=== PATIENT | female | born 1955 | race Caucasian/White ===

== ENCOUNTER 2017-02-22 12:45 | Emergency (ER) | payer MEDICARE, OTHER ==
[2017-02-22] MEDS ORDERED: RX INFO: IV CONTRAST WAS GIVEN 1 EACH MISC MISCELLANE PRN (12:51)
[2017-02-22 13:07] LABS: Basophils # (A) 0.1 k/uL (0-0.2); Basophils % (A) 1 %; CH 33.9; CHCM 34.4; Eosinophils # (A) 0.1 k/uL (0-0.7); Eosinophils % (A) 1 %; HCT 42.6 % (34.0-46.0); HDW 2.85; Luc # (Auto) 0.13; Luc % (Auto) 2; Lymphocytes # (A) 1.9 k/uL (1.0-4.8); Lymphocytes % (A) 27 %; MCH 32.6 pg (25.0-35.0); Mean Platelet Volume 9.1; Monocytes # (A) 0.3 k/uL (0-1.0); Monocytes % (A) 4 %; Neutrophils # (A) 4.5 k/uL (1.3-7.7); Neutrophils % (A) 65 %; RDW 14.1 % (11.5-15.5); WBC (Perox) 6.86
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
[2017-02-22 13:14] LABS: ALT 45 U/L (9-52); AST 38 U/L (14-36); Alcohol <10 mg/dL; Alkaline Phosphatase 85 U/L (38-126); Amylase 35 U/L (30-110); Anion Gap 12 mmol/L; Blood Urea Nitrogen 11 mg/dL (7-17); Carbon Dioxide 28 mmol/L (22-30); Chloride 104 mmol/L (98-107); Glucose 108 mg/dL (74-99); Non-African American GFR(MDRD) >60 (>60 ml/min/1.73 sqM); Sodium 144 mmol/L (137-145); Total Bilirubin 0.7 mg/dL (0.2-1.3)
[2017-02-22 13:23] LABS: INR 1.2 (<1.2); Partial Thromboplastin Time 26.1 sec (22.0-30.0); Prothrombin Time 11.8 sec (9.0-12.0)
[2017-02-22 13:27] LABS: Creatine Kinase 33 U/L (30-135)
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
[2017-02-22] MEDS ORDERED: DIPH,PERTUS(ACELL)TETVAC-LF 0.5 ML VIAL IM ONE (13:34)
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
[2017-02-22 13:39] LABS: Creatine Kinase MB 1.1 ng/mL (0.0-2.4); Troponin I <0.012 ng/mL (0.000-0.034)
[2017-02-22 14:22] LABS: Appearance,Urine Clear (Clear); Bilirubin,Urine Negative (Negative); Glucose,Urine (UA) Negative (Negative); Ketones,Urine Negative (Negative); Leukocyte Esterase,Urine Negative (Negative); Nitrite,Urine Negative (Negative); PH, Urine 7.5 (5.0-8.0); Protein,Urine Negative (Negative); Specific Gravity,Urine 1.026 (1.001-1.035); UA Billing (MACRO vs. MICRO) CHEM; Urobilinogen,Urine <2.0 mg/dL (<2.0)
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
[2017-02-22] MEDS ORDERED: LORazepam 2 MG/ML SYRINGE IV STA (16:14)
[2017-02-22] MEDS ORDERED: PHENYTOIN SODIUM INJ 1,000 MG in SODIUM CHLORIDE 0.9% 100 ML IVPB STA (16:16)
[2017-02-22 16:23] LABS: Glucose,Whole Blood 81 mg/dL (75-99)
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
== END 2017-02-22 17:28 | disposition other institution (70) ==
LOC: EC 12:45
DX: S06.0X9A Concussion with loss of consciousness of unspecified duration, initial encounter (principal); S01.511A Laceration without foreign body of lip, initial encounter; S00.532A Contusion of oral cavity, initial encounter; S20.20XA Contusion of thorax, unspecified, initial encounter; R56.9 Unspecified convulsions; R40.2412 Glasgow coma scale score 13-15, at arrival to emergency department; R10.13 Epigastric pain; F32.9 Major depressive disorder, single episode, unspecified; I11.0 Hypertensive heart disease with heart failure; I50.9 Heart failure, unspecified; Z23 Encounter for immunization; Z96.611 Presence of right artificial shoulder joint; Z88.1 Allergy status to other antibiotic agents; Z88.2 Allergy status to sulfonamides; Z88.5 Allergy status to narcotic agent; Z79.891 Long term (current) use of opiate analgesic; Z79.899 Other long term (current) drug therapy; Z87.891 Personal history of nicotine dependence; V57.5XXA Driver of pick-up truck or van injured in collision with fixed or stationary object in traffic accident, initial encounter; W22.11XA Striking against or struck by driver side automobile airbag, initial encounter; Y92.410 Unspecified street and highway as the place of occurrence of the external cause
CPT/HCPCS: 99291; 96365; 96366; 96375; 90471; 36415; 93005; 86900; 86901; 80053; 82150; 82550; 82553; 83605; 83690; 84484; 85025; 85610; 85730; 86850; 81003; 80306; 80320; 71010; 72170; 72125; 70450; 71260; 74177; 90715; J2060; J1165; Q9967

== ENCOUNTER → 2017-03-23 | Outpatient (CLI) | payer OTHER ==
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
== END | disposition home or self-care (01) ==
LOC: RADMRIMAIN 09:04
PROVIDERS: ATTEND Surgery
DX: S06.899A Other specified intracranial injury with loss of consciousness of unspecified duration, initial encounter (principal); R90.82 White matter disease, unspecified
CPT/HCPCS: 70553; A9581

== ENCOUNTER 2018-08-07 11:41 | Inpatient (IN) | payer MEDICARE, OTHER ==
[2018-08-07] MEDS ORDERED: SODIUM CHLORIDE 0.9% 500 ML 500 ML IV ONE (12:06)
--- NOTE | 2018-08-07 12:14 | ED ---
General Adult HPI - General Chief complaint: Altered Mental Status Stated complaint: seizures Time Seen by Provider: 08/07/18 11:55 Source: patient, RN notes reviewed, old records reviewed Mode of arrival: ambulatory Limitations: no limitations - History of Present Illness Initial comments: 62-year-old female history of opiate dependence on methadone presenting with worsening confusion, altered mental status, and frequent falls as well as concern for multiple seizures. Patient has history of seizure disorder, currently on Keppra. No recent medication changes. She is accompanied by her sister who is able to give history. She states over the past 5 days patient has had frequent falls, concern for frequent seizures although none of these have been witnessed. Patient was significantly confused over the past 3 days. Not knowing her family members, person, place, year. Patient denies pain complaints. Laboratory to time states time my evaluation. - Related Data Home Medications Medication Instructions Recorded Confirmed Propranolol [Inderal] 20 mg PO DAILY 04/01/16 08/07/18 amLODIPine BESYLATE [Amlodipine 10 mg PO DAILY 04/01/16 08/07/18 Besylate] Methadone [Dolophine] 80 mg OP DAILY 02/22/17 08/07/18 Pregabalin [Lyrica] 50 mg PO BID 08/07/18 08/07/18 buPROPion HCL [Wellbutrin SR] 150 mg PO TID 08/07/18 08/07/18 levETIRAcetam [Keppra Xr] 750 mg PO DAILY 08/07/18 08/07/18 Allergies Allergy/AdvReac Type Severity Reaction Status Date / Time clindamycin Allergy Swelling Verified 08/07/18 12:08 Sulfa (Sulfonamide Allergy Nausea & Verified 08/07/18 12:08 Antibiotics) Vomiting narcotics AdvReac Unknown Uncoded 08/07/18 11:51 Review of Systems ROS Statement: Those systems with pertinent positive or pertinent negative responses have been documented in the HPI. ROS Other: All systems not noted in ROS Statement are negative. Past Medical History Past Medical History: Heart Failure, COPD, Hypertension, Liver Disease, Renal Disease, Seizure Disorder, Sleep Apnea/CPAP/BIPAP Additional Past Medical History / Comment(s): [place] bilaterally, weakness and falls, R knee pain from recent fall, hepatitis c, numbness/tingling bilateral feet and legs, chronic R shoulder pain, wears a brace to L forearm due to previous fracture with surgical repair from a fall, HELEN and is suppose to wear CPAP but does not, past cellulitis bilateral lower legs. History of Any Multi-Drug Resistant Organisms: None Reported Past Surgical History: Joint Replacement, Orthopedic Surgery Additional Past Surgical History / Comment(s): R shoulder arthroplasty due to fx from fall 2015, L forearm fracture with surgical repair including bone graft , colonoscopy. Additional Past Anesthesia/Blood Transfusion Reaction / Comment(s): Pt is slow to wake Past Psychological History: Depression Smoking Status: Former smoker Past Alcohol Use History: None Reported Past Drug Use History: None Reported - Past Family History Father Family Medical History: Diabetes Mellitus Additional Family Medical History / Comment(s): Father was murdered Mother Family Medical History: Chest Pain / Angina, COPD, Renal Disease Additional Family Medical History / Comment(s): Mother is 82 yrs old. General Exam Limitations: no limitations General appearance: alert, in no apparent distress Head exam: Present: atraumatic, normocephalic Eye exam: Present: normal appearance, PERRL, EOMI ENT exam: Present: mucous membranes dry Neck exam: Present: normal inspection. Absent: tenderness, meningismus Respiratory exam: Present: normal lung sounds bilaterally. Absent: respiratory distress, wheezes Cardiovascular Exam: Present: regular rate, normal rhythm GI/Abdominal exam: Present: soft. Absent: distended, tenderness, guarding Extremities exam: Present: normal inspection, full ROM, normal capillary refill Neurological exam: Present: alert, CN II-XII intact. Absent: oriented X3, motor sensory deficit Psychiatric exam: Present: normal affect, normal mood Skin exam: Present: warm, dry, intact. Absent: cyanosis, diaphoretic Course Vital Signs 08/07/18 08/07/18 11:48 14:10 Temperature 98.4 F Pulse Rate 71 70 Respiratory 18 18 Rate Blood Pressure 154/77 153/86 O2 Sat by Pulse 98 Oximetry EKG Findings - EKG Comments: EKG Findings:: EKG: Normal sinus rhythm, rate of 73, MD interval 190, QRS duration 88, QTC 445, no ST segment changes Medical Decision Making - Medical Decision Making 62-year-old female with worsening confusion, multiple falls, recurrent seizures with history of seizure disorder. Patient has normal CBC, normal CMP, normal urinalysis, head CT shows chronic atrophy with no acute findings. Patient has a nonfocal neurologic exam. This is likely progression of her disease. Did discuss case with Dr. Robins who is familiar with this patient, will admit for further evaluation and treatment. - Lab Data Result diagrams: 08/07/18 12:20 08/07/18 12:20 Lab Results 08/07/18 08/07/18 08/07/18 Range/Units 12:20 12:20 12:20 WBC 6.5 (3.8-10.6) k/uL RBC 4.39 (3.80-5.40) m/uL Hgb 13.7 (11.4-16.0) gm/dL Hct 41.8 (34.0-46.0) % MCV 95.1 (80.0-100.0) fL MCH 31.1 (25.0-35.0) pg MCHC 32.7 (31.0-37.0) g/dL RDW 13.4 (11.5-15.5) % Plt Count 165 (150-450) k/uL Neutrophils % 72 % Lymphocytes % 19 % Monocytes % 5 % Eosinophils % 2 % Basophils % 0 % Neutrophils # 4.7 (1.3-7.7) k/uL Lymphocytes # 1.3 (1.0-4.8) k/uL Monocytes # 0.3 (0-1.0) k/uL Eosinophils # 0.1 (0-0.7) k/uL Basophils # 0.0 (0-0.2) k/uL PT (9.0-12.0) sec INR (<1.2) APTT (22.0-30.0) sec Sodium 141 (137-145) mmol/L Potassium 5.3 H (3.5-5.1) mmol/L Chloride 104 (98-107) mmol/L Carbon Dioxide 29 (22-30) mmol/L Anion Gap 8 mmol/L BUN 18 H (7-17) mg/dL Creatinine 0.51 L (0.52-1.04) mg/dL Est GFR (CKD-EPI)AfAm >90 (>60 ml/min/1.73 sqM) Est GFR (CKD-EPI)NonAf >90 (>60 ml/min/1.73 sqM) Glucose 107 H (74-99) mg/dL POC Glucose (mg/dL) (75-99) mg/dL POC Glu Computer Repair Instructor ID Calcium 9.5 (8.4-10.2) mg/dL Total Bilirubin 1.1 (0.2-1.3) mg/dL AST 70 H (14-36) U/L ALT 50 (9-52) U/L Alkaline Phosphatase 101 (38-126) U/L Ammonia (<30) umol/L Total Creatine Kinase 50 (30-135) U/L CK-MB (CK-2) 1.1 (0.0-2.4) ng/mL CK-MB (CK-2) Rel Index 2.2 Troponin I <0.012 (0.000-0.034) ng/mL Total Protein 7.6 (6.3-8.2) g/dL Albumin 4.2 (3.5-5.0) g/dL Urine Color Urine Appearance (Clear) Urine pH (5.0-8.0) Ur Specific Foster (1.001-1.035) Urine Protein (Negative) Urine Glucose (UA) (Negative) Urine Ketones (Negative) Urine Blood (Negative) Urine Nitrite (Negative) Urine Bilirubin (Negative) Urine Urobilinogen (<2.0) mg/dL Ur Leukocyte Esterase (Negative) 08/07/18 08/07/18 08/07/18 Range/Units 12:20 12:20 12:57 WBC (3.8-10.6) k/uL RBC (3.80-5.40) m/uL Hgb (11.4-16.0) gm/dL Hct (34.0-46.0) % MCV (80.0-100.0) fL MCH (25.0-35.0) pg MCHC (31.0-37.0) g/dL RDW (11.5-15.5) % Plt Count (150-450) k/uL Neutrophils % % Lymphocytes % % Monocytes % % Eosinophils % % Basophils % % Neutrophils # (1.3-7.7) k/uL Lymphocytes # (1.0-4.8) k/uL Monocytes # (0-1.0) k/uL Eosinophils # (0-0.7) k/uL Basophils # (0-0.2) k/uL PT 10.5 (9.0-12.0) sec INR 1.0 (<1.2) APTT 25.5 (22.0-30.0) sec Sodium (137-145) mmol/L Potassium (3.5-5.1) mmol/L Chloride (98-107) mmol/L Carbon Dioxide (22-30) mmol/L Anion Gap mmol/L BUN (7-17) mg/dL Creatinine (0.52-1.04) mg/dL Est GFR (CKD-EPI)AfAm (>60 ml/min/1.73 sqM) Est GFR (CKD-EPI)NonAf (>60 ml/min/1.73 sqM) Glucose (74-99) mg/dL POC Glucose (mg/dL) 96 (75-99) mg/dL POC Glu Computer [employer]air Instructor ID Krishna Wren Calcium (8.4-10.2) mg/dL Total Bilirubin (0.2-1.3) mg/dL AST (14-36) U/L ALT (9-52) U/L Alkaline Phosphatase (38-126) U/L Ammonia <9 (<30) umol/L Total Creatine Kinase (30-135) U/L CK-MB (CK-2) (0.0-2.4) ng/mL CK-MB (CK-2) Rel Index Troponin I (0.000-0.034) ng/mL Total Protein (6.3-8.2) g/dL Albumin (3.5-5.0) g/dL Urine Color Urine Appearance (Clear) Urine pH (5.0-8.0) Ur Specific [place] (1.001-1.035) Urine Protein (Negative) Urine Glucose (UA) (Negative) Urine Ketones (Negative) Urine Blood (Negative) Urine Nitrite (Negative) Urine Bilirubin (Negative) Urine Urobilinogen (<2.0) mg/dL Ur Leukocyte Esterase (Negative) 08/07/18 Range/Units 13:58 WBC (3.8-10.6) k/uL RBC (3.80-5.40) m/uL Hgb (11.4-16.0) gm/dL Hct (34.0-46.0) % MCV (80.0-100.0) fL MCH (25.0-35.0) pg MCHC (31.0-37.0) g/dL RDW (11.5-15.5) % Plt Count (150-450) k/uL Neutrophils % % Lymphocytes % % Monocytes % % Eosinophils % % Basophils % % Neutrophils # (1.3-7.7) k/uL Lymphocytes # (1.0-4.8) k/uL Monocytes # (0-1.0) k/uL Eosinophils # (0-0.7) k/uL Basophils # (0-0.2) k/uL PT (9.0-12.0) sec INR (<1.2) APTT (22.0-30.0) sec Sodium (137-145) mmol/L Potassium (3.5-5.1) mmol/L Chloride (98-107) mmol/L Carbon Dioxide (22-30) mmol/L Anion Gap mmol/L BUN (7-17) mg/dL Creatinine (0.52-1.04) mg/dL Est GFR (CKD-EPI)AfAm (>60 ml/min/1.73 sqM) Est GFR (CKD-EPI)NonAf (>60 ml/min/1.73 sqM) Glucose (74-99) mg/dL POC Glucose (mg/dL) (75-99) mg/dL POC Glu Computer Repair Instructor ID Calcium (8.4-10.2) mg/dL Total Bilirubin (0.2-1.3) mg/dL AST (14-36) U/L ALT (9-52) U/L Alkaline Phosphatase (38-126) U/L Ammonia (<30) umol/L Total Creatine Kinase (30-135) U/L CK-MB (CK-2) (0.0-2.4) ng/mL CK-MB (CK-2) Rel Index Troponin I (0.000-0.034) ng/mL Total Protein (6.3-8.2) g/dL Albumin (3.5-5.0) g/dL Urine Color Yellow Urine Appearance Clear (Clear) Urine pH 7.0 (5.0-8.0) Ur Specific [place] 1.015 (1.001-1.035) Urine Protein Negative (Negative) Urine Glucose (UA) Negative (Negative) Urine Ketones Negative (Negative) Urine Blood Negative (Negative) Urine Nitrite Negative (Negative) Urine Bilirubin Negative (Negative) Urine Urobilinogen <2.0 (<2.0) mg/dL Ur Leukocyte Esterase Negative (Negative) Disposition Clinical Impression: Altered mental status Disposition: ADMITTED IP TO THIS HOSP Condition: Stable Is patient prescribed a controlled substance at d/c from ED?: No Referrals: Clarke Robins MD [Primary Care Provider] - 1-2 days Decision to Admit Reason: Admit from EC Decision Date: 08/07/18 Decision Time: 14:28
[2018-08-07 12:59] LABS: Glucose,Whole Blood 96 mg/dL (75-99)
[2018-08-07 13:16] LABS: Basophils % (A) 0 %; Eosinophils # (A) 0.1 k/uL (0-0.7); Eosinophils % (A) 2 %; HCT 41.8 % (34.0-46.0); HGB 13.7 gm/dL (11.4-16.0); Lymphocytes # (A) 1.3 k/uL (1.0-4.8); Lymphocytes % (A) 19 %; MCH 31.1 pg (25.0-35.0); MCHC 32.7 g/dL (31.0-37.0); MCV 95.1 fL (80.0-100.0); Mean Platelet Volume 7.8; Monocytes # (A) 0.3 k/uL (0-1.0); Monocytes % (A) 5 %; Neutrophils # (A) 4.7 k/uL (1.3-7.7); Neutrophils % (A) 72 %; Platelet Count 165 k/uL (150-450); RBC 4.39 m/uL (3.80-5.40); RDW 13.4 % (11.5-15.5); WBC 6.5 k/uL (3.8-10.6)
[2018-08-07 13:27] LABS: Partial Thromboplastin Time 25.5 sec (22.0-30.0); Prothrombin Time 10.5 sec (9.0-12.0)
--- NOTE | 2018-08-07 13:28 | CT ---
EXAMINATION TYPE: CT brain wo con DATE OF EXAM: 08/07/2018 COMPARISON: None HISTORY: Seizure CT DLP: 1050.[address] of the brain was performed. The ventricles, basal cisterns and sulci overlying the cerebral convexities demonstrate mild enlargem ent. There is no evidence for intracranial hemorrhage or sulcal effacement. There is decreased attenuation about the periventricular white matter and deep white matter of both c erebral hemispheres, compatible with chronic small vessel ischemia. Differential diagnosis does inclu de demyelination. No mass effects are seen.No midline shift. Osseous calvarium is intact. If symptoms persist consider MRI. IMPRESSION: 1. Age related atrophic and chronic small vessel ischemic change without acute intracranial process s een at this time.
--- NOTE | 2018-08-07 13:29 | XR ---
EXAMINATION TYPE: XR chest 2V DATE OF EXAM: 08/07/2018 COMPARISON: February 22, 2017 HISTORY: Shortness of breath TECHNIQUE: Frontal and lateral views of the chest are obtained. FINDINGS: Scattered senescent parenchymal changes noted. Hyperinflation compatible with COPD. No evidence for infiltrate. No evidence for atelectasis. Heart size is stable. Mediastinal structures are stable and grossly unremarkable. No evidence for hilar prominence. Degenerative changes dorsal spine. Right shoulder prosthesis IMPRESSION: 1. No evidence for acute pulmonary disease.
[2018-08-07 13:31] LABS: ALT 50 U/L (9-52); AST 70 U/L (14-36); Albumin 4.2 g/dL (3.5-5.0); Alkaline Phosphatase 101 U/L (38-126); Anion Gap 8 mmol/L; Blood Urea Nitrogen 18 mg/dL (7-17); Calcium 9.5 mg/dL (8.4-10.2); Carbon Dioxide 29 mmol/L (22-30); Chloride 104 mmol/L (98-107); Glucose 107 mg/dL (74-99); Sodium 141 mmol/L (137-145); Total Bilirubin 1.1 mg/dL (0.2-1.3); Total Protein 7.6 g/dL (6.3-8.2)
[2018-08-07 13:34] LABS: Potassium 5.3 mmol/L (3.5-5.1)
--- NOTE | 2018-08-07 13:48 | XR ---
EXAMINATION TYPE: XR pelvis AP view DATE OF EXAM: 08/07/2018 CLINICAL HISTORY: pain TECHNIQUE: Single view the pelvis is submitted. FINDINGS: No evidence for fracture, dislocation or bony lesion. Joint spaces are well-preserved. S I joints appear symmetric. IMPRESSION: 1. No acute fracture or dislocation seen. ICD 10 NO FRACTURE, INITIAL EVALUATION
[2018-08-07 14:01] LABS: Creatine Kinase 50 U/L (30-135)
[2018-08-07 14:14] LABS: Creatine Kinase MB 1.1 ng/mL (0.0-2.4); Troponin I <0.012 ng/mL (0.000-0.034)
[2018-08-07 14:19] LABS: Appearance,Urine Clear (Clear); Bilirubin,Urine Negative (Negative); Blood,Urine Negative (Negative); Color,Urine Yellow; Glucose,Urine (UA) Negative (Negative); Ketones,Urine Negative (Negative); Leukocyte Esterase,Urine Negative (Negative); Nitrite,Urine Negative (Negative); Protein,Urine Negative (Negative); Specific Gravity,Urine 1.015 (1.001-1.035); Urobilinogen,Urine <2.0 mg/dL (<2.0)
[2018-08-07] MEDS ORDERED: ACETAMINOPHEN TAB 325 MG TAB PO PRN (14:24)
[2018-08-07] MEDS ORDERED: NALOXONE 0.4 MG/ML 1 ML VIAL IV PRN (14:24)
[2018-08-07 14:28] LABS: Amphetamine Screen,Urine Not Detected (NotDetected); Barbiturate Screen,Urine Not Detected (NotDetected); Benzodiazepines Screen,Urine Not Detected (NotDetected); Cocaine Screen,Urine Not Detected (NotDetected); Methadone Screen, Urine Detected (NotDetected); Opiate Screen,Urine Not Detected (NotDetected); Oxycodone Screen, Urine Not Detected (NotDetected); Phencyclidine Screen,Urine Not Detected (NotDetected); Tricyclic Antidepressant,Urine Not Detected (NotDetected); Urn Cannabinoid Scrn Not Detected (NotDetected)
[2018-08-07] MEDS: SODIUM CHLORIDE 0.9% 1,000 ML IV SCH (16:15)
[2018-08-07] MEDS: PREGABALIN 50 MG CAP PO SCH (21:12)
[2018-08-07] MEDS: buPROPion SR 150 MG TABLET.ER PO SCH (21:12)
[2018-08-08] MEDS: amLODIPine 10 MG TAB PO SCH (08:51)
[2018-08-08] MEDS: PREGABALIN 50 MG CAP PO SCH ×2 (08:51→20:23)
[2018-08-08] MEDS: buPROPion SR 150 MG TABLET.ER PO SCH ×3 (08:51→20:23)
[2018-08-08] MEDS: levETIRAcetam 250 MG TAB PO SCH ×3 (08:51→20:23)
[2018-08-08] MEDS: METHADONE 10 MG TAB PO SCH (08:52)
[2018-08-08] MEDS: PROPRANOLOL 20 MG TAB PO SCH (08:55)
--- NOTE | 2018-08-08 09:12 | P.HPIM ---
History of Present Illness H&P Date: 08/08/18 Chief Complaint: Altered mental status This is a history and physical an 62-year-old white female with known history of opiate dependence on methadone chronically with history of hypertension which is stable. However, there were she's getting her medication recently and she has possibly on the withdrawal but even with her medication she has become more disoriented and the sister reports violent behavior. Her sister is an estate planning attorney [place] the [place] and has been continue very good job helping take care of her. She has been living fairly independently other than assistance from her sister but now is disoriented. Computed tomography scan of the head does not show acute changes. No significant fever or chills are stated. No dysuria. When queried, she is not oriented to time and place. Review of Systems Constitutional: Denies chills, Denies fever Eyes: denies blurred vision, denies pain Ears, nose, mouth and throat: Denies headache, Denies sore throat Cardiovascular: Denies chest pain, Denies shortness of breath Respiratory: Denies cough Gastrointestinal: Denies abdominal pain, Denies diarrhea, Denies nausea, Denies vomiting Genitourinary: Denies dysuria, Denies hematuria Past Medical History Past Medical History: Heart Failure, COPD, Hypertension, Liver Disease, Seizure Disorder, Sleep Apnea/CPAP/BIPAP Additional Past Medical History / Comment(s): [place] bilaterally, weakness and falls, R knee pain from recent fall, hepatitis c-pt believes she was tx for it in [place], numbness/tingling bilateral feet and legs, chronic R shoulder pain, wears a brace to L forearm due to previous fracture with surgical repair from a fall, [place] and is suppose to wear CPAP but does not, past cellulitis bilateral lower legs. pt stated has had a pne vaccine not sure of date,publicity writer unable to verify date at time of this admit,please f/u in am. History of Any Multi-Drug Resistant Organisms: None Reported Past Surgical History: Joint Replacement, Orthopedic Surgery Additional Past Surgical History / Comment(s): R shoulder arthroplasty due to fx from fall 2014, L forearm fracture with surgical repair including bone graft , colonoscopy. Additional Past Anesthesia/Blood Transfusion Reaction / Comment(s): Pt is slow to wake Smoking Status: Former smoker - Past Family History Father Family Medical History: Diabetes Mellitus Additional Family Medical History / Comment(s): Father was murdered Mother Family Medical History: Chest Pain / Angina, COPD, Renal Disease Additional Family Medical History / Comment(s): Mother is 82 yrs old. Medications and Allergies Home Medications Medication Instructions Recorded Confirmed Type Propranolol [Inderal] 20 mg PO DAILY 04/01/16 08/07/18 History amLODIPine BESYLATE [Amlodipine 10 mg PO DAILY 04/01/16 08/07/18 History Besylate] Methadone [Dolophine] 80 mg OP DAILY 02/22/17 08/07/18 History Pregabalin [Lyrica] 50 mg PO BID 08/07/18 08/07/18 History buPROPion HCL [Wellbutrin SR] 150 mg PO TID 08/07/18 08/07/18 History levETIRAcetam [Keppra Xr] 750 mg PO DAILY 08/07/18 08/07/18 History Allergies Allergy/AdvReac Type Severity Reaction Status Date / Time clindamycin Allergy Swelling Verified 08/07/18 12:08 Sulfa (Sulfonamide Allergy Nausea & Verified 08/07/18 12:08 Antibiotics) Vomiting narcotics AdvReac Unknown Uncoded 08/07/18 11:51 Physical Exam Vitals: Vital Signs Temp Pulse Pulse Resp BP BP BP 08/08/18 06:00 98.1 F 66 20 175/80 08/08/18 00:32 166/76 08/07/18 23:20 97.1 F L 84 20 172/80 08/07/18 17:20 98.9 F 76 18 165/78 08/07/18 15:25 98.4 F 74 18 144/74 08/07/18 14:10 70 18 153/86 08/07/18 11:48 98.4 F 71 18 154/77 Pulse Ox 08/08/18 06:00 98 08/08/18 00:32 08/07/18 23:20 98 08/07/18 17:20 97 08/07/18 15:25 98 08/07/18 14:10 98 08/07/18 11:48 Intake and Output 08/07/18 08/08/18 08/08/18 22:59 06:59 14:59 Intake Total 200 100 Output Total 2 Balance 198 100 Intake: Oral 200 100 Output: Stool 2 Other: Voiding Method Toilet # Voids 3 - Constitutional General appearance: no acute distress - EENT Eyes: EOMI - Neck Neck: no lymphadenopathy - Cardiovascular Rhythm: regular Heart sounds: normal: S1, S2 Abnormal Heart Sounds: no S3 Gallop - Gastrointestinal General gastrointestinal: soft, no tenderness - Psychiatric Psychiatric: no A&O x's 3 Results CBC & Chem 7: 08/07/18 12:20 08/07/18 12:20 Labs: Abnormal Lab Results - Last 24 Hours (Table) 08/07/18 08/07/18 Range/Units 12:20 13:58 Potassium 5.3 H (3.5-5.1) mmol/L BUN 18 H (7-17) mg/dL Creatinine 0.51 L (0.52-1.04) mg/dL Glucose 107 H (74-99) mg/dL AST 70 H (14-36) U/L Urine Methadone Screen Detected H (NotDetected) Thrombosis Risk Factor Assmnt - Choose All That Apply Each Risk Factor Represents 2 Points: Age 61-74 years Thrombosis Risk Factor Assessment Total Risk Factor Score: 2 Thrombosis Risk Factor Assessment Level: Low Risk Assessment and Plan (1) Altered mental status Current Visit: Yes Status: Acute Code(s): R41.82 - ALTERED MENTAL STATUS, UNSPECIFIED SNOMED Code(s): 767188656 (2) Opiate dependence, continuous Current Visit: No Status: Acute Code(s): F11.20 - OPIOID DEPENDENCE, UNCOMPLICATED SNOMED Code(s): 125537992 (3) Weakness Current Visit: No Status: Acute Code(s): R53.1 - WEAKNESS SNOMED Code(s): 13065791 (4) Multiple falls Current Visit: No Status: Chronic Code(s): R29.6 - REPEATED FALLS SNOMED Code(s): 907914475 Plan: Discharge following placement issues. Check CBC and CMP in a.m. per Reconcile medications. Prognosis is guarded secondary to her mental state at this time. Neurologic consultation if possible. See orders otherwise. Time with Patient: Greater than 30
[2018-08-08] MEDS: SODIUM CHLORIDE 0.9% 1,000 ML IV SCH (12:45)
[2018-08-08] MEDS ORDERED: LORazepam 2 MG/ML INJ IV PRN (18:03)
[2018-08-08] MEDS: ZOLPIDEM 5 MG TAB PO PRN (20:23)
[2018-08-09] MEDS: PROPRANOLOL 20 MG TAB PO SCH (08:25)
[2018-08-09] MEDS: METHADONE 10 MG TAB PO SCH (08:25)
[2018-08-09] MEDS: levETIRAcetam 250 MG TAB PO SCH ×3 (08:25→20:16)
[2018-08-09] MEDS: amLODIPine 10 MG TAB PO SCH (08:25)
[2018-08-09] MEDS: buPROPion SR 150 MG TABLET.ER PO SCH ×3 (08:25→20:16)
[2018-08-09] MEDS: PREGABALIN 50 MG CAP PO SCH ×2 (08:26→20:16)
--- NOTE | 2018-08-09 08:46 | P.PN ---
Subjective Progress Note Date: 08/09/18 Principal diagnosis: Altered mental status which is improving. The patient is here essentially because of acute delirium. Question element of withdrawal from methadone. The patient has been on this product for quit some time. The patient is much improved this morning as far as her neuro check. No fever or chills stated. No nausea, vomiting or diarrhea is noted. Objective - Vital Signs Vital signs: Vital Signs Temp 97.8 F 08/09/18 06:27 Pulse 59 L 08/09/18 06:27 Resp 14 08/09/18 06:27 BP 158/80 08/09/18 06:27 Pulse Ox 98 08/08/18 23:00 Intake & Output 08/08/18 08/09/18 08/09/18 18:59 06:59 18:59 Output Total 600 600 Balance -600 -600 Output: Urine 600 600 Other: Voiding Method Toilet # Voids 2 1 - Constitutional General appearance: Present: average body habitus - EENT Eyes: Absent: abnormal pupil - Neck Neck: Present: lymphadenopathy - Respiratory Respiratory: bilateral: CTA - Cardiovascular Rhythm: regular Heart sounds: normal: S1, S2 Abnormal Heart Sounds: Absent: S3 Gallop - Gastrointestinal General gastrointestinal: Present: soft. Absent: tenderness - Neurologic Neurologic: Present: CNII-XII intact. Absent: focal deficits - Psychiatric Psychiatric: Present: appropriate affect - Labs CBC & Chem 7: 08/07/18 12:20 08/07/18 12:20 Assessment and Plan (1) Altered mental status Current Visit: Yes Status: Acute Code(s): R41.82 - ALTERED MENTAL STATUS, UNSPECIFIED SNOMED Code(s): 981068195 (2) Opiate dependence, continuous Current Visit: Yes Status: Acute Code(s): F11.20 - OPIOID DEPENDENCE, UNCOMPLICATED SNOMED Code(s): 148337677 (3) Weakness Current Visit: Yes Status: Acute Code(s): R53.1 - WEAKNESS SNOMED Code(s) : 90981903 (4) Multiple falls Current Visit: Yes Status: Chronic Code(s): R29.6 - REPEATED FALLS SNOMED Code(s): 230785584 Plan: Continue neurologic checks every shift for now. I'm hopeful that we don't need necessary transfer to [facility] if she improves mentally. Continue to follow, anticipate discharge in the a.m. Time with Patient: Less than 30
[2018-08-09 09:48] LABS: HCT 45.4 % (34.0-46.0); HGB 14.3 gm/dL (11.4-16.0); MCH 30.3 pg (25.0-35.0); MCHC 31.5 g/dL (31.0-37.0); MCV 96.4 fL (80.0-100.0); Mean Platelet Volume 8.3; Platelet Count 180 k/uL (150-450); RBC 4.71 m/uL (3.80-5.40); RDW 13.6 % (11.5-15.5); WBC 6.3 k/uL (3.8-10.6)
[2018-08-09 10:03] LABS: ALT 45 U/L (9-52); AST 52 U/L (14-36); Albumin 3.7 g/dL (3.5-5.0); Alkaline Phosphatase 99 U/L (38-126); Anion Gap 6 mmol/L; Blood Urea Nitrogen 14 mg/dL (7-17); Calcium 9.5 mg/dL (8.4-10.2); Carbon Dioxide 32 mmol/L (22-30); Chloride 105 mmol/L (98-107); Glucose 99 mg/dL (74-99); Potassium 4.4 mmol/L (3.5-5.1); Sodium 143 mmol/L (137-145); Total Bilirubin 0.7 mg/dL (0.2-1.3); Total Protein 6.6 g/dL (6.3-8.2)
[2018-08-09] MEDS: SODIUM CHLORIDE 0.9% 1,000 ML IV SCH (14:06)
[2018-08-09] MEDS: ZOLPIDEM 5 MG TAB PO PRN (20:16)
[2018-08-09 22:53] VITALS: RESP 18
[2018-08-10 05:58] VITALS: BP 135/70; PULSE 64; TEMP 97.8
[2018-08-10] MEDS: PROPRANOLOL 20 MG TAB PO SCH (07:41)
[2018-08-10] MEDS: METHADONE 10 MG TAB PO SCH (07:41)
[2018-08-10] MEDS: PREGABALIN 50 MG CAP PO SCH (07:41)
[2018-08-10] MEDS: buPROPion SR 150 MG TABLET.ER PO SCH (07:41)
[2018-08-10] MEDS: levETIRAcetam 250 MG TAB PO SCH (07:42)
--- NOTE | 2018-08-10 07:43 | P.DS ---
Providers Date of admission: 08/08/18 08:56 Attending physician: Clarke Robins Primary care physician: Clarke Robins - Discharge Diagnosis(es) (1) Altered mental status Current Visit: Yes Status: Acute (2) Opiate dependence, continuous Current Visit: Yes Status: Acute (3) Weakness Current Visit: Yes Status: Acute (4) Multiple falls Current Visit: Yes Status: Chronic Hospital Course: This discharge summary 62-year-old white female essentially admitted for altered mental status. She had episode of delirium and we had thought that this is most likely related to medication changes. She had difficulty getting her methadone. However, she started becoming more verbally abusive and sometimes violent to her sister, who has been her power of buying agent and caregiver. The patient was admitted for observation. Computed tomography scan did not show of the head significant issue. However, she did not resolve back to her normal baseline. Due to this, the family has requested neurologic transfer to tertiary care center for complete evaluation. The patient is somewhat agreeable and because of her risk of the fact that she does live alone , I suspect this is the better part of November good family decision. She'll be transferred to tertiary care center, most likely [facility] or [facility]. Patient Condition at Discharge: Fair Plan - Discharge Summary Discharge Rx Participant: No New Discharge Prescriptions: New Acetaminophen Tab [Tylenol] 650 mg PO Q6HR PRN tab PRN Reason: Mild Pain Or Fever > 100.5 Zolpidem [Ambien] 5 mg PO HS PRN tab PRN Reason: Agitation Or Acute Anxiety No Action amLODIPine BESYLATE [Amlodipine Besylate] 10 mg PO DAILY Propranolol [Inderal] 20 mg PO DAILY Methadone [Dolophine] 80 mg OP DAILY Pregabalin [Lyrica] 50 mg PO BID levETIRAcetam [Keppra Xr] 750 mg PO DAILY buPROPion HCL [Wellbutrin SR] 150 mg PO TID Discharge Medication List Propranolol [Inderal] 20 mg PO DAILY 04/01/16 [History] amLODIPine BESYLATE [Amlodipine Besylate] 10 mg PO DAILY 04/01/16 [History] Methadone [Dolophine] 80 mg OP DAILY 02/22/17 [History] Pregabalin [Lyrica] 50 mg PO BID 08/07/18 [History] buPROPion HCL [Wellbutrin SR] 150 mg PO TID 08/07/18 [History] levETIRAcetam [Keppra Xr] 750 mg PO DAILY 08/07/18 [History] Acetaminophen Tab [Tylenol] 650 mg PO Q6HR PRN tab 08/10/18 [Rx] Zolpidem [Ambien] 5 mg PO HS PRN tab 08/10/18 [Rx] Follow up Appointment(s)/Referral(s): Clarke Robins MD [Primary Care Provider] - 1-2 days
[2018-08-10] MEDS: amLODIPine 10 MG TAB PO SCH (07:46)
--- NOTE | 2018-08-10 09:37 | US ---
EXAMINATION TYPE: US carotid duplex BILAT DATE OF EXAM: 08/10/2018 COMPARISON: NONE CLINICAL HISTORY: altered mental status. Patient stated had episode of altered mental status lasting approximately less than 24 hours. EXAM MEASUREMENTS: RIGHT: Peak Systolic Velocity (PSV) cm/sec ----- Right CCA: 53.8 ----- Right ICA: 69.1 ----- Right ECA: 63.9 ICA/CCA ratio: 1.3 RIGHT: End Diastole cm/sec ----- Right CCA: 14.7 ----- Right ICA: 18.5 ----- Right ECA: 9.6 LEFT: Peak Systolic Velocity (PSV) cm/sec ----- Left CCA: 64.3 ----- Left ICA: 53.8 ----- Left ECA: 43.3 ICA/CCA ratio: 0.8 LEFT: End Diastole cm/sec ----- Left CCA: 14.5 ----- Left ICA: 11.0 ----- Left ECA: .0. VERTEBRALS (direction of flow): Right Vertebral: Antegrade Left Vertebral: Antegrade Rhythm: Normal Hyperechoic intimal wall changes are noted at bilateral carotid bifurcation, but PSV is wnl bilateral ly. Grayscale, color Doppler, spectral Doppler imaging performed of the carotid arteries. Waveform analys is does not show significant stenosis of the proximal internal carotid arteries. IMPRESSION: No hemodynamic significant stenosis of the proximal internal carotid arteries bilaterall y by Doppler criteria, an indirect measurement of carotid stenosis
== END 2018-08-10 11:35 | disposition short-term general hospital (02) | DRG 897 ==
LOC: EC 11:41 → 4MS4W 14:35 → OBSVTOIN 08-08 08:56
PROVIDERS: ADMIT Family Medicine; ATTEND Family Medicine
DX: F11.23 Opioid dependence with withdrawal (principal); G40.909 Epilepsy, unspecified, not intractable, without status epilepticus; G47.33 Obstructive sleep apnea (adult) (pediatric); Z99.89 Dependence on other enabling machines and devices; I11.0 Hypertensive heart disease with heart failure; I50.9 Heart failure, unspecified; J44.9 Chronic obstructive pulmonary disease, unspecified; R29.6 Repeated falls; Z79.899 Other long term (current) drug therapy; Z82.5 Family history of asthma and other chronic lower respiratory diseases; Z83.3 Family history of diabetes mellitus; Z87.891 Personal history of nicotine dependence; Z96.611 Presence of right artificial shoulder joint; Z88.1 Allergy status to other antibiotic agents; Z88.2 Allergy status to sulfonamides; R40.2142 Coma scale, eyes open, spontaneous, at arrival to emergency department; R40.2362 Coma scale, best motor response, obeys commands, at arrival to emergency department; R40.2242 Coma scale, best verbal response, confused conversation, at arrival to emergency department
CPT/HCPCS: 36415; 70450; 71046; 72170; 80053; 80306; 81003; 82140; 82550; 82553; 84484; 85025; 85027; 85610; 85730; 93005; 93880; 96360; 96361; 99285

== ENCOUNTER → 2020-05-04 | Outpatient (CLI) | payer MEDICARE ==
[2020-05-04 10:33] LABS: African American GFR (CKD) >90 (>60 ml/min/1.73 sqM); Blood Urea Nitrogen 20 mg/dL (7-17); Non-African American GFR(CKD) >90 (>60 ml/min/1.73 sqM)
--- NOTE | 2020-05-05 13:22 | CT ---
EXAMINATION TYPE: CT ChestAbdPelvis w con DATE OF EXAM: 05/04/2020 COMPARISON: CT chest abdomen pelvis 02/22/2017. MRI brain 03/23/2017. HISTORY: brain mass CT DLP: 599.6 mGycm Automated exposure control for dose reduction was used. CONTRAST: CT scan of the chest, abdomen and pelvis is performed with Oral Contrast and with IV Contrast, patien t injected with 100 mL of Isovue 300. FINDINGS: LUNGS: The lungs are grossly clear, there is no concerning parenchymal mass or nodule identified. T here is no pleural effusion or pneumothorax seen. The tracheobronchial tree is patent. MEDIASTINUM/SOFT TISSUES: No axillary, hilar, or mediastinal lymphadenopathy greater than 1 cm. Cardi ac size is normal. No pericardial effusion. Calcified coronary artery disease. No thoracic aortic ane urysm. LIVER: Normal. BILIARY SYSTEM: Normal. PANCREAS: Normal. SPLEEN: Normal. ADRENALS: Normal. KIDNEYS: Nonobstructing bilateral renal calculi measuring up to 2 mm. No hydronephrosis or hydrourete r. Too small to characterize hypodense lesion of the right kidney. BOWEL: No obstruction or thickening. Moderate volume colonic fecal debris. PERITONEUM: No pneumoperitoneum. No free fluid. LYMPH NODES: No lymphadenopathy. PELVIS: Normal. VASCULATURE: No abdominal aortic aneurysm. MUSCULOSKELETAL: There are several redemonstrated compression deformities involving L2, L1, and T7. There is a compression deformity of T8 which was not seen on 2017 CT comparison. Superior endplate co mpression deformity of L4 was also not seen on 2017 comparison, and may be related to degenerative Sc hmorl's node. IMPRESSION: 1. No evidence of thoracic, abdominal, or pelvic mass. 2. Bilateral nonobstructing renal calculi. No hydronephrosis. 3. Multilevel compression deformities of the thoracic and lumbar spine, many of which are redemonstra jace, although mild compression deformities at T8 and L4 are age-indeterminate and not demonstrated on 2017 comparison.
== END | disposition home or self-care (01) ==
LOC: RADCTMAIN 09:34
PROVIDERS: ATTEND Internal Medicine Hematology & Oncology
DX: N20.0 Calculus of kidney (principal); D49.6 Neoplasm of unspecified behavior of brain; Z88.2 Allergy status to sulfonamides
CPT/HCPCS: 82565; 84520; 71260; 74177; 36415; Q9967

== ENCOUNTER 2020-07-08 13:30 | Emergency (ER) | payer MEDICARE ==
[2020-07-08 13:36] VITALS: RESP 16; TEMP 98.2
[2020-07-08] MEDS ORDERED: ONDANSETRON 4 MG/2 ML VIAL IVP STA (13:48)
[2020-07-08] MEDS ORDERED: MORPHINE SULFATE 4 MG/ML SYRINGE IVP STA (13:48)
--- NOTE | 2020-07-08 14:42 | XR ---
Right humerus HISTORY: Pain Frontal lateral views of the right humerus and 6 images Correlation to prior exam 04/01/2016 There is a transverse fracture distal to the stem along the proximal diaphysis of the right humerus. Small ossific densities are present lateral to the insertion site in the proximal humerus, some fragm entation is present with lucency present along the junction of the proximal humerus and the stem of t he prosthesis. There is no dislocation. Patient is status post right shoulder arthroplasty. There is cortical thickening present at the mid to distal diaphyseal right humerus, some endosteal scalloping is present along the revision of the humerus stem and cement. IMPRESSION: Fracture of the right humerus is minimally displaced. Question remodeling of the humerus and ostium, possible reaction to the underlying prosthesis or cement, particle disease.
[2020-07-08] MEDS ORDERED: HYDROmorphone 0.5 MG/0.5 ML SYRINGE IVP STA (15:39)
[2020-07-08 15:56] VITALS: BP 154/75; PULSE 76
--- NOTE | 2020-07-08 16:07 | ED ---
General Adult HPI - General Chief complaint: Fall Stated complaint: R SHOULDER PAIN Time Seen by Provider: 07/08/20 13:36 Source: patient, EMS, RN notes reviewed Mode of arrival: EMS Limitations: no limitations - History of Present Illness Initial comments: 64-year-old female with a past medical history of heart failure, COPD, hypertension, liver disease, previous right shoulder surgery presents to the emergency room for a chief complaint of right shoulder pain. Patient was getting out of bed when she slipped. She states that she cleaned her floors yesterday and was wearing fuzzy socks and this caused her to slip. She fell on the right shoulder. She reports she did not hit her head. She denies any neck chest or back pain. She states that she is only having pain in the right arm. Patient did have a prosthesis placed [address] Audie Rodrigues. Patient has no other complaints at this time including shortness of breath, chest pain, abdominal pain, nausea or vomiting, headache, or visual changes. - Related Data Home Medications Medication Instructions Recorded Confirmed Propranolol [Inderal] 20 mg PO DAILY 04/01/16 08/07/18 amLODIPine BESYLATE [Amlodipine 10 mg PO DAILY 04/01/16 08/07/18 Besylate] Methadone [Dolophine] 80 mg OP DAILY 02/22/17 08/07/18 Pregabalin [Lyrica] 50 mg PO BID 08/07/18 08/07/18 buPROPion HCL [Wellbutrin SR] 150 mg PO TID 08/07/18 08/07/18 levETIRAcetam [Keppra Xr] 750 mg PO DAILY 08/07/18 08/07/18 Previous Rx's Medication Instructions Recorded Acetaminophen Tab [Tylenol] 650 mg PO Q6HR PRN tab 08/10/18 Zolpidem [Ambien] 5 mg PO HS PRN tab 08/10/18 Allergies Allergy/AdvReac Type Severity Reaction Status Date / Time clindamycin Allergy Swelling Verified 08/07/18 12:08 Sulfa (Sulfonamide Allergy Nausea & Verified 08/07/18 12:08 Antibiotics) Vomiting Review of Systems ROS Statement: Those systems with pertinent positive or pertinent negative responses have been documented in the HPI. ROS Other: All systems not noted in ROS Statement are negative. Past Medical History Past Medical History: Heart Failure, COPD, Hypertension, Liver Disease, Seizure Disorder, Sleep Apnea/CPAP/BIPAP Additional Past Medical History / Comment(s): [place] bilaterally, weakness and falls, R knee pain from recent fall, hepatitis c-pt believes she was tx for it in [place], numbness/tingling bilateral feet and legs, chronic R shoulder pain, wears a brace to L forearm due to previous fracture with surgical repair from a fall, HELEN and is suppose to wear CPAP but does not, past cellulitis bilateral lower legs. pt stated has had a pne vaccine not sure of date,health technical writer unable to verify date at time of this admit,please f/u in am. History of Any Multi-Drug Resistant Organisms: None Reported Past Surgical History: Joint Replacement, Orthopedic Surgery Additional Past Surgical History / Comment(s): R shoulder arthroplasty due to fx from fall 2014, L forearm fracture with surgical repair including bone graft, colonoscopy. Additional Past Anesthesia/Blood Transfusion Reaction / Comment(s): Pt is slow to wake Past Psychological History: Depression Past Alcohol Use History: None Reported Past Drug Use History: None Reported - Past Family History Father Family Medical History: Diabetes Mellitus Additional Family Medical History / Comment(s): Father was murdered Mother Family Medical History: Chest Pain / Angina, COPD, Renal Disease Additional Family Medical History / Comment(s): Mother is 82 yrs old. General Exam Limitations: no limitations General appearance: alert, in no apparent distress Head exam: Present: atraumatic, normocephalic, normal inspection Eye exam: Present: normal appearance, PERRL, EOMI. Absent: scleral icterus, conjunctival injection, periorbital swelling ENT exam: Present: normal exam, mucous membranes moist Neck exam: Present: normal inspection, full ROM. Absent: tenderness, meningismus, lymphadenopathy Respiratory exam: Present: normal lung sounds bilaterally. Absent: respiratory distress, wheezes, rales, rhonchi, stridor Cardiovascular Exam: Present: regular rate, normal rhythm, normal heart sounds. Absent: systolic murmur, diastolic murmur, rubs, gallop, clicks GI/Abdominal exam: Present: soft, normal bowel sounds. Absent: distended, tenderness, guarding, rebound, rigid Extremities exam: Present: normal capillary refill (Capillary refill less than 2 seconds, radial pulses 2+ in the right upper extremity.), other (Patient does have tenderness noted to the proximal right humerus. There is also slight edema and ecchymosis in this area.). Absent: full ROM (Patient unable to move the right shoulder secondary to pain.) Course Vital Signs 07/08/20 07/08/20 13:32 15:56 Temperature 98.2 F Pulse Rate 70 76 Respiratory 16 16 Rate Blood Pressure 144/74 154/75 O2 Sat by Pulse 96 96 Oximetry Medical Decision Making - Medical Decision Making Vitals are stable. Patient slipped while getting out of bed secondary to a mechanical fall. She fell on the right shoulder and did not sustain any other injuries. On exam neurovascular status is intact right upper extremity. She does have edema and ecchymosis of the right upper arm with tenderness noted to the proximal humerus. X-ray does show a transverse fracture distal to this thumb along the proximal diaphysis of the right humerus. Question remodeling of the humerus and ostium, possible reaction to the underlying prosthesis or cement, particle disease. At this time I discussed the case with Dani Salazar PA-C who belongs to our on-call orthopedic group [facility]. They are recommending higher level of care and transfer to trauma team. Several trauma delays including calling [facility], on hold with [facility] transfer team, and transfer [facility] delay - Lab Data Lab Results 07/08/20 Range/Units 15:36 Coronavirus (PCR) Not Detected (Not Detectd) Disposition Clinical Impression: Humerus fracture Disposition: OTHER INSTITUTION NOT DEFINED Condition: Fair Is patient prescribed a controlled substance at d/c from ED?: No Referrals: Clarke Robins MD [Primary Care Provider] - 1-2 days Time of Disposition: 16:06 - Out of Hospital Transfer - Req. Specs Out of Hospital Transfer - Requested Specifics: Other Emergency Center ([facility])
== END 2020-07-08 17:00 | disposition other institution (70) ==
LOC: EC 13:30
DX: S42.301A Unspecified fracture of shaft of humerus, right arm, initial encounter for closed fracture (principal); I11.0 Hypertensive heart disease with heart failure; I50.9 Heart failure, unspecified; J44.9 Chronic obstructive pulmonary disease, unspecified; G40.909 Epilepsy, unspecified, not intractable, without status epilepticus; G47.33 Obstructive sleep apnea (adult) (pediatric); F32.9 Major depressive disorder, single episode, unspecified; Z20.828 Contact with and (suspected) exposure to other viral communicable diseases; Z79.899 Other long term (current) drug therapy; Z88.1 Allergy status to other antibiotic agents; Z88.2 Allergy status to sulfonamides; Z96.611 Presence of right artificial shoulder joint; Z99.89 Dependence on other enabling machines and devices; W01.0XXA Fall on same level from slipping, tripping and stumbling without subsequent striking against object, initial encounter; Y92.003 Bedroom of unspecified non-institutional (private) residence as the place of occurrence of the external cause
CPT/HCPCS: 87635; 73060; 99284; 96374; 96375 ×2; J2270; J2405; J1170

== ENCOUNTER → 2020-10-28 | Outpatient (CLI) | payer MEDICARE ==
--- NOTE | 2020-10-29 06:46 | CT ---
EXAMINATION TYPE: CT brain wo con DATE OF EXAM: 10/28/2020 HISTORY: seizure activity, multiple falls CT DLP: 1136.10 mGycm. Automated Exposure Control for Dose Reduction was Utilized. TECHNIQUE: CT scan of the head is performed without contrast. COMPARISON: CT brain August 07, 2018. FINDINGS: There is no acute intracranial hemorrhage or midline shift identified. There is mild to m oderate diffuse ventricular and sulcal prominence consistent with diffuse age-related cerebral atroph y. There is mild to moderate low-attenuation in the periventricular white matter consistent with chr onic small vessel ischemic change. The globes are intact and the visualized sinuses are clear. Old nasal bone fracture is partially imaged. Soft tissue density consistent with cerumen in the bilatera l external auditory canals is present. Persistent anterior metopic suture. IMPRESSION: No acute intracranial hemorrhage or midline shift. There is mild to moderate diffuse ag e-related cerebral atrophy and chronic small vessel ischemic change redemonstrated. No significant c hange from prior study.
== END | disposition home or self-care (01) ==
LOC: RADCTMAIN 18:22
PROVIDERS: ATTEND Family Medicine
DX: I67.82 Cerebral ischemia (principal); G31.9 Degenerative disease of nervous system, unspecified; R29.6 Repeated falls
CPT/HCPCS: 70450

== ENCOUNTER 2020-11-09 15:08 | Emergency (ER) | payer MEDICARE ==
[2020-11-09] MEDS ORDERED: ACETAMINOPHEN TAB 325 MG TAB PO STA (16:38)
--- NOTE | 2020-11-09 16:40 | ED ---
Wound/Laceration HPI - General Source: patient, family, RN notes reviewed Mode of arrival: wheelchair Limitations: no limitations <Yo Reyes - Last Filed: 11/09/20 18:13> <Fani Bain - Last Filed: 11/10/20 12:47> - General Chief Complaint: Wound/Laceration Stated Complaint: Fall, head laceration Time Seen by Provider: 11/09/20 16:28 - History of Present Illness Initial Comments: Patient is a 65-year-old female that presents emergency department with a head laceration status post fall earlier today. Her daughter was with her and she noted that she falls quite often but today she hit her head on the tile floor split open it was bleeding pretty good. Patient denies any blood thinners or loss of consciousness. Patient was in a hard c-collar during the exam interview patient is that her pain is about what she usually experiences on a daily basis for chronic issues. She notes she hasn't taken any pain medication today. She was alert while sitting up in her chair during the exam interview. Head wound was covered and clean bandage was removed to inspect the laceration. She denied any chest pain shortness of breath nausea vomiting diarrhea constipation fever fatigue chills change in vision change in hearing. (Yo Reyes) - Related Data Home Medications Medication Instructions Recorded Confirmed Propranolol [Inderal] 20 mg PO DAILY 04/01/16 08/07/18 amLODIPine BESYLATE [Amlodipine 10 mg PO DAILY 04/01/16 08/07/18 Besylate] Methadone [Dolophine] 80 mg OP DAILY 02/22/17 08/07/18 Pregabalin [Lyrica] 50 mg PO BID 08/07/18 08/07/18 buPROPion HCL [Wellbutrin SR] 150 mg PO TID 08/07/18 08/07/18 levETIRAcetam [Keppra Xr] 750 mg PO DAILY 08/07/18 08/07/18 Previous Rx's Medication Instructions Recorded Acetaminophen Tab [Tylenol] 650 mg PO Q6HR PRN tab 08/10/18 Zolpidem [Ambien] 5 mg PO HS PRN tab 08/10/18 Allergies Allergy/AdvReac Type Severity Reaction Status Date / Time clindamycin Allergy Swelling Verified 11/09/20 15:31 Sulfa (Sulfonamide Allergy Nausea & Verified 11/09/20 15:31 Antibiotics) Vomiting Review of Systems ROS Other: All systems not noted in ROS Statement are negative. <Yo Reyes - Last Filed: 11/09/20 18:13> ROS Other: All systems not noted in ROS Statement are negative. <Fani Bain - Last Filed: 11/10/20 12:47> ROS Statement: Those systems with pertinent positive or pertinent negative responses have been documented in the HPI. Past Medical History Past Medical History: Heart Failure, COPD, Hypertension, Liver Disease, Seizure Disorder, Sleep Apnea/CPAP/BIPAP Additional Past Medical History / Comment(s): [place] bilaterally, weakness and falls, R knee pain from recent fall, hepatitis c-pt believes she was tx for it in [place], numbness/tingling bilateral feet and legs, chronic R shoulder pain, wears a brace to L forearm due to previous fracture with surgical repair from a fall, [place] and is suppose to wear CPAP but does not, past cellulitis bilateral lower legs. pt stated has had a pne vaccine not sure of date,newswriter unable to verify date at time of this admit,please f/u in am. History of Any Multi-Drug Resistant Organisms: None Reported Past Surgical History: Joint Replacement, Orthopedic Surgery Additional Past Surgical History / Comment(s): R shoulder arthroplasty due to fx from fall 2014, L forearm fracture with surgical repair including bone graft, colonoscopy. Additional Past Anesthesia/Blood Transfusion Reaction / Comment(s): Pt is slow to wake Past Psychological History: Depression Past Alcohol Use History: None Reported Past Drug Use History: None Reported - Past Family History Father Family Medical History: Diabetes Mellitus Additional Family Medical History / Comment(s): Father was murdered Mother Family Medical History: Chest Pain / Angina, COPD, Renal Disease Additional Family Medical History / Comment(s): Mother is 82 yrs old. <Yo Reyes - Last Filed: 11/09/20 18:13> General Exam Limitations: no limitations General appearance: alert, in no apparent distress Head exam: Present: normocephalic, normal inspection. Absent: atraumatic (Laceration to the posterior right side of the scalp covert in a clean dry dressing with dried blood matting there down.) Eye exam: Present: normal appearance, PERRL, EOMI. Absent: scleral icterus, conjunctival injection, periorbital swelling Neck exam: Present: normal inspection, other (C-collar in place) Respiratory exam: Present: normal lung sounds bilaterally. Absent: respiratory distress, wheezes, rales, rhonchi, stridor Cardiovascular Exam: Present: regular rate, normal rhythm, normal heart sounds. Absent: systolic murmur, diastolic murmur, rubs, gallop, clicks Extremities exam: Present: normal inspection (Bony prominence to the posterior aspect of the right shoulder), normal capillary refill. Absent: full ROM, tenderness, pedal edema, joint swelling, calf tenderness Neurological exam: Present: alert, oriented X3, CN II-XII intact Psychiatric exam: Present: normal affect, normal mood Skin exam: Present: warm, dry, intact, normal color. Absent: rash <Yo Reyes - Last Filed: 11/09/20 18:13> Course Vital Signs 11/09/20 11/09/20 15:26 18:32 Temperature 98.0 F 98 F Pulse Rate 61 66 Respiratory 16 18 Rate Blood Pressure 126/53 144/76 O2 Sat by Pulse 97 96 Oximetry Procedures - Laceration Laceration #1 Consent Obtained: verbal consent Site: scalp Size (cm): 4 Description: linear Depth: simple, single layer Pre-repair: irrigated extensively Type of Sutures: other (staple) Size of Sutures: other (staple) Number of Sutures: 4 Technique: other (Staple) Patient Tolerated Procedure: well, no complications <Yo Reyes - Last Filed: 11/09/20 18:13> Medical Decision Making - Radiology Data Radiology results: report reviewed, image reviewed <Yo Reyes - Last Filed: 11/09/20 18:13> <Fani Bain - Last Filed: 11/10/20 12:47> - Medical Decision Making 65-year-old female with head laceration status post fall on tile floor earlier today. CT of the brain and C-spine, x-ray of the right shoulder, [address] and x-ray both negative for any acute process fractures or dislocations. Case discussed with Dr. Bain, patient can discharge home with family. (Yo Reyes) I was available for consultation in the emergency department. The history and physical exam were done by the midlevel provider. I was consulted for this patients care. I reviewed the case with the midlevel provider and based on their presentation of the patient, I agree with the assessment, medical decision making and plan of care as documented. Chart was dictated using [employer] dictation software. Attempts were made to correct any dictation errors however some typographical errors may persist. Patient was seen during a national state of emergency due to the Covid-19 p andemic. (Fani Bain) - Radiology Data Right humerus x-ray: Chronic right humeral midshaft periprosthetic fracture and concerning for malunion. CT of the brain and C-spine: Right parietal scalp hematoma. No acute intracranial abnormality. Incidental 2.27-year-old left parietal lobe extra axial lesion. No acute fracture of the cervical spine. Moderate cervical spondylosis with minimal spondylosis listhesis. (Yo Reyes) Disposition Is patient prescribed a controlled substance at d/c from ED?: No Time of Disposition: 18:15 <Yo Reyes - Last Filed: 11/09/20 18:13> <Fani Bain - Last Filed: 11/10/20 12:47> Clinical Impression: Laceration, Fall Disposition: HOME SELF-CARE Condition: Stable Instructions (If sedation given, give patient instructions): Fall Prevention for Older Adults (ED) Additional Instructions: Please return to the Emergency Department if symptoms worsen or any other concerns. Can wash with warm water and gentle soap. Come back in 10 days for staple removal. Take [id number] pain medication for pain management. Follow-up with primary care in 2-4 days. Referrals: Clarke Robins MD [Primary Care Provider] - 1-2 days
--- NOTE | 2020-11-09 17:16 | XR ---
RESULT: HISTORY: Shoulder pain TECHNIQUE: 3 views of the right humerus were obtained. COMPARISON: 07/08/2020. FINDINGS: There is a chronic periprosthetic fracture of the right humeral midshaft involving the tip of the pro sthesis. There is mild displacement of the fractured, similar to the prior study. There is interval m oderate callus formation with osseous remodeling and persistent fracture line seen. Otherwise stable right shoulder arthroplasty. No evidence of dislocation or new fracture. IMPRESSION: Chronic right humeral mid shaft periprosthetic fracture and concerning for malunion.
--- NOTE | 2020-11-09 17:59 | CT ---
EXAMINATION TYPE: CT brain fannieine wo con DATE OF EXAM: 11/09/2020 COMPARISON: 10/28/2020 HISTORY: Fall with laceration to head CT DLP: 1370.5 mGycm Automated exposure control for dose reduction was used. TECHNIQUE: CT scan of the head and cervical spine are performed without contrast. FINDINGS: There is no acute intracranial hemorrhage, mass effect, or midline shift identified. Ther e is unchanged 1.6 x 1.5 x 2.2 cm extra-axial, dural based lesion overlying the left parietal convexi ty. The ventricles and sulci are within normal limits in size. There is mild white matter disease and parenchymal volume loss. There is mild right parietal scalp hematoma. The globes are intact and the visualized sinuses are clear. Cervical spine is visualized in its entirety from C1 through upper thoracic levels and demonstrates n o acute fracture. Prevertebral soft tissue appears within normal limits. There is moderate C5-C7 spo ndylosis. There is degenerative minimal anterolisthesis of C3 and C4 The C1-C2 articulation is unrema rkable. IMPRESSION: Right parietal scalp hematoma. No acute intracranial abnormality. Incidental 2.2 cm left parietal lobe extra-axial lesion. Considerations include meningioma. No acute fracture of the cervical spine. Moderate cervical spondylosis with minimal spondylolisthesis.
[2020-11-09 18:34] VITALS: BP 144/76; PULSE 66; RESP 18; TEMP 98
== END 2020-11-09 18:32 | disposition home or self-care (01) ==
LOC: EC 15:08
DX: S01.01XA Laceration without foreign body of scalp, initial encounter (principal); I11.0 Hypertensive heart disease with heart failure; I50.9 Heart failure, unspecified; J44.9 Chronic obstructive pulmonary disease, unspecified; F32.9 Major depressive disorder, single episode, unspecified; G40.909 Epilepsy, unspecified, not intractable, without status epilepticus; G47.33 Obstructive sleep apnea (adult) (pediatric); Z99.81 Dependence on supplemental oxygen; W22.8XXA Striking against or struck by other objects, initial encounter
CPT/HCPCS: 12002; 70450; 72125; 99284

== ENCOUNTER 2020-12-25 12:18 | Observation (INO) | payer MEDICARE ==
[2020-12-25 12:27] LABS: Glucose,Whole Blood 197 mg/dL (75-99)
[2020-12-25] MEDS ORDERED: SODIUM CHLORIDE 0.9% 1,000 ML IV ONE (12:28)
--- NOTE | 2020-12-25 12:33 | ED ---
General Adult HPI - General Chief complaint: Fall Stated complaint: Fall Time Seen by Provider: 12/25/20 12:22 Source: patient, EMS, RN notes reviewed Mode of arrival: EMS Limitations: altered mental status, physical limitation - History of Present Illness Initial comments: Patient is a pleasant [age]-year-old female presenting to the emergency Departm ent with fall and change in mental status. Family is not present however reportedly will be coming later today. Patient does admit to having a fall however believes it was a couple of days ago. Patient does admit to having somewhat of a headache. Patient does not feel confused however there is report of confusion. Patient also reportedly has some developmental delay. Patient does have reported history of seizures however has not had seizure since she started her current medication. No report of recent seizure. - Related Data Home Medications Medication Instructions Recorded Confirmed Propranolol [Inderal] 20 mg PO DAILY 04/01/16 12/25/20 amLODIPine BESYLATE [Amlodipine 10 mg PO DAILY 04/01/16 12/25/20 Besylate] Methadone [Dolophine] 20 mg OP Q6H 02/22/17 12/25/20 buPROPion HCL [Wellbutrin SR] 150 mg PO TID 08/07/18 12/25/20 Albuterol Sulfate [Proair 1 - 2 puff INHALATION RT-Q6H PRN 12/25/20 12/25/20 Respiclick] Ketorolac 0.5% Ophth Soln [Acular 1 drop RIGHT EYE QID 12/25/20 12/25/20 0.5%] LORazepam [Ativan] 0.5 mg PO BID PRN 12/25/20 12/25/20 Pregabalin [Lyrica] 75 mg PO BID PRN 12/25/20 12/25/20 Previous Rx's Medication Instructions Recorded Acetaminophen Tab [Tylenol] 650 mg PO Q6HR PRN tab 08/10/18 Allergies Allergy/AdvReac Type Severity Reaction Status Date / Time clindamycin Allergy Swelling Verified 12/25/20 14:13 Sulfa (Sulfonamide Allergy Nausea & Verified 12/25/20 14:13 Antibiotics) Vomiting Review of Systems ROS Statement: Those systems with pertinent positive or pertinent negative responses have been documented in the HPI. ROS Other: All systems not noted in ROS Statement are negative. Constitutional: Denies: fever Eyes: Denies: eye pain ENT: Denies: ear pain Respiratory: Denies: cough Cardiovascular: Denies: chest pain Endocrine: Denies: fatigue Gastrointestinal: Denies: abdominal pain Genitourinary: Denies: dysuria Musculoskeletal: Denies: back pain Skin: Denies: rash Neurological: Reports: as per HPI, headache, confusion Past Medical History Past Medical History: Heart Failure, COPD, Hypertension, Liver Disease, Seizure Disorder, Sleep Apnea/CPAP/BIPAP Additional Past Medical History / Comment(s): [place] bilaterally, weakness and falls, R knee pain from recent fall, hepatitis c-pt believes she was tx for it in [place], numbness/tingling bilateral feet and legs, chronic R shoulder pain, wears a brace to L forearm due to previous fracture with surgical repair from a fall, HELEN and is suppose to wear CPAP but does not, past cellulitis bilateral lower legs. pt stated has had a pne vaccine not sure of date,grant writer unable to verify date at time of this admit,please f/u in am. History of Any Multi-Drug Resistant Organisms: None Reported Past Surgical History: Joint Replacement, Orthopedic Surgery Additional Past Surgical History / Comment(s): R shoulder arthroplasty due to fx from fall 2014, L forearm fracture with surgical repair including bone graft, colonoscopy. Additional Past Anesthesia/Blood Transfusion Reaction / Comment(s): Pt is slow to wake Past Psychological History: Depression Past Alcohol Use History: None Reported Past Drug Use History: None Reported - Past Family History Father Family Medical History: Diabetes Mellitus Additional Family Medical History / Comment(s): Father was murdered Mother Family Medical History: Chest Pain / Angina, COPD, Renal Disease Additional Family Medical History / Comment(s): Mother is 82 yrs old. General Exam Limitations: altered mental status, physical limitation General appearance: alert, in no apparent distress Head exam: Present: normocephalic Eye exam: Present: normal appearance, PERRL, EOMI. Absent: nystagmus ENT exam: Present: other (Right zygomatic region with tenderness and ecchymosis) Neck exam: Present: normal inspection, tenderness (Mild diffuse tenderness) Respiratory exam: Present: normal lung sounds bilaterally Cardiovascular Exam: Present: regular rate, normal rhythm GI/Abdominal exam: Present: soft. Absent: tenderness Extremities exam: Present: normal inspection, full ROM. Absent: tenderness Back exam: Present: normal inspection. Absent: tenderness, vertebral tenderness Neurological exam: Present: alert, oriented X3, CN II-XII intact. Absent: motor sensory deficit Expanded Motor strength exam: RUE: 5, LUE: 5, RLE: 5, LLE: 5 Eye Response: (4) open spontaneously Motor Response: (6) obeys commands Verbal Response: (5) oriented Psychiatric exam: Present: normal affect, normal mood Skin exam: Present: other (Right facial ecchymosis) Course Vital Signs 12/25/20 12/25/20 12/25/20 12:21 12:49 14:11 Temperature 98.7 F Pulse Rate 69 65 59 L Respiratory 18 18 16 Rate Blood Pressure 112/55 114/47 108/56 O2 Sat by Pulse 95 97 Oximetry EKG Findings - EKG Comments: EKG Findings:: Normal sinus rhythm with a rate of 66. For screening AV block with a WA of 202. QRS 88. QT 420. QTc 440.left axis. Normal QRS. No acute ST change. Medical Decision Making - Medical Decision Making Patient reevaluated. Family still not present. Case discussed with Dr. Monge, covering for Dr. Robins, who will admit. - Lab Data Result diagrams: 12/25/20 12:33 12/25/20 12:33 Lab Results 12/25/20 12/25/20 12/25/20 Range/Units 12:25 12:33 12:33 WBC 4.8 (3.8-10.6) k/uL RBC 4.04 (3.80-5.40) m/uL Hgb 12.4 (11.4-16.0) gm/dL Hct 38.3 (34.0-46.0) % MCV 94.8 (80.0-100.0) fL MCH 30.8 (25.0-35.0) pg MCHC 32.5 (31.0-37.0) g/dL RDW 13.9 (11.5-15.5) % Plt Count 135 L (150-450) k/uL MPV 9.5 Neutrophils % 62 % Lymphocytes % 27 % Monocytes % 5 % Eosinophils % 3 % Basophils % 0 % Neutrophils # 3.0 (1.3-7.7) k/uL Lymphocytes # 1.3 (1.0-4.8) k/uL Monocytes # 0.2 (0-1.0) k/uL Eosinophils # 0.1 (0-0.7) k/uL Basophils # 0.0 (0-0.2) k/uL PT 11.3 (9.0-12.0) sec INR 1.1 (<1.2) APTT 25.7 (22.0-30.0) sec Sodium (137-145) mmol/L Potassium (3.5-5.1) mmol/L Chloride (98-107) mmol/L Carbon Dioxide (22-30) mmol/L Anion Gap mmol/L BUN (7-17) mg/dL Creatinine (0.52-1.04) mg/dL Est GFR (CKD-EPI)AfAm (>60 ml/min/1.73 sqM) Est GFR (CKD-EPI)NonAf (>60 ml/min/1.73 sqM) Glucose (74-99) mg/dL POC Glucose (mg/dL) 197 H (75-99) mg/dL POC Glu Cream Beater ID [place] Calcium (8.4-10.2) mg/dL Total Bilirubin (0.2-1.3) mg/dL AST (14-36) U/L ALT (4-34) U/L Alkaline Phosphatase (38-126) U/L Ammonia (<30) umol/L Creatine Kinase (30-135) U/L Troponin I (0.000-0.034) ng/mL Total Protein (6.3-8.2) g/dL Albumin (3.5-5.0) g/dL Urine Color Urine Appearance (Clear) Urine pH (5.0-8.0) Ur Specific [place] (1.001-1.035) Urine Protein (Negative) Urine Glucose (UA) (Negative) Urine Ketones (Negative) Urine Blood (Negative) Urine Nitrite (Negative) Urine Bilirubin (Negative) Urine Urobilinogen (<2.0) mg/dL Ur Leukocyte Esterase (Negative) Urine Opiates Screen (NotDetected) Ur Oxycodone Screen (NotDetected) Urine Methadone Screen (NotDetected) Ur Propoxyphene Screen (NotDetected) Ur Barbiturates Screen (NotDetected) U Tricyclic Antidepress (NotDetected) Ur Phencyclidine Scrn (NotDetected) Ur Amphetamines Screen (NotDetected) U Methamphetamines Scrn (NotDetected) U Benzodiazepines Scrn (NotDetected) Urine Cocaine Screen (NotDetected) U Marijuana (THC) Screen (NotDetected) Serum Alcohol mg/dL 12/25/20 12/25/20 12/25/20 Range/Units 12:33 12:33 12:33 WBC (3.8-10.6) k/uL RBC (3.80-5.40) m/uL Hgb (11.4-16.0) gm/dL Hct (34.0-46.0) % MCV (80.0-100.0) fL MCH (25.0-35.0) pg MCHC (31.0-37.0) g/dL RDW (11.5-15.5) % Plt Count (150-450) k/uL MPV Neutrophils % % Lymphocytes % % Monocytes % % Eosinophils % % Basophils % % Neutrophils # (1.3-7.7) k/uL Lymphocytes # (1.0-4.8) k/uL Monocytes # (0-1.0) k/uL Eosinophils # (0-0.7) k/uL Basophils # (0-0.2) k/uL PT (9.0-12.0) sec INR (<1.2) APTT (22.0-30.0) sec Sodium 145 (137-145) mmol/L Potassium 3.8 (3.5-5.1) mmol/L Chloride 109 H (98-107) mmol/L Carbon Dioxide 30 (22-30) mmol/L Anion Gap 6 mmol/L BUN 16 (7-17) mg/dL Creatinine 0.57 (0.52-1.04) mg/dL Est GFR (CKD-EPI)AfAm >90 (>60 ml/min/1.73 sqM) Est GFR (CKD-EPI)NonAf >90 (>60 ml/min/1.73 sqM) Glucose 193 H (74-99) mg/dL POC Glucose (mg/dL) (75-99) mg/dL POC Glu Cream Beater ID Calcium 8.9 (8.4-10.2) mg/dL Total Bilirubin 0.6 (0.2-1.3) mg/dL AST 62 H (14-36) U/L ALT 32 (4-34) U/L Alkaline Phosphatase 111 (38-126) U/L Ammonia <9 (<30) umol/L Creatine Kinase 112 (30-135) U/L Troponin I (0.000-0.034) ng/mL Total Protein 5.6 L (6.3-8.2) g/dL Albumin 3.2 L (3.5-5.0) g/dL Urine Color Yellow Urine Appearance Clear (Clear) Urine pH 5.5 (5.0-8.0) Ur Specific [place] 1.024 (1.001-1.035) Urine Protein Negative (Negative) Urine Glucose (UA) Negative (Negative) Urine Ketones Negative (Negative) Urine Blood Negative (Negative) Urine Nitrite Negative (Negative) Urine Bilirubin Negative (Negative) Urine Urobilinogen 2.0 (<2.0) mg/dL Ur Leukocyte Esterase Negative (Negative) Urine Opiates Screen Not Detected (NotDetected) Ur Oxycodone Screen Not Detected (NotDetected) Urine Methadone Screen Detected H (NotDetected) Ur Propoxyphene Screen Not Detected (NotDetected) Ur Barbiturates Screen Not Detected (NotDetected) U Tricyclic Antidepress Not Detected (NotDetected) Ur Phencyclidine Scrn Not Detected (NotDetected) Ur Amphetamines Screen Not Detected (NotDetected) U Methamphetamines Scrn Not Detected (NotDetected) U Benzodiazepines Scrn Detected H (NotDetected) Urine Cocaine Screen Not Detected (NotDetected) U Marijuana (THC) Screen Not Detected (NotDetected) Serum Alcohol <10 mg/dL 12/25/20 Range/Units 12:33 WBC (3.8-10.6) k/uL RBC (3.80-5.40) m/uL Hgb (11.4-16.0) gm/dL Hct (34.0-46.0) % MCV (80.0-100.0) fL MCH (25.0-35.0) pg MCHC (31.0-37.0) g/dL RDW (11.5-15.5) % Plt Count (150-450) k/uL MPV Neutrophils % % Lymphocytes % % Monocytes % % Eosinophils % % Basophils % % Neutrophils # (1.3-7.7) k/uL Lymphocytes # (1.0-4.8) k/uL Monocytes # (0-1.0) k/uL Eosinophils # (0-0.7) k/uL Basophils # (0-0.2) k/uL PT (9.0-12.0) sec INR (<1.2) APTT (22.0-30.0) sec Sodium (137-145) mmol/L Potassium (3.5-5.1) mmol/L Chloride (98-107) mmol/L Carbon Dioxide (22-30) mmol/L Anion Gap mmol/L BUN (7-17) mg/dL Creatinine (0.52-1.04) mg/dL Est GFR (CKD-EPI)AfAm (>60 ml/min/1.73 sqM) Est GFR (CKD-EPI)NonAf (>60 ml/min/1.73 sqM) Glucose (74-99) mg/dL POC Glucose (mg/dL) (75-99) mg/dL POC Glu Cream Beater ID Calcium (8.4-10.2) mg/dL Total Bilirubin (0.2-1.3) mg/dL AST (14-36) U/L ALT (4-34) U/L Alkaline Phosphatase (38-126) U/L Ammonia (<30) umol/L Creatine Kinase (30-135) U/L Troponin I <0.012 (0.000-0.034) ng/mL Total Protein (6.3-8.2) g/dL Albumin (3.5-5.0) g/dL Urine Color Urine Appearance (Clear) Urine pH (5.0-8.0) Ur Specific [place] (1.001-1.035) Urine Protein (Negative) Urine Glucose (UA) (Negative) Urine Ketones (Negative) Urine Blood (Negative) Urine Nitrite (Negative) Urine Bilirubin (Negative) Urine Urobilinogen (<2.0) mg/dL Ur Leukocyte Esterase (Negative) Urine Opiates Screen (NotDetected) Ur Oxycodone Screen (NotDetected) Urine Methadone Screen (NotDetected) Ur Propoxyphene Screen (NotDetected) Ur Barbiturates Screen (NotDetected) U Tricyclic Antidepress (NotDetected) Ur Phencyclidine Scrn (NotDetected) Ur Amphetamines Screen (NotDetected) U Methamphetamines Scrn (NotDetected) U Benzodiazepines Scrn (NotDetected) Urine Cocaine Screen (NotDetected) U Marijuana (THC) Screen (NotDetected) Serum Alcohol mg/dL - Radiology Data Radiology results: report reviewed (CT facial bones shows questionable nasal fracture, possibly old. Computed tomography scan of the brain shows no posttraumatic intracranial changes. Suspected meningioma. Questionable nasal fracture. Computed tomography scan of cervical spine shows degenerative changes. No traumatic changes.), image reviewed (Chest x-ray does show some concern for interstitial pneumonitis. Right basilar atelectasis versus infiltrate.) Disposition Clinical Impression: Fall, Altered mental status Disposition: ADMITTED IP TO THIS HOSP Is patient prescribed a controlled substance at d/c from ED?: No Referrals: Clarke Robins MD [Primary Care Provider] - 1-2 days Decision Time: 15:08
[2020-12-25 12:56] LABS: Basophils % (A) 0 %; Eosinophils # (A) 0.1 k/uL (0-0.7); Eosinophils % (A) 3 %; HCT 38.3 % (34.0-46.0); HGB 12.4 gm/dL (11.4-16.0); Lymphocytes # (A) 1.3 k/uL (1.0-4.8); Lymphocytes % (A) 27 %; MCH 30.8 pg (25.0-35.0); MCHC 32.5 g/dL (31.0-37.0); MCV 94.8 fL (80.0-100.0); Mean Platelet Volume 9.5; Monocytes # (A) 0.2 k/uL (0-1.0); Monocytes % (A) 5 %; Neutrophils % (A) 62 %; Platelet Count 135 k/uL (150-450); RBC 4.04 m/uL (3.80-5.40); RDW 13.9 % (11.5-15.5); WBC 4.8 k/uL (3.8-10.6)
[2020-12-25 12:58] LABS: ALT 32 U/L (4-34); AST 62 U/L (14-36); African American GFR (CKD) >90 (>60 ml/min/1.73 sqM); Albumin 3.2 g/dL (3.5-5.0); Alcohol <10 mg/dL; Alkaline Phosphatase 111 U/L (38-126); Anion Gap 6 mmol/L; Blood Urea Nitrogen 16 mg/dL (7-17); Calcium 8.9 mg/dL (8.4-10.2); Carbon Dioxide 30 mmol/L (22-30); Chloride 109 mmol/L (98-107); Creatine Kinase 112 U/L (30-135); Glucose 193 mg/dL (74-99); Non-African American GFR(CKD) >90 (>60 ml/min/1.73 sqM); Potassium 3.8 mmol/L (3.5-5.1); Sodium 145 mmol/L (137-145); Total Bilirubin 0.6 mg/dL (0.2-1.3); Total Protein 5.6 g/dL (6.3-8.2)
[2020-12-25 13:03] LABS: INR 1.1 (<1.2)
[2020-12-25 13:04] LABS: Partial Thromboplastin Time 25.7 sec (22.0-30.0); Prothrombin Time 11.3 sec (9.0-12.0)
[2020-12-25 13:11] LABS: Appearance,Urine Clear (Clear); Bilirubin,Urine Negative (Negative); Blood,Urine Negative (Negative); Color,Urine Yellow; Glucose,Urine (UA) Negative (Negative); Ketones,Urine Negative (Negative); Leukocyte Esterase,Urine Negative (Negative); Nitrite,Urine Negative (Negative); PH, Urine 5.5 (5.0-8.0); Protein,Urine Negative (Negative); Specific Gravity,Urine 1.024 (1.001-1.035)
--- NOTE | 2020-12-25 13:20 | XR ---
EXAMINATION TYPE: XR chest 2V DATE OF EXAM: 12/25/2020 COMPARISON: 08/07/2018 TECHNIQUE: PA and lateral views submitted. HISTORY: Altered mental status FINDINGS: Limited inspiration. Subsegmental consolidation right lung base a diffuse interstitial pattern. Post surgical change right shoulder. No sizable pleural effusion or pneumothorax. Degenerative changes of the spine with chronic appearing compression deformities. Underlying COPD not excluded. Chronic defor mity of the right humerus. IMPRESSION: 1. Correlate for interstitial pneumonitis, chronic lung disease or mild venous congestion. 2. Right basilar atelectasis versus infiltrate.
[2020-12-25 13:23] LABS: Amphetamine Screen,Urine Not Detected (NotDetected); Barbiturate Screen,Urine Not Detected (NotDetected); Benzodiazepines Screen,Urine Detected (NotDetected); Cocaine Screen,Urine Not Detected (NotDetected); Methadone Screen, Urine Detected (NotDetected); Opiate Screen,Urine Not Detected (NotDetected); Oxycodone Screen, Urine Not Detected (NotDetected); Phencyclidine Screen,Urine Not Detected (NotDetected); Tricyclic Antidepressant,Urine Not Detected (NotDetected); Urn Cannabinoid Scrn Not Detected (NotDetected)
--- NOTE | 2020-12-25 13:27 | CT ---
EXAMINATION TYPE: CT brain joseph wo con DATE OF EXAM: 12/25/2020 COMPARISON: 11/09/2020 HISTORY: Fall with right sided facial bruising CT DLP: 1399 mGycm, Automated exposure control for dose reduction was used. CONTRAST: Patient injected with 0 mL of Isovue 300. CT of the brain is performed utilizing 3 mm thick sections through the posterior fossa and 3 mm thick sections through the remaining calvarium. Study is performed within 24 hours of arrival to the hospital. No abnormal hyperdensity is present to suggest an acute intracranial hemorrhage. A subtle 0.9 x 2.1 cm soft tissue density extending from the falx and along the left calvarial vertex is present which contains a couple of punctate calcifications. A meningioma may be present. No mass effect on the adjacent brain is evident. No acute infarcts are evident. Ventricles and sulci are appropriate for the patient age. Paranasal sinuses and mastoid air cells within the [id number] are clear. There is a step-off of th e right nasal bone bridge suggesting underlying fracture. This may be old and appears partially visua lized 11/09/2020. Separation may be slightly greater currently. This could be projectional. IMPRESSIONS: 1. No acute posttraumatic intracranial changes. 2. Suspected meningioma along the superior anterior left vertex may be a small meningioma. 3. Possible fracture right nasal bone CT cervical spine. COMPARISON: None CT of the cervical spine is performed in the axial plane at 2 mm thick sections. Reconstructed image s in the coronal, and sagittal plane are reviewed on the computer. No acute fractures are evident. Vertebral body alignment is normal. Degenerative disc changes with loss of disc height are present C5-6 C6-7. Vertebral body heights are preserved. No spinal canal stenosis is evident. No neural foraminal stenosis is evident. IMPRESSIONS: 1. Degenerative disc changes C5-6 and C6-7. 2. No acute posttraumatic changes.
--- NOTE | 2020-12-25 13:35 | CT ---
EXAMINATION TYPE: CT facial bones wo con DATE OF EXAM: 12/25/2020 COMPARISON: CT brain same date HISTORY: Fall with right sided facial bruising CT DLP: 1399 mGycm Automated exposure control for dose reduction was used. Contrast: None Technique: Axial images 2 mm thick sections. Reconstructed images in the coronal plane FINDINGS: There may be an old fracture of the right side nasal bones. Refracture should be considered as the or ientation is slightly more accentuated on the current exam prior. Correlate with location of patient' s pain. Old septal fracture may be present. Maxillary spine appears intact. There are some soft tissue increased densities and thickening along the inferior right cheek which ca n be related to patient's reported trauma no underlying fracture is evident. Zygomatic arches are normal. Maxillary dow appear intact. Orbital floors are intact. Medial dow o f the orbits appear normal. Temporomandibular junctions appear unremarkable. IMPRESSION: 1. POSSIBLE ACUTE ON PRIOR NASAL BONE FRACTURE. CORRELATE WITH LOCATION OF THE PATIENT'S PAIN. 2. NO ADDITIONAL AREAS SUSPICIOUS FOR ACUTE FRACTURE EVIDENT. 3. MILD SOFT TISSUE SWELLING RIGHT CHEEK REGION.
[2020-12-25] MEDS ORDERED: NALOXONE 0.4 MG/ML 1 ML VIAL IV PRN (15:08)
[2020-12-25] MEDS: SODIUM CHLORIDE 0.9% 1,000 ML IV SCH (15:55)
[2020-12-25] MEDS ORDERED: PREGABALIN 75 MG CAP PO PRN (19:44)
[2020-12-25] MEDS ORDERED: ACETAMINOPHEN TAB 325 MG TAB PO PRN (19:44)
[2020-12-25] MEDS ORDERED: ALBUTEROL NEBULIZED 2.5 MG/3 ML INHALATION PRN (19:44)
[2020-12-25] MEDS: KETOROLAC 0.5% OPHTH DROPS 5 ML BTL RIGHT EYE SCH (21:19)
[2020-12-25] MEDS ORDERED: IPRATROPIUM-ALBUTEROL 3 ML NEB INHALATION PRN (21:57)
[2020-12-25] MEDS ORDERED: buPROPion SR 150 MG TABLET.ER PO SCH (22:00)
--- NOTE | 2020-12-25 23:45 | HP ---
HISTORY AND PHYSICAL DATE OF SERVICE: 12/25/2020 I am covering for Dr. Robins. CHIEF COMPLAINT: Fall and change in mental status. HISTORY OF PRESENT ILLNESS: This 65-year-old woman with a past medical history of multiple medical problems including CHF, COPD, hypertension, liver disease, seizure disorder, sleep apnea, history of DJD, depression, being followed Dr. Robins in the outpatient is complaining of multiple falls. The patient also had a contusion after a fall. The patient presented with some change in mental status. Patient was found to be confused. The patient apparently dozing off even at the doctor's appointment according to the history. The patient also complains of headache and the patient is confused. The patient is unable to provide a coherent history. Most of the history is taken with my discussion with staff and review of chart at this time. Evaluation showed some thrombocytopenia. Alcohol was less than 10. Drug screen positive for benzodiazepines and methadone. Otherwise, the patient also had multiple evaluations including chest x- ray which was personally reviewed by me and showed right basilar infiltrate and/or atelectasis and CT scan of the head and neck showed suspected meningioma along the superior anterior left vertex, maybe a small meningioma and possible fracture of the right nasal bone was also noted. Facial CT scan showed possible acute or prior nasal bone fracture on the right side and mild soft tissue swelling was also noted. The patient was admitted for further evaluation and treatment. There is no history of any fever, rigor or chills at this time. PAST MEDICAL HISTORY: History of CHF, COPD, hypertension, liver disease, seizures. MEDICATIONS ARE: Ketoralac, albuterol, Lyrica, Ativan, Inderal, Wellbutrin SR, amlodipine, Dolophine and Tylenol. ALLERGIES: CLINDAMYCIN, SULFA. FAMILY HISTORY: Diabetes mellitus type 2. SOCIAL HISTORY: History of smoking. No history of current smoking or alcohol intake. REVIEW OF SYSTEMS: ENT Diminished hearing and vision. CARDIOVASCULAR No angina or palpitations. RESPIRATORY As mentioned earlier. GI As mentioned earlier. No dysuria or hematuria. NERVOUS No numbness or weakness. ALLERGY/IMMUNOLOGY No asthma or hayfever. MUSCULOSKELETAL As mentioned earlier. HEMATOLOGY/ONCOLOGY Negative. ENDOCRINE No history of diabetes or hypothyroidism. CONSTITUTIONAL As mentioned earlier. DERMATOLOGY Negative. RHEUMATOLOGY Negative, PSYCHIATRY As mentioned earlier. PHYSICAL EXAMINATION: Alert and oriented x2, arousable, drowsy. Pulse 62, blood pressure 120/60, respirations 17, temperature 98.4, pulse ox 97% on room air. HEENT: Conjunctivae normal. Oral mucosa moist. NECK: No jugular venous distention. No lymph node enlargement. CARDIOVASCULAR: S1, S2, muffled. No S3, no S4, RESPIRATORY: Diminished breath sounds at the bases. No rhonchi, no crackles. ABDOMEN: Soft, nontender. LEGS: No edema, no swelling. NERVOUS SYSTEM: Diffusely weak and full exam is not possible. LYMPHATICS: No lymph node in neck or axilla. SKIN: No rash. JOINTS: No active deforming arthropathy. The patient also had some gait dysfunction because of the pain also. On examination of the face, ecchymosis present. LAB STUDIES: WBC 4.8, platelets 135. Sodium 140, potassium 3.8. ASSESSMENT: 1. Change in mental status, possible acute metabolic encephalopathy, possibly medication induced. 2. Multiple falls, for evaluation. 3. Right face contusion and possible right nasal bone fracture. 4. Thrombocytopenia. 5. Elevated random glucose. 6. Elevated AST. 7. History of CHF. 8. History of COPD. 9. Hypertension. 10.History of liver disease. 11.History of seizure disorder. 12.History of sleep apnea. 13.History of hard of hearing. 14.History hepatitis C, treated in [place]. 15.On methadone. 16.History of DJD. 17.History of depression. 18.Remote history of heroin and cocaine. 19.Possible meningioma. 20.FULL CODE. RECOMMENDATIONS: In this 65-year-old woman who presented with multiple complex medical issues, we will monitor the patient closely. I would recommend continue the current medical management and symptomatic treatment. Will monitor the patient closely and neurology consultation has been sought. We will hold off some of the sedatives and follow the patient closely. Otherwise, there is no evidence of any definite infection. The chest x-ray shows suspicious atelectasis. I would recommend a course of breathing treatments and will repeat a chest x-ray. Otherwise, there is no obvious evidence of pneumonia. Repeat labs will be ordered. The prognosis is guarded because of multiple complex medical issues. MMODL / IJN: [id number] /
[2020-12-25] MEDS: LORazepam 0.5 MG TAB PO PRN (23:52)
--- NOTE | 2020-12-26 07:44 | XR ---
EXAMINATION TYPE: XR chest 1V portable DATE OF EXAM: 12/26/2020 CLINICAL HISTORY: Difficulty breathing progress study. TECHNIQUE: Single AP portable frontal view of the chest is obtained. COMPARISON: Chest x-ray from one day earlier FINDINGS: Background chronic parenchymal changes without new suspicious focal airspace opacity, pleu ral effusion, or pneumothorax seen. Background cardiomegaly. Postsurgical change right shoulder parti ally imaged. Osseous structures remain demineralized. IMPRESSION: Chronic changes and cardiomegaly without acute pulmonary process.
[2020-12-26] MEDS: IPRATROPIUM-ALBUTEROL 3 ML NEB INHALATION SCH ×3 (07:59→19:43)
[2020-12-26] MEDS: amLODIPine 10 MG TAB PO SCH (08:16)
[2020-12-26] MEDS: PROPRANOLOL 20 MG TAB PO SCH (08:16)
[2020-12-26] MEDS: HEPARIN SODIUM,PORCINE/PF 5,000 UNIT/0.5 ML SYRINGE SQ SCH ×2 (08:18→20:59)
[2020-12-26] MEDS: PANTOPRAZOLE 40 MG TABLET PO SCH (08:18)
[2020-12-26] MEDS: KETOROLAC 0.5% OPHTH DROPS 5 ML BTL RIGHT EYE SCH ×4 (08:23→20:59)
[2020-12-26] MEDS ORDERED: METHADONE 10 MG TAB PO SCH (09:00)
[2020-12-26 09:30] LABS: Basophils # (A) 0.01 X 10*3/uL (0.00-0.10); Basophils % (A) 0.2 %; Eosinophils # (A) 0.16 X 10*3/uL (0.04-0.35); Eosinophils % (A) 3.5 %; HCT 38.2 % (37.2-46.3); HGB 12.2 g/dL (12.0-15.0); Lymphocytes # (A) 1.56 X 10*3/uL (0.90-5.00); Lymphocytes % (A) 34.6 %; MCH 30.7 pg (27.0-32.0); MCHC 31.9 g/dL (32.0-37.0); MCV 96.2 fL (80.0-97.0); Monocytes % (A) 8.9 %; Neutrophils # (A) 2.37 X 10*3/uL (1.80-7.70); Neutrophils % (A) 52.6 %; Platelet Count 118 X 10*3/uL (140-440); RBC 3.97 X 10*6/uL (4.10-5.20); RDW 13.7 % (11.5-14.5); WBC 4.51 X 10*3/uL (4.50-10.00)
[2020-12-26 09:45] LABS: African American GFR (CKD) 111.6 (60.0-200.0); Anion Gap 5.4 mmol/L (4.00-12.00); BUN/Creat Ratio 18.33 Ratio (12.00-20.00); Calcium 8.6 mg/dL (8.7-10.3); Carbon Dioxide 30.6 mmol/L (21.6-31.8); Non-African American GFR(CKD) 96.3 (60.0-200.0); Potassium 3.8 mmol/L (3.5-5.5)
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
--- NOTE | 2020-12-26 11:17 | CT ---
EXAMINATION TYPE: CT thor lumbar spine wo con DATE OF EXAM: 12/26/2020 COMPARISON: CT chest abdomen and pelvis May 04, 2020. HISTORY: frequent falls with pain. CT DLP: 872.1 mGycm Automated exposure control for dose reduction was used. FINDINGS: There is levoconvex scoliosis centered in the midlumbar spine. Persistent prominent Schmorl node at L 4 vertebral body level. Persistent mild height loss anteriorly at L2 vertebra. Prominent Schmorl node superior L1 endplate sagittal image 39 unchanged from prior. Similar findings seen in T12 superior e ndplate sagittal image 37 also unchanged from prior smaller Schmorl node superior T11 endplate redemo nstrated. Mild to moderate height loss with sclerosis involving the inferior T7 endplate and prominen t Schmorl node anterior superior T6 endplate all redemonstrated. Mild to moderate height loss with sc lerosis anterior T5 vertebra redemonstrated. New acute fracture or dislocation. Osseous structures are demineralized. Spinal canal remains grossly preserved. New right greater than left basilar atelectatic change. Persistent small nonobstructing calculi lower pole right kidney redemonstrated measuring up to 4 mm in size. No significant change from prior. Sma ll Left renal calculi outside field of view. IMPRESSION: As above. No new or acute fracture from prior CT.
--- NOTE | 2020-12-26 11:21 | P.PN ---
Progress Note - Text Progress Note Date: 12/26/20 CT of the Cervical and thoracic spine reviewed. There is spondylosis of the cervical spine at C4-7 which is severe at C5-7. There is some bony stenosis related to this appreciated on axial films. There is no severe stenosis noted, no fracture or dislocation noted. C0-1 and C1-2 joints appear stable. On Thoracic CT there are multiple levels of compression type fractures that are somewhat age indeterminant. There are fractures noted at T7,8,9 as well as T12. Fracture at T7 does cause some local kyphosis due to T6 endplate invagination, however this appears to be old. There is spondylosis and vacuum disc phenomena noted at multiple levels lower thoracic and in the lumbar region likely related to spondylosis and are old. There is no evidence of bony erosion or infection. If concerned due to pt hx of IVDA, need MRI w/w/o of C, T and L spine. Pt also has hx of shoulder replacement with pain. Would recommend new images on this as well as sed rate, CRP to r/o infective process in shoulder or spine, low suspicion based on chart review. Full consult pending. No emergent surgery at this time, will follow and continue work up from orthopedic and spine standpoint. Cont with medical treatment.
--- NOTE | 2020-12-26 12:09 | P.CNOR ---
History of Present Illness - [facility] Consult date: 12/26/20 Requesting physician: Vinay Burgess Consult reason: other (Cervical spondylosis and worsening right shoulder pain. Recurrent falls.) History of present illness: Patient was seen at bedside this morning. Patient presented the emergency department yesterday 12/25/2020 status post multiple falls. Patient was alert and oriented during exam as did have good recall of previous medical history as well as good capability of answering questions. This morning the patient is complaining of right shoulder and right upper arm pain. She says she does have a history of right shoulder arthroplasty in 2014 after a fall. Patient also mentions she did have surgery to repair left forearm fracture several years ago status post fall. The patient says she has been falling more and more over the past couple years. She says she will be standing for a while and then all of a sudden she will fall. She denies any weakness, dizziness, change in vision prior to falling. She says over the past several months she has began to use a walker when she is going around her house as well as outside to prevent the frequency of falls. Patient does not say she is in much pain currently. Patient denies any back pain. Patient denies hip pain. Patient denies knee pain. Patient denies fever, shortness of breath, chest pain, nausea, vomiting, change in vision. Patient denies saddle anesthesia. Patient denies loss of bowel/bladder control. However, patient does say she needs to continue her bladder more frequently throughout the day now. Patient does have a history of seizures but said she has not had any seizures since being in medication.. Past Medical History Past Medical History: Heart Failure, COPD, Hypertension, Liver Disease, Seizure Disorder, Sleep Apnea/CPAP/BIPAP Additional Past Medical History / Comment(s): [place] bilaterally, weakness and falls, R knee pain from recent fall, hepatitis c-pt believes she was tx for it in [place], numbness/tingling bilateral feet and legs, chronic R shoulder pain, wears a brace to L forearm due to previous fracture with surgical repair from a fall, HELEN and is suppose to wear CPAP but does not, past cellulitis bilateral lower legs. pt stated has had a pne vaccine not sure of date,instructional writer unable to verify date at time of this admit,please f/u in am. History of Any Multi-Drug Resistant Organisms: None Reported Past Surgical History: Joint Replacement, Orthopedic Surgery Additional Past Surgical History / Comment(s): R shoulder arthroplasty due to fx from fall 2015, L forearm fracture with surgical repair including bone graft, colonoscopy. Additional Past Anesthesia/Blood Transfusion Reaction / Comm: Pt is slow to wake Past Psychological History: Depression Additional Psychological History / Comment(s): pt stated she has had some depression but denies any suicidal thoughts or plans of suicide. She becomes emotional easily. She is [place] bilaterally. She does best with very specific information/instruction. She resides with her mother. She uses a cane and recently was given a walker. Her sister(brian and a leather roller) is very involved with pt and their mother. Smoking Status: Never smoker Past Alcohol Use History: None Reported Additional Past Alcohol Use History / Comment(s): Pt started smoking as a teen and quit 11/07/14. She was at least a 2 ppd smoker. Past Drug Use History: None Reported Additional Drug Use History / Comment(s): Pt has not used drugs in 30 yrs. In the past she has used heroin and cocaine and "just about anything." She is on methadone. - Past Family History Father Family Medical History: Diabetes Mellitus Additional Family Medical History / Comment(s): Father was murdered Mother Family Medical History: Chest Pain / Angina, COPD, Renal Disease Additional Family Medical History / Comment(s): Mother is 82 yrs old. Medications and Allergies Home Medications Medication Instructions Recorded Confirmed Type Propranolol [Inderal] 20 mg PO DAILY 04/01/16 12/25/20 History amLODIPine BESYLATE [Amlodipine 10 mg PO DAILY 04/01/16 12/25/20 History Besylate] Methadone [Dolophine] 20 mg OP Q6H 02/22/17 12/25/20 History buPROPion HCL [Wellbutrin SR] 150 mg PO TID 08/07/18 12/25/20 History Acetaminophen Tab [Tylenol] 650 mg PO Q6HR PRN tab 08/10/18 12/25/20 Rx Albuterol Sulfate [Proair 1 - 2 puff INHALATION RT-Q6H PRN 12/25/20 12/25/20 History Respiclick] Ketorolac 0.5% Ophth Soln [Acular 1 drop RIGHT EYE QID 06/18/21 06/18/21 History 0.5%] LORazepam [Ativan] 0.5 mg PO BID PRN 12/25/20 12/25/20 History Pregabalin [Lyrica] 75 mg PO BID PRN 12/25/20 12/25/20 History Allergies Allergy/AdvReac Type Severity Reaction Status Date / Time clindamycin Allergy Swelling Verified 12/25/20 14:13 Sulfa (Sulfonamide Allergy Nausea & Verified 12/25/20 14:13 Antibiotics) Vomiting Physical Examination Inspection: On exam there is significant kyphosis of the spine. Patient does have ecchymosis along the right maxilla. Ecchymosis present along the right lower lumbar region, laterally. Patient does have ecchymoses present throughout her arms. Negative for any significant lesions, nodules. Negative for any evidence of open fractures Palpation: Some mild tenderness to palpation along the lower mid cervical regio n. Rest of spine exam negative for tenderness to palpation. Tenderness to palpation on right shoulder and mid shaft of right humerus. Some mild tenderness to palpation along medial joint line pain right knee. Rest exam negative Sensation: Sensation intact bilaterally, symmetric, equal throughout upper and l ower extremities Range of motion: Bilateral lower extremities- full range of motion hip flexion and extension as well as knee flexion and extension. Full range of motion on dorsi and plantarflexion of feet bilaterally. Left upper extremity - full range of motion throughout forward elevation, abduction of shoulder and extension flexion of elbow. Limited flexion of digits in left hand. Right upper extremity- forward elevation shoulder 45; abduction- 50. Full flexion and extension of right elbow. Full range of motion on extension and flexion of the right wrist Motor: Resisted elbow flexion - 3/5; resisted internal and external rotation of right shoulder- 3/5; rest of exam negative Special tests/tensioning signs: Negative Homans bilaterally. Negative clonus upon dorsiflexing feet bilaterally. Negative Wilner's bilaterally. Neurovascular status- Refill below 3 seconds upper extremities and lower extremities. Dorsalis pedis pulse present intact, 2+. Radial pulses present bilaterally 2+, intact. Results - Labs Labs: Abnormal Lab Results - Last 24 Hours (Table) 12/25/20 12/25/20 12/25/20 Range/Units 12:25 12:33 12:33 RBC (4.10-5.20) X 10*6/uL MCHC (32.0-37.0) g/dL Plt Count 135 L (150-450) k/uL MPV (9.5-12.2) fL Chloride (98-107) mmol/L Glucose (74-99) mg/dL POC Glucose (mg/dL) 197 H (75-99) mg/dL Calcium (8.7-10.3) mg/dL AST (14-36) U/L Total Protein (6.3-8.2) g/dL Albumin (3.5-5.0) g/dL Urine Methadone Screen Detected H (NotDetected) U Benzodiazepines Scrn Detected H (NotDetected) 12/25/20 12/26/20 12/26/20 Range/Units 12:33 06:37 06:37 RBC 3.97 L (4.10-5.20) X 10*6/uL MCHC 31.9 L (32.0-37.0) g/dL Plt Count 118 L (150-450) k/uL MPV 13.0 H (9.5-12.2) fL Chloride 109 H (98-107) mmol/L Glucose 193 H (74-99) mg/dL POC Glucose (mg/dL) (75-99) mg/dL Calcium 8.6 L (8.7-10.3) mg/dL AST 62 H (14-36) U/L Total Protein 5.6 L (6.3-8.2) g/dL Albumin 3.2 L (3.5-5.0) g/dL Urine Methadone Screen (NotDetected) U Benzodiazepines Scrn (NotDetected) H & H 12/25/20 12/26/20 Range/Units 12:33 06:37 Hgb 12.4 12.2 (11.4-16.0) gm/dL Hct 38.3 38.2 (34.0-46.0) % Coagulation 12/25/20 Range/Units 12:33 INR 1.1 (<1.2) Result Diagrams: 12/26/20 06:37 12/26/20 06:37 Assessment and Plan Assessment: 1. Right shoulder pain status post fall 2. Cervical spondylosis, C4-C7 3. Compression fractures at T7, T8, T9, T12 4. Multiple Medical comorbidities Plan: 1. Right shoulder pain status post fall - x-rays of right shoulder and right humerus have been ordered for further evaluation to check for stability of hardware previous shoulder arthroplasty; severe P and ESR ordered to rule out any potential infective process within the shoulder in spine. Concern with previous history of IVDA 2. Cervical spondylosis, C4-C7; Compression fractures at T7, T8, T9, T12 - entering the CT scans of the cervical, thoracic, lumbar spine with my attending Dr. Encarnacion, there are multiple levels of compression fractures as well as cervical spondylosis. Patient may need MRI with and without contrast of cervical, thoracic, lumbar spine for further evaluation based on history of IVDA. 3. Appreciate medical management, neuro management 4. Pain management- stable at this time; continue ketorolac 5. GI prophylaxis/DVT prophylaxis- on protonix; heparin 6. PT/OT - weightbearing as tolerated with walker for assistance. Needs assistance due to history of falls 7. Appreciate consult - we'll continue to follow patient while in hospital. Time with Patient: Less than 30
--- NOTE | 2020-12-26 12:30 | XR ---
EXAMINATION TYPE: XR shoulder complete RT, XR humerus RT DATE OF EXAM: 12/26/2020 CLINICAL HISTORY: Pain and swelling. TECHNIQUE: Three views of the right shoulder are obtained. 2 views right humerus. COMPARISON: Prior right shoulder x-ray April 01, 2016. Right humeral x-ray November 09, 2020 FINDINGS: [place] osseous structures are demineralized. Metallic hardware from shoulder surgery redemo nstrated. Visualized ribs are intact. There is persistent fracture deformity through the mid right humerus with fracture at distal femoral metallic component and additional fracture distal to this near the hyperdense fixating material. Alig nment stable with some displacement and angulation. Interval callus formation. Overlying clothing mat erial present. IMPRESSION: As above. Healing comminuted displaced fracture mid shaft right humerus at 2 sites. No ne w fracture seen.
[2020-12-26] MEDS: MULTIVITAMINS, THERA 1 EACH TAB PO SCH (13:17)
[2020-12-26] MEDS: METHADONE 10 MG TAB PO SCH ×2 (13:18→18:04)
[2020-12-26] MEDS: FOLIC ACID 1 MG TAB PO SCH (13:18)
[2020-12-26] MEDS: THIAMINE 100 MG TAB PO SCH (13:18)
--- NOTE | 2020-12-26 13:36 | MR ---
EXAMINATION TYPE: MR brain wo/w con DATE OF EXAM: 12/26/2020 COMPARISON: Prior MRI brain March 23, 2017 HISTORY: Altered mental status, Hx of seizure, Meningioma TECHNIQUE: Multiplanar, multisequence images of the brain and brainstem is performed without and with IV contras t, utilizing 5.5 mL intravenous Gadavist . FINDINGS: Diffusion weighted images demonstrate no evidence of a recent infarct or other diffusion ab normality. There is mild ventricular and sulcal prominence redemonstrated. Some small scattered foci of T2 hyperintensity throughout the deep and periventricular white matter remain present with some i nterval progression from 2017 study T2 coronal weighted images show hippocampal gyri to appear symmet blanquita and felt within normal limits. Midline structures demonstrate normal morphology. The craniocervical junction appears within normal limits. Post contrast images demonstrate some unusual artifact making evaluation suboptimal. Appears to have motion and wrap around components . Stable small 1.7 x 1.6 x 2.4 cm high left frontoparietal meningioma axial image 30 and coronal image 21. The dural venous sinuses appear patent. The visualiz ed sinuses are clear and the globes are intact. IMPRESSION: Mild diffuse cerebral atrophy and mild to moderate chronic small vessel edema change with interval progression from 2017. Stable small high left frontoparietal meningioma. Suboptimal postcon trast images makes post contrast imaging almost nondiagnostic.
[2020-12-26 16:23] LABS: Hemoglobin A1C 5.2 % (4.0-6.0)
[2020-12-26] MEDS: SODIUM CHLORIDE 0.9% 1,000 ML IV SCH (16:57)
[2020-12-26] MEDS: LORazepam 0.5 MG TAB PO PRN (21:00)
[2020-12-27] MEDS: METHADONE 10 MG TAB PO SCH ×5 (00:05→23:55)
--- NOTE | 2020-12-27 03:29 | PN ---
PROGRESS NOTE DATE OF SERVICE: 12/26/2020 This 65-year-old gentleman admitted with weakness and change in mental status also had significant contusion and nasal fracture on the right side of the face. The patient also had extensive evaluation including x-rays, orthopedic evaluation and as well as brain MRI. Neurology is following the patient closely. Brain MRI showed diffuse cerebral atrophy. No acute changes are noted. The shoulder x-rays and the humerus x- ray showed no evidence of any acute fractures. Patient is being closely monitored at this time. The patient is also on methadone 4 times daily every 6 hours 20 mg according to the pharmacy, which is being checked again. PAST MEDICAL HISTORY: Reviewed. REVIEW OF SYSTEMS: CARDIOVASCULAR No angina or palpitations. RESPIRATORY No cough, no hemoptysis. GI No nausea, vomiting, or diarrhea. No dysuria or hematuria. NERVOUS No numbness or weakness. CURRENT MEDICATIONS: Reviewed include Tylenol, DuoNeb, Norvasc, folic acid, heparin. Doses and other medications also reviewed. PHYSICAL EXAMINATION: Alert and oriented x3. Pulse 67, blood pressure 160/72, respirations 16, temp 98 degrees, pulse ox 98% on room air. HEENT: Conjunctivae normal. Oral mucosa moist. NECK: No jugular venous distention. No lymph node enlargement. CARDIOVASCULAR: S1, S2, muffled. No S3, no S4, RESPIRATORY: Diminished breath sounds at the bases. No rhonchi, no crackles. ABDOMEN: Soft, nontender. LEGS: No edema, no swelling. NERVOUS SYSTEM: Diffusely weak. LAB STUDIES: WBC 3.2, hemoglobin 12.2. Other labs are noted. ASSESSMENT: 1. Change in mental status, acute metabolic encephalopathy, possibly medication induced. 2. Multiple falls, for evaluation. 3. Right face contusion with possible right nasal bone fracture. 4. Thrombocytopenia. 5. Elevated random glucose. 6. Elevated AST. 7. History of CHF, ejection fraction unknown. 8. History of COPD. 9. Hypertension. 10.History of chronic liver disease. 11.History of seizure disorder. 12.History of sleep apnea. 13.Hard of hearing. 14.History hepatitis C, treated in [place]. 15.On methadone. 16.History of DJD. 17.History of depression. 18.Remote history of heroin and cocaine. 19.Possible meningioma in the CT scan. 20.FULL CODE. RECOMMENDATIONS: Recommend to continue current management and symptomatic treatment. Otherwise, repeat labs. Adjust the methadone dosage, probably the home dose of methadone may be continued but avoid combination with any significant amount of pain medications also. Continue to monitor. Prognosis guarded. Further recommendations to follow. PT OT evaluation. Social workers to evaluate the home situation. FRANK / DAREK: [id number] /
[2020-12-27] MEDS: IPRATROPIUM-ALBUTEROL 3 ML NEB INHALATION SCH ×3 (07:36→20:20)
[2020-12-27] MEDS: PANTOPRAZOLE 40 MG TABLET PO SCH (07:37)
[2020-12-27] MEDS: amLODIPine 10 MG TAB PO SCH (08:54)
[2020-12-27] MEDS: LORazepam 0.5 MG TAB PO PRN ×2 (08:54→17:50)
[2020-12-27] MEDS: PROPRANOLOL 20 MG TAB PO SCH (08:55)
[2020-12-27] MEDS: HEPARIN SODIUM,PORCINE/PF 5,000 UNIT/0.5 ML SYRINGE SQ SCH ×2 (08:55→20:54)
[2020-12-27] MEDS: KETOROLAC 0.5% OPHTH DROPS 5 ML BTL RIGHT EYE SCH ×4 (08:55→20:54)
[2020-12-27] MEDS: MULTIVITAMINS, THERA 1 EACH TAB PO SCH (11:47)
[2020-12-27] MEDS: FOLIC ACID 1 MG TAB PO SCH (11:47)
[2020-12-27] MEDS: THIAMINE 100 MG TAB PO SCH (11:47)
--- NOTE | 2020-12-27 11:48 | P.PN ---
Subjective Progress Note Date: 12/27/20 Principal diagnosis: 1. Right shoulder pain status post fall 2. Cervical spondylosis, C4-C7 3. Compression fractures at T7, T8, T9, T12 Patient is seen at bedside this morning. She states she was able to get up and to the bathroom yesterday. Patient denies any chest pain, fever, shortness, change in vision, fever. Patient denies any new injuries. She says she doesn't have any changes in location of pain. Patient does say she is concerned because she says she normally takes more methadone than is currently being prescribed in-hospital. Objective - Vital Signs Vital signs: Vital Signs Temp 97.7 F 12/27/20 07:38 Pulse 57 L 12/27/20 07:38 Resp 16 12/27/20 07:38 BP 143/69 12/27/20 07:38 Pulse Ox 95 12/27/20 07:38 Intake & Output 12/26/20 12/27/20 12/27/20 18:59 06:59 18:59 Intake Total 400 Balance 400 Intake: Oral 400 Other: Voiding Method Toilet Toilet Toilet # Voids 4 - Exam Inspection: On exam there is significant kyphosis of the spine. Patient does have ecchymosis along the right maxilla. Ecchymosis present along the right lower lumbar region, laterally. Patient does have ecchymoses present throughout her arms. Negative for any significant lesions, nodules. Negative for any evidence of open fractures Palpation: Some mild tenderness to palpation along the lower mid cervical regio n. Rest of spine exam negative for tenderness to palpation. Tenderness to palpation on right shoulder and mid shaft of right humerus. Some mild tenderness to palpation along medial joint line pain right knee. Rest exam negative Sensation: Sensation intact bilaterally, symmetric, equal throughout upper and lower extremities Range of motion: Bilateral lower extremities- full range of motion hip flexion and extension as well as knee flexion and extension. Full range of motion on dorsi and plantarflexion of feet bilaterally. Left upper extremity - full range of motion throughout forward elevation, abduction of shoulder and extension flexion of elbow. Limited flexion of digits in left hand. Right upper extremity- forward elevation shoulder 45; abduction- 50. Full flexion and extension of right elbow. Full range of motion on extension and flexion of the right wrist Motor: Resisted elbow flexion - 3/5; resisted internal and external rotation of right shoulder- 3/5; rest of exam negative Special tests/tensioning signs: Negative Homans bilaterally. Negative clonus upon dorsiflexing feet bilaterally. Negative Wilner's bilaterally. Neurovascular status- Refill below 3 seconds upper extremities and lower extremities. Dorsalis pedis pulse present intact, 2+. Radial pulses present bilaterally 2+, intact. - Labs CBC & Chem 7: 12/26/20 06:37 12/26/20 06:37 Assessment and Plan Assessment: 1. Right shoulder pain status post fall 2. Cervical spondylosis, C4-C7 3. Compression fractures at T7, T8, T9, T12 4. Multiple Medical comorbidities Plan: 1. Right shoulder pain status post fall - x-rays of right shoulder and right humerus have been completed. After reviewing x-rays of right shoulder and humerus and consulting with my physician, hardware in right shoulder is stable and in place. There is no evidence of any new fractures or changes in the right shoulder and arm. We'll continue with conservative management at this time with oral pain medications 2. Cervical spondylosis, C4-C7; Compression fractures at T7, T8, T9, T12 - entering the CT scans of the cervical, thoracic, lumbar spine with my attending Dr. Encarnacion, there are multiple levels of compression fractures as well as cervical spondylosis. Patient may need MRI with and without contrast of cervical, thoracic, lumbar spine for further evaluation based on history of IVDA. 3. Appreciate medical management, neuro management 4. Pain management- stable at this time; continue ketorolac 5. GI prophylaxis/DVT prophylaxis- on protonix; heparin 6. PT/OT - weightbearing as tolerated with walker for assistance. Needs assistance due to history of falls 7. Appreciate consult - we'll continue to follow patient while in hospital. Time with Patient: Less than 30
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
[2020-12-27] MEDS: SODIUM CHLORIDE 0.9% 1,000 ML IV SCH (16:28)
--- NOTE | 2020-12-27 19:08 | PN ---
PROGRESS NOTE DATE OF SERVICE: 12/27/2020 This 65-year-old woman was admitted with change in mental status, acute metabolic encephalopathy, possibly medication induced, is being closely monitored. The patient is taking 80 mg of methadone for prescription. The brain MRI which was reviewed personally by me showed no acute abnormalities. Small left frontoparietal meningioma is noted. Otherwise, small-vessel ischemia is also noted. No chest pain. No palpitations. No fever. PHYSICAL EXAMINATION: Alert and oriented x2. Pulse 57, blood pressure 143/69, respirations 16, temperature 97.9, pulse ox 94% on room air. HEENT: Conjunctivae normal. NECK: No JVD. CARDIOVASCULAR: S1, S2 muffled. RESPIRATORY SYSTEM: Breath sounds diminished at the bases. No rhonchi. No crackles. ABDOMEN: Soft. NERVOUS SYSTEM: Diffusely weak. Examination of the face right hematoma present. LABS: WBC 4.2, hemoglobin 12.2. Otherwise, calcium is 8.6. UA noted. ASSESSMENT: 1. Change in mental status, acute metabolic encephalopathy possibly medication induced. 2. Multiple falls, possibly secondary to gait dysfunction secondary to metabolic encephalopathy. 3. Right face contusion and possible right nasal bone fracture. 4. Thrombocytopenia. 5. Elevated random glucose. 6. Elevated AST. 7. History of congestive heart failure ejection fraction unknown. 8. Stable small high left frontoparietal meningioma in the MRI. 9. History of chronic obstructive pulmonary disease. 10.Hypertension. 11.History of chronic liver disease. 12.History of seizure disorder. 13.History of sleep apnea. 14.Hard of hearing. 15.History of hepatitis C treated in [place]. 16.On methadone. 17.History of degenerative joint disease. 18.History of depression. 19.Remote history of heroin and cocaine. 20.FULL CODE. RECOMMENDATIONS AND DISCUSSION: Continue current management and symptomatic treatment. PT/OT evaluation. Otherwise, continue rest of medications. 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 Other than that, I would also recommend repeat labs to ensure stability. Once the patient is stable, patient will be discharged home. Guarded prognosis. Further recommendations to follow. MMODL / IJN: [id number] /
[2020-12-27 19:40] LABS: ALT 30 U/L (4-34); AST 44 U/L (14-36); African American GFR (CKD) >90 (>60 ml/min/1.73 sqM); Albumin 3.3 g/dL (3.5-5.0); Albumin/Globulin Ratio 1.3; Alkaline Phosphatase 128 U/L (38-126); Anion Gap 7 mmol/L; Blood Urea Nitrogen 11 mg/dL (7-17); Calcium 8.7 mg/dL (8.4-10.2); Carbon Dioxide 30 mmol/L (22-30); Chloride 104 mmol/L (98-107); Globulin 2.6 g/dL; Glucose 145 mg/dL (74-99); Non-African American GFR(CKD) >90 (>60 ml/min/1.73 sqM); Sodium 141 mmol/L (137-145); Total Bilirubin 0.5 mg/dL (0.2-1.3); Total Protein 5.9 g/dL (6.3-8.2)
[2020-12-27] MEDS: TEMAZEPAM 15 MG CAP PO PRN (22:31)
[2020-12-28] MEDS: METHADONE 10 MG TAB PO SCH ×3 (05:45→18:18)
[2020-12-28] MEDS: IPRATROPIUM-ALBUTEROL 3 ML NEB INHALATION SCH ×3 (07:26→18:57)
[2020-12-28] MEDS: PANTOPRAZOLE 40 MG TABLET PO SCH (07:46)
--- NOTE | 2020-12-28 08:02 | P.PN ---
Subjective Progress Note Date: 12/28/20 Patient seen and examined this morning she is seated at bedside receiving a breathing treatment she is doing well no changes overnight she has been up and walking the halls with a walker. Objective - Vital Signs Vital signs: Vital Signs Temp 98.3 F 12/28/20 07:00 Pulse 52 L 12/28/20 07:40 Resp 17 12/28/20 07:00 BP 139/76 12/28/20 07:00 Pulse Ox 96 12/28/20 07:00 Intake & Output 12/27/20 12/28/20 12/28/20 18:59 06:59 18:59 Other: Voiding Method Toilet Toilet # Voids 3 2 - Exam Patient is alert and oriented 3 appears well-nourished well-hydrated is in no acute distress. They does not appear septic. On exam the patient has no tenderness to palpation of her thoracic or lumbar spine. There is no edema or ballottement sign. Lower extremities with 5 out of 5 strength in all major muscle groups e Upper extremities show 5/5 strength in all major muscle groups. except for right upper extremity where she has difficulty with forward flexion and abduction secondary to her shoulder replacement and subsequent periprosthetic fracture that is malunion There is FROM that is painless of the b/l UE and LE in all major joints. They are intact to light touch sensation in L2 to S1 nerve distribution. DTR 2/4 all Patient has palpable dorsalis pedis was posterior tibial pulses. Compartments are soft and compressible. Patient shows a negative Homans, Pinon's, negative Babinski's negative clonus bilaterally. negative straight leg raise bilaterally. No tensioning signs. Cranial nerves II through XII are grossly intact. Overall alignment is well-maintained in the sagittal coronal planes. Mild tightness to palpation of the right arm no pain with movement of the right shoulder today - Labs CBC & Chem 7: 12/26/20 06:37 12/27/20 16:44 Labs: Abnormal Lab Results - Last 24 Hours (Table) 12/27/20 Range/Units 16:44 Creatinine 0.43 L (0.52-1.04) mg/dL Glucose 145 H (74-99) mg/dL AST 44 H (14-36) U/L Alkaline Phosphatase 128 H (38-126) U/L Total Protein 5.9 L (6.3-8.2) g/dL Albumin 3.3 L (3.5-5.0) g/dL Assessment and Plan Assessment: 65-year-old female history right shoulder replacement Right periprosthetic humeral fracture, chronic delayed/malunion Cervical spondylosis with early myelopathy Low back pain Plan: -Appreciate senior health consultant and team management. -Activity: Ambulate QID, OOB all meals, up and about, limit lifting bending twisting to less than 5 lbs. Use walker or cane if needed for stability. -Daily PT/OT, increase ambulation strength and balance. -Pain control: Adequate at this time -Meds: reviewed -GI ppx: senna, Miralax -DC artis when up and about, bedside commode if needed -DVT PPX: Teds and SCDs -Hygiene: Shower daily -Encourage IS 10x/hr -No emergent orthopedic surgical intervention planned -Dispo: Pending
[2020-12-28] MEDS: amLODIPine 10 MG TAB PO SCH (08:19)
[2020-12-28] MEDS: KETOROLAC 0.5% OPHTH DROPS 5 ML BTL RIGHT EYE SCH ×4 (08:20→20:56)
[2020-12-28] MEDS: PROPRANOLOL 20 MG TAB PO SCH (08:20)
[2020-12-28] MEDS: HEPARIN SODIUM,PORCINE/PF 5,000 UNIT/0.5 ML SYRINGE SQ SCH ×2 (08:20→20:55)
[2020-12-28 11:02] LABS: Basophils # (A) 0.01 X 10*3/uL (0.00-0.10); Basophils % (A) 0.2 %; Eosinophils # (A) 0.32 X 10*3/uL (0.04-0.35); Eosinophils % (A) 5.9 %; HCT 42.5 % (37.2-46.3); HGB 13.9 g/dL (12.0-15.0); Lymphocytes # (A) 2.51 X 10*3/uL (0.90-5.00); Lymphocytes % (A) 46.1 %; MCH 31.3 pg (27.0-32.0); MCHC 32.7 g/dL (32.0-37.0); MCV 95.7 fL (80.0-97.0); Mean Platelet Volume 13.1 fL (9.5-12.2); Monocytes # (A) 0.41 X 10*3/uL (0.20-1.00); Monocytes % (A) 7.5 %; Neutrophils # (A) 2.19 X 10*3/uL (1.80-7.70); Neutrophils % (A) 40.1 %; Platelet Count 125 X 10*3/uL (140-440); RBC 4.44 X 10*6/uL (4.10-5.20); RDW 13.9 % (11.5-14.5); WBC 5.45 X 10*3/uL (4.50-10.00)
[2020-12-28] MEDS: FOLIC ACID 1 MG TAB PO SCH (12:14)
[2020-12-28] MEDS: MULTIVITAMINS, THERA 1 EACH TAB PO SCH (12:14)
[2020-12-28] MEDS: THIAMINE 100 MG TAB PO SCH (12:14)
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
--- NOTE | 2020-12-28 15:04 | EEG ---
ELECTROENCEPHALOGRAM REPORT DATE OF SERVICE: 12/28/2020. CLINICAL HISTORY: This is a 65-year-old woman with a history of seizure, who presented to the emergency department for altered mental status. The video EEG is obtained to evaluate for seizure epileptiform activity. RELEVANT MEDICATION: Patient is on Keppra. EEG TYPE: A routine 21 channel EEG is performed with video using the 10/20 electrode system. DESCRIPTION: Wakefulness and drowsiness are obtained. During wakefulness, there is a posterior dominant rhythm of low to moderate voltage, well modulated of 8-9 hertz activity. During brief drowsiness, there is slowing and attenuation of the background activity. There is no physiological stage [address] There is no focal slowing. Interictal and ictal is none. ACTIVATION PROCEDURE: Photic stimulation did not evoke a posterior driving response. There is no abnormality during the photic stimulation. Hyperventilation is not performed. CLINICAL INTERPRETATION: This is a normal routine EEG. There are no focal slowing, epileptiform discharge or seizure on the EEG. Clinical correlation is recommended. MMJAMES / IJN: [id number] / MTDD
[2020-12-28] MEDS: SODIUM CHLORIDE 0.9% 1,000 ML IV SCH (17:18)
[2020-12-28] MEDS: TEMAZEPAM 15 MG CAP PO PRN (20:57)
[2020-12-29] MEDS: METHADONE 10 MG TAB PO SCH ×2 (00:04→05:54)
[2020-12-29] MEDS: PANTOPRAZOLE 40 MG TABLET PO SCH (07:22)
[2020-12-29 07:41] VITALS: BP 102/44; PULSE 56; RESP 18; TEMP 98
--- NOTE | 2020-12-29 08:05 | P.PN ---
Subjective Progress Note Date: 12/28/20 Principal diagnosis: Altered mental status. Multiple falls. This is a continue present 65-year-old white female with known history of opiate dependence and history of remote drug abuse he's been on methadone for many many years. She her guardian recently due to metastatic cancer and she's been struggling due to the fact that she lives with her mother who is somewhat frail. The patient states multiple falls but is relatively poor historian. Appreciate orthopedic and neurology input secondary to fall and gait. Objective - Vital Signs Vital signs: Vital Signs Temp 98.0 F 12/29/20 07:00 Pulse 56 L 12/29/20 07:00 Resp 18 12/29/20 07:00 BP 102/44 12/29/20 07:00 Pulse Ox 93 L 12/29/20 07:00 Intake & Output 12/28/20 12/29/20 12/29/20 18:59 06:59 18:59 Intake Total 666 600 Output Total 3 Balance 663 600 Intake: Oral 666 600 Output: Urine 3 Other: Voiding Method Toilet Toilet # Voids 2 - Constitutional General appearance: Present: no acute distress - EENT Eyes: Absent: abnormal pupil - Neck Neck: Absent: lymphadenopathy - Respiratory Respiratory: bilateral: CTA - Cardiovascular Rhythm: regular Heart sounds: normal: S1, S2 Abnormal Heart Sounds: Absent: S3 Gallop - Gastrointestinal General gastrointestinal: Present: soft. Absent: tenderness - Integumentary Integumentary: Absent: cellulitis - Psychiatric Psychiatric: Absent: intact judgment & insight - Labs CBC & Chem 7: 12/28/20 04:30 12/27/20 16:44 Labs: Abnormal Lab Results - Last 24 Hours (Table) 12/28/20 Range/Units 04:30 Plt Count 125 L (140-440) X 10*3/uL Plt Count Comment DECREASED A MPV 13.1 H (9.5-12.2) fL Assessment and Plan (1) Altered mental status Current Visit: Yes Status: Acute Code(s): R41.82 - ALTERED MENTAL STATUS, UNSPECIFIED SNOMED Code(s): 727939979 (2) Fall Current Visit: Yes Status: Acute Code(s): W19.XXXA - UNSPECIFIED FALL, IN ITIAL ENCOUNTER SNOMED Code(s): 2609577 (3) Opiate dependence, continuous Current Visit: No Status: Acute Code(s): F11.20 - OPIOID DEPENDENCE, UNCOMPLICATED SNOMED Code(s): 458594029 (4) Weakness Current Visit: No Status: Acute Code(s): R53.1 - WEAKNESS SNOMED Code(s): 93926071 (5) Multiple falls Current Visit: No Status: Chronic Code(s): R29.6 - REPEATED FALLS SNOMED Code(s): 167388714 Plan: We'll go ahead and increase activity. Consideration to restart her home dose of methadone. Anticipate discharge in next 24 hours. Prognosis is guarded I suspect she needs some type of discharge planning/home health. Time with Patient: Greater than 30
--- NOTE | 2020-12-29 08:27 | P.DS ---
Providers Date of admission: 12/25/20 15:08 Attending physician: Clarke Robins Consults: 12/25/20 15:08 Consult Physician Urgent Consulting Provider: Vinay Burgess Consult Reason/Comments: ams, falls Do you want consulting provider notified?: Yes 12/26/20 10:13 Consult Physician Routine Consulting Provider: Néstor Encarnacion Consult Reason/Comments: Cervical spondylosis and worsening right shoulder pain. Recurrent falls. Do you want consulting provider notified?: Yes Primary care physician: Clarke Robins - Discharge Diagnosis(es) (1) Altered mental status Current Visit: Yes Status: Acute (2) Fall Current Visit: Yes Status: Acute (3) Opiate dependence, continuous Current Visit: No Status: Acute (4) Weakness Current Visit: No Status: Acute (5) Multiple falls Current Visit: No Status: Chronic Hospital Course: This discharge summary 65-year-old white female essentially admitted for altered mental status and multiple falls. Neurology was consulted and we did not find any acute pathology. Be suspect this is metabolic and element of her opiate dependency. Appreciate orthopedic input for falling. We will discharged in guarded condition secondary to her social issues. Unfortunate, her guardian, who is her sister recently and there has been gaps in care because she has another sister that lives in [place]. She does help take care of her mother which has been another stressor. The patient will be discharged in guarded condition to follow-up with me in 2 days. Patient Condition at Discharge: Fair Plan - Discharge Summary Discharge Rx Participant: Yes New Discharge Prescriptions: Continue amLODIPine BESYLATE [Amlodipine Besylate] 10 mg PO DAILY Propranolol [Inderal] 20 mg PO DAILY Methadone [Dolophine] 20 mg OP Q6H Acetaminophen Tab [Tylenol] 650 mg PO Q6HR PRN tab PRN Reason: Mild Pain Or Fever > 100.5 Pregabalin [Lyrica] 75 mg PO BID PRN PRN Reason: NEUROPATHY LORazepam [Ativan] 0.5 mg PO BID PRN PRN Reason: Anxiety Albuterol Sulfate [Proair Respiclick] 1 - 2 puff INHALATION RT-Q6H PRN PRN Reason: Shortness Of Breath Ketorolac 0.5% Ophth Soln [Acular 0.5%] 1 drop RIGHT EYE QID Discontinued buPROPion HCL [Wellbutrin SR] 150 mg PO TID Discharge Medication List Propranolol [Inderal] 20 mg PO DAILY 04/01/16 [History] amLODIPine BESYLATE [Amlodipine Besylate] 10 mg PO DAILY 04/01/16 [History] Methadone [Dolophine] 20 mg OP Q6H 02/22/17 [History] Acetaminophen Tab [Tylenol] 650 mg PO Q6HR PRN tab 08/10/18 [Rx] Albuterol Sulfate [Proair Respiclick] 1 - 2 puff INHALATION RT-Q6H PRN 12/25/20 [History] Ketorolac 0.5% Ophth Soln [Acular 0.5%] 1 drop RIGHT EYE QID 12/25/20 [History] LORazepam [Ativan] 0.5 mg PO BID PRN 12/25/20 [History] Pregabalin [Lyrica] 75 mg PO BID PRN 12/25/20 [History] Follow up Appointment(s)/Referral(s): Brad Alvarado DO [REFERRING] - 2 Weeks (For Right humerus nonunion) Clarke Robins MD [Primary Care Provider] - 1-2 days [facility], [NON-STAFF] - 1-2 Days Néstor Encarnacion DO [Doctor of Osteopathic Medicine] - 2 Weeks (For cervical spine issues)
[2020-12-29] MEDS: IPRATROPIUM-ALBUTEROL 3 ML NEB INHALATION SCH (08:53)
[2020-12-29] MEDS: amLODIPine 10 MG TAB PO SCH (09:12)
[2020-12-29] MEDS: HEPARIN SODIUM,PORCINE/PF 5,000 UNIT/0.5 ML SYRINGE SQ SCH (09:13)
[2020-12-29] MEDS: PROPRANOLOL 20 MG TAB PO SCH (09:13)
[2020-12-29] MEDS: KETOROLAC 0.5% OPHTH DROPS 5 ML BTL RIGHT EYE SCH (09:14)
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
== END 2020-12-29 09:34 | disposition home health service (06) ==
LOC: EC 12:18 → 6NMEDSUR 15:08
PROVIDERS: ADMIT Family Medicine; ATTEND Family Medicine
DX: R41.82 Altered mental status, unspecified (principal); W19.XXXA Unspecified fall, initial encounter; F11.20 Opioid dependence, uncomplicated; R53.1 Weakness; R29.6 Repeated falls; B19.20 Unspecified viral hepatitis C without hepatic coma; I10 Essential (primary) hypertension; G40.909 Epilepsy, unspecified, not intractable, without status epilepticus; M25.511 Pain in right shoulder; D69.6 Thrombocytopenia, unspecified; H91.90 Unspecified hearing loss, unspecified ear; F32.9 Major depressive disorder, single episode, unspecified; J98.11 Atelectasis; G89.29 Other chronic pain; M25.561 Pain in right knee; M79.621 Pain in right upper arm; D32.9 Benign neoplasm of meninges, unspecified; J44.9 Chronic obstructive pulmonary disease, unspecified; G47.33 Obstructive sleep apnea (adult) (pediatric); K76.9 Liver disease, unspecified; M19.90 Unspecified osteoarthritis, unspecified site; M47.12 Other spondylosis with myelopathy, cervical region; Z88.2 Allergy status to sulfonamides; Z88.1 Allergy status to other antibiotic agents; Z79.899 Other long term (current) drug therapy; Z79.1 Long term (current) use of non-steroidal anti-inflammatories (NSAID); Z91.81 History of falling; Z96.611 Presence of right artificial shoulder joint; Z86.59 Personal history of other mental and behavioral disorders; Z87.820 Personal history of traumatic brain injury; Z87.81 Personal history of (healed) traumatic fracture; Z86.79 Personal history of other diseases of the circulatory system; Z87.891 Personal history of nicotine dependence; Z83.3 Family history of diabetes mellitus; Z82.5 Family history of asthma and other chronic lower respiratory diseases
CPT/HCPCS: 96361; 96372 ×4; 96360; 99285; 36415; 94640 ×2; 95819; 93005; 97162; 97165; 82747; 80053 ×2; 80048; 85652; 80177; 84443; 82607; 82140; 82550; 82746; 84484; 85025 ×3; 85610; 85730; 86140; 81003; 80306; 83036; 84145; 73030; 73060; 71045; 71046; 72128; 72125; 72131; 70486; 70450; 70553; G0378 ×5; G0480; S0106; S0109 ×4; A9585; J1644 ×3; 80320

== ENCOUNTER 2021-10-26 08:19 | Observation (INO) | payer MEDICARE ==
[2021-10-26] MEDS ORDERED: methylPREDNISolone SOD SUCCI 125 MG/2 ML VIAL IV STA (08:40)
[2021-10-26] MEDS ORDERED: ALBUTEROL NEBULIZED 2.5 MG/3 ML INHALATION STA (08:40)
--- NOTE | 2021-10-26 08:43 | ED ---
General Adult HPI - General Chief complaint: Shortness of Breath Stated complaint: SOB Time Seen by Provider: 10/26/21 08:27 Source: patient, EMS, RN notes reviewed, old records reviewed Mode of arrival: EMS Limitations: no limitations - History of Present Illness Initial comments: 66-year-old female presenting for evaluation of increased dyspnea and cough over the past 3 days. She has history of both CHF and COPD. She was noted to have a fever by EMS. She is also complaining of some left lateral chest pain. No central chest pain. No vomiting. No diarrhea. Patient does wear 3 L of home oxygen. - Related Data Home Medications Medication Instructions Recorded Confirmed Propranolol [Inderal] 20 mg PO DAILY 04/01/16 12/25/20 amLODIPine BESYLATE [Amlodipine 10 mg PO DAILY 04/01/16 12/25/20 Besylate] Methadone [Dolophine] 20 mg OP Q6H 02/22/17 12/25/20 Albuterol Sulfate [Proair 1 - 2 puff INHALATION RT-Q6H PRN 12/25/20 12/25/20 Respiclick] Ketorolac 0.5% Ophth Soln [Acular 1 drop RIGHT EYE QID 12/25/20 12/25/20 0.5%] LORazepam [Ativan] 0.5 mg PO BID PRN 12/25/20 12/25/20 Pregabalin [Lyrica] 75 mg PO BID PRN 12/25/20 12/25/20 Previous Rx's Medication Instructions Recorded Acetaminophen Tab [Tylenol] 650 mg PO Q6HR PRN tab 08/10/18 Allergies Allergy/AdvReac Type Severity Reaction Status Date / Time clindamycin Allergy Swelling Verified 12/25/20 14:13 Sulfa (Sulfonamide Allergy Nausea & Verified 12/25/20 14:13 Antibiotics) Vomiting Review of Systems ROS Statement: Those systems with pertinent positive or pertinent negative responses have been documented in the HPI. ROS Other: All systems not noted in ROS Statement are negative. Past Medical History Past Medical History: Heart Failure, COPD, Hypertension, Liver Disease, Seizure Disorder, Sleep Apnea/CPAP/BIPAP Additional Past Medical History / Comment(s): [place] bilaterally, weakness and falls, R knee pain from recent fall, hepatitis c-pt believes she was tx for it in [place], numbness/tingling bilateral feet and legs, chronic R shoulder pain, wears a brace to L forearm due to previous fracture with surgical repair from a fall, HELEN and is suppose to wear CPAP but does not, past cellulitis bilateral lo wer legs. pt stated has had a pne vaccine not sure of date,gag writer unable to verify date at time of this admit,please f/u in am. History of Any Multi-Drug Resistant Organisms: None Reported Past Surgical History: Joint Replacement, Orthopedic Surgery Additional Past Surgical History / Comment(s): R shoulder arthroplasty due to fx from fall 2015, L forearm fracture with surgical repair including bone graft, colonoscopy. Additional Past Anesthesia/Blood Transfusion Reaction / Comment(s): Pt is slow to wake Past Psychological History: Depression Smoking Status: Never smoker Past Alcohol Use History: None Reported Past Drug Use History: None Reported - Past Family History Father Family Medical History: Diabetes Mellitus Additional Family Medical History / Comment(s): Father was murdered Mother Family Medical History: Chest Pain / Angina, COPD, Renal Disease Additional Family Medical History / Comment(s): Mother is 82 yrs old. General Exam Limitations: no limitations General appearance: alert, in no apparent distress Head exam: Present: atraumatic, normocephalic Eye exam: Present: normal appearance, PERRL ENT exam: Present: normal exam Neck exam: Present: normal inspection Respiratory exam: Present: rhonchi, decreased breath sounds. Absent: respiratory distress Cardiovascular Exam: Present: regular rate, normal rhythm GI/Abdominal exam: Present: soft. Absent: distended, tenderness Extremities exam: Present: normal capillary refill. Absent: pedal edema, calf tenderness Neurological exam: Present: alert, oriented X3, CN II-XII intact. Absent: motor sensory deficit Psychiatric exam: Present: normal affect, normal mood Skin exam: Present: warm, dry, intact. Absent: cyanosis, diaphoretic Course Vital Signs 10/26/21 10/26/21 10/26/21 08:22 08:26 09:18 Temperature 99.2 F Pulse Rate 85 88 Respiratory 20 20 Rate Blood Pressure 140/67 O2 Sat by Pulse 93 L Oximetry 10/26/21 09:29 Temperature Pulse Rate 86 Respiratory Rate Blood Pressure O2 Sat by Pulse Oximetry EKG Findings - EKG Comments: EKG Findings:: EKG: Sinus rhythm left axis, rate of 86, MO interval 164, QRS duration 87, QTC [address] segment elevation, artifact in the lateral precordium. Medical Decision Making - Medical Decision Making 66-year-old female presenting with increased cough, dyspnea, left lateral chest wall pain. Patient has diminished bilaterally with increased oxygen requirements. She has a chest x-ray which shows hyperinflation, no acute findings, no large focal pneumonia. She has a normal CBC, mild transaminitis with no abdominal pain. She has a negative troponin and negative BMP. She will be treated for COPD exacerbation and admitted for Dr. Robins who is aware. - Lab Data Result diagrams: 10/26/21 08:49 10/26/21 08:49 Lab Results 10/26/21 10/26/21 10/26/21 Range/Units 08:49 08:49 08:49 WBC 10.6 (3.8-10.6) k/uL RBC 4.80 (3.80-5.40) m/uL Hgb 15.3 (11.4-16.0) gm/dL Hct 46.9 H (34.0-46.0) % MCV 97.6 (80.0-100.0) fL MCH 31.8 (25.0-35.0) pg MCHC 32.5 (31.0-37.0) g/dL RDW 13.5 (11.5-15.5) % Plt Count 168 (150-450) k/uL MPV 8.7 Neutrophils % 84 % Lymphocytes % 10 % Monocytes % 3 % Eosinophils % 2 % Basophils % 1 % Neutrophils # 9.0 H (1.3-7.7) k/uL Lymphocytes # 1.0 (1.0-4.8) k/uL Monocytes # 0.4 (0-1.0) k/uL Eosinophils # 0.2 (0-0.7) k/uL Basophils # 0.1 (0-0.2) k/uL PT 10.9 (9.0-12.0) sec INR 1.0 (<1.2) APTT 25.6 (22.0-30.0) sec Sodium 142 (137-145) mmol/L Potassium 4.4 (3.5-5.1) mmol/L Chloride 106 (98-107) mmol/L Carbon Dioxide 32 H (22-30) mmol/L Anion Gap 4 mmol/L BUN 13 (7-17) mg/dL Creatinine 0.53 (0.52-1.04) mg/dL Est GFR (CKD-EPI)AfAm >90 (>60 ml/min/1.73 sqM) Est GFR (CKD-EPI)NonAf >90 (>60 ml/min/1.73 sqM) Glucose 128 H (74-99) mg/dL Plasma Lactic Acid Nabil (0.7-2.0) mmol/L Calcium 8.6 (8.4-10.2) mg/dL Magnesium 2.0 (1.6-2.3) mg/dL Total Bilirubin 0.7 (0.2-1.3) mg/dL AST 52 H (14-36) U/L ALT 35 H (4-34) U/L Alkaline Phosphatase 138 H (38-126) U/L Troponin I (0.000-0.034) ng/mL NT-Pro-B Natriuret Pep pg/mL Total Protein 6.6 (6.3-8.2) g/dL Albumin 3.4 L (3.5-5.0) g/dL Coronavirus (PCR) (Not Detectd) Influenza Type A RNA (Not Detectd) Influenza Type B (PCR) (Not Detectd) 10/26/21 10/26/21 10/26/21 Range/Units 08:49 08:49 08:49 WBC (3.8-10.6) k/uL RBC (3.80-5.40) m/uL Hgb (11.4-16.0) gm/dL Hct (34.0-46.0) % MCV (80.0-100.0) fL MCH (25.0-35.0) pg MCHC (31.0-37.0) g/dL RDW (11.5-15.5) % Plt Count (150-450) k/uL MPV Neutrophils % % Lymphocytes % % Monocytes % % Eosinophils % % Basophils % % Neutrophils # (1.3-7.7) k/uL Lymphocytes # (1.0-4.8) k/uL Monocytes # (0-1.0) k/uL Eosinophils # (0-0.7) k/uL Basophils # (0-0.2) k/uL PT (9.0-12.0) sec INR (<1.2) APTT (22.0-30.0) sec Sodium (137-145) mmol/L Potassium (3.5-5.1) mmol/L Chloride (98-107) mmol/L Carbon Dioxide (22-30) mmol/L Anion Gap mmol/L BUN (7-17) mg/dL Creatinine (0.52-1.04) mg/dL Est GFR (CKD-EPI)AfAm (>60 ml/min/1.73 sqM) Est GFR (CKD-EPI)NonAf (>60 ml/min/1.73 sqM) Glucose (74-99) mg/dL Plasma Lactic Acid Nabil 1.5 (0.7-2.0) mmol/L Calcium (8.4-10.2) mg/dL Magnesium (1.6-2.3) mg/dL Total Bilirubin (0.2-1.3) mg/dL AST (14-36) U/L ALT (4-34) U/L Alkaline Phosphatase (38-126) U/L Troponin I <0.012 (0.000-0.034) ng/mL NT-Pro-B Natriuret Pep 652 pg/mL Total Protein (6.3-8.2) g/dL Albumin (3.5-5.0) g/dL Coronavirus (PCR) (Not Detectd) Influenza Type A RNA (Not Detectd) Influenza Type B (PCR) (Not Detectd) 10/26/21 10/26/21 Range/Units 08:49 08:49 WBC (3.8-10.6) k/uL RBC (3.80-5.40) m/uL Hgb (11.4-16.0) gm/dL Hct (34.0-46.0) % MCV (80.0-100.0) fL MCH (25.0-35.0) pg MCHC (31.0-37.0) g/dL RDW (11.5-15.5) % Plt Count (150-450) k/uL MPV Neutrophils % % Lymphocytes % % Monocytes % % Eosinophils % % Basophils % % Neutrophils # (1.3-7.7) k/uL Lymphocytes # (1.0-4.8) k/uL Monocytes # (0-1.0) k/uL Eosinophils # (0-0.7) k/uL Basophils # (0-0.2) k/uL PT (9.0-12.0) sec INR (<1.2) APTT (22.0-30.0) sec Sodium (137-145) mmol/L Potassium (3.5-5.1) mmol/L Chloride (98-107) mmol/L Carbon Dioxide (22-30) mmol/L Anion Gap mmol/L BUN (7-17) mg/dL Creatinine (0.52-1.04) mg/dL Est GFR (CKD-EPI)AfAm (>60 ml/min/1.73 sqM) Est GFR (CKD-EPI)NonAf (>60 ml/min/1.73 sqM) Glucose (74-99) mg/dL Plasma Lactic Acid Nabil (0.7-2.0) mmol/L Calcium (8.4-10.2) mg/dL Magnesium (1.6-2.3) mg/dL Total Bilirubin (0.2-1.3) mg/dL AST (14-36) U/L ALT (4-34) U/L Alkaline Phosphatase (38-126) U/L Troponin I (0.000-0.034) ng/mL NT-Pro-B Natriuret Pep pg/mL Total Protein (6.3-8.2) g/dL Albumin (3.5-5.0) g/dL Coronavirus (PCR) Not Detected (Not Detectd) Influenza Type A RNA Not Detected (Not Detectd) Influenza Type B (PCR) Not Detected (Not Detectd) Disposition Clinical Impression: Acute exacerbation of chronic obstructive pulmonary disease Disposition: ADMITTED IP TO THIS HOSP Condition: Stable Is patient prescribed a controlled substance at d/c from ED?: No Referrals: Clarke Robins MD [Primary Care Provider] - 1-2 days Time of Disposition: 11:08
[2021-10-26 09:10] LABS: Basophils # (A) 0.1 k/uL (0-0.2); Basophils % (A) 1 %; Eosinophils # (A) 0.2 k/uL (0-0.7); Eosinophils % (A) 2 %; HCT 46.9 % (34.0-46.0); HGB 15.3 gm/dL (11.4-16.0); Lymphocytes % (A) 10 %; MCH 31.8 pg (25.0-35.0); MCHC 32.5 g/dL (31.0-37.0); MCV 97.6 fL (80.0-100.0); Mean Platelet Volume 8.7; Monocytes # (A) 0.4 k/uL (0-1.0); Monocytes % (A) 3 %; Neutrophils % (A) 84 %; Platelet Count 168 k/uL (150-450); RDW 13.5 % (11.5-15.5); WBC 10.6 k/uL (3.8-10.6)
[2021-10-26 09:18] LABS: Partial Thromboplastin Time 25.6 sec (22.0-30.0); Prothrombin Time 10.9 sec (9.0-12.0)
[2021-10-26 09:19] LABS: ALT 35 U/L (4-34); African American GFR (CKD) >90 (>60 ml/min/1.73 sqM); Albumin 3.4 g/dL (3.5-5.0); Anion Gap 4 mmol/L; Blood Urea Nitrogen 13 mg/dL (7-17); Calcium 8.6 mg/dL (8.4-10.2); Carbon Dioxide 32 mmol/L (22-30); Chloride 106 mmol/L (98-107); Glucose 128 mg/dL (74-99); Non-African American GFR(CKD) >90 (>60 ml/min/1.73 sqM); Sodium 142 mmol/L (137-145); Total Bilirubin 0.7 mg/dL (0.2-1.3); Total Protein 6.6 g/dL (6.3-8.2)
[2021-10-26 09:28] LABS: AST 52 U/L (14-36); Alkaline Phosphatase 138 U/L (38-126)
[2021-10-26 09:30] LABS: Potassium 4.4 mmol/L (3.5-5.1)
--- NOTE | 2021-10-26 10:36 | XR ---
EXAMINATION TYPE: XR chest 2V DATE OF EXAM: 10/26/2021 COMPARISON: 12/26/2020 TECHNIQUE: PA and lateral views submitted. HISTORY: Shortness of breath FINDINGS: Postsurgical change right shoulder. Coarsened interstitium. Heart size normal. There is retrocardiac density noted on the left. No pneumothorax or pleural effusion. Diffuse osteopenia. IMPRESSION: 1. Correlate for COPD. Left basilar infiltrate noted correlate clinically. 2. Correlate for chronic interstitial lung disease..
[2021-10-26] MEDS ORDERED: IPRATROPIUM-ALBUTEROL 3 ML NEB INHALATION PRN (11:06)
[2021-10-26] MEDS: IPRATROPIUM-ALBUTEROL 3 ML NEB INHALATION SCH ×3 (11:50→19:43)
[2021-10-26] MEDS: METHADONE 10 MG TAB PO SCH ×2 (12:27→18:08)
[2021-10-26] MEDS: LORazepam 0.5 MG TAB PO SCH ×2 (17:22→22:13)
[2021-10-26] MEDS: methylPREDNISolone SOD SUCCI 125 MG/2 ML VIAL IV SCH ×2 (19:21→22:33)
[2021-10-26] MEDS: traZODone HCL 50 MG TAB PO SCH (22:13)
[2021-10-26] MEDS: PREGABALIN 75 MG CAP PO SCH (22:14)
[2021-10-27] MEDS: METHADONE 10 MG TAB PO SCH ×4 (01:01→18:03)
[2021-10-27] MEDS: methylPREDNISolone SOD SUCCI 125 MG/2 ML VIAL IV SCH ×4 (04:21→21:24)
[2021-10-27] MEDS: IPRATROPIUM-ALBUTEROL 3 ML NEB INHALATION SCH ×4 (08:28→19:37)
--- NOTE | 2021-10-27 09:07 | P.HPIM ---
History of Present Illness Chief Complaint: Shortness of breath. Patient is 66-year-old white female with known history of opiate dependency on methadone for many years who has been having worsening respiratory distress. Exacerbation COPD was diagnosed in the emergency room new no pneumonia no fever she's been struggling since her older sister who is her caregiver, she was an employment law attorney in [place] No voiding difficulties., suddenly last year and her family has been struggling. Review of Systems Constitutional: Denies chills, Denies fever Eyes: denies blurred vision, denies pain Ears, nose, mouth and throat: Denies headache, Denies sore throat Past Medical History Past Medical History: Heart Failure, COPD, Hearing Disorder / Deafness, Hypertension, Liver Disease, Seizure Disorder, Sleep Apnea/CPAP/BIPAP Additional Past Medical History / Comment(s): Home oxygen which pt states she has not needed lately, [place] bilaterally, weakness and falls, hepatitis c-pt believes she was tx for it in [place], chronic R shoulder pain, L forearm fracture with surgical repair from a fall, chronic low back pain, past opiod dependence, HELEN and is suppose to wear CPAP but does not, past cellulitis bilateral lower legs. History of Any Multi-Drug Resistant Organisms: None Reported Past Surgical History: Joint Replacement, Orthopedic Surgery Additional Past Surgical History / Comment(s): R shoulder arthroplasty due to fx from fall 2014, L forearm fracture with surgical repair including bone graft, colonoscopy. Additional Past Anesthesia/Blood Transfusion Reaction / Comment(s): Pt is slow t o wake Smoking Status: Former smoker - Past Family History Father Family Medical History: Diabetes Mellitus Additional Family Medical History / Comment(s): Father was murdered Mother Family Medical History: Chest Pain / Angina, COPD, Renal Disease Additional Family Medical History / Comment(s): Mother is 88 yrs old. Medications and Allergies Home Medications Medication Instructions Recorded Confirmed Type Propranolol [Inderal] 20 mg PO DAILY 04/01/16 10/26/21 History amLODIPine BESYLATE [Amlodipine 10 mg PO DAILY 04/01/16 10/26/21 History Besylate] Methadone [Dolophine] 20 mg PO Q6H 02/22/17 10/26/21 History LORazepam [Ativan] 0.5 mg PO TID 12/25/20 10/26/21 History Pregabalin [Lyrica] 75 mg PO BID 12/25/20 10/26/21 History Tolterodine Tartrate [Detrol LA] 4 mg PO DAILY 10/26/21 10/26/21 History levETIRAcetam [Keppra Xr] 1,000 mg PO DAILY 10/26/21 10/26/21 History traZODone HCL 50 mg PO HS 10/26/21 10/26/21 History Allergies Allergy/AdvReac Type Severity Reaction Status Date / Time clindamycin Allergy Swelling/Ra Verified 10/26/21 11:21 sh/Itching Sulfa (Sulfonamide AdvReac Nausea & Verified 10/26/21 11:21 Antibiotics) Vomiting Physical Exam Vitals: Vital Signs Temp Pulse Pulse Resp BP BP Pulse Ox 10/27/21 08:46 78 10/27/21 08:32 62 95 10/27/21 07:06 97.9 F 64 17 157/69 95 10/27/21 02:00 18 10/27/21 01:02 98.3 F 76 16 149/72 94 L 10/26/21 22:00 18 10/26/21 19:51 84 10/26/21 19:45 82 10/26/21 19:27 97.0 F L 75 18 145/70 93 L 10/26/21 12:00 80 18 136/78 97 10/26/21 09:29 86 10/26/21 09:18 88 Intake and Output 10/26/21 10/27/21 10/27/21 22:59 06:59 14:59 Intake Total 240 Balance 240 Intake: Oral 240 Other: Voiding Method Toilet Toilet # Voids 1 1 1 Weight 58.967 kg - Constitutional General appearance: cooperative, no acute distress - EENT Eyes: EOMI - Neck Neck: no lymphadenopathy - Respiratory Respiratory: bilateral: diminished - Cardiovascular Rhythm: regular Heart sounds: normal: S1, S2 Abnormal Heart Sounds: no S3 Gallop - Gastrointestinal General gastrointestinal: soft, no tenderness - Integumentary Integumentary: no cellulitis - Psychiatric Psychiatric: A&O x's 3 Results CBC & Chem 7: 10/26/21 08:49 10/26/21 08:49 Labs: Abnormal Lab Results - Last 24 Hours (Table) 10/26/21 10/26/21 Range/Units 08:49 08:49 Hct 46.9 H (34.0-46.0) % Neutrophils # 9.0 H (1.3-7.7) k/uL Carbon Dioxide 32 H (22-30) mmol/L Glucose 128 H (74-99) mg/dL AST 52 H (14-36) U/L ALT 35 H (4-34) U/L Alkaline Phosphatase 138 H (38-126) U/L Albumin 3.4 L (3.5-5.0) g/dL Thrombosis Risk Factor Assmnt - Choose All That Apply Any of the Below Risk Factors Present?: Yes Each Factor Represents 1 point: Abnormal pulmonary function (COPD), Obesity (BMI >25) Other Risk Factors: Yes Each Risk Factor Represents 2 Points: Age 61-74 years Other congenital or acquired thrombophilia - If yes, enter type in comment: No Thrombosis Risk Factor Assessment Total Risk Factor Score: 4 Thrombosis Risk Factor Assessment Level: Moderate Risk Assessment and Plan (1) Acute exacerbation of chronic obstructive pulmonary disease Current Visit: Yes Status: Acute Code(s): J44.1 - CHRONIC OBSTRUCTIVE PULMONARY DISEASE W (ACUTE) EXACERBATION SNOMED Code(s): 236447473 (2) Opiate dependence, continuous Current Visit: No Status: Acute Code(s): F11.20 - OPIOID DEPENDENCE, UNCOMPLICATED SNOMED Code(s): 211100560 (3) Weakness Current Visit: No Status: Acute Code(s): R53.1 - WEAKNESS SNOMED Code(s): 57662055 Plan: Treatment with Solu-Medrol and breathing treatments. Reconcile home medications. Methadone dependency. Check CBC and CMP in a.m. Question element of discharge planning.
[2021-10-27] MEDS: PREGABALIN 75 MG CAP PO SCH ×2 (09:34→21:25)
[2021-10-27] MEDS: LORazepam 0.5 MG TAB PO SCH ×3 (09:34→21:25)
[2021-10-27] MEDS: levETIRAcetam 500 MG TAB PO SCH ×2 (10:18→21:24)
[2021-10-27] MEDS: amLODIPine 10 MG TAB PO SCH (10:18)
[2021-10-27] MEDS: PROPRANOLOL 20 MG TAB PO SCH (10:18)
[2021-10-27] MEDS: OXYBUTYNIN 10 MG TAB.ER.24 PO SCH (10:18)
[2021-10-27] MEDS: traZODone HCL 50 MG TAB PO SCH (21:24)
[2021-10-28] MEDS: METHADONE 10 MG TAB PO SCH ×3 (00:12→12:18)
[2021-10-28] MEDS: methylPREDNISolone SOD SUCCI 125 MG/2 ML VIAL IV SCH ×2 (05:18→12:19)
[2021-10-28] MEDS: IPRATROPIUM-ALBUTEROL 3 ML NEB INHALATION SCH ×2 (08:14→11:58)
--- NOTE | 2021-10-28 08:48 | P.DS ---
Providers Date of admission: 10/26/21 11:06 Attending physician: Clarke Robins Primary care physician: Clarke Robins - Discharge Diagnosis(es) (1) Acute exacerbation of chronic obstructive pulmonary disease Current Visit: Yes Status: Acute (2) Opiate dependence, continuous Current Visit: No Status: Acute (3) Weakness Current Visit: No Status: Acute Hospital Course: This discharge summary 66-year-old white female essentially admitted for exacerbation of COPD. She is placed on appropriate son Medrol for 24-48 hrs. and did quite well. She was emulating without the need for oxygen during the night for discharge. She struggles with opiate dependency and will be discharged in stable condition once not needing oxygen. Prednisone taper was started. The patient's follow-up with me in 3-5 days Patient Condition at Discharge: Stable Plan - Discharge Summary Discharge Rx Participant: No New Discharge Prescriptions: New predniSONE [Deltasone] 0 mg PO DIRECTED #18 tab Albuterol Inhaler [Ventolin Hfa Inhaler] 2 puff INHALATION RT-QID #8 gm Continue amLODIPine BESYLATE [Amlodipine Besylate] 10 mg PO DAILY Propranolol [Inderal] 20 mg PO DAILY Methadone [Dolophine] 20 mg PO Q6H Pregabalin [Lyrica] 75 mg PO BID LORazepam [Ativan] 0.5 mg PO TID traZODone HCL 50 mg PO HS Tolterodine Tartrate [Detrol LA] 4 mg PO DAILY levETIRAcetam [Keppra Xr] 1,000 mg PO DAILY Discharge Medication List Propranolol [Inderal] 20 mg PO DAILY 04/01/16 [History] amLODIPine BESYLATE [Amlodipine Besylate] 10 mg PO DAILY 04/01/16 [History] Methadone [Dolophine] 20 mg PO Q6H 02/22/17 [History] LORazepam [Ativan] 0.5 mg PO TID 12/25/20 [History] Pregabalin [Lyrica] 75 mg PO BID 12/25/20 [History] Tolterodine Tartrate [Detrol LA] 4 mg PO DAILY 10/26/21 [History] levETIRAcetam [Keppra Xr] 1,000 mg PO DAILY 10/26/21 [History] traZODone HCL 50 mg PO HS 10/26/21 [History] Albuterol Inhaler [Ventolin Hfa Inhaler] 2 puff INHALATION RT-QID #8 gm 10/28/21 [Rx] predniSONE [Deltasone] 0 mg PO DIRECTED #18 tab 10/28/21 [Rx] Follow up Appointment(s)/Referral(s): Clarke Robins MD [Primary Care Provider] - 1-2 days
[2021-10-28] MEDS: PREGABALIN 75 MG CAP PO SCH (09:33)
[2021-10-28] MEDS: OXYBUTYNIN 10 MG TAB.ER.24 PO SCH (09:33)
[2021-10-28] MEDS: amLODIPine 10 MG TAB PO SCH (09:33)
[2021-10-28] MEDS: PROPRANOLOL 20 MG TAB PO SCH (09:33)
[2021-10-28] MEDS: levETIRAcetam 500 MG TAB PO SCH (09:33)
[2021-10-28] MEDS: LORazepam 0.5 MG TAB PO SCH (09:34)
[2021-10-28 10:34] VITALS: BP 159/82; RESP 12; TEMP 98.4
[2021-10-28 12:01] VITALS: PULSE 75
== END 2021-10-28 13:35 | disposition home or self-care (01) ==
LOC: EC 08:19 → 6NMEDSUR 11:06
PROVIDERS: ADMIT Family Medicine; ATTEND Family Medicine
DX: J44.1 Chronic obstructive pulmonary disease with (acute) exacerbation (principal); F11.20 Opioid dependence, uncomplicated; R53.1 Weakness; I11.0 Hypertensive heart disease with heart failure; I50.9 Heart failure, unspecified; R50.9 Fever, unspecified; G40.909 Epilepsy, unspecified, not intractable, without status epilepticus; R20.2 Paresthesia of skin; M25.561 Pain in right knee; R20.0 Anesthesia of skin; G89.29 Other chronic pain; M54.50 Low back pain, unspecified; M25.511 Pain in right shoulder; G47.33 Obstructive sleep apnea (adult) (pediatric); F32.A Depression, unspecified; R74.01 Elevation of levels of liver transaminase levels; J84.9 Interstitial pulmonary disease, unspecified; H91.90 Unspecified hearing loss, unspecified ear; E66.9 Obesity, unspecified; Z68.26 Body mass index [BMI] 26.0-26.9, adult; Z20.822 Contact with and (suspected) exposure to COVID-19; Z87.891 Personal history of nicotine dependence; Z88.2 Allergy status to sulfonamides; Z88.1 Allergy status to other antibiotic agents; Z79.899 Other long term (current) drug therapy; Z91.81 History of falling; Z86.19 Personal history of other infectious and parasitic diseases; Z96.611 Presence of right artificial shoulder joint; Z83.3 Family history of diabetes mellitus; Z82.5 Family history of asthma and other chronic lower respiratory diseases; Z82.49 Family history of ischemic heart disease and other diseases of the circulatory system; Z84.1 Family history of disorders of kidney and ureter
CPT/HCPCS: 96376 ×3; 96374; 99285; 36415; 94640 ×5; 94760 ×2; 93005; 83880; 80053; 83605; 83735; 84484; 85025; 85610; 85730; 87040; 87502; 87635; 71046; G0378 ×3; J2930 ×3; S0109 ×3

== ENCOUNTER 2021-11-20 15:05 | Inpatient (IN) | payer MEDICARE ==
[2021-11-20] MEDS ORDERED: IPRATROPIUM-ALBUTEROL 3 ML NEB INHALATION STA (15:08)
[2021-11-20] MEDS ORDERED: MAGNESIUM SULFATE-D5W PMX 2 GM in DEXTROSE/WATER 1 100ML.BAG IVPB STA (15:11)
[2021-11-20] MEDS ORDERED: methylPREDNISolone SOD SUCCI 125 MG/2 ML VIAL IV STA (15:11)
[2021-11-20] MEDS ORDERED: SODIUM CHLORIDE 0.9% 1,000 ML IV STA (15:11)
--- NOTE | 2021-11-20 15:22 | ED ---
SOB HPI - General Chief Complaint: Shortness of Breath Stated Complaint: JESSE Time Seen by Provider: 11/20/21 15:11 Source: patient, RN notes reviewed Mode of arrival: ambulatory Limitations: no limitations - History of Present Illness Initial Comments: 66-year-old female history of COPD who states she started developing shortness breath last night around 8 PM. Got progressively worse throughout the night she also developed a fever slight cough no nausea vomiting. EMS was called today she was found to be in respiratory distress with hypoxemia noted. She had a Temperature was elevated at 102 degrees Fahrenheit. She denies any chest pain. She was placed on BiPAP given respiratory treatment with minimal improvement. She had no improvement with her medication from home. No other current complaints or modifying factors at this time. Patient was brought in [facility] by EMS. MD Complaint: shortness of breath - Related Data Home Medications Medication Instructions Recorded Confirmed Propranolol [Inderal] 20 mg PO DAILY 04/01/16 11/20/21 amLODIPine BESYLATE [Amlodipine 10 mg PO DAILY 04/01/16 11/20/21 Besylate] Methadone [Dolophine] 20 mg PO Q6H 02/22/17 11/20/21 LORazepam [Ativan] 0.5 mg PO TID 12/25/20 11/20/21 Pregabalin [Lyrica] 75 mg PO BID 12/25/20 11/20/21 Tolterodine Tartrate [Detrol LA] 4 mg PO DAILY 10/26/21 11/20/21 levETIRAcetam [Keppra Xr] 1,000 mg PO DAILY 10/26/21 11/20/21 traZODone HCL 50 mg PO HS 10/26/21 11/20/21 Previous Rx's Medication Instructions Recorded Albuterol Inhaler [Ventolin Hfa 2 puff INHALATION RT-QID #8 gm 10/28/21 Inhaler] Allergies Allergy/AdvReac Type Severity Reaction Status Date / Time clindamycin Allergy Swelling/Ra Verified 11/20/21 16:43 sh/Itching Sulfa (Sulfonamide AdvReac Nausea & Verified 11/20/21 16:43 Antibiotics) Vomiting Review of Systems ROS Statement: Those systems with pertinent positive or pertinent negative responses have been documented in the HPI. ROS Other: All systems not noted in ROS Statement are negative. Past Medical History Past Medical History: Heart Failure, COPD, Hearing Disorder / Deafness, Hypertension, Liver Disease, Seizure Disorder, Sleep Apnea/CPAP/BIPAP Additional Past Medical History / Comment(s): Home oxygen which pt states she has not needed lately, [place] bilaterally, weakness and falls, hepatitis c-pt believes she was tx for it in [place], chronic R shoulder pain, L forearm fracture with surgical repair from a fall, chronic low back pain, past opiod dependence, HELEN and is suppose to wear CPAP but does not, past cellulitis bilateral lower legs. History of Any Multi-Drug Resistant Organisms: None Reported Past Surgical History: Joint Replacement, Orthopedic Surgery Additional Past Surgical History / Comment(s): R shoulder arthroplasty due to fx from fall 2014, L forearm fracture with surgical repair including bone graft, colonoscopy. Additional Past Anesthesia/Blood Transfusion Reaction / Comment(s): Pt is slow to wake Past Psychological History: Depression Smoking Status: Former smoker Past Alcohol Use History: None Reported Past Drug Use History: None Reported - Past Family History Father Family Medical History: Diabetes Mellitus Additional Family Medical History / Comment(s): Father was murdered Mother Family Medical History: Chest Pain / Angina, COPD, Renal Disease Additional Family Medical History / Comment(s): Mother is 88 yrs old. General Exam - General Exam Comments Initial Comments: This is a well-developed well-nourished awake alert oriented 3 female demonstrate respiratory distress Limitations: no limitations General appearance: alert, anxious, in distress Head exam: Present: atraumatic, normocephalic, normal inspection Eye exam: Present: normal appearance, PERRL, EOMI. Absent: scleral icterus, conjunctival injection, periorbital swelling ENT exam: Present: mucous membranes dry Neck exam: Present: normal inspection. Absent: tenderness, meningismus, lymphadenopathy Respiratory exam: Present: accessory muscle use, decreased breath sounds. Absent: respiratory distress, wheezes, rales, rhonchi, stridor Cardiovascular Exam: Present: regular rate, normal rhythm, normal heart sounds. Absent: systolic murmur, diastolic murmur, rubs, gallop, clicks GI/Abdominal exam: Present: soft, normal bowel sounds. Absent: distended, tenderness, guarding, rebound, rigid Extremities exam: Present: normal inspection, full ROM, normal capillary refill. Absent: tenderness, pedal edema, joint swelling, calf tenderness Back exam: Present: normal inspection Neurological exam: Present: alert, oriented X3, CN II-XII intact Psychiatric exam: Present: normal affect, anxious Skin exam: Present: warm, dry, intact, normal color. Absent: rash Course Vital Signs 11/20/21 11/20/21 11/20/21 15:07 15:11 15:19 Temperature 100.2 F H Pulse Rate 92 92 92 Respiratory 18 24 23 Rate Blood Pressure 128/70 O2 Sat by Pulse 94 L Oximetry - Reevaluation(s) Reevaluation #1: 11/20/21 18:06 I did reevaluate patient on multiple occasions she is finally feeling improved at this time still remains on BiPAP however she voices that she is feeling much better Medical Decision Making - Lab Data Result diagrams: 11/20/21 15:29 11/20/21 15:29 Lab Results 11/20/21 11/20/21 11/20/21 Range/Units 15:29 15:29 15:29 WBC 5.6 (3.8-10.6) k/uL RBC 4.87 (3.80-5.40) m/uL Hgb 15.0 (11.4-16.0) gm/dL Hct 47.3 H (34.0-46.0) % MCV 97.1 (80.0-100.0) fL MCH 30.8 (25.0-35.0) pg MCHC 31.7 (31.0-37.0) g/dL RDW 14.0 (11.5-15.5) % Plt Count 156 (150-450) k/uL MPV 8.5 Neutrophils % 81 % Lymphocytes % 12 % Monocytes % 5 % Eosinophils % 0 % Basophils % 0 % Neutrophils # 4.6 (1.3-7.7) k/uL Lymphocytes # 0.7 L (1.0-4.8) k/uL Monocytes # 0.3 (0-1.0) k/uL Eosinophils # 0.0 (0-0.7) k/uL Basophils # 0.0 (0-0.2) k/uL Manual Slide Review Performed RBC Morphology Normal PT 10.4 (9.0-12.0) sec INR 0.9 (<1.2) APTT 22.9 (22.0-30.0) sec D-Dimer 2.48 H (<0.60) mg/L FEU Sodium 143 (137-145) mmol/L Potassium 4.3 (3.5-5.1) mmol/L Chloride 108 H (98-107) mmol/L Carbon Dioxide 28 (22-30) mmol/L Anion Gap 7 mmol/L BUN 23 H (7-17) mg/dL Creatinine 0.60 (0.52-1.04) mg/dL Est GFR (CKD-EPI)AfAm >90 (>60 ml/min/1.73 sqM) Est GFR (CKD-EPI)NonAf >90 (>60 ml/min/1.73 sqM) Glucose 187 H (74-99) mg/dL Plasma Lactic Acid Nabil (0.7-2.0) mmol/L Calcium 8.6 (8.4-10.2) mg/dL Magnesium 2.1 (1.6-2.3) mg/dL Total Bilirubin 1.2 (0.2-1.3) mg/dL AST 71 H (14-36) U/L ALT 49 H (4-34) U/L Alkaline Phosphatase 144 H (38-126) U/L Troponin I (0.000-0.034) ng/mL NT-Pro-B Natriuret Pep pg/mL Total Protein 6.2 L (6.3-8.2) g/dL Albumin 3.5 (3.5-5.0) g/dL Coronavirus (PCR) (Not Detectd) Influenza Type A RNA (Not Detectd) Influenza Type B (PCR) (Not Detectd) 11/20/21 11/20/21 11/20/21 Range/Units 15:29 15:29 15:29 WBC (3.8-10.6) k/uL RBC (3.80-5.40) m/uL Hgb (11.4-16.0) gm/dL Hct (34.0-46.0) % MCV (80.0-100.0) fL MCH (25.0-35.0) pg MCHC (31.0-37.0) g/dL RDW (11.5-15.5) % Plt Count (150-450) k/uL MPV Neutrophils % % Lymphocytes % % Monocytes % % Eosinophils % % Basophils % % Neutrophils # (1.3-7.7) k/uL Lymphocytes # (1.0-4.8) k/uL Monocytes # (0-1.0) k/uL Eosinophils # (0-0.7) k/uL Basophils # (0-0.2) k/uL Manual Slide Review RBC Morphology PT (9.0-12.0) sec INR (<1.2) APTT (22.0-30.0) sec D-Dimer (<0.60) mg/L FEU Sodium (137-145) mmol/L Potassium (3.5-5.1) mmol/L Chloride (98-107) mmol/L Carbon Dioxide (22-30) mmol/L Anion Gap mmol/L BUN (7-17) mg/dL Creatinine (0.52-1.04) mg/dL Est GFR (CKD-EPI)AfAm (>60 ml/min/1.73 sqM) Est GFR (CKD-EPI)NonAf (>60 ml/min/1.73 sqM) Glucose (74-99) mg/dL Plasma Lactic Acid Nabil 1.5 (0.7-2.0) mmol/L Calcium (8.4-10.2) mg/dL Magnesium (1.6-2.3) mg/dL Total Bilirubin (0.2-1.3) mg/dL AST (14-36) U/L ALT (4-34) U/L Alkaline Phosphatase (38-126) U/L Troponin I <0.012 (0.000-0.034) ng/mL NT-Pro-B Natriuret Pep 846 pg/mL Total Protein (6.3-8.2) g/dL Albumin (3.5-5.0) g/dL Coronavirus (PCR) (Not Detectd) Influenza Type A RNA (Not Detectd) Influenza Type B (PCR) (Not Detectd) 11/20/21 11/20/21 Range/Units 15:29 15:29 WBC (3.8-10.6) k/uL RBC (3.80-5.40) m/uL Hgb (11.4-16.0) gm/dL Hct (34.0-46.0) % MCV (80.0-100.0) fL MCH (25.0-35.0) pg MCHC (31.0-37.0) g/dL RDW (11.5-15.5) % Plt Count (150-450) k/uL MPV Neutrophils % % Lymphocytes % % Monocytes % % Eosinophils % % Basophils % % Neutrophils # (1.3-7.7) k/uL Lymphocytes # (1.0-4.8) k/uL Monocytes # (0-1.0) k/uL Eosinophils # (0-0.7) k/uL Basophils # (0-0.2) k/uL Manual Slide Review RBC Morphology PT (9.0-12.0) sec INR (<1.2) APTT (22.0-30.0) sec D-Dimer (<0.60) mg/L FEU Sodium (137-145) mmol/L Potassium (3.5-5.1) mmol/L Chloride (98-107) mmol/L Carbon Dioxide (22-30) mmol/L Anion Gap mmol/L BUN (7-17) mg/dL Creatinine (0.52-1.04) mg/dL Est GFR (CKD-EPI)AfAm (>60 ml/min/1.73 sqM) Est GFR (CKD-EPI)NonAf (>60 ml/min/1.73 sqM) Glucose (74-99) mg/dL Plasma Lactic Acid Nabil (0.7-2.0) mmol/L Calcium (8.4-10.2) mg/dL Magnesium (1.6-2.3) mg/dL Total Bilirubin (0.2-1.3) mg/dL AST (14-36) U/L ALT (4-34) U/L Alkaline Phosphatase (38-126) U/L Troponin I (0.000-0.034) ng/mL NT-Pro-B Natriuret Pep pg/mL Total Protein (6.3-8.2) g/dL Albumin (3.5-5.0) g/dL Coronavirus (PCR) Not Detected (Not Detectd) Influenza Type A RNA Not Detected (Not Detectd) Influenza Type B (PCR) Not Detected (Not Detectd) - EKG Data -: EKG Interpreted by Me EKG Comments: Neuro sinus rhythm a 92 FL interval 180 QRS duration 77 QT since QTC 336/[address]-T wave changes some artifact present - Radiology Data Radiology results: report reviewed (Imaging reviewed evidence of bilateral infiltrates computed tomography scan shows no evidence of pulmonary embolism at this time. Does show bilateral lower lobe infiltrates reasonably report), image reviewed Critical Care Time Critical Care Time: Yes Total Critical Care Time: 39 Critical Care Time: Critical care time includes initial presentation with history physical labs x- rays multiple reevaluation the patient response to therapy discuss with the admitting physician admission orders neck mentation the above this also included discussion with paramedics upon arrival. Disposition Clinical Impression: Acute respiratory distress syndrome in adult, Community acquired pneumonia, Chronic obstructive pulmonary disease with (acute) exacerbation, Febrile illness, acute Disposition: ADMITTED IP TO THIS [facility] Condition: Serious Referrals: Clarke Robins MD [Primary Care Provider] - 1-2 days Decision Date: 11/20/21 Decision Time: 18:08
[2021-11-20 15:50] LABS: ALT 49 U/L (4-34); AST 71 U/L (14-36); African American GFR (CKD) >90 (>60 ml/min/1.73 sqM); Albumin 3.5 g/dL (3.5-5.0); Alkaline Phosphatase 144 U/L (38-126); Anion Gap 7 mmol/L; Basophils % (A) 0 %; Blood Urea Nitrogen 23 mg/dL (7-17); Calcium 8.6 mg/dL (8.4-10.2); Carbon Dioxide 28 mmol/L (22-30); Chloride 108 mmol/L (98-107); Eosinophils % (A) 0 %; Glucose 187 mg/dL (74-99); HCT 47.3 % (34.0-46.0); Lymphocytes # (A) 0.7 k/uL (1.0-4.8); Lymphocytes % (A) 12 %; MCH 30.8 pg (25.0-35.0); MCHC 31.7 g/dL (31.0-37.0); MCV 97.1 fL (80.0-100.0); Magnesium 2.1 mg/dL (1.6-2.3); Mean Platelet Volume 8.5; Monocytes # (A) 0.3 k/uL (0-1.0); Monocytes % (A) 5 %; Neutrophils # (A) 4.6 k/uL (1.3-7.7); Neutrophils % (A) 81 %; Non-African American GFR(CKD) >90 (>60 ml/min/1.73 sqM); Platelet Count 156 k/uL (150-450); Potassium 4.3 mmol/L (3.5-5.1); RBC 4.87 m/uL (3.80-5.40); Sodium 143 mmol/L (137-145); Total Bilirubin 1.2 mg/dL (0.2-1.3); Total Protein 6.2 g/dL (6.3-8.2); WBC 5.6 k/uL (3.8-10.6)
--- NOTE | 2021-11-20 15:50 | XR ---
EXAMINATION TYPE: XR chest 1V portable DATE OF EXAM: 11/20/2021 COMPARISON: 10/26/2021 HISTORY: Respiratory distress TECHNIQUE: Single view FINDINGS: There is some patchy linear infiltrate and atelectasis at both lung bases. Normal heart lucian lure. Heart size is normal. There are chest leads. IMPRESSION: There is increasing infiltrate and atelectasis at the lung bases compared to old exam. No heart failure.
[2021-11-20 15:55] LABS: INR 0.9 (<1.2); Partial Thromboplastin Time 22.9 sec (22.0-30.0); Prothrombin Time 10.4 sec (9.0-12.0)
[2021-11-20 16:15] LABS: RBC Morphology Normal
--- NOTE | 2021-11-20 17:06 | CT ---
EXAMINATION TYPE: CT angio chest DATE OF EXAM: 11/20/2021 COMPARISON: 05/04/2020 HISTORY: JESSE CT DLP: 370.3 mGycm Automated exposure control for dose reduction was used. CONTRAST: Performed with IV Contrast, patient injected with 84 mL of Isovue 370. There are Three-D postprocessed images. There is coarse interstitial infiltrates throughout both lungs. There is some patchy nodular infiltra te and airspace infiltrate in both lower lobes. There is patchy atelectasis at the lung bases. Heart is enlarged. No pericardial effusion. There are no hilar masses. There is no mediastinal adenopathy. No evidence of filling defect in the pulmonary arteries. Thoracic aorta is intact. No aneurysm or dis section. The thoracic spine shows multiple vertebra with anterior wedging up to 30%. IMPRESSION: No evidence of pulmonary embolism. Extensive bilateral pneumonia and atelectasis predominantly at the lung bases. Pneumonia appears new compared to the old exam. Multiple thoracic compression fractures unchanged.
[2021-11-20] MEDS ORDERED: cefTRIAXone IN SWFI 1,000 MG/10 ML SYRINGE IVP STA (17:11)
[2021-11-20] MEDS ORDERED: PNEUMONIA PROTOCOL UTILIZED 1 EACH MISC PO PRN (18:26)
[2021-11-20] MEDS ORDERED: AZITHROMYCIN 500 MG in SODIUM CHLORIDE 0.9% 250 ML IVPB STA (18:26)
[2021-11-20] MEDS: SODIUM CHLORIDE 0.9% 1,000 ML IV SCH (20:10)
[2021-11-20] MEDS: METHADONE 10 MG TAB PO SCH ×2 (22:21→23:38)
[2021-11-20] MEDS: PREGABALIN 75 MG CAP PO SCH (22:22)
[2021-11-20] MEDS: LORazepam 0.5 MG TAB PO SCH (22:22)
[2021-11-20] MEDS: traZODone HCL 50 MG TAB PO SCH (22:22)
[2021-11-20] MEDS: methylPREDNISolone SOD SUCCI 125 MG/2 ML VIAL IV SCH (23:37)
[2021-11-21 06:05] LABS: Glucose,Whole Blood 136 mg/dL (75-99)
[2021-11-21] MEDS: methylPREDNISolone SOD SUCCI 125 MG/2 ML VIAL IV SCH ×4 (06:10→23:19)
[2021-11-21] MEDS: INSULIN ASPART (NovoLOG) 100 UNIT/ML VIAL SQ SCH ×4 (06:11→21:12)
[2021-11-21] MEDS: METHADONE 10 MG TAB PO SCH ×4 (06:11→23:18)
[2021-11-21] MEDS: SODIUM CHLORIDE 0.9% 1,000 ML IV SCH ×2 (06:12→16:14)
[2021-11-21 07:23] LABS: HCT 41.4 % (34.0-46.0); HGB 13.3 gm/dL (11.4-16.0); MCH 31.7 pg (25.0-35.0); MCHC 32.1 g/dL (31.0-37.0); MCV 98.5 fL (80.0-100.0); Mean Platelet Volume 8.7; Platelet Count 130 k/uL (150-450); RBC 4.21 m/uL (3.80-5.40); RDW 14.1 % (11.5-15.5); WBC 7.5 k/uL (3.8-10.6)
[2021-11-21 07:28] LABS: ALT 39 U/L (4-34); AST 52 U/L (14-36); African American GFR (CKD) >90 (>60 ml/min/1.73 sqM); Albumin 2.9 g/dL (3.5-5.0); Alkaline Phosphatase 78 U/L (38-126); Anion Gap 7 mmol/L; Blood Urea Nitrogen 16 mg/dL (7-17); Calcium 8.1 mg/dL (8.4-10.2); Carbon Dioxide 28 mmol/L (22-30); Chloride 109 mmol/L (98-107); Glucose 150 mg/dL (74-99); Magnesium 2.6 mg/dL (1.6-2.3); Non-African American GFR(CKD) >90 (>60 ml/min/1.73 sqM); Sodium 144 mmol/L (137-145); Total Bilirubin 1.3 mg/dL (0.2-1.3); Total Protein 5.4 g/dL (6.3-8.2)
[2021-11-21] MEDS: SYMBICORT 160-4.5 MCG INHALER INHALATION SCH ×2 (07:41→19:35)
[2021-11-21] MEDS: PREGABALIN 75 MG CAP PO SCH ×2 (08:01→21:12)
[2021-11-21] MEDS: PROPRANOLOL 20 MG TAB PO SCH (08:01)
[2021-11-21] MEDS: AZITHROMYCIN 500 MG TAB PO SCH (08:01)
[2021-11-21] MEDS: levETIRAcetam 500 MG TAB PO SCH ×2 (08:01→21:12)
[2021-11-21] MEDS: OXYBUTYNIN 10 MG TAB.ER.24 PO SCH (08:01)
[2021-11-21] MEDS: LORazepam 0.5 MG TAB PO SCH ×3 (08:01→21:12)
[2021-11-21] MEDS: amLODIPine 10 MG TAB PO SCH (08:04)
[2021-11-21 08:11] LABS: Band Neutrophils % 8 %; Lymphocytes # (M) 1.13 k/uL (1.0-4.8); Monocytes # (M) 0.23 k/uL (0-1.0); Neutrophils % (M) 74 %; Nucleated Red Blood Cells 0 /100 WBC (0-0); Total Cells Counted 100
--- NOTE | 2021-11-21 10:26 | P.HPIM ---
History of Present Illness This is a pleasant 66 years old female with past medical history of COPD, Hearing Disorder / Deafness, Hypertension, Liver Disease, Seizure Disorder, Sleep Apnea not using CPAP/BIPAP, on Home oxygen, hepatitis c, chronic back pain, depression Patient presents because of worsening dyspnea of one-day duration associated with chest pain on the front upper chest and radiating to her neck about 7/10 in severity, stating it significant pain. She is coughing or making some with phlegm. She had to use BiPAP overnight. Patient's been complaining of from constipation, last bowel movement was on a Monday. She has bowel movement every 2-3 days and this is chronic for her. Also she reports increased frequency of urination without dysuria. She kept headache on and off occasionally. She quit smoking about 8 years ago, no alcohol, no illicit drugs. She uses a walker at home. She is on methadone for addiction problem. Patient states that she has depression but she denies any suicidal ideation. She has also history of seizure, last seizure was 1 year ago. Patient received her Keppra dose this morning by staff. On admission patient had a fever of 100.2, she was saturating 94% on BiPAP Labs reviewed, CBC is unremarkable. She has mild lymphopenia 0.7. D-dimer is elevated at 2.4. INR 0.9. BNP is with normal electrolytes and creatinine. Glucose 187 Lactic acid 1.5 Liver enzymes slightly elevated Troponins negative, proBNP is 846. Influenza A is negative, coronavirus not detected. Chest x-ray showing there is increased infiltrate and atelectasis of the lung base compared to old exam. No heart failure CTA: No pulmonary embolism. Extensive bilateral pneumonia predominantly of the lung bases. EKG showing normal sinus rhythm at [address]-T changes and C3 86. Bilateral pneumonia Patient was started on ceftriaxone and Zithromax. MAPS was checked patient is on gabapentin 75 mg 60 pills over 30 days and methadone 10 mg 240 pills over 30 days Review of Systems Review of systems CONSTITUTIONAL: No fever, no malaise, no fatigue. HEENT: No recent visual problems or hearing problems. Denied any sore throat. CARDIOVASCULAR: No orthopnea, PND, no palpitations, no syncope. PULMONARY: No chest wall tenderness, no hemoptysis. GASTROINTESTINAL: No diarrhea, no nausea, no vomiting, no abdominal pain. Normoactive bowel sounds. NEUROLOGICAL: No headaches, no weakness, no numbness. HEMATOLOGICAL: Denies any bleeding or petechiae. GENITOURINARY: Denies any burning micturition, frequency, or urgency. MUSCULOSKELETAL/RHEUMATOLOGICAL: Denies any joint pain, swelling, or any muscle pain. ENDOCRINE: Denies any polyuria or polydipsia. Past Medical History Past Medical History: Heart Failure, COPD, Hearing Disorder / Deafness, Hypertension, Liver Disease, Seizure Disorder, Sleep Apnea/CPAP/BIPAP Additional Past Medical History / Comment(s): Home oxygen which pt states she has not needed lately, [place] bilaterally, weakness and falls, hepatitis c-pt believes she was tx for it in [place], chronic R shoulder pain, L forearm fracture with surgical repair from a fall, chronic low back pain, past opiod dependence, HELEN and is suppose to wear CPAP but does not, past cellulitis bilat eral lower legs. History of Any Multi-Drug Resistant Organisms: None Reported Past Surgical History: Joint Replacement, Orthopedic Surgery Additional Past Surgical History / Comment(s): R shoulder arthroplasty due to fx from fall 2014, L forearm fracture with surgical repair including bone graft, colonoscopy. Past Anesthesia/Blood Transfusion Reactions: Unable to Obtain Additional Past Anesthesia/Blood Transfusion Reaction / Comment(s): Pt is slow to wake Past Psychological History: Depression Additional Psychological History / Comment(s): Pt stated she has depression but denies any suicidal thoughts or plans of suicide. She becomes emotional easily. She is [place] bilaterally. She does best with very specific inform ation/instruction. She resides with her mother. She uses a cane and recently was given a walker. Her sister(brian and a children's ministry director) is very involved with pt and their mother. Smoking Status: Former smoker Past Alcohol Use History: None Reported Additional Past Alcohol Use History / Comment(s): Pt started smoking as a teen and quit 11/07/14. She was at least a 2 ppd smoker. Past Drug Use History: None Reported Additional Drug Use History / Comment(s): Pt has not used drugs in 30 yrs. In the past she has used heroin and cocaine and "just about anything." She is on methadone. - Past Family History Father Family Medical History: Diabetes Mellitus Additional Family Medical History / Comment(s): Father was murdered Mother Family Medical History: Chest Pain / Angina, COPD, Renal Disease Additional Family Medical History / Comment(s): Mother is 88 yrs old. Medications and Allergies Home Medications Medication Instructions Recorded Confirmed Type Propranolol [Inderal] 20 mg PO DAILY 04/01/16 11/20/21 History amLODIPine BESYLATE [Amlodipine 10 mg PO DAILY 04/01/16 11/20/21 History Besylate] Methadone [Dolophine] 20 mg PO Q6H 02/22/17 11/20/21 History LORazepam [Ativan] 0.5 mg PO TID 12/25/20 11/20/21 History Pregabalin [Lyrica] 75 mg PO BID 12/25/20 11/20/21 History Tolterodine Tartrate [Detrol LA] 4 mg PO DAILY 10/26/21 11/20/21 History levETIRAcetam [Keppra Xr] 1,000 mg PO DAILY 10/26/21 11/20/21 History traZODone HCL 50 mg PO HS 10/26/21 11/20/21 History Albuterol Inhaler [Ventolin Hfa 2 puff INHALATION RT-QID #8 gm 10/28/21 11/20/21 Rx Inhaler] Allergies Allergy/AdvReac Type Severity Reaction Status Date / Time clindamycin Allergy Swelling/Ra Verified 11/20/21 16:43 sh/Itching Sulfa (Sulfonamide AdvReac Nausea & Verified 11/20/21 16:43 Antibiotics) Vomiting Physical Exam Vitals: Vital Signs Temp Pulse Pulse Resp BP BP Pulse Ox 11/21/21 07:53 96 11/21/21 07:41 92 11/21/21 04:00 97.4 F L 68 20 127/60 93 L 11/21/21 01:54 74 22 11/21/21 00:40 100 11/20/21 21:52 98.6 F 74 22 134/74 100 11/20/21 20:13 68 20 111/61 100 11/20/21 19:53 70 18 104/56 100 11/20/21 18:50 99.2 F 66 18 106/52 96 11/20/21 15:19 92 23 11/20/21 15:11 92 24 11/20/21 15:07 100.2 F H 92 18 128/70 94 L Intake and Output 11/20/21 11/21/21 11/21/21 22:59 06:59 14:59 Intake Total 480 Output Total 1600 Balance -1600 480 Intake: Oral 480 Output: Urine 1600 Straight 800 Other: Voiding Method Diaper Weight 66.95 kg GENERAL: The patient is alert and oriented x3, not in any acute distress. Well developed, well nourished. HEENT: Pupils are round and equally reacting to light. EOMI. No scleral icterus. No conjunctival pallor. Normocephalic, atraumatic. No pharyngeal erythema. No thyromegaly. CARDIOVASCULAR: S1 and S2 present. No murmurs, rubs, or gallops. -PULMONARY: Chest is clear to auscultation, bilateral scattered wheezing ABDOMEN: Soft, nontender, nondistended, normoactive bowel sounds. No palpable organomegaly. MUSCULOSKELETAL: No joint swelling or deformity. EXTREMITIES: No cyanosis, clubbing, or pedal edema. NEUROLOGICAL: Gross neurological examination did not reveal any focal deficits. SKIN: No rashes. no petechiae. Results CBC & Chem 7: 11/21/21 06:32 11/21/21 06:32 Labs: Abnormal Lab Results - Last 24 Hours (Table) 11/20/21 11/20/21 11/20/21 Range/Units 15:29 15:29 15:29 Hct 47.3 H (34.0-46.0) % Plt Count (150-450) k/uL Lymphocytes # 0.7 L (1.0-4.8) k/uL D-Dimer 2.48 H (<0.60) mg/L FEU Chloride 108 H (98-107) mmol/L BUN 23 H (7-17) mg/dL Creatinine (0.52-1.04) mg/dL Glucose 187 H (74-99) mg/dL POC Glucose (mg/dL) (75-99) mg/dL Calcium (8.4-10.2) mg/dL Magnesium (1.6-2.3) mg/dL AST 71 H (14-36) U/L ALT 49 H (4-34) U/L Alkaline Phosphatase 144 H (38-126) U/L Total Protein 6.2 L (6.3-8.2) g/dL Albumin (3.5-5.0) g/dL 11/21/21 11/21/21 11/21/21 Range/Units 06:04 06:32 06:32 Hct (34.0-46.0) % Plt Count 130 L (150-450) k/uL Lymphocytes # (1.0-4.8) k/uL D-Dimer (<0.60) mg/L FEU Chloride 109 H (98-107) mmol/L BUN (7-17) mg/dL Creatinine 0.45 L (0.52-1.04) mg/dL Glucose 150 H (74-99) mg/dL POC Glucose (mg/dL) 136 H (75-99) mg/dL Calcium 8.1 L (8.4-10.2) mg/dL Magnesium 2.6 H (1.6-2.3) mg/dL AST 52 H (14-36) U/L ALT 39 H (4-34) U/L Alkaline Phosphatase (38-126) U/L Total Protein 5.4 L (6.3-8.2) g/dL Albumin 2.9 L (3.5-5.0) g/dL Thrombosis Risk Factor Assmnt - Choose All That Apply Other Risk Factors: Yes Each Risk Factor Represents 2 Points: Age 61-74 years Thrombosis Risk Factor Assessment Total Risk Factor Score: 2 Thrombosis Risk Factor Assessment Level: Low Risk Assessment and Plan Assessment: COPD with acute exacerbation Chest pain, most likely secondary to her respiratory problem. Rule out cardiac causes although it's felt less likely. Acute hypoxic respiratory failure History of hearing disorder Hypertension History of liver disease History of hepatitis C History of seizure disorder Sleep apnea, noncompliant with her CPAP Chronic back pain Depression Plan: This is a pleasant 66 years old female who presents with acute exacerbation of COPD and chest pain Continue with oxygen as needed, continue with bronchodilators continue with antibiotics, ceftriaxone and Zithromax. IV Solu-Medrol 60 mg Pulmonary consult Check urine analysis in the bladder scan Check hemoglobin A1c Chest leg ultrasound Chest pain felt less likely of cardiac origin, however given her risk factors we will order for echocardiogram and ask for coating mixer tender evaluation Labs and medication were reviewed.. Continue same treatment. Continue with symptomatic treatment. Resume home medication. Monitor lytes and vitals. DVT and GI prophylaxis. Further recommendations as per clinical course of the patient DVT prophylaxis: Subcutaneous heparin GI Prophylaxis: Pepcid PT/OT: Pending Prognosis is guarded Dr. Robins will resume the care of the patient tomorrow
--- NOTE | 2021-11-21 10:39 | US ---
EXAMINATION TYPE: US venous doppler duplex LE DATE OF EXAM: 11/21/2021 12:49 AM COMPARISON: NONE CLINICAL HISTORY: 66 year-old female elevated d-dimer. SIDE PERFORMED: Bilateral TECHNIQUE: The lower extremity deep venous system is examined utilizing real time linear array sonog tito with graded compression, doppler sonography and color-flow sonography. FINDINGS: VESSELS IMAGED: Common Femoral Vein Deep Femoral Vein Greater Saphenous Vein * Femoral Vein Popliteal Vein Small Saphenous Vein * Proximal Calf Veins (* superficial vessels) Right Leg: Negative for DVT Left Leg: Negative for DVT IMPRESSION: No evidence for DVT within the bilateral lower extremities imaged from the groin to the upper calf.
[2021-11-21] MEDS: IPRATROPIUM-ALBUTEROL 3 ML NEB INHALATION PRN ×2 (11:20→19:35)
[2021-11-21 12:01] LABS: Appearance,Urine Clear (Clear); Bilirubin,Urine Negative (Negative); Blood,Urine Trace (Negative); Color,Urine Yellow; Glucose,Urine (UA) Trace (Negative); Ketones,Urine Negative (Negative); Leukocyte Esterase,Urine Moderate (Negative); Mucus,Urine Rare /hpf; Nitrite,Urine Negative (Negative); Protein,Urine 1+ (Negative); RBC,Urine 1 /hpf (0-5); Specific Gravity,Urine 1.033 (1.001-1.035); Squamous Epithelial Cell,Urine 4 /hpf (0-4); WBC,Urine 6 /hpf (0-5)
[2021-11-21 12:23] LABS: Glucose,Whole Blood 129 mg/dL (75-99)
[2021-11-21] MEDS: ACETAMINOPHEN TAB 325 MG TAB PO PRN (18:10)
[2021-11-21 18:27] LABS: Glucose,Whole Blood 136 mg/dL (75-99)
[2021-11-21 20:40] LABS: Glucose,Whole Blood 110 mg/dL (75-99)
[2021-11-21] MEDS: traZODone HCL 50 MG TAB PO SCH (21:12)
[2021-11-22] MEDS: SODIUM CHLORIDE 0.9% 1,000 ML IV SCH ×3 (03:07→16:14)
[2021-11-22] MEDS: METHADONE 10 MG TAB PO SCH ×3 (05:39→17:14)
[2021-11-22] MEDS: methylPREDNISolone SOD SUCCI 125 MG/2 ML VIAL IV SCH ×2 (05:40→15:43)
[2021-11-22 05:48] LABS: Glucose,Whole Blood 200 mg/dL (75-99)
[2021-11-22] MEDS: INSULIN ASPART (NovoLOG) 100 UNIT/ML VIAL SQ SCH ×4 (06:30→20:40)
[2021-11-22] MEDS: SYMBICORT 160-4.5 MCG INHALER INHALATION SCH ×2 (08:16→20:30)
[2021-11-22] MEDS: amLODIPine 10 MG TAB PO SCH (09:42)
[2021-11-22] MEDS: PREGABALIN 75 MG CAP PO SCH ×2 (09:42→20:40)
[2021-11-22] MEDS: AZITHROMYCIN 500 MG TAB PO SCH (09:42)
[2021-11-22] MEDS: LORazepam 0.5 MG TAB PO SCH ×4 (09:42→21:43)
[2021-11-22] MEDS: levETIRAcetam 500 MG TAB PO SCH ×2 (09:42→20:40)
[2021-11-22] MEDS: PROPRANOLOL 20 MG TAB PO SCH (09:44)
--- NOTE | 2021-11-22 10:35 | CA ---
Transthoracic Echo Report Name: Lamar Hodges Age: 66 Gender: F : 1955 Exam Date: 11/22/2021 08:33 Exam Location: [facility] Ht (in): 59 Wt (lb): 148 Ordering Physician: Jose Antonio Martínez MD Attending/Referring Phys: [id number], Mauricio Downstairs Maid Cari Young RDCS Procedure CPT: Indications: Rule out heart disease Cardiac Hx: Technical Quality: Good Contrast 1: Total Dose (mL): Contrast 2: Total Dose (mL): MEASUREMENTS (Male / Female) Normal Values 2D ECHO LV Diastolic Diameter PLAX 4.9 cm 4.2 - 5.9 / 3.9 - 5.3 cm LV Systolic Diameter PLAX 3.3 cm IVS Diastolic Thickness 1.2 cm 0.6 - 1.0 / 0.6 - 0.9 cm LVPW Diastolic Thickness 1.2 cm 0.6 - 1.0 / 0.6 - 0.9 cm LV Relative Wall Thickness 0.5 RV Internal Dim ED PLAX 3.2 cm LA Systolic Diameter LX 3.7 cm 3.0 - 4.0 / 2.7 - 3.8 cm LA Volume 55.7 cm??? 18 - 58 / 22 - 52 cm??? M-MODE Aortic Root Diameter MM 2.9 cm MV E Point Septal Separation 1.0 cm AV Cusp Separation MM 2.0 cm DOPPLER AV Peak Velocity 188.6 cm/s AV Peak Gradient 14.2 mmHg AV Mean Velocity 112.5 cm/s AV Mean Gradient 6.0 mmHg AV Velocity Time Integral 37.9 cm MV Area PHT 4.0 cm??? Mitral E Point Velocity 108.6 cm/s Mitral A Point Velocity 94.8 cm/s Mitral E to A Ratio 1.1 MV Deceleration Time 188.2 ms MV E' Velocity 8.5 cm/s Mitral E to MV E' Ratio 12.8 TR Peak Velocity 278.1 cm/s TR Peak Gradient 30.9 mmHg Right Ventricular Systolic Press 45.1 mmHg FINDINGS Left Ventricle Left ventricular ejection fraction is estimated at 60-65 %. Left ventricular cavity size normal. Mild concentric left ventricular hypertrophy. Right Ventricle Normal right ventricular size and function. Moderate pulmonary hypertension. Right Atrium Normal right atrial size. Left Atrium Mildly increased left atrial volume. No evidence for an atrial septal defect. Mitral Valve Mild to moderate mitral regurgitation. Mitral annular calcification. Aortic Valve Focal thickening of the aortic valve cusps. Tricuspid Valve Mild tricuspid regurgitation. Pulmonic Valve Trace pulmonic regurgitation. Pericardium Normal pericardium. Aorta Normal size aortic root and proximal ascending aorta. CONCLUSIONS Normal left ventricular dimension and systolic function See above for further details Previewed by: Dr. Michael Martinez MD (Electronically Signed) Final Date: 22 Nov 2021 10:29
[2021-11-22] MEDS: IPRATROPIUM-ALBUTEROL 3 ML NEB INHALATION PRN ×3 (11:32→20:30)
[2021-11-22 11:35] LABS: ALT 34 U/L (4-34); AST 36 U/L (14-36); African American GFR (CKD) >90 (>60 ml/min/1.73 sqM); Albumin 2.9 g/dL (3.5-5.0); Alkaline Phosphatase 69 U/L (38-126); Anion Gap 3 mmol/L; Blood Urea Nitrogen 18 mg/dL (7-17); Calcium 8.6 mg/dL (8.4-10.2); Carbon Dioxide 31 mmol/L (22-30); Chloride 107 mmol/L (98-107); Glucose 209 mg/dL (74-99); Non-African American GFR(CKD) >90 (>60 ml/min/1.73 sqM); Potassium 4.2 mmol/L (3.5-5.1); Sodium 141 mmol/L (137-145); Total Bilirubin 0.4 mg/dL (0.2-1.3); Total Protein 5.5 g/dL (6.3-8.2)
[2021-11-22 11:44] LABS: Glucose,Whole Blood 223 mg/dL (75-99)
--- NOTE | 2021-11-22 12:24 | P.CRDCN ---
History of Present Illness History of present illness: HISTORY OF PRESENT ILLNESS: This is a 66 year old female with a past medical history significant for hypertension, hyperlipidemia, COPD with home oxygen use, former nicotine dependence, and seizure disorder. Patient does not follow with a certified credit counselor. We have been asked to see the patient in consultation for chest pain. Patient examined at the bedside. Patient reports she began having shortness of breath about a week ago. She reports a fever at home. She reports chest tightness that has been intermittent for the past 5-6 days. She reports the pain is in the m iddle of her chest and feels like a tightness. She reports the pain is worse with exertion. She also reports having a sore throat. She denies any radiation of the pain. She denies any nausea or vomiting. She denies having any chest pain this morning. She denies having any previous stress testing or cardiac catheterization in the past. The patient states she just got her license back and has a difficult time keeping up with outpatient follow-up appointments. * EKG reveals sinus mechanism with no signs of acute ischemia * Chest xray there is increasing infiltrate and atelectasis at the lung bases compared to exam. No heart failure. * Chest CTA: No evidence of pulmonary embolism. Extensive bilateral pneumonia and atelectasis predominantly at the lung bases. Pneumonia appears new compared to exam. Multiple thoracic compression fractures unchanged. * Venous Doppler: Negative for DVT bilaterally * Laboratory data: WBC 7.5. Hemoglobin 13.3. Platelet count 130. D-dimer 2.48. Sodium 141. Potassium 4.2. BUN 18. Creatinine 0.45. Troponin negative 2. ProBNP 846. * Current home cardiac medications include propanolol 20 mg daily and Norvasc 10 mg daily * Echocardiogram completed revealing ejection fraction 60-65%, mild LVH, [id number] mitral regurgitation, mild tricuspid regurgitation REVIEW OF SYSTEMS: At the time of my exam: CONSTITUTIONAL: Denies fever or chills. HEENT: Denies blurred vision, vision changes, or eye pain. Denies hemoptysis CARDIOVASCULAR: Denies chest pain. Denies orthopnea. Denies PND. Denies palpitations RESPIRATORY: Denies shortness of breath. GASTROINTESTINAL: Denies abdominal pain. Denies nausea or vomiting. HEMATOLOGIC: Denies bleeding disorders. GENITOURINARY: Denies any blood in urine. SKIN: Denies pruitis. Denies rash. PHYSICAL EXAM: VITAL SIGNS: Reviewed. GENERAL: Well-developed in no acute distress. HEENT: Head is normocephalic. Pupils are equal, round. Sclerae anicteric. Mucous membranes of the mouth are moist. Neck supple. No JVD or thyromegaly LUNGS: Respirations even and unlabored. Lungs diminished with a few crackles at the bases. HEART: Regular rate and rhythm. S1 and S2 heard. Systolic murmur noted. ABDOMEN: Soft. Nondistended. Nontender. EXTREMITIES: Normal range of motion. No clubbing or cyanosis. Peripheral pulses intact. No lower extremity edema NEUROLOGIC: Awake and alert. Oriented x 3. ASSESSMENT: Bilateral pneumonia, per CTA COPD exacerbation Chest pain, ACS ruled out Hypertension Hyperlipidemia History of COPD with home oxygen use Seizure disorder Former nicotine dependence PLAN: An acute coronary event has been ruled out Continue current cardiac cardiac medications Patient's chest pain likely secondary to COPD and pneumonia. However, somewhat concerning for underlying CAD. Patient states she is unlikely to follow up outpatient due to just getting her license back and having a hard time getting to follow up appointments NPO at midnight for possible stress test in the AM Further recommendations pending patient course Nurse practitioner note has been reviewed by physician. Signing provider agrees with the documented findings, assessment, and plan of care. Past Medical History Past Medical History: Heart Failure, COPD, Hearing Disorder / Deafness, Hypertension, Liver Disease, Seizure Disorder, Sleep Apnea/CPAP/BIPAP Additional Past Medical History / Comment(s): Home oxygen which pt states she has not needed lately, SOLOMON bilaterally, weakness and falls, hepatitis c-pt believes she was tx for it in [place], chronic R shoulder pain, L forearm fracture with surgical repair from a fall, chronic low back pain, past opiod dependence, HELEN and is suppose to wear CPAP but does not, past cellulitis bilateral lower legs. History of Any Multi-Drug Resistant Organisms: None Reported Past Surgical History: Joint Replacement, Orthopedic Surgery Additional Past Surgical History / Comment(s): R shoulder arthroplasty due to fx from fall 2014, L forearm fracture with surgical repair including bone graft, colonoscopy. Past Anesthesia/Blood Transfusion Reactions: Unable to Obtain Additional Past Anesthesia/Blood Transfusion Reaction / Comment(s): Pt is slow to wake Past Psychological History: Depression Additional Psychological History / Comment(s): Pt stated she has depression but denies any suicidal thoughts or plans of suicide. She becomes emotional easily. She is SOLOMON bilaterally. She does best with very specific information/instruction. She resides with her mother. She uses a cane and recently was given a walker. Her sister(brian and a gauge operator) is very involved with pt and their mother. Smoking Status: Former smoker Past Alcohol Use History: None Reported Additional Past Alcohol Use History / Comment(s): Pt started smoking as a teen and quit 11/07/14. She was at least a 2 ppd smoker. Past Drug Use History: None Reported Additional Drug Use History / Comment(s): Pt has not used drugs in 30 yrs. In the past she has used heroin and cocaine and "just about anything." She is on methadone. - Past Family History Father Family Medical History: Diabetes Mellitus Additional Family Medical History / Comment(s): Father was murdered Mother Family Medical History: Chest Pain / Angina, COPD, Renal Disease Additional Family Medical History / Comment(s): Mother is 88 yrs old. Medications and Allergies Home Medications Medication Instructions Recorded Confirmed Type Propranolol [Inderal] 20 mg PO DAILY 04/01/16 11/20/21 History amLODIPine BESYLATE [Amlodipine 10 mg PO DAILY 04/01/16 11/20/21 History Besylate] Methadone [Dolophine] 20 mg PO Q6H 02/22/17 11/20/21 History LORazepam [Ativan] 0.5 mg PO TID 12/25/20 11/20/21 History Pregabalin [Lyrica] 75 mg PO BID 12/25/20 11/20/21 History Tolterodine Tartrate [Detrol LA] 4 mg PO DAILY 10/26/21 11/20/21 History levETIRAcetam [Keppra Xr] 1,000 mg PO DAILY 10/26/21 11/20/21 History traZODone HCL 50 mg PO HS 10/26/21 11/20/21 History Albuterol Inhaler [Ventolin Hfa 2 puff INHALATION RT-QID #8 gm 10/28/21 11/20/21 Rx Inhaler] Allergies Allergy/AdvReac Type Severity Reaction Status Date / Time clindamycin Allergy Swelling/Ra Verified 11/20/21 16:43 sh/Itching Sulfa (Sulfonamide AdvReac Nausea & Verified 11/20/21 16:43 Antibiotics) Vomiting Physical Exam Vitals: Vital Signs Temp Pulse Pulse Resp BP Pulse Ox 11/22/21 04:00 98.4 F 67 18 157/89 95 11/22/21 02:00 73 16 11/22/21 00:00 98.3 F 73 16 128/68 92 L 11/21/21 20:00 99.3 F 76 18 126/71 93 L 11/21/21 19:45 84 11/21/21 19:35 84 11/21/21 16:00 97.9 F 72 20 121/59 92 L 11/21/21 11:39 98.2 F 67 20 124/65 93 L 11/21/21 11:30 76 11/21/21 11:20 72 Intake and Output 11/21/21 11/22/21 11/22/21 22:59 06:59 14:59 Intake Total 2400 Output Total 2 Balance 2398 Intake: Oral 2400 Output: Urine 2 Other: Voiding Method Diaper Bedside Commode Diaper # Voids 350 Results 11/21/21 06:32 11/22/21 10:35 Cardiac Enzymes 11/21/21 Range/Units 06:32 Troponin I <0.012 (0.000-0.034) ng/mL Current Medications Generic Name Dose Route Start Last Admin Trade Name Mynorq PRN Reason Stop Dose Admin Acetaminophen 325 mg 11/21/21 01:00 11/21/21 18:10 Acetaminophen Tab 325 Mg Tab PO 325 mg Q6HR PRN Administration Fever and/ or Pain Albuterol/Ipratropium 3 ml 11/20/21 18:26 11/21/21 19:35 Ipratropium-Albuterol 3 Ml Neb INHALATION 3 ml RT-Q4H PRN Administration shortness of breath Amlodipine Besylate 10 mg 11/21/21 09:00 11/21/21 08:04 Amlodipine 10 Mg Tab PO 10 mg DAILY MAYE Administration Azithromycin 500 mg 11/21/21 09:00 11/21/21 08:01 Azithromycin 500 Mg Tab PO 11/22/21 09:01 500 mg DAILY MAYE Administration Protocol Budesonide/Formoterol Fumarate 2 puff 11/21/21 08:00 11/21/21 19:35 Symbicort 160-4.5 Mcg Inhaler INHALATION 2 puff RT-BID MAYE Administration Sodium Chloride 1,000 mls @ 100 mls/hr 11/20/21 18:30 11/22/21 03:07 Saline 0.9% IV Not Given .Q10H MAYE Ceftriaxone Sodium 2 gm/ 50 mls @ 100 mls/hr 11/21/21 09:00 11/21/21 08:01 Sodium Chloride IVPB 11/24/21 09:29 100 mls/hr Q24HR MAYE Administration Protocol Insulin Aspart 0 unit 11/21/21 07:30 11/22/21 06:30 Insulin Aspart (Novolog) 100 Unit/Ml Vial SQ 2 unit ACHS MAYE Administration Protocol Levetiracetam 500 mg 11/21/21 09:00 11/21/21 21:12 Levetiracetam 500 Mg Tab PO 500 mg BID MAYE Administration Lorazepam 0.5 mg 11/20/21 22:00 11/21/21 21:12 Lorazepam 0.5 Mg Tab PO 0.5 mg TID MAYE Administration Methadone HCl 20 mg 11/20/21 18:30 11/22/21 05:39 Methadone 10 Mg Tab PO 20 mg Q6HR MAYE Administration Methylprednisolone Sodium Succinate 60 mg 11/21/21 00:00 11/22/21 05:40 Methylprednisolone Sod Succi 125 Mg/2 Ml Vial IV 60 mg Q6HR MAYE Administration Miscellaneous Information 1 each 11/20/21 18:26 Pneumonia Protocol Utilized 1 Each Misc PO ONCE PRN Per Protocol Oxybutynin Chloride 10 mg 11/21/21 09:00 11/21/21 08:01 Oxybutynin 10 Mg Tab.Er.24 PO 10 mg DAILY MAYE Administration Pregabalin 75 mg 11/20/21 21:00 11/21/21 21:12 Pregabalin 75 Mg Cap PO 75 mg BID MAYE Administration Propranolol HCl 20 mg 11/21/21 09:00 11/21/21 08:01 Propranolol 20 Mg Tab PO 20 mg DAILY MAYE Administration Trazodone HCl 50 mg 11/20/21 21:00 11/21/21 21:12 Trazodone Hcl 50 Mg Tab PO 50 mg HS MAYE Administration Intake and Output 11/21/21 11/22/21 11/22/21 22:59 06:59 14:59 Intake Total 2400 Output Total 2 Balance 2398 Intake: Oral 2400 Output: Urine 2 Other: Voiding Method Diaper Bedside Commode Diaper # Voids 350 11/21/21 06:32 11/21/21 06:32
[2021-11-22 14:01] VITALS: BMI 29.9
--- NOTE | 2021-11-22 14:52 | P.PN ---
Subjective Progress Note Date: 11/22/21 This is a pleasant 66 years old female with past medical history of COPD, Hearing Disorder / Deafness, Hypertension, Liver Disease, Seizure Disorder, Sleep Apnea not using CPAP/BIPAP, on Home oxygen, hepatitis c, chronic back pain, depression Patient presents because of worsening dyspnea of one-day duration associated with chest pain on the front upper chest and radiating to her neck about 7/10 in severity, stating it significant pain. She is coughing or making some with phlegm. She had to use BiPAP overnight. Patient's been complaining of from constipation, last bowel movement was on a Monday. She has bowel movement every 2-3 days and this is chronic for her. Also she reports increased frequency of urination without dysuria. She kept headache on and off occasionally. She quit smoking about 8 years ago, no alcohol, no illicit drugs. She uses a walker at home. She is on methadone for addiction problem. Patient states that she has depression but she denies any suicidal ideation. She has also history of seizure, last seizure was 1 year ago. Patient received her Keppra dose this morning by staff. On admission patient had a fever of 100.2, she was saturating 94% on BiPAP Labs reviewed, CBC is unremarkable. She has mild lymphopenia 0.7. D-dimer is elevated at 2.4. INR 0.9. BNP is with normal electrolytes and creatinine. Glucose 187 Lactic acid 1.5 Liver enzymes slightly elevated Troponins negative, proBNP is 846. Influenza A is negative, coronavirus not detected. Chest x-ray showing there is increased infiltrate and atelectasis of the lung base compared to old exam. No heart failure CTA: No pulmonary embolism. Extensive bilateral pneumonia predominantly of the lung bases. EKG showing normal sinus rhythm at [address]-T changes and C3 86. Bilateral pneumonia Patient was started on ceftriaxone and Zithromax. MAPS was checked patient is on gabapentin 75 mg 60 pills over 30 days and methadone 10 mg 240 pills over 30 days 11/22/2021 Resuming care today. Patient evaluated resting in bed on BiPAP FiO2 of 50%. She currently denies shortness of breath, however activity has been limited. Otherwise she is using 5L of oxygen saturating about 95%. She does use homeoxygen 2-3Liters. She continues on IV zosyn, completed 2 days of oral azithromycin. Continues on IV solu-medrol, symbicort, duonebs, IV hydration. Labs today showing sodium 141, potassium 4.2, CO2 31, BUN 18, creatinine 0.45, blood glucose in the 200s. Liver enzymes have normalized. Procalcitonin was elevated yesterday at 2.96. Venous Doppler negative for bilateral DVT, echocardiogram showing EF 60-65% with mild to moderate mitral regurgitation. She was evaluated by cardiology today who plans to keep patient NPO for a possible stress test in the morning. Concern for possible underlying coronary artery disease. Pending evaluation by pulmonary. Review of Systems Constitutional: Reports fatigue, fever Cardio vascular: denied any chest pain, palpitations Gastrointestinal: denied any nausea, vomiting, diarrhea Pulmonary: Denied any shortness of breath, intermittent cough Neurologic denied any new focal deficits All inpatient medications were reviewed and appropriate changes in these medications as dictated in the interval history and assessment and plan. PHYSICAL EXAMINATION: GENERAL: The patient is alert and oriented x3, not in any acute distress. Well developed, well nourished. HEENT: Pupils are round and equally reacting to light. EOMI. No scleral icterus. No conjunctival pallor. Normocephalic, atraumatic. No pharyngeal erythema. No thyromegaly. CARDIOVASCULAR: S1 and S2 present. Systolic murmur present. PULMONARY: Faint bibasilar crackles in the bases ABDOMEN: Soft, nontender, nondistended, normoactive bowel sounds. No palpable organomegaly. MUSCULOSKELETAL: No joint swelling or deformity. EXTREMITIES: No cyanosis, clubbing, or pedal edema. NEUROLOGICAL: Gross neurological examination did not reveal any focal deficits. SKIN: No rashes. Assessment and Plan Assessment Acute hypoxic respiratory failure secondary to COPD exacerbation Bilateral pneumonia, Covid, influenza negative. Procalcitonin showing 2.96. Chest pain, ACS ruled out, ongoing evaluation for concerns of coronary artery disease COPD, oxygen dependent Steroid induced hyperglycemia Hypertension Hyperlipidemia History of liver disease History of hepatitis C Histor yof sleep apnea, non compliant with CPAP Seizure disorder Chronic back pain Depression History of nicotine use GI Prophylaxis DVT Prophylaxis Plan Continue oxygen support Continue antibiotics, steroids, updrafts Nothing by mouth for possible stress test in the morning Appreciate cardiology, pulmonary consultation Repeat CBC, CMP in the morning. PT/OT consultation Prognosis guarded The impression and plan of care has been dictated by Laisha Lock, Nurse Practitioner as directed. Dr. Zeinab MD I have performed a history and physical examination and medical decision making of this patient, discussed the same with the dictator, and agree with the dictators assessment and plan as written, documented as a scribe. Based on total visit time, I have performed more than 50% of this visit. Objective - Vital Signs Vital signs: Vital Signs Temp 98.4 F 11/22/21 04:00 Pulse 82 11/22/21 11:41 Resp 18 11/22/21 04:00 BP 157/89 11/22/21 04:00 Pulse Ox 95 11/22/21 04:00 Intake & Output 11/21/21 11/22/21 11/22/21 18:59 06:59 18:59 Intake Total 1940 1200 Output Total 302 Balance 1638 1200 Weight 67.2 kg Intake: IV 20 Invasive Line 2 10 Invasive Line 3 10 Oral 1920 1200 Output: Urine 302 Other: Voiding Method Diaper Bedside Commode Diaper # Voids 350 - Labs CBC & Chem 7: 11/21/21 06:32 11/22/21 10:35 Labs: Abnormal Lab Results - Last 24 Hours (Table) 11/21/21 11/21/21 11/21/21 Range/Units 11:45 12:18 18:25 Carbon Dioxide (22-30) mmol/L BUN (7-17) mg/dL Creatinine (0.52-1.04) mg/dL Glucose (74-99) mg/dL POC Glucose (mg/dL) 129 H 136 H (75-99) mg/dL Total Protein (6.3-8.2) g/dL Albumin (3.5-5.0) g/dL Urine Protein 1+ H (Negative) Urine Glucose (UA) Trace H (Negative) Urine Blood Trace H (Negative) Ur Leukocyte Esterase Moderate H (Negative) Urine WBC 6 H (0-5) /hpf Urine Mucus Rare H (None) /hpf 11/21/21 11/22/21 11/22/21 Range/Units 20:34 05:29 10:35 Carbon Dioxide 31 H (22-30) mmol/L BUN 18 H (7-17) mg/dL Creatinine 0.45 L (0.52-1.04) mg/dL Glucose 209 H (74-99) mg/dL POC Glucose (mg/dL) 110 H 200 H (75-99) mg/dL Total Protein 5.5 L (6.3-8.2) g/dL Albumin 2.9 L (3.5-5.0) g/dL Urine Protein (Negative) Urine Glucose (UA) (Negative) Urine Blood (Negative) Ur Leukocyte Esterase (Negative) Urine WBC (0-5) /hpf Urine Mucus (None) /hpf 11/22/21 Range/Units 11:43 Carbon Dioxide (22-30) mmol/L BUN (7-17) mg/dL Creatinine (0.52-1.04) mg/dL Glucose (74-99) mg/dL POC Glucose (mg/dL) 223 H (75-99) mg/dL Total Protein (6.3-8.2) g/dL Albumin (3.5-5.0) g/dL Urine Protein (Negative) Urine Glucose (UA) (Negative) Urine Blood (Negative) Ur Leukocyte Esterase (Negative) Urine WBC (0-5) /hpf Urine Mucus (None) /hpf Microbiology - Last 24 Hours (Table) 11/21/21 14:45 Sputum Culture - Preliminary Sputum 11/20/21 15:29 Blood Culture - Preliminary Blood No Growth after 24 hours 11/20/21 15:29 Blood Culture - Preliminary Blood No Growth after 24 hours Assessment and Plan Time with Patient: Less than 30
[2021-11-22 15:21] LABS: Glucose,Whole Blood 181 mg/dL (75-99)
--- NOTE | 2021-11-22 15:50 | P.CNPUL ---
History of Present Illness Consult date: 11/22/21 Requesting physician: Jose Antonio E Mauricio Reason for consult: pneumonia Chief complaint: Shortness of breath and chest discomfort. Cough. History of present illness: This is a 66-year-old female with history of COPD, hypertension, deafness, hepatitis C and liver disease, seizure disorder, obstructive sleep apnea syndrome, noncompliant with CPAP, patient came into the hospital with 1 day history of chest discomfort, shortness of breath and cough. Chest x-ray and CT of the chest suggestive of by basilar pneumonia/infiltrates, patient apparently quit smoking about 8 years ago, and she is on methadone for history of opiate addiction. Again the patient has history of seizure disorder, and she is on Keppra. On presentation the patient had a temp of 100.2, she had a relative hypoxemia, and she has a relatively normal troponin. Tested negative for influenza A and for figueredo virus. Considering her presentation and the abnormality noted on the CT of the chest, this consult was initiated. Review of Systems CONSTITUTIONAL: Low-grade fever, no chills. HEENT: Negative except for hearing issues. CARDIOVASCULAR: Negative except for some vague chest discomfort PULMONARY: As noted in HPI GASTROINTESTINAL: Negative.. NEUROLOGICAL: Negative HEMATOLOGICAL: Negative negative Genitourinary: Negative. MUSCULOSKELETAL/RHEUMATOLOGICAL: Negative ENDOCRINE: Denies any polyuria or polydipsia. Past Medical History Past Medical History: Heart Failure, COPD, Hearing Disorder / Deafness, Hypertension, Liver Disease, Seizure Disorder, Sleep Apnea/CPAP/BIPAP Additional Past Medical History / Comment(s): Home oxygen which pt states she has not needed lately, MAKAH bilaterally, weakness and falls, hepatitis c-pt believes she was tx for it in [place], chronic R shoulder pain, L forearm fracture with surgical repair from a fall, chronic low back pain, past opiod dependence, HELEN and is suppose to wear CPAP but does not, past cellulitis bilateral lower legs. History of Any Multi-Drug Resistant Organisms: None Reported Past Surgical History: Joint Replacement, Orthopedic Surgery Additional Past Surgical History / Comment(s): R shoulder arthroplasty due to fx from fall 2014, L forearm fracture with surgical repair including bone graft, colonoscopy. Past Anesthesia/Blood Transfusion Reactions: Unable to Obtain Additional Past Anesthesia/Blood Transfusion Reaction / Comment(s): Pt is slow to wake Past Psychological History: Depression Additional Psychological History / Comment(s): Pt stated she has depression but denies any suicidal thoughts or plans of suicide. She becomes emotional easily. She is MAKAH bilaterally. She does best with very specific information/instruction. She resides with her mother. She uses a cane and recently was given a walker. Her sister(brian and a flat knitter) is very involved with pt and their mother. Smoking Status: Former smoker Past Alcohol Use History: None Reported Additional Past Alcohol Use History / Comment(s): Pt started smoking as a teen and quit 11/07/14. She was at least a 2 ppd smoker. Past Drug Use History: None Reported Additional Drug Use History / Comment(s): Pt has not used drugs in 30 yrs. In the past she has used heroin and cocaine and "just about anything." She is on methadone. - Past Family History Father Family Medical History: Diabetes Mellitus Additional Family Medical History / Comment(s): Father was murdered Mother Family Medical History: Chest Pain / Angina, COPD, Renal Disease Additional Family Medical History / Comment(s): Mother is 88 yrs old. Medications and Allergies Home Medications Medication Instructions Recorded Confirmed Type Propranolol [Inderal] 20 mg PO DAILY 04/01/16 11/20/21 History amLODIPine BESYLATE [Amlodipine 10 mg PO DAILY 04/01/16 11/20/21 History Besylate] Methadone [Dolophine] 20 mg PO Q6H 02/22/17 11/20/21 History LORazepam [Ativan] 0.5 mg PO TID 12/25/20 11/20/21 History Pregabalin [Lyrica] 75 mg PO BID 12/25/20 11/20/21 History Tolterodine Tartrate [Detrol LA] 4 mg PO DAILY 10/26/21 11/20/21 History levETIRAcetam [Keppra Xr] 1,000 mg PO DAILY 10/26/21 11/20/21 History traZODone HCL 50 mg PO HS 10/26/21 11/20/21 History Albuterol Inhaler [Ventolin Hfa 2 puff INHALATION RT-QID #8 gm 10/28/21 11/20/21 Rx Inhaler] Allergies Allergy/AdvReac Type Severity Reaction Status Date / Time clindamycin Allergy Swelling/Ra Verified 11/20/21 16:43 sh/Itching Sulfa (Sulfonamide AdvReac Nausea & Verified 11/20/21 16:43 Antibiotics) Vomiting Physical Exam Vitals: Vital Signs Temp Pulse Pulse Resp BP Pulse Ox 11/22/21 12:00 98.6 F 74 14 125/71 98 11/22/21 11:41 82 11/22/21 11:32 80 11/22/21 08:00 98.3 F 74 14 124/60 95 11/22/21 04:00 98.4 F 67 18 157/89 95 11/22/21 02:00 73 16 11/22/21 00:00 98.3 F 73 16 128/68 92 L 11/21/21 20:00 99.3 F 76 18 126/71 93 L 11/21/21 19:45 84 11/21/21 19:35 84 11/21/21 16:00 97.9 F 72 20 121/59 92 L Intake and Output 11/22/21 11/22/21 11/22/21 06:59 14:59 22:59 Intake Total 1920 Balance 1920 Intake: IV 1320 Invasive Line 5 20 Sodium Chloride 0.9% 1, 1200 000 ml @ 100 mls/hr IV . Q10H [facility] Rx#:[id number] cefTRIAXone 2 gm In 100 Sodium Chloride 0.9% 50 ml @ 100 mls/hr IVPB Q24HR [facility] Rx#:[id number] Oral 600 Other: Voiding Method Bedside Commode Toilet Diaper # Voids 350 2 Weight 67.2 kg Physical Exam: Revealed a 66-year-old female in no distress, Head: Atraumatic, normocephalic. HEENT:[Neck is supple.] [No neck masses.] [No thyromegaly.] [No JVD.] Chest: [Fine crackles at the bases bilaterally, no rhonchi no wheezes Cardiac Exam: [Normal S1 and S2, no S3 gallop, no murmur.] Abdomen: [Soft, nontender, no megaly, no rebound, no guarding, normal bowel sounds.] Extremities: [No clubbing, no edema, no cyanosis.] Neurological Exam: [No focal neurologic deficit.] Psychiatric: Normal mood affect and normal mental status examination. Skin: No rashes Results - Laboratory Findings CBC and BMP: 11/21/21 06:32 11/22/21 10:35 PT/INR, D-dimer PT 10.4 sec (9.0-12.0) 11/20/21 15:29 INR 0.9 (<1.2) 11/20/21 15:29 D-Dimer 2.48 mg/L FEU (<0.60) H 11/20/21 15:29 Abnormal lab findings: Abnormal Labs 11/20/21 11/20/21 11/20/21 15:29 15:29 15:29 Hct 47.3 H Plt Count Lymphocytes # 0.7 L D-Dimer 2.48 H Chloride 108 H Carbon Dioxide BUN 23 H Creatinine Glucose 187 H POC Glucose (mg/dL) Calcium Magnesium AST 71 H ALT 49 H Alkaline Phosphatase 144 H Total Protein 6.2 L Albumin Procalcitonin Urine Protein Urine Glucose (UA) Urine Blood Ur Leukocyte Esterase Urine WBC Urine Mucus 11/21/21 11/21/21 11/21/21 06:04 06:32 06:32 Hct Plt Count 130 L Lymphocytes # D-Dimer Chloride 109 H Carbon Dioxide BUN Creatinine 0.45 L Glucose 150 H POC Glucose (mg/dL) 136 H Calcium 8.1 L Magnesium 2.6 H AST 52 H ALT 39 H Alkaline Phosphatase Total Protein 5.4 L Albumin 2.9 L Procalcitonin Urine Protein Urine Glucose (UA) Urine Blood Ur Leukocyte Esterase Urine WBC Urine Mucus 11/21/21 11/21/21 11/21/21 06:32 11:45 12:18 Hct Plt Count Lymphocytes # D-Dimer Chloride Carbon Dioxide BUN Creatinine Glucose POC Glucose (mg/dL) 129 H Calcium Magnesium AST ALT Alkaline Phosphatase Total Protein Albumin Procalcitonin 2.96 H Urine Protein 1+ H Urine Glucose (UA) Trace H Urine Blood Trace H Ur Leukocyte Esterase Moderate H Urine WBC 6 H Urine Mucus Rare H 11/21/21 11/21/21 11/22/21 18:25 20:34 05:29 Hct Plt Count Lymphocytes # D-Dimer Chloride Carbon Dioxide BUN Creatinine Glucose POC Glucose (mg/dL) 136 H 110 H 200 H Calcium Magnesium AST ALT Alkaline Phosphatase Total Protein Albumin Procalcitonin Urine Protein Urine Glucose (UA) Urine Blood Ur Leukocyte Esterase Urine WBC Urine Mucus 11/22/21 11/22/21 11/22/21 10:35 11:43 15:19 Hct Plt Count Lymphocytes # D-Dimer Chloride Carbon Dioxide 31 H BUN 18 H Creatinine 0.45 L Glucose 209 H POC Glucose (mg/dL) 223 H 181 H Calcium Magnesium AST ALT Alkaline Phosphatase Total Protein 5.5 L Albumin 2.9 L Procalcitonin Urine Protein Urine Glucose (UA) Urine Blood Ur Leukocyte Esterase Urine WBC Urine Mucus - Diagnostic Findings CT scan - chest: image reviewed (As noted in HPI, by basilar infiltrates noted.) Assessment and Plan Assessment: Impression: Acute hypoxic respiratory failure secondary to bibasilar pneumonia, felt to be aspiration pneumonia on that for otherwise. Acute exacerbation of COPD Benign essential hypertension Seizure disorder History of hepatitis C and liver disease Obstructive sleep apnea, noncompliant with CPAP History of depression. Recommendation: Continue antibiotics, transition patient to Zosyn instead of present Rocephin and Zithromax. Continue bronchodilators. Continue GI and DVT prophylaxis. We will continue to follow. Time with Patient: Greater than 30
[2021-11-22 16:04] LABS: ABG Base Excess 5.4 mmol/L; ABG HCO3 30 mmol/L (21-25); ABG Oxygen Saturation 96.1 % (94-97); ABG PCO2 46 mmHg (35-45); ABG PH 7.42 (7.35-7.45); ABG PO2 78 mmHg (83-108); ABG TCO2 31 mmol/L (19-24); Allen Test Performed? Yes
[2021-11-22 16:12] LABS: Glucose,Whole Blood 191 mg/dL (75-99)
[2021-11-22] MEDS: methylPREDNISolone SOD SUCCI 40 MG/ML 1 ML VIAL IV SCH (16:12)
[2021-11-22] MEDS: PIPERACILLIN-TAZOBACTAM 3.375 GM in SODIUM CHLORIDE 0.9% 100 ML IVPB SCH (16:17)
[2021-11-22] MEDS: OXYBUTYNIN 10 MG TAB.ER.24 PO SCH (16:17)
[2021-11-22 20:38] LABS: Glucose,Whole Blood 211 mg/dL (75-99)
[2021-11-22] MEDS: traZODone HCL 50 MG TAB PO SCH (20:39)
[2021-11-23] MEDS: METHADONE 10 MG TAB PO SCH ×5 (00:05→23:41)
[2021-11-23] MEDS: methylPREDNISolone SOD SUCCI 40 MG/ML 1 ML VIAL IV SCH ×4 (00:05→23:41)
[2021-11-23] MEDS: PIPERACILLIN-TAZOBACTAM 3.375 GM in SODIUM CHLORIDE 0.9% 100 ML IVPB SCH ×4 (00:07→23:41)
[2021-11-23 05:36] LABS: Glucose,Whole Blood 139 mg/dL (75-99)
[2021-11-23] MEDS: INSULIN ASPART (NovoLOG) 100 UNIT/ML VIAL SQ SCH ×4 (07:44→21:03)
[2021-11-23] MEDS ORDERED: AMINOPHYLLINE 500 MG/20 ML VIAL IV PRN (08:35)
[2021-11-23] MEDS ORDERED: CAFFEINE CITRATE 60 MG/3 ML VIAL IV PRN (08:35)
[2021-11-23] MEDS ORDERED: REGADENOSON 0.4 MG/5 ML SYRINGE IV PRN (08:35)
[2021-11-23] MEDS: IPRATROPIUM-ALBUTEROL 3 ML NEB INHALATION PRN ×4 (08:42→20:41)
[2021-11-23] MEDS: SYMBICORT 160-4.5 MCG INHALER INHALATION SCH ×2 (08:42→20:42)
[2021-11-23] MEDS: levETIRAcetam 500 MG TAB PO SCH ×2 (09:44→21:03)
[2021-11-23] MEDS: LORazepam 0.5 MG TAB PO SCH ×3 (09:44→21:03)
[2021-11-23] MEDS: OXYBUTYNIN 10 MG TAB.ER.24 PO SCH (09:45)
[2021-11-23] MEDS: SODIUM CHLORIDE 0.9% 1,000 ML IV SCH ×2 (09:56→18:24)
[2021-11-23] MEDS: PREGABALIN 75 MG CAP PO SCH ×2 (09:56→21:03)
[2021-11-23 09:58] LABS: Basophils # (A) 0.1 k/uL (0-0.2); Basophils % (A) 1 %; Eosinophils # (A) 0.1 k/uL (0-0.7); Eosinophils % (A) 1 %; HCT 43.3 % (34.0-46.0); HGB 13.4 gm/dL (11.4-16.0); Lymphocytes # (A) 0.7 k/uL (1.0-4.8); Lymphocytes % (A) 7 %; MCH 30.3 pg (25.0-35.0); MCHC 30.9 g/dL (31.0-37.0); Mean Platelet Volume 9.1; Monocytes # (A) 0.3 k/uL (0-1.0); Monocytes % (A) 3 %; Neutrophils # (A) 8.6 k/uL (1.3-7.7); Neutrophils % (A) 89 %; Platelet Count 160 k/uL (150-450); RBC 4.42 m/uL (3.80-5.40); RDW 13.5 % (11.5-15.5); WBC 9.7 k/uL (3.8-10.6)
[2021-11-23 10:17] LABS: ALT 30 U/L (4-34); AST 25 U/L (14-36); African American GFR (CKD) >90 (>60 ml/min/1.73 sqM); Alkaline Phosphatase 86 U/L (38-126); Anion Gap 8 mmol/L; Blood Urea Nitrogen 19 mg/dL (7-17); Calcium 8.6 mg/dL (8.4-10.2); Carbon Dioxide 24 mmol/L (22-30); Chloride 111 mmol/L (98-107); Glucose 153 mg/dL (74-99); Non-African American GFR(CKD) >90 (>60 ml/min/1.73 sqM); Potassium 4.2 mmol/L (3.5-5.1); Sodium 143 mmol/L (137-145); Total Bilirubin 0.6 mg/dL (0.2-1.3); Total Protein 5.7 g/dL (6.3-8.2)
[2021-11-23 11:52] LABS: Glucose,Whole Blood 117 mg/dL (75-99)
[2021-11-23] MEDS ORDERED: REGADENOSON 0.4 MG/5 ML SYRINGE IV ONE (12:00)
--- NOTE | 2021-11-23 12:32 | P.PN ---
Subjective Progress Note Date: 11/23/21 HISTORY OF PRESENT ILLNESS: This is a 66 year old female with a past medical history significant for hypertension, hyperlipidemia, COPD with home oxygen use, former nicotine dependence, and seizure disorder. Patient does not follow with a paginator. We have been asked to see the patient in consultation for chest pain. Patient examined at the bedside. Patient reports she began having shortness of breath about a week ago. She reports a fever at home. She reports chest tightness that has been intermittent for the past 5-6 days. She reports the pain is in the middle of her chest and feels like a tightness. She reports the pain is worse with exertion. She also reports having a sore throat. She denies any radiation of the pain. She denies any nausea or vomiting. She denies having any chest pain this morning. She denies having any previous stress testing or cardiac catheterization in the past. The patient states she just got her license back and has a difficult time keeping up with outpatient follow-up appointments. * EKG reveals sinus mechanism with no signs of acute ischemia * Chest xray there is increasing infiltrate and atelectasis at the lung bases compared to exam. No heart failure. * Chest CTA: No evidence of pulmonary embolism. Extensive bilateral pneumonia and atelectasis predominantly at the lung bases. Pneumonia appears new compared to exam. Multiple thoracic compression fractures unchanged. * Venous Doppler: Negative for DVT bilaterally * Laboratory data: WBC 7.5. Hemoglobin 13.3. Platelet count 130. D-dimer 2.48. Sodium 141. Potassium 4.2. BUN 18. Creatinine 0.45. Troponin negative 2. ProBNP 846. * Current home cardiac medications include propanolol 20 mg daily and Norvasc 10 mg daily * Echocardiogram completed revealing ejection fraction 60-65%, mild LVH, [id number] mitral regurgitation, mild tricuspid regurgitation 11/23/2021 Patient examined this morning at the bedside. Patient states she feels very tired this morning. She denies chest pain or pressure. She reports improvement in her shortness of breath. Blood pressure 154/77. PHYSICAL EXAM: VITAL SIGNS: Reviewed. GENERAL: Well-developed in no acute distress. HEENT: Head is normocephalic. Pupils are equal, round. Sclerae anicteric. Mucous membranes of the mouth are moist. Neck supple. No JVD or thyromegaly LUNGS: Respirations even and unlabored. Lungs diminished with a few crackles at the bases. HEART: Regular rate and rhythm. S1 and S2 heard. Systolic murmur noted. ABDOMEN: Soft. Nondistended. Nontender. EXTREMITIES: Normal range of motion. No clubbing or cyanosis. Peripheral pulses intact. No lower extremity edema NEUROLOGIC: Awake and alert. Oriented x 3. ASSESSMENT: Bilateral pneumonia, per CTA COPD exacerbation Chest pain, ACS ruled out Hypertension Hyperlipidemia History of COPD with home oxygen use Seizure disorder Former nicotine dependence PLAN: Continue current cardiac cardiac medications Patient was scheduled for Lexiscan stress test this morning. However, patient was given caffeine this morning. Stress test will be rescheduled for tomorrow NPO at midnight. Further recommendations pending patient course Nurse practitioner note has been reviewed by physician. Signing provider agrees with the documented findings, assessment, and plan of care. Objective - Vital Signs Vital signs: Vital Signs Temp 98.2 F 11/23/21 09:50 Pulse 65 11/23/21 12:15 Resp 16 11/23/21 09:50 BP 154/77 11/23/21 09:50 Pulse Ox 92 L 11/23/21 09:50 Intake & Output 11/22/21 11/23/21 11/23/21 18:59 06:59 18:59 Intake Total 1920 Balance 1920 Weight 67.2 kg Intake: IV 1320 Invasive Line 5 20 Sodium Chloride 0.9% 1, 1200 000 ml @ 100 mls/hr IV . Q10H [facility] Rx#:[id number] cefTRIAXone 2 gm In 100 Sodium Chloride 0.9% 50 ml @ 100 mls/hr IVPB Q24HR [facility] Rx#:[id number] Oral 600 Other: Voiding Method Toilet Toilet # Voids 2 1 - Labs CBC & Chem 7: 11/23/21 09:39 11/23/21 09:39 Labs: Abnormal Lab Results - Last 24 Hours (Table) 11/22/21 11/22/21 11/22/21 Range/Units 15:19 16:03 16:11 MCHC (31.0-37.0) g/dL Neutrophils # (1.3-7.7) k/uL Lymphocytes # (1.0-4.8) k/uL ABG pCO2 46 H (35-45) mmHg ABG pO2 78 L (83-108) mmHg ABG HCO3 30 H (21-25) mmol/L ABG Total CO2 31 H (19-24) mmol/L Chloride (98-107) mmol/L BUN (7-17) mg/dL Creatinine (0.52-1.04) mg/dL Glucose (74-99) mg/dL POC Glucose (mg/dL) 181 H 191 H (75-99) mg/dL Total Protein (6.3-8.2) g/dL Albumin (3.5-5.0) g/dL 11/22/21 11/23/21 11/23/21 Range/Units 20:36 05:11 09:39 MCHC (31.0-37.0) g/dL Neutrophils # (1.3-7.7) k/uL Lymphocytes # (1.0-4.8) k/uL ABG pCO2 (35-45) mmHg ABG pO2 (83-108) mmHg ABG HCO3 (21-25) mmol/L ABG Total CO2 (19-24) mmol/L Chloride 111 H (98-107) mmol/L BUN 19 H (7-17) mg/dL Creatinine 0.50 L (0.52-1.04) mg/dL Glucose 153 H (74-99) mg/dL POC Glucose (mg/dL) 211 H 139 H (75-99) mg/dL Total Protein 5.7 L (6.3-8.2) g/dL Albumin 3.0 L (3.5-5.0) g/dL 11/23/21 11/23/21 Range/Units 09:39 11:51 MCHC 30.9 L (31.0-37.0) g/dL Neutrophils # 8.6 H (1.3-7.7) k/uL Lymphocytes # 0.7 L (1.0-4.8) k/uL ABG pCO2 (35-45) mmHg ABG pO2 (83-108) mmHg ABG HCO3 (21-25) mmol/L ABG Total CO2 (19-24) mmol/L Chloride (98-107) mmol/L BUN (7-17) mg/dL Creatinine (0.52-1.04) mg/dL Glucose (74-99) mg/dL POC Glucose (mg/dL) 117 H (75-99) mg/dL Total Protein (6.3-8.2) g/dL Albumin (3.5-5.0) g/dL Microbiology - Last 24 Hours (Table) 11/20/21 15:29 Blood Culture - Preliminary Blood No Growth after 48 hours 11/20/21 15:29 Blood Culture - Preliminary Blood No Growth after 48 hours 11/21/21 14:45 Gram Stain - Preliminary Sputum Sputum Culture - Preliminary
[2021-11-23] MEDS: amLODIPine 10 MG TAB PO SCH (14:06)
[2021-11-23] MEDS: PROPRANOLOL 20 MG TAB PO SCH (14:10)
--- NOTE | 2021-11-23 15:08 | P.PN ---
Subjective Progress Note Date: 11/23/21 Principal diagnosis: Shortness of breath This is a 66-year-old female with history of COPD, hypertension, deafness, hepatitis C and liver disease, seizure disorder, obstructive sleep apnea syndrome, noncompliant with CPAP, patient came into the hospital with 1 day history of chest discomfort, shortness of breath and cough. Chest x-ray and CT of the chest suggestive of by basilar pneumonia/infiltrates, patient apparently quit smoking about 8 years ago, and she is on methadone for history of opiate addiction. Again the patient has history of seizure disorder, and she is on Keppra. On presentation the patient had a temp of 100.2, she had a relative hypoxemia, and she has a relatively normal troponin. Tested negative for influenza A and for figueredo virus. Considering her presentation and the abnormality noted on the CT of the chest, this consult was initiated. On 11/23/2021 patient seen in follow-up on selective care unit. Patient is awake, in no acute distress, currently has her oxygen off, earlier she was satting 93% on 4 L, she did wear BiPAP for part of the night last night. She is breathing comfortably, denies any chest discomfort, she states she has been coughing and bringing up some brown colored phlegm. Sputum culture showed presumptive staph aureus, blood cultures show no growth. Patient remains on antibiotics in the form of Zosyn for possibility of aspiration related pneumonia, she remains on IV Solu-Medrol, and breathing treatments. Cardiology is following, echocardiogram showed preserved LV function with EF of 60-65%, mild concentric LVH, moderate pulmonary hypertension, moderate mitral regurgitation. The patient is scheduled for Lexiscan stress test for tomorrow, she could not complete Lexiscan stress test today related to caffeine. Today's labs have been reviewed, white blood cell count is 9.7, hemoglobin is 13.4, sodium is 143, potassium 4.2, chloride is 111, B1 is 19, creatinine 0.50, her pro-calcitonin level was elevated at 2.96. COVID-19, influenza A and B were all negative. No altered mentation, patient is responding to questions appropriately. Denies any worsening dyspnea or cough. Vital signs have been stable, she's been afebrile. Objective - Vital Signs Vital signs: Vital Signs Temp 98.2 F 11/23/21 09:50 Pulse 65 11/23/21 12:15 Resp 16 11/23/21 09:50 BP 154/77 11/23/21 09:50 Pulse Ox 92 L 11/23/21 09:50 Intake & Output 11/22/21 11/23/21 11/23/21 18:59 06:59 18:59 Intake Total 1920 Balance 192 Weight 67.2 kg Intake: IV 1320 Invasive Line 5 20 Sodium Chloride 0.9% 1, 1200 000 ml @ 100 mls/hr IV . Q10H [facility] Rx#:[id number] cefTRIAXone 2 gm In 100 Sodium Chloride 0.9% 50 ml @ 100 mls/hr IVPB Q24HR [facility] Rx#:[id number] Oral 600 Other: Voiding Method Toilet Toilet # Voids 2 1 - Exam GENERAL EXAM: Alert, very pleasant, 66-year-old female, on room air, resting comfortably, comfortable in no apparent distress. HEAD: Normocephalic/atraumatic. EYES: Normal reaction of pupils, equal size. Conjunctiva pink, sclera white. NOSE: Clear with pink turbinates. THROAT: No erythema or exudates. NECK: No masses, no JVD, no thyroid enlargement, no adenopathy. CHEST: No chest wall deformity. Symmetrical expansion. LUNGS: Equal air entry with crackles at the bases CVS: Regular rate and rhythm, normal S1 and S2, no gallops, no murmurs, no rubs ABDOMEN: Soft, nontender. No hepatosplenomegaly, normal bowel sounds, no guarding or rigidity. EXTREMITIES: No clubbing, no edema, no cyanosis, 2+ pulses and upper and lower extremities. MUSCULOSKELETAL: Muscle strength and tone normal. SPINE: No scoliosis or deformity SKIN: No rashes CENTRAL NERVOUS SYSTEM: Alert and oriented -3. No focal deficits, tone is normal in all 4 extremities. PSYCHIATRIC: Alert and oriented -3. Appropriate affect. Intact judgment and insight. - Labs CBC & Chem 7: 11/23/21 09:39 11/23/21 09:39 Labs: Abnormal Lab Results - Last 24 Hours (Table) 11/22/21 11/22/21 11/22/21 Range/Units 15:19 16:03 16:11 MCHC (31.0-37.0) g/dL Neutrophils # (1.3-7.7) k/uL Lymphocytes # (1.0-4.8) k/uL ABG pCO2 46 H (35-45) mmHg ABG pO2 78 L (83-108) mmHg ABG HCO3 30 H (21-25) mmol/L ABG Total CO2 31 H (19-24) mmol/L Chloride (98-107) mmol/L BUN (7-17) mg/dL Creatinine (0.52-1.04) mg/dL Glucose (74-99) mg/dL POC Glucose (mg/dL) 181 H 191 H (75-99) mg/dL Total Protein (6.3-8.2) g/dL Albumin (3.5-5.0) g/dL 11/22/21 11/23/21 11/23/21 Range/Units 20:36 05:11 09:39 MCHC (31.0-37.0) g/dL Neutrophils # (1.3-7.7) k/uL Lymphocytes # (1.0-4.8) k/uL ABG pCO2 (35-45) mmHg ABG pO2 (83-108) mmHg ABG HCO3 (21-25) mmol/L ABG Total CO2 (19-24) mmol/L Chloride 111 H (98-107) mmol/L BUN 19 H (7-17) mg/dL Creatinine 0.50 L (0.52-1.04) mg/dL Glucose 153 H (74-99) mg/dL POC Glucose (mg/dL) 211 H 139 H (75-99) mg/dL Total Protein 5.7 L (6.3-8.2) g/dL Albumin 3.0 L (3.5-5.0) g/dL 11/23/21 11/23/21 Range/Units 09:39 11:51 MCHC 30.9 L (31.0-37.0) g/dL Neutrophils # 8.6 H (1.3-7.7) k/uL Lymphocytes # 0.7 L (1.0-4.8) k/uL ABG pCO2 (35-45) mmHg ABG pO2 (83-108) mmHg ABG HCO3 (21-25) mmol/L ABG Total CO2 (19-24) mmol/L Chloride (98-107) mmol/L BUN (7-17) mg/dL Creatinine (0.52-1.04) mg/dL Glucose (74-99) mg/dL POC Glucose (mg/dL) 117 H (75-99) mg/dL Total Protein (6.3-8.2) g/dL Albumin (3.5-5.0) g/dL Microbiology - Last 24 Hours (Table) 11/21/21 14:45 Gram Stain - Preliminary Sputum Sputum Culture - Preliminary Presumptive Staph aureus 11/20/21 15:29 Blood Culture - Preliminary Blood No Growth after 48 hours 11/20/21 15:29 Blood Culture - Preliminary Blood No Growth after 48 hours Assessment and Plan Plan: Assessment: #1. Acute hypoxic respiratory failure related to bibasilar pneumonia, felt to be aspiration related pneumonia. COVID-19 PCR, influenza A and B were negative #2. Acute exacerbation of COPD #3. Chest pain, ACS was ruled out, patient is scheduled for Lexiscan stress test tomorrow #4. Hypertension #5. Hyperlipidemia #6. Chronic hypoxic respiratory failure related to history of COPD #7. Former smoker #8. Obstructive sleep apnea noncompliant with CPAP #9. History of opiate addiction on methadone #10. History of seizure disorder on Keppra #11. Depression Plan: Vital signs have been stable No fever or chills Patient is breathing easier Obtain follow-up chest x-ray tomorrow Continue current antibiotic coverage From pulmonary perspective patient could be considered for discharge home tomorrow, if remains stable and continues to improve Outpatient follow-up with Dr. Lopez in the office in 7-10 days I have personally seen and examined the patient, performed the documentation and the assessment and plan as written. Number of minutes spent on the visit: [10] Time with Patient: Less than 30
--- NOTE | 2021-11-23 15:22 | P.PN ---
Subjective Progress Note Date: 11/23/21 This is a pleasant 66 years old female with past medical history of COPD, Hearing Disorder / Deafness, Hypertension, Liver Disease, Seizure Disorder, Sleep Apnea not using CPAP/BIPAP, on Home oxygen, hepatitis c, chronic back pain, depression Patient presents because of worsening dyspnea of one-day duration associated with chest pain on the front upper chest and radiating to her neck about 7/10 in severity, stating it significant pain. She is coughing or making some with phlegm. She had to use BiPAP overnight. Patient's been complaining of from constipation, last bowel movement was on a Monday. She has bowel movement every 2-3 days and this is chronic for her. Also she reports increased frequency of urination without dysuria. She kept headache on and off occasionally. She quit smoking about 8 years ago, no alcohol, no illicit drugs. She uses a walker at home. She is on methadone for addiction problem. Patient states that she has depression but she denies any suicidal ideation. She has also history of seizure, last seizure was 1 year ago. Patient received her Keppra dose this morning by staff. On admission patient had a fever of 100.2, she was saturating 94% on BiPAP Labs reviewed, CBC is unremarkable. She has mild lymphopenia 0.7. D-dimer is elevated at 2.4. INR 0.9. BNP is with normal electrolytes and creatinine. Glucose 187 Lactic acid 1.5 Liver enzymes slightly elevated Troponins negative, proBNP is 846. Influenza A is negative, coronavirus not detected. Chest x-ray showing there is increased infiltrate and atelectasis of the lung base compared to old exam. No heart failure CTA: No pulmonary embolism. Extensive bilateral pneumonia predominantly of the lung bases. EKG showing normal sinus rhythm at [address]-T changes and C3 86. Bilateral pneumonia Patient was started on ceftriaxone and Zithromax. MAPS was checked patient is on gabapentin 75 mg 60 pills over 30 days and methadone 10 mg 240 pills over 30 days 11/22/2021 Resuming care today. Patient evaluated resting in bed on BiPAP FiO2 of 50%. She currently denies shortness of breath, however activity has been limited. Otherwise she is using 5L of oxygen saturating about 95%. She does use homeoxygen 2-3Liters. She continues on IV zosyn, completed 2 days of oral azithromycin. Continues on IV solu-medrol, symbicort, duonebs, IV hydration. Labs today showing sodium 141, potassium 4.2, CO2 31, BUN 18, creatinine 0.45, blood glucose in the 200s. Liver enzymes have normalized. Procalcitonin was elevated yesterday at 2.96. Venous Doppler negative for bilateral DVT, echocardiogram showing EF 60-65% with mild to moderate mitral regurgitation. She was evaluated by cardiology today who plans to keep patient NPO for a possible stress test in the morning. Concern for possible underlying coronary artery disease. Pending evaluation by pulmonary. 11/23/2021 Patient evaluated today restingin bed, She had a sip of pepsi today and was unable to complete the full stress test. She is placed NPO after midnight and stress test rescheduled for tomorrow. Patient is currently on 3-4L nasal cannula with saturation of 96%, she is wearing BiPAP at night as well. There was concern for some acute confusion yesterday, and patient does take her oxygen off and off possibly was hypoxic. ABGs were completed showing pH 7.42, pCO2 46, pO2 78, HCO3 30, total CO2 31, oxygen saturation 96.1. Today her serum CO2 has normalized at 24, chloride 111, blood glucose stable. Afebrile, blood pressure 154/77. Preliminiary sputum culture showing presumptive staph aureus pending finalized culture. She continues on duoneb, symbicort, IV solumedrol, IV azithromycin. She has oral ativan TID for anxiety ordered. Patient would like to be discharged home. Review of Systems Constitutional: Reports fatigue, fever Cardio vascular: denied any chest pain, palpitations Gastrointestinal: denied any nausea, vomiting, diarrhea Pulmonary: Denied any shortness of breath, intermittent cough Neurologic denied any new focal deficits All inpatient medications were reviewed and appropriate changes in these medications as dictated in the interval history and assessment and plan. PHYSICAL EXAMINATION: GENERAL: The patient is alert and oriented x3, not in any acute distress. Well developed, well nourished. HEENT: Pupils are round and equally reacting to light. EOMI. No scleral icterus. No conjunctival pallor. Normocephalic, atraumatic. No pharyngeal erythema. No thyromegaly. CARDIOVASCULAR: S1 and S2 present. Systolic murmur present. PULMONARY: Faint bibasilar crackles in the bases ABDOMEN: Soft, nontender, nondistended, normoactive bowel sounds. No palpable organomegaly. MUSCULOSKELETAL: No joint swelling or deformity. EXTREMITIES: No cyanosis, clubbing, or pedal edema. NEUROLOGICAL: Gross neurological examination did not reveal any focal deficits. SKIN: No rashes. Assessment and Plan Assessment Acute hypoxic respiratory failure secondary to COPD exacerbation Bilateral pneumonia, Covid, influenza negative. Procalcitonin showing 2.96. Chest pain, ACS ruled out, ongoing evaluation for concerns of coronary artery disease COPD, oxygen dependent Steroid induced hyperglycemia Hypertension Hyperlipidemia History of liver disease History of hepatitis C Histor yof sleep apnea, non compliant with CPAP Seizure disorder Chronic back pain Depression History of nicotine use GI Prophylaxis DVT Prophylaxis Plan Continue oxygen support Continue antibiotics, steroids, updrafts Nothing by mouth for stress test tomorrow. Appreciate cardiology, pulmonary consultation PT/OT consultation Prognosis guarded The impression and plan of care has been dictated by Laisha Lock, Nurse Practitioner as directed. Dr. Zeinab MD I have performed a history and physical examination and medical decision making of this patient, discussed the same with the dictator, and agree with the dictators assessment and plan as written, documented as a scribe. Based on total visit time, I have performed more than 50% of this visit. Objective - Vital Signs Vital signs: Vital Signs Temp 98.2 F 11/23/21 09:50 Pulse 65 11/23/21 12:15 Resp 16 11/23/21 09:50 BP 154/77 11/23/21 09:50 Pulse Ox 92 L 11/23/21 09:50 Intake & Output 11/22/21 11/23/21 11/23/21 18:59 06:59 18:59 Intake Total 1920 Balance 1920 Weight 67.2 kg Intake: IV 1320 Invasive Line 5 20 Sodium Chloride 0.9% 1, 1200 000 ml @ 100 mls/hr IV . Q10H [facility] Rx#:[id number] cefTRIAXone 2 gm In 100 Sodium Chloride 0.9% 50 ml @ 100 mls/hr IVPB Q24HR [facility] Rx#:[id number] Oral 600 Other: Voiding Method Toilet Toilet # Voids 2 1 - Labs CBC & Chem 7: 11/23/21 09:39 11/23/21 09:39 Labs: Abnormal Lab Results - Last 24 Hours (Table) 11/22/21 11/22/21 11/22/21 Range/Units 15:19 16:03 16:11 MCHC (31.0-37.0) g/dL Neutrophils # (1.3-7.7) k/uL Lymphocytes # (1.0-4.8) k/uL ABG pCO2 46 H (35-45) mmHg ABG pO2 78 L (83-108) mmHg ABG HCO3 30 H (21-25) mmol/L ABG Total CO2 31 H (19-24) mmol/L Chloride (98-107) mmol/L BUN (7-17) mg/dL Creatinine (0.52-1.04) mg/dL Glucose (74-99) mg/dL POC Glucose (mg/dL) 181 H 191 H (75-99) mg/dL Total Protein (6.3-8.2) g/dL Albumin (3.5-5.0) g/dL 11/22/21 11/23/21 11/23/21 Range/Units 20:36 05:11 09:39 MCHC (31.0-37.0) g/dL Neutrophils # (1.3-7.7) k/uL Lymphocytes # (1.0-4.8) k/uL ABG pCO2 (35-45) mmHg ABG pO2 (83-108) mmHg ABG HCO3 (21-25) mmol/L ABG Total CO2 (19-24) mmol/L Chloride 111 H (98-107) mmol/L BUN 19 H (7-17) mg/dL Creatinine 0.50 L (0.52-1.04) mg/dL Glucose 153 H (74-99) mg/dL POC Glucose (mg/dL) 211 H 139 H (75-99) mg/dL Total Protein 5.7 L (6.3-8.2) g/dL Albumin 3.0 L (3.5-5.0) g/dL 11/23/21 11/23/21 Range/Units 09:39 11:51 MCHC 30.9 L (31.0-37.0) g/dL Neutrophils # 8.6 H (1.3-7.7) k/uL Lymphocytes # 0.7 L (1.0-4.8) k/uL ABG pCO2 (35-45) mmHg ABG pO2 (83-108) mmHg ABG HCO3 (21-25) mmol/L ABG Total CO2 (19-24) mmol/L Chloride (98-107) mmol/L BUN (7-17) mg/dL Creatinine (0.52-1.04) mg/dL Glucose (74-99) mg/dL POC Glucose (mg/dL) 117 H (75-99) mg/dL Total Protein (6.3-8.2) g/dL Albumin (3.5-5.0) g/dL Microbiology - Last 24 Hours (Table) 11/21/21 14:45 Gram Stain - Preliminary Sputum Sputum Culture - Preliminary Presumptive Staph aureus 11/20/21 15:29 Blood Culture - Preliminary Blood No Growth after 48 hours 11/20/21 15:29 Blood Culture - Preliminary Blood No Growth after 48 hours Assessment and Plan Time with Patient: Less than 30
[2021-11-23 16:50] LABS: Glucose,Whole Blood 203 mg/dL (75-99)
[2021-11-23 20:52] LABS: Glucose,Whole Blood 304 mg/dL (75-99)
[2021-11-23] MEDS: traZODone HCL 50 MG TAB PO SCH (21:03)
[2021-11-24 06:11] LABS: Glucose,Whole Blood 242 mg/dL (75-99)
[2021-11-24] MEDS: METHADONE 10 MG TAB PO SCH ×3 (06:40→17:04)
[2021-11-24] MEDS ORDERED: AMINOPHYLLINE 500 MG/20 ML VIAL IV PRN (07:00)
[2021-11-24] MEDS ORDERED: CAFFEINE CITRATE 60 MG/3 ML VIAL IV PRN (07:00)
[2021-11-24] MEDS ORDERED: REGADENOSON 0.4 MG/5 ML SYRINGE IV PRN (07:00)
[2021-11-24] MEDS: INSULIN ASPART (NovoLOG) 100 UNIT/ML VIAL SQ SCH ×4 (07:39→21:16)
[2021-11-24 08:16] LABS: Basophils % (A) 0 %; Eosinophils % (A) 0 %; HCT 44.4 % (34.0-46.0); HGB 14.2 gm/dL (11.4-16.0); Lymphocytes # (A) 0.7 k/uL (1.0-4.8); Lymphocytes % (A) 11 %; Mean Platelet Volume 8.9; Monocytes # (A) 0.3 k/uL (0-1.0); Monocytes % (A) 5 %; Neutrophils # (A) 5.3 k/uL (1.3-7.7); Neutrophils % (A) 83 %; Platelet Count 169 k/uL (150-450); RBC 4.57 m/uL (3.80-5.40); RDW 13.8 % (11.5-15.5); WBC 6.4 k/uL (3.8-10.6)
[2021-11-24 08:48] LABS: ALT 31 U/L (4-34); AST 27 U/L (14-36); African American GFR (CKD) >90 (>60 ml/min/1.73 sqM); Alkaline Phosphatase 100 U/L (38-126); Anion Gap 7 mmol/L; Blood Urea Nitrogen 16 mg/dL (7-17); Calcium 8.8 mg/dL (8.4-10.2); Carbon Dioxide 27 mmol/L (22-30); Chloride 107 mmol/L (98-107); Glucose 163 mg/dL (74-99); Non-African American GFR(CKD) >90 (>60 ml/min/1.73 sqM); Potassium 4.3 mmol/L (3.5-5.1); Sodium 141 mmol/L (137-145); Total Bilirubin 0.6 mg/dL (0.2-1.3); Total Protein 5.7 g/dL (6.3-8.2)
[2021-11-24] MEDS: IPRATROPIUM-ALBUTEROL 3 ML NEB INHALATION PRN (08:50)
[2021-11-24] MEDS: SYMBICORT 160-4.5 MCG INHALER INHALATION SCH ×2 (08:51→20:27)
[2021-11-24] MEDS ORDERED: VANCOMYCIN IV PER PHARMACY 1 EACH MISC MISCELLANE PRN (10:09)
[2021-11-24] MEDS: PIPERACILLIN-TAZOBACTAM 3.375 GM in SODIUM CHLORIDE 0.9% 100 ML IVPB SCH (10:19)
[2021-11-24] MEDS ORDERED: VANCOMYCIN 1,250 MG in SODIUM CHLORIDE 0.9% 250 ML IVPB ONE (10:30)
--- NOTE | 2021-11-24 10:36 | P.PN ---
Subjective Progress Note Date: 11/24/21 HISTORY OF PRESENT ILLNESS: This is a 66 year old female with a past medical history significant for hypertension, hyperlipidemia, COPD with home oxygen use, former nicotine dependence, and seizure disorder. Patient does not follow with a drum filler. We have been asked to see the patient in consultation for chest pain. Patient examined at the bedside. Patient reports she began having shortness of breath about a week ago. She reports a fever at home. She reports chest tightness that has been intermittent for the past 5-6 days. She reports the pain is in the middle of her chest and feels like a tightness. She reports the pain is worse with exertion. She also reports having a sore throat. She denies any radiation of the pain. She denies any nausea or vomiting. She denies having any chest pain this morning. She denies having any previous stress testing or cardiac catheterization in the past. The patient states she just got her license back and has a difficult time keeping up with outpatient follow-up appointments. * EKG reveals sinus mechanism with no signs of acute ischemia * Chest xray there is increasing infiltrate and atelectasis at the lung bases compared to exam. No heart failure. * Chest CTA: No evidence of pulmonary embolism. Extensive bilateral pneumonia and atelectasis predominantly at the lung bases. Pneumonia appears new compared to exam. Multiple thoracic compression fractures unchanged. * Venous Doppler: Negative for DVT bilaterally * Laboratory data: WBC 7.5. Hemoglobin 13.3. Platelet count 130. D-dimer 2.48. Sodium 141. Potassium 4.2. BUN 18. Creatinine 0.45. Troponin negative 2. ProBNP 846. * Current home cardiac medications include propanolol 20 mg daily and Norvasc 10 mg daily * Echocardiogram completed revealing ejection fraction 60-65%, mild LVH, [id number] mitral regurgitation, mild tricuspid regurgitation 11/23/2021 Patient examined this morning at the bedside. Patient states she feels very tired this morning. She denies chest pain or pressure. She reports improvement in her shortness of breath. Blood pressure 154/77. 11/24/2021 Patient examined this morning at the bedside. Patient denies chest pain or pressure. She denies SOB. She is anxious to be discharged home today. PHYSICAL EXAM: VITAL SIGNS: Reviewed. GENERAL: Well-developed in no acute distress. HEENT: Head is normocephalic. Pupils are equal, round. Sclerae anicteric. Mucous membranes of the mouth are moist. Neck supple. No JVD or thyromegaly LUNGS: Respirations even and unlabored. Lungs diminished with a few crackles at the bases. HEART: Regular rate and rhythm. S1 and S2 heard. Systolic murmur noted. ABDOMEN: Soft. Nondistended. Nontender. EXTREMITIES: Normal range of motion. No clubbing or cyanosis. Peripheral pulses intact. No lower extremity edema NEUROLOGIC: Awake and alert. Oriented x 3. ASSESSMENT: Bilateral pneumonia, per CTA COPD exacerbation Chest pain, ACS ruled out Hypertension Hyperlipidemia History of COPD with home oxygen use Seizure disorder Former nicotine dependence PLAN: Continue current cardiac cardiac medications Patient scheduled for Chloe scan today. If negative, she may be discharge home from a cardiac standpoint Further recommendations pending patient course Nurse practitioner note has been reviewed by physician. Signing provider agrees with the documented findings, assessment, and plan of care. Objective - Vital Signs Vital signs: Vital Signs Temp 98.0 F 11/24/21 07:45 Pulse 64 11/24/21 09:07 Resp 18 11/24/21 07:45 BP 160/89 11/24/21 07:45 Pulse Ox 93 L 11/24/21 08:51 Intake & Output 11/23/21 11/24/21 11/24/21 18:59 06:59 18:59 Intake Total 1600 Output Total 300 Balance 1600 -300 Intake: IV 300 Sodium Chloride 0.9% 1, 300 000 ml @ 50 mls/hr IV . Q20H [facility] Rx#:[id number] Intake, IV Titration 200 Amount Piperacillin-Tazobactam 3 200 .375 gm In Sodium Chloride 0.9% 100 ml @ 25 mls/hr IVPB Q8HR [facility] Rx# :[id number] Oral 1100 Output: Urine 300 Other: Voiding Method Toilet Toilet Bedside Commode # Voids 1 1 - Labs CBC & Chem 7: 11/24/21 06:17 11/24/21 06:17 Labs: Abnormal Lab Results - Last 24 Hours (Table) 11/23/21 11/23/21 11/23/21 Range/Units 09:39 11:51 16:48 Lymphocytes # (1.0-4.8) k/uL Creatinine (0.52-1.04) mg/dL Glucose (74-99) mg/dL POC Glucose (mg/dL) 117 H 203 H (75-99) mg/dL Total Protein (6.3-8.2) g/dL Albumin (3.5-5.0) g/dL Procalcitonin 1.05 H (0.02-0.09) ng/mL 11/23/21 11/24/21 11/24/21 Range/Units 20:51 05:56 06:17 Lymphocytes # 0.7 L (1.0-4.8) k/uL Creatinine (0.52-1.04) mg/dL Glucose (74-99) mg/dL POC Glucose (mg/dL) 304 H 242 H (75-99) mg/dL Total Protein (6.3-8.2) g/dL Albumin (3.5-5.0) g/dL Procalcitonin (0.02-0.09) ng/mL 11/24/21 Range/Units 06:17 Lymphocytes # (1.0-4.8) k/uL Creatinine 0.44 L (0.52-1.04) mg/dL Glucose 163 H (74-99) mg/dL POC Glucose (mg/dL) (75-99) mg/dL Total Protein 5.7 L (6.3-8.2) g/dL Albumin 3.0 L (3.5-5.0) g/dL Procalcitonin (0.02-0.09) ng/mL Microbiology - Last 24 Hours (Table) 11/21/21 14:45 Gram Stain - Final Sputum Sputum Culture - Final Methicillin resist S. aureus 11/20/21 15:29 Blood Culture - Preliminary Blood No Growth after 72 hours 11/20/21 15:29 Blood Culture - Preliminary Blood No Growth after 72 hours
--- NOTE | 2021-11-24 11:20 | XR ---
EXAMINATION TYPE: XR chest 2V DATE OF EXAM: 11/24/2021 COMPARISON: 11/20/2021 TECHNIQUE: PA and lateral views submitted. HISTORY: Cough FINDINGS: Chronic deformity postsurgical change right shoulder. Arthropathy left shoulder. Heart size normal. D iffuse interstitial pattern by lateral lower lobe consolidation. Degenerative changes of the spine. IMPRESSION: 1. COPD correlate for basilar pneumonia. Interstitial pattern can be associated with chronic intersti tial lung disease. Superimposed pneumonitis in the differential diagnosis
[2021-11-24] MEDS: PROPRANOLOL 20 MG TAB PO SCH (11:38)
[2021-11-24] MEDS: amLODIPine 10 MG TAB PO SCH (11:38)
[2021-11-24] MEDS: methylPREDNISolone SOD SUCCI 40 MG/ML 1 ML VIAL IV SCH ×2 (11:38→15:29)
[2021-11-24] MEDS: PREGABALIN 75 MG CAP PO SCH ×2 (11:38→21:21)
[2021-11-24] MEDS: OXYBUTYNIN 10 MG TAB.ER.24 PO SCH (11:38)
[2021-11-24] MEDS: LORazepam 0.5 MG TAB PO SCH ×3 (11:38→21:21)
[2021-11-24] MEDS: levETIRAcetam 500 MG TAB PO SCH ×2 (11:38→21:16)
[2021-11-24 11:39] LABS: Glucose,Whole Blood 153 mg/dL (75-99)
[2021-11-24] MEDS: SODIUM CHLORIDE 0.9% 1,000 ML IV SCH (11:50)
--- NOTE | 2021-11-24 12:41 | P.PN ---
Subjective Progress Note Date: 11/24/21 Principal diagnosis: Acute hypoxic respiratory failure secondary to MRSA pneumonia and acute exacerbation of COPD This is a 66-year-old female with history of COPD, hypertension, deafness, hepatitis C and liver disease, seizure disorder, obstructive sleep apnea syndrome, noncompliant with CPAP, patient came into the hospital with 1 day history of chest discomfort, shortness of breath and cough. Chest x-ray and CT of the chest suggestive of by basilar pneumonia/infiltrates, patient apparently quit smoking about 8 years ago, and she is on methadone for history of opiate ad diction. Again the patient has history of seizure disorder, and she is on Keppra. On presentation the patient had a temp of 100.2, she had a relative hypoxemia, and she has a relatively normal troponin. Tested negative for influenza A and for figueredo virus. Considering her presentation and the ab normality noted on the CT of the chest, this consult was initiated. On 11/23/2021 patient seen in follow-up on selective care unit. Patient is awake, in no acute distress, currently has her oxygen off, earlier she was satting 93% on 4 L, she did wear BiPAP for part of the night last night. She is breathing comfortably, denies any chest discomfort, she states she has been coughing and bringing up some brown colored phlegm. Sputum culture showed presumptive staph aureus, blood cultures show no growth. Patient remains on antibiotics in the form of Zosyn for possibility of aspiration related pneumonia, she remains on IV Solu-Medrol, and breathing treatments. Cardiology is following, echocardiogram showed preserved LV function with EF of 60-65%, mild concentric LVH, moderate pulmonary hypertension, moderate mitral regurgitation. The patient is scheduled for Lexiscan stress test for tomorrow, she could not complete Lexiscan stress test today related to caffeine. Today's labs have been reviewed, white blood cell count is 9.7, hemoglobin is 13.4, sodium is 143, potassium 4.2, chloride is 111, B1 is 19, creatinine 0.50, her pro-calcitonin level was elevated at 2.96. COVID-19, influenza A and B were all negative. No altered mentation, patient is responding to questions appropriat natalio. Denies any worsening dyspnea or cough. Vital signs have been stable, she's been afebrile. Came in to see patient today on 11/24/2021, patient is having a stress test. Not in the room, however her sputum is positive for MRSA, recommended that we start the patient on vancomycin, and we'll recommend evaluation by infectious disease to possibly consider treatment on outpatient basis either with Zyvox or possibly with IV antibiotics to vancomycin via PICC line. Clinically I saw the patient y esterday, and she was doing extremely well, and asking to be discharged home today. I will leave it up to the infectious disease decision regarding treatment of her MRSA pneumonia, patient clearly clinically was doing well yesterday, and I will clear the patient for discharge if cleared by infectious disease on the case Objective - Vital Signs Vital signs: Vital Signs Temp 98.7 F 11/24/21 11:39 Pulse 71 11/24/21 11:39 Resp 18 11/24/21 11:39 BP 180/96 11/24/21 11:39 Pulse Ox 96 11/24/21 11:39 Intake & Output 11/23/21 11/24/21 11/24/21 18:59 06:59 18:59 Intake Total 1600 Output Total 300 Balance 1600 -300 Intake: IV 300 Sodium Chloride 0.9% 1, 300 000 ml @ 50 mls/hr IV . Q20H [facility] Rx#:[id number] Intake, IV Titration 200 Amount Piperacillin-Tazobactam 3 200 .375 gm In Sodium Chloride 0.9% 100 ml @ 25 mls/hr IVPB Q8HR [facility] Rx# :[id number] Oral 1100 Output: Urine 300 Other: Voiding Method Toilet Toilet Bedside Commode # Voids 1 1 - Exam Patient was not in the room, she was not examined. But I did see the patient yesterday, and we discussed her medications and possibly discharging the patient home today. - Labs CBC & Chem 7: 11/24/21 06:17 11/24/21 06:17 Labs: Abnormal Lab Results - Last 24 Hours (Table) 11/23/21 11/23/21 11/23/21 Range/Units 09:39 16:48 20:51 Lymphocytes # (1.0-4.8) k/uL Creatinine (0.52-1.04) mg/dL Glucose (74-99) mg/dL POC Glucose (mg/dL) 203 H 304 H (75-99) mg/dL Total Protein (6.3-8.2) g/dL Albumin (3.5-5.0) g/dL Procalcitonin 1.05 H (0.02-0.09) ng/mL 11/24/21 11/24/21 11/24/21 Range/Units 05:56 06:17 06:17 Lymphocytes # 0.7 L (1.0-4.8) k/uL Creatinine 0.44 L (0.52-1.04) mg/dL Glucose 163 H (74-99) mg/dL POC Glucose (mg/dL) 242 H (75-99) mg/dL Total Protein 5.7 L (6.3-8.2) g/dL Albumin 3.0 L (3.5-5.0) g/dL Procalcitonin (0.02-0.09) ng/mL 11/24/21 Range/Units 11:38 Lymphocytes # (1.0-4.8) k/uL Creatinine (0.52-1.04) mg/dL Glucose (74-99) mg/dL POC Glucose (mg/dL) 153 H (75-99) mg/dL Total Protein (6.3-8.2) g/dL Albumin (3.5-5.0) g/dL Procalcitonin (0.02-0.09) ng/mL Microbiology - Last 24 Hours (Table) 11/21/21 14:45 Gram Stain - Final Sputum Sputum Culture - Final Methicillin resist S. aureus 11/20/21 15:29 Blood Culture - Preliminary Blood No Growth after 72 hours 11/20/21 15:29 Blood Culture - Preliminary Blood No Growth after 72 hours Assessment and Plan Assessment: Impression: Acute hypoxic respiratory failure secondary to bibasilar pneumonia, this is secondary to MRSA pneumonia. Acute exacerbation of COPD Benign essential hypertension Seizure disorder History of hepatitis C and liver disease Obstructive sleep apnea, noncompliant with CPAP History of depression. Recommendation: Continue antibiotics, we will change antibiotics to vancomycin and arrange for infectious disease consultation. Continue bronchodilators. Continue GI and DVT prophylaxis. We'll clear the patient for discharge if cleared by infectious disease, and arrangements made for outpatient treatment of her MRSA pneumonia We will continue to follow. Time with Patient: Less than 30
--- NOTE | 2021-11-24 12:45 | NM ---
EXAMINATION TYPE: NM stress lexiscan cardiolite DATE OF EXAM: 11/24/2021 COMPARISON: NONE HISTORY: TECHNIQUE: After the intravenous administration of 9.6 mCi Tc 99m Sestamibi - Cardiolite resting SPE CT images acquired 45 minutes post injection. The patient received 0.4mg Lexiscan, 26.0 mCi Tc 99m Sestamibi - Stress images obtained [address] injection FINDINGS: Review of stress and rest SPECT images demonstrates fixed defect involving the inferior and inferior lateral myocardium with responding abnormalities. There is a estimated left ventricular ejection fraction of 50 %. IMPRESSION: 1. Predominantly fixed defect apex and inferior lateral myocardium. It would be difficult to exclude a tiny area of reversible stress-induced ischemia. Correlate clinically. 2. A resting ejection fraction of 50%.
--- NOTE | 2021-11-24 14:19 | CA ---
Lexiscan Nuclear Stress Test Report Name: Lamar Hodges Exam Date: 11/24/2021 09:43 Exam Location: [facility] Ht (in): 59 Wt (lb): 148 BSA: 1.62 Ordering Phys: Stephanie Rodriguez Referring Phys: FIORELLA, Technologist: Griffin Musa Age: 66 Gender: F : 1955 Procedure CPT: Indications: Reflex order-Stress test ICD-10 Codes: Patient History: CHEST PAIN, DIFFICULTY IN BREATHING, PALPITATIONS, HTN, ELEVATED CHOLESTEROL LEVELS, PRIOR SMOKER 1 [id number] YEARS - QUIT 10 YEARS. COPD Medications: Meds past 24 hrs: Pretest Chest Pain: STRESS TEST Lexiscan Protocol Exercise Duration (min:sec): 01:[address] Depressions (mm): Angina Score: Riddle Score: Resting HR (bpm): 72 Peak HR (bpm): 91 Resting BP (mmHg): 155 / 72 Peak BP (mmHg): 155 / 72 MPHR: 155 Target HR: 132 % MPHR: 59 METS: 1.0 Total Dose: Peak Dose: Atropine: Double Product: 68819 BP Response: Stress Termination: Completion of Infusion Stress Symptoms: CHEST PAIN,DIFFICULTY IN BREATHING,HEADACHE Stress Summary: ECG ANALYSIS Resting ECG: Stress ECG: CONCLUSIONS Nondiagnostic electrocardiogram stress testing and response to Lexiscan Please follow-up on the Cardiolite portion on a separate report Dr. Michael Martinez MD (Electronically Signed) Final Date: 24 Nov 2021 14:18
--- NOTE | 2021-11-24 15:31 | P.PN ---
Subjective Progress Note Date: 11/24/21 This is a pleasant 66 years old female with past medical history of COPD, Hearing Disorder / Deafness, Hypertension, Liver Disease, Seizure Disorder, Sleep Apnea not using CPAP/BIPAP, on Home oxygen, hepatitis c, chronic back pain, depression Patient presents because of worsening dyspnea of one-day duration associated with chest pain on the front upper chest and radiating to her neck about 7/10 in severity, stating it significant pain. She is coughing or making some with phlegm. She had to use BiPAP overnight. Patient's been complaining of from constipation, last bowel movement was on a Monday. She has bowel movement every 2-3 days and this is chronic for her. Also she reports increased frequency of urination without dysuria. She kept headache on and off occasionally. She quit smoking about 8 years ago, no alcohol, no illicit drugs. She uses a walker at home. She is on methadone for addiction problem. Patient states that she has depression but she denies any suicidal ideation. She has also history of seizure, last seizure was 1 year ago. Patient received her Keppra dose this morning by staff. On admission patient had a fever of 100.2, she was saturating 94% on BiPAP Labs reviewed, CBC is unremarkable. She has mild lymphopenia 0.7. D-dimer is elevated at 2.4. INR 0.9. BNP is with normal electrolytes and creatinine. Glucose 187 Lactic acid 1.5 Liver enzymes slightly elevated Troponins negative, proBNP is 846. Influenza A is negative, coronavirus not detected. Chest x-ray showing there is increased infiltrate and atelectasis of the lung base compared to old exam. No heart failure CTA: No pulmonary embolism. Extensive bilateral pneumonia predominantly of the lung bases. EKG showing normal sinus rhythm at [address]-T changes and C3 86. Bilateral pneumonia Patient was started on ceftriaxone and Zithromax. MAPS was checked patient is on gabapentin 75 mg 60 pills over 30 days and methadone 10 mg 240 pills over 30 days 11/22/2021 Resuming care today. Patient evaluated resting in bed on BiPAP FiO2 of 50%. She currently denies shortness of breath, however activity has been limited. Otherwise she is using 5L of oxygen saturating about 95%. She does use homeoxygen 2-3Liters. She continues on IV zosyn, completed 2 days of oral azithromycin. Continues on IV solu-medrol, symbicort, duonebs, IV hydration. Labs today showing sodium 141, potassium 4.2, CO2 31, BUN 18, creatinine 0.45, blood glucose in the 200s. Liver enzymes have normalized. Procalcitonin was elevated yesterday at 2.96. Venous Doppler negative for bilateral DVT, echocardiogram showing EF 60-65% with mild to moderate mitral regurgitation. She was evaluated by cardiology today who plans to keep patient NPO for a possible stress test in the morning. Concern for possible underlying coronary artery disease. Pending evaluation by pulmonary. 11/23/2021 Patient evaluated today restingin bed, She had a sip of pepsi today and was unable to complete the full stress test. She is placed NPO after midnight and stress test rescheduled for tomorrow. Patient is currently on 3-4L nasal cannula with saturation of 96%, she is wearing BiPAP at night as well. There was concern for some acute confusion yesterday, and patient does take her oxygen off and off possibly was hypoxic. ABGs were completed showing pH 7.42, pCO2 46, pO2 78, HCO3 30, total CO2 31, oxygen saturation 96.1. Today her serum CO2 has normalized at 24, chloride 111, blood glucose stable. Afebrile, blood pressure 154/77. Preliminiary sputum culture showing presumptive staph aureus pending finalized culture. She continues on duoneb, symbicort, IV solumedrol, IV azithromycin. She has oral ativan TID for anxiety ordered. Patient would like to be discharged home. 11/24/2021 Patient evaluated today sitting up in bed after returning from stress. Results include an EF of 50% with difficulty to include tiny area of reversible ischemia. Cardiology services has cleared her. Sputum culture has finalized to MRSA and patient was started on IV vancomycin today with consult placed to infectious disease services. Patient is anxious for discharge and would like to return home. She does get confused at times and is not understanding entirely of her medical condition. She continues on 3L of nasal cannula with a saturation of 96%. Per patient she has home oxygen but has not used in a while and not sure if equipment works, she will need it re set up on discharge. Currently on IV solumedrol, symbicort, duonebs, and gentle hydration. Labs today are essentially unremarkable, blood glucose elevated. Will add levemir. Procalcitonin has improved to 1.05. Blood pressure 180/96. Review of Systems Constitutional: Reports fatigue, fever Cardio vascular: denied any chest pain, palpitations Gastrointestinal: denied any nausea, vomiting, diarrhea Pulmonary: Denied any shortness of breath, intermittent cough Neurologic denied any new focal deficits All inpatient medications were reviewed and appropriate changes in these medications as dictated in the interval history and assessment and plan. PHYSICAL EXAMINATION: GENERAL: The patient is alert and oriented x3, not in any acute distress. Well developed, well nourished. HEENT: Pupils are round and equally reacting to light. EOMI. No scleral icterus. No conjunctival pallor. Normocephalic, atraumatic. No pharyngeal erythema. No thyromegaly. CARDIOVASCULAR: S1 and S2 present. Systolic murmur present. PULMONARY: Diminshed ABDOMEN: Soft, nontender, nondistended, normoactive bowel sounds. No palpable organomegaly. MUSCULOSKELETAL: No joint swelling or deformity. EXTREMITIES: No cyanosis, clubbing, or pedal edema. NEUROLOGICAL: Gross neurological examination did not reveal any focal deficits. SKIN: No rashes. Assessment and Plan Assessment Acute hypoxic respiratory failure secondary to MRSA pneumonia, COPD exacerbation COPD, oxygen dependent, with acute exacerbation Chest pain, resolved, ACS has been ruled out Steroid induced hyperglycemia Hypertension Hyperlipidemia History of liver disease History of hepatitis C History of sleep apnea, non compliant with CPAP Seizure disorder Chronic back pain Depression History of nicotine use GI Prophylaxis DVT Prophylaxis Plan Continue oxygen support will need home oxygen set up for return home Continue antibiotics, steroids, updrafts Antibiotics changed to vancomycin with ID consultation Discharge once cleared by ID with outpatient antibiotic recommendations for MRSA pneumonia PT recommending home with home care versus subacute rehab pending clinical course Patient is anxious for discharge, pending finalized clearance from consultations. The impression and plan of care has been dictated by Laisha Lock Nurse Practitioner as directed. Dr. Zeinab MD I have performed a history and physical examination and medical decision making of this patient, discussed the same with the dictator, and agree with the dictators assessment and plan as written, documented as a scribe. Based on total visit time, I have performed more than 50% of this visit. Objective - Vital Signs Vital signs: Vital Signs Temp 98.0 F 11/24/21 07:45 Pulse 64 11/24/21 09:07 Resp 18 11/24/21 07:45 BP 160/89 11/24/21 07:45 Pulse Ox 93 L 11/24/21 08:51 Intake & Output 11/23/21 11/24/21 11/24/21 18:59 06:59 18:59 Intake Total 1600 Output Total 300 Balance 1600 -300 Intake: IV 300 Sodium Chloride 0.9% 1, 300 000 ml @ 50 mls/hr IV . Q20H [facility] Rx#:[id number] Intake, IV Titration 200 Amount Piperacillin-Tazobactam 3 200 .375 gm In Sodium Chloride 0.9% 100 ml @ 25 mls/hr IVPB Q8HR [facility] Rx# :[id number] Oral 1100 Output: Urine 300 Other: Voiding Method Toilet Toilet Bedside Commode # Voids 1 1 - Labs CBC & Chem 7: 11/24/21 06:17 11/24/21 06:17 Labs: Abnormal Lab Results - Last 24 Hours (Table) 11/23/21 11/23/21 11/23/21 Range/Units 09:39 11:51 16:48 Lymphocytes # (1.0-4.8) k/uL Creatinine (0.52-1.04) mg/dL Glucose (74-99) mg/dL POC Glucose (mg/dL) 117 H 203 H (75-99) mg/dL Total Protein (6.3-8.2) g/dL Albumin (3.5-5.0) g/dL Procalcitonin 1.05 H (0.02-0.09) ng/mL 11/23/21 11/24/21 11/24/21 Range/Units 20:51 05:56 06:17 Lymphocytes # 0.7 L (1.0-4.8) k/uL Creatinine (0.52-1.04) mg/dL Glucose (74-99) mg/dL POC Glucose (mg/dL) 304 H 242 H (75-99) mg/dL Total Protein (6.3-8.2) g/dL Albumin (3.5-5.0) g/dL Procalcitonin (0.02-0.09) ng/mL 11/24/21 11/24/21 Range/Units 06:17 11:38 Lymphocytes # (1.0-4.8) k/uL Creatinine 0.44 L (0.52-1.04) mg/dL Glucose 163 H (74-99) mg/dL POC Glucose (mg/dL) 153 H (75-99) mg/dL Total Protein 5.7 L (6.3-8.2) g/dL Albumin 3.0 L (3.5-5.0) g/dL Procalcitonin (0.02-0.09) ng/mL Microbiology - Last 24 Hours (Table) 11/21/21 14:45 Gram Stain - Final Sputum Sputum Culture - Final Methicillin resist S. aureus 11/20/21 15:29 Blood Culture - Preliminary Blood No Growth after 72 hours 11/20/21 15:29 Blood Culture - Preliminary Blood No Growth after 72 hours Assessment and Plan Time with Patient: Less than 30
[2021-11-24 17:03] LABS: Glucose,Whole Blood 216 mg/dL (75-99)
[2021-11-24] MEDS: VANCOMYCIN 1,250 MG in SODIUM CHLORIDE 0.9% 250 ML IVPB SCH (18:19)
[2021-11-24 19:58] LABS: Glucose,Whole Blood 170 mg/dL (75-99)
[2021-11-24] MEDS: INSULIN DETEMIR (LEVEMIR) 100 UNIT/ML SYR SQ SCH (21:16)
[2021-11-24] MEDS: traZODone HCL 50 MG TAB PO SCH (21:16)
[2021-11-25] MEDS: methylPREDNISolone SOD SUCCI 40 MG/ML 1 ML VIAL IV SCH ×4 (00:02→23:40)
[2021-11-25] MEDS: METHADONE 10 MG TAB PO SCH ×6 (00:33→23:41)
[2021-11-25] MEDS: VANCOMYCIN 1,250 MG in SODIUM CHLORIDE 0.9% 250 ML IVPB SCH ×3 (01:57→21:42)
[2021-11-25 06:00] LABS: Glucose,Whole Blood 246 mg/dL (75-99)
[2021-11-25] MEDS: INSULIN ASPART (NovoLOG) 100 UNIT/ML VIAL SQ SCH ×4 (06:10→21:33)
--- NOTE | 2021-11-25 06:47 | P.CONS ---
History of Present Illness - Reason for Consult Consult date: 11/24/21 MRSA sputum Requesting physician: Denise Forman - Chief Complaint Shortness of breath x 1 day - History of Present Illness Patient is a 66-year-old female with a past medical history significant for COPD presenting to the hospital 4 days ago for evaluation of increasing shortness of breath that has been progressive getting worse throughout the night for the patient presenting to the hospital, the patient also complaining of cough which was moderate intensity with occasional sputum production no hemoptysis patient denies having any pleuritic chest pain EMS was called in as the patient was in acute respiratory distress, patient apparently did have a fever of 102 F she was placed on BiPAP and was brought into the ER on arrival to the ER the patient did have a fever of 100.2 F patient did have a normal white count though with some lymphopenia D-dimer is mild elevated 2.48 kidney function was normal Flowtuss was elevated to 2.96 influenza and COVID was negative patient did have a chest x-ray increasing infiltrate atelectasis lung base she did have a CT angiogram of the chest no evidence of PE did shows extensive bilateral pneumonia atelectasis predominantly at lung bases pneumonia appears new compared to the old exam patient treated with antibiotic therapy in the form of Zosyn she did have a sputum cultures obtained which was finalized with MRSA this morning antibiotic has been switched over to vancomycin infectious disease was consulted for further management of antibiotic therapy, patient is feeling overall better he is breathing more comfortably fever is resolved less cough and wants to go home Review of Systems Positive point has been mentioned in the HPI rest of the systems are negative Past Medical History Past Medical History: Heart Failure, COPD, Hearing Disorder / Deafness, Hypertension, Liver Disease, Seizure Disorder, Sleep Apnea/CPAP/BIPAP Additional Past Medical History / Comment(s): Home oxygen which pt states she has not needed lately, YANKTON bilaterally, weakness and falls, hepatitis c-pt believes she was tx for it in [place], chronic R shoulder pain, L forearm fracture with surgical repair from a fall, chronic low back pain, past opiod dependence, HELEN and is suppose to wear CPAP but does not, past cellulitis bilateral lower legs. History of Any Multi-Drug Resistant Organisms: None Reported Past Surgical History: Joint Replacement, Orthopedic Surgery Additional Past Surgical History / Comment(s): R shoulder arthroplasty due to fx from fall 2015, L forearm fracture with surgical repair including bone graft, colonoscopy. Past Anesthesia/Blood Transfusion Reactions: Unable to Obtain Additional Past Anesthesia/Blood Transfusion Reaction / Comm: Pt is slow to wake Smoking Status: Former smoker - Past Family History Father Family Medical History: Diabetes Mellitus Additional Family Medical History / Comment(s): Father was murdered Mother Family Medical History: Chest Pain / Angina, COPD, Renal Disease Additional Family Medical History / Comment(s): Mother is 88 yrs old. Medications and Allergies Home Medications Medication Instructions Recorded Confirmed Type Propranolol [Inderal] 20 mg PO DAILY 04/01/16 11/20/21 History amLODIPine BESYLATE [Amlodipine 10 mg PO DAILY 04/01/16 11/20/21 History Besylate] Methadone [Dolophine] 20 mg PO Q6H 02/22/17 11/20/21 History LORazepam [Ativan] 0.5 mg PO TID 12/25/20 11/20/21 History Pregabalin [Lyrica] 75 mg PO BID 12/25/20 11/20/21 History Tolterodine Tartrate [Detrol LA] 4 mg PO DAILY 10/26/21 11/20/21 History levETIRAcetam [Keppra Xr] 1,000 mg PO DAILY 10/26/21 11/20/21 History traZODone HCL 50 mg PO HS 10/26/21 11/20/21 History Albuterol Inhaler [Ventolin Hfa 2 puff INHALATION RT-QID #8 gm 10/28/21 11/20/21 Rx Inhaler] Allergies Allergy/AdvReac Type Severity Reaction Status Date / Time clindamycin Allergy Swelling/Ra Verified 11/20/21 16:43 sh/Itching Sulfa (Sulfonamide AdvReac Nausea & Verified 11/20/21 16:43 Antibiotics) Vomiting Physical Exam Vitals: Vital Signs Temp Pulse Pulse Resp BP Pulse Ox 11/24/21 13:20 71 11/24/21 11:39 98.7 F 71 18 180/96 96 11/24/21 11:30 94 L 11/24/21 09:07 64 11/24/21 08:51 54 L 93 L 11/24/21 08:00 62 11/24/21 07:45 98.0 F 62 18 160/89 97 11/24/21 03:42 59 L 18 169/75 96 11/24/21 00:00 67 16 168/75 95 11/23/21 20:43 68 11/23/21 20:00 98.4 F 65 18 156/75 94 L 11/23/21 16:00 98.2 F 67 16 147/70 95 11/23/21 15:55 70 11/23/21 15:45 69 Intake and Output 11/24/21 11/24/21 11/24/21 06:59 14:59 22:59 Output Total 300 Balance -300 Output: Urine 300 Other: Voiding Method Toilet Bedside Commode GENERAL DESCRIPTION: An elderly female lying in bed, no distress. No tachypnea or accessory muscle of respiration use. HEENT: Shows Pallor , no scleral icterus. Oral mucous membrane is dry. No pharyngeal erythema or thrush NECK: Trachea central, no thyromegaly. LUNGS: Unlabored breathing. Decreased breath sound at the base. No wheeze or crackle. HEART: S1, S2, regular rate and rhythm. No loud murmur ABDOMEN: Soft, no tenderness , guarding or rigidity, no organomegaly EXTREMITIES: No edema of feet. SKIN: No rash, no masses palpable. NEUROLOGICAL: The patient is awake, alert, oriented x3, mood and affect normal. Results CBC & Chem 7: 11/24/21 06:17 11/24/21 06:17 Labs: Abnormal Lab Results - Last 24 Hours (Table) 11/23/21 11/23/21 11/23/21 Range/Units 09:39 16:48 20:51 Lymphocytes # (1.0-4.8) k/uL Creatinine (0.52-1.04) mg/dL Glucose (74-99) mg/dL POC Glucose (mg/dL) 203 H 304 H (75-99) mg/dL Total Protein (6.3-8.2) g/dL Albumin (3.5-5.0) g/dL Procalcitonin 1.05 H (0.02-0.09) ng/mL 11/24/21 11/24/21 11/24/21 Range/Units 05:56 06:17 06:17 Lymphocytes # 0.7 L (1.0-4.8) k/uL Creatinine 0.44 L (0.52-1.04) mg/dL Glucose 163 H (74-99) mg/dL POC Glucose (mg/dL) 242 H (75-99) mg/dL Total Protein 5.7 L (6.3-8.2) g/dL Albumin 3.0 L (3.5-5.0) g/dL Procalcitonin (0.02-0.09) ng/mL 11/24/21 Range/Units 11:38 Lymphocytes # (1.0-4.8) k/uL Creatinine (0.52-1.04) mg/dL Glucose (74-99) mg/dL POC Glucose (mg/dL) 153 H (75-99) mg/dL Total Protein (6.3-8.2) g/dL Albumin (3.5-5.0) g/dL Procalcitonin (0.02-0.09) ng/mL Microbiology - Last 24 Hours (Table) 11/21/21 14:45 Gram Stain - Final Sputum Sputum Culture - Final Methicillin resist S. aureus 11/20/21 15:29 Blood Culture - Preliminary Blood No Growth after 72 hours 11/20/21 15:29 Blood Culture - Preliminary Blood No Growth after 72 hours Assessment and Plan (1) Community acquired pneumonia Current Visit: Yes Status: Acute Code(s): J18.9 - PNEUMONIA, UNSPECIFIED ORGANISM SNOMED Code(s): 165404259 Plan: 1patient presented to hospital with increasing shortness of breath and cough did have a fever with evidence of extensive pneumonia on the CT angiogram of the chest elevated procalcitonin now with a sputum finalized with MRSA more likely could be the source of of underlying pneumonia. 2patient to have a sulfa allergy that would limit the number of antibiotics safe to use. 3patient is currently on methadone that would contraindicate the use of Zyvox which could have been an ideal treatment for her. 4vancomycin pharmacy to dose target trough of 15 while watching kidney function and vancomycin trough closely. 5PICC line and outpatient IV vancomycin arrangement x2 weeks. We will follow on clinical condition and cultures to further adjust medication if needed Thank you for this consultation will follow this patient along with you Time with Patient: Greater than 30
[2021-11-25] MEDS: SYMBICORT 160-4.5 MCG INHALER INHALATION SCH ×2 (07:20→19:33)
[2021-11-25] MEDS ORDERED: VANCOMYCIN TROUGH DUE 1 EACH MISC MISCELLANE ONE ×2 (09:00→20:00)
[2021-11-25] MEDS: amLODIPine 10 MG TAB PO SCH (09:30)
[2021-11-25] MEDS: levETIRAcetam 500 MG TAB PO SCH ×2 (09:30→21:42)
[2021-11-25] MEDS: LORazepam 0.5 MG TAB PO SCH ×3 (09:30→21:41)
[2021-11-25] MEDS: PREGABALIN 75 MG CAP PO SCH ×2 (09:30→21:42)
[2021-11-25] MEDS: SODIUM CHLORIDE 0.9% 1,000 ML IV SCH (09:31)
[2021-11-25] MEDS: PROPRANOLOL 20 MG TAB PO SCH (09:31)
[2021-11-25] MEDS: OXYBUTYNIN 10 MG TAB.ER.24 PO SCH (09:31)
[2021-11-25] MEDS ORDERED: LOSARTAN 25 MG TAB PO SCH (09:45)
--- NOTE | 2021-11-25 10:22 | P.PN ---
Subjective Progress Note Date: 11/25/21 HISTORY OF PRESENT ILLNESS: This is a 66 year old female with a past medical history significant for hypertension, hyperlipidemia, COPD with home oxygen use, former nicotine dependence, and seizure disorder. Patient does not follow with a building services engineer. We have been asked to see the patient in consultation for chest pain. Patient examined at the bedside. Patient reports she began having shortness of breath about a week ago. She reports a fever at home. She reports chest tightness that has been intermittent for the past 5-6 days. She reports the pain is in the middle of her chest and feels like a tightness. She reports the pain is worse with exertion. She also reports having a sore throat. She denies any radiation of the pain. She denies any nausea or vomiting. She denies having any chest pain this morning. She denies having any previous stress testing or cardiac catheterization in the past. The patient states she just got her license back and has a difficult time keeping up with outpatient follow-up appointments. * EKG reveals sinus mechanism with no signs of acute ischemia * Chest xray there is increasing infiltrate and atelectasis at the lung bases compared to exam. No heart failure. * Chest CTA: No evidence of pulmonary embolism. Extensive bilateral pneumonia and atelectasis predominantly at the lung bases. Pneumonia appears new compared to exam. Multiple thoracic compression fractures unchanged. * Venous Doppler: Negative for DVT bilaterally * Laboratory data: WBC 7.5. Hemoglobin 13.3. Platelet count 130. D-dimer 2.48. Sodium 141. Potassium 4.2. BUN 18. Creatinine 0.45. Troponin negative 2. ProBNP 846. * Current home cardiac medications include propanolol 20 mg daily and Norvasc 10 mg daily * Echocardiogram completed revealing ejection fraction 60-65%, mild LVH, [id number] mitral regurgitation, mild tricuspid regurgitation 11/23/2021 Patient examined this morning at the bedside. Patient states she feels very tired this morning. She denies chest pain or pressure. She reports improvement in her shortness of breath. Blood pressure 154/77. 11/24/2021 Patient examined this morning at the bedside. Patient denies chest pain or pressure. She denies SOB. She is anxious to be discharged home today. 11/25/2021 Patient examined this morning at the bedside. Patient denies any chest pain or pressure. She underwent Lexiscan stress test yesterday revealing predominant a fixed defect apex and inferior lateral myocardium. Difficult to exclude a tiny area of reversible stress-induced ischemia. Stress test was reviewed with Dr. Huffman. No plans for cardiac catheterization at this time. Patient's vital signs remain stable. PHYSICAL EXAM: VITAL SIGNS: Reviewed. GENERAL: Well-developed in no acute distress. HEENT: Head is normocephalic. Pupils are equal, round. Sclerae anicteric. Mucous membranes of the mouth are moist. Neck supple. No JVD or thyromegaly LUNGS: Respirations even and unlabored. Lungs diminished with a few crackles at the bases. HEART: Regular rate and rhythm. S1 and S2 heard. Systolic murmur noted. ABDOMEN: Soft. Nondistended. Nontender. EXTREMITIES: Normal range of motion. No clubbing or cyanosis. Peripheral pulses intact. No lower extremity edema NEUROLOGIC: Awake and alert. Oriented x 3. ASSESSMENT: Bilateral pneumonia, cultures positive for MRSA COPD exacerbation Chest pain, ACS ruled out Hypertension Hyperlipidemia History of COPD with home oxygen use Seizure disorder Former nicotine dependence PLAN: Continue current cardiac cardiac medications Losartan was added to patient's medication regimen today for optimal blood pressure control Patient is stable for discharge from a cardiac standpoint Patient to follow up outpatient in the office with Dr. Huffman Nurse practitioner note has been reviewed by physician. Signing provider agrees with the documented findings, assessment, and plan of care. Objective - Vital Signs Vital signs: Vital Signs Temp 98.7 F 11/25/21 04:00 Pulse 60 11/25/21 04:00 Resp 17 11/25/21 04:00 BP 184/96 11/25/21 04:00 Pulse Ox 97 11/25/21 04:00 Intake & Output 11/24/21 11/25/21 11/25/21 18:59 06:59 18:59 Output Total 300 Balance -300 Output: Urine 300 Other: Voiding Method Toilet Bedside Commode Bedside Commode # Voids 2 3 1 - Labs CBC & Chem 7: 11/24/21 06:17 11/24/21 06:17 Labs: Abnormal Lab Results - Last 24 Hours (Table) 11/24/21 11/24/21 11/24/21 Range/Units 11:38 17:01 19:56 POC Glucose (mg/dL) 153 H 216 H 170 H (75-99) mg/dL 11/25/21 Range/Units 05:58 POC Glucose (mg/dL) 246 H (75-99) mg/dL Microbiology - Last 24 Hours (Table) 11/20/21 15:29 Blood Culture - Preliminary Blood No Growth after 96 hours 11/20/21 15:29 Blood Culture - Preliminary Blood No Growth after 96 hours 11/21/21 14:45 Gram Stain - Final Sputum Sputum Culture - Final Methicillin resist S. aureus
[2021-11-25] MEDS ORDERED: LIDOCAINE 1% INJ 10MG/ML (5 ML VIAL-PF) SQ ONE (10:37)
[2021-11-25 11:28] LABS: Glucose,Whole Blood 129 mg/dL (75-99)
[2021-11-25 13:29] LABS: African American GFR (CKD) >90 (>60 ml/min/1.73 sqM); Non-African American GFR(CKD) >90 (>60 ml/min/1.73 sqM)
--- NOTE | 2021-11-25 13:35 | P.PN ---
Subjective Progress Note Date: 11/25/21 This is a 66-year-old female with history of COPD, hypertension, deafness, hepatitis C and liver disease, seizure disorder, obstructive sleep apnea syndrome, noncompliant with CPAP, patient came into the hospital with 1 day history of chest discomfort, shortness of breath and cough. Chest x-ray and CT of the chest suggestive of by basilar pneumonia/infiltrates, patient apparently quit smoking about 8 years ago, and she is on methadone for history of opiate addiction. Again the patient has history of seizure disorder, and she is on Keppra. On presentation the patient had a temp of 100.2, she had a relative hypoxemia, and she has a relatively normal troponin. Tested negative for influenza A and for figueredo virus. Considering her presentation and the abnormality noted on the CT of the chest, this consult was initiated. On 11/23/2021 patient seen in follow-up on selective care unit. Patient is awake, in no acute distress, currently has her oxygen off, earlier she was satting 93% on 4 L, she did wear BiPAP for part of the night last night. She is breathing comfortably, denies any chest discomfort, she states she has been coughing and bringing up some brown colored phlegm. Sputum culture showed presumptive staph aureus, blood cultures show no growth. Patient remains on antibiotics in the form of Zosyn for possibility of aspiration related pneumonia, she remains on IV Solu-Medrol, and breathing treatments. Cardiology is following, echocardiogram showed preserved LV function with EF of 60-65%, mild concentric LVH, moderate pulmonary hypertension, moderate mitral regurgitation. The patient is scheduled for Lexiscan stress test for tomorrow, she could not complete Lexiscan stress test today related to caffeine. Today's labs have been reviewed, white blood cell count is 9.7, hemoglobin is 13.4, sodium is 143, potassium 4.2, chloride is 111, B1 is 19, creatinine 0.50, her pro-calcitonin level was elevated at 2.96. COVID-19, influenza A and B were all negative. No altered mentation, patient is responding to questions appropriately. Denies any worsening dyspnea or cough. Vital signs have been stable, she's been afebrile. Came in to see patient today on 11/24/2021, patient is having a stress test. Not in the room, however her sputum is positive for MRSA, recommended that we start the patient on vancomycin, and we'll recommend evaluation by infectious disease to possibly consider treatment on outpatient basis either with Zyvox or possibly with IV antibiotics to vancomycin via PICC line. Clinically I saw the patient yesterday, and she was doing extremely well, and asking to be discharged home today. I will leave it up to the infectious disease decision regarding treatment of her MRSA pneumonia, patient clearly clinically was doing well yesterday, and I will clear the patient for discharge if cleared by infectious disease on the case The patient is intubated 11/25/2021 in follow-up. He is currently resting comfortably in bed he complains is that of fatigue. No worsening shortness of breath, cough or congestion. She is maintaining O2 saturations in the 90s on 3 L. She is alternating with BiPAP 12/6 and 35% FiO2. Still undergo PICC line placement today. She'll need continued IV antibiotics secondary to her MRSA infection. Blood cultures revealed no growth. Creatinine 0.40. GFR is greater than 90. Continue on Symbicort, DuoNeb inhalations, IV Solu-Medrol. Objective - Vital Signs Vital signs: Vital Signs Temp 97.7 F 11/25/21 08:00 Pulse 60 11/25/21 04:00 Resp 16 11/25/21 08:00 BP 191/80 11/25/21 08:00 Pulse Ox 96 11/25/21 08:00 Intake & Output 11/24/21 11/25/21 11/25/21 18:59 06:59 18:59 Intake Total 360 Output Total 300 Balance -300 360 Intake: Oral 360 Output: Urine 300 Other: Voiding Method Toilet Bedside Commode Bedside Commode Bedside Commode # Voids 2 3 1 - Exam GENERAL EXAM: Alert, pleasant 66-year-old female patient, on 3 L nasal cannula, comfortable in no apparent distress. HEAD: Normocephalic. EYES: Normal reaction of pupils, equal size. NOSE: Clear with pink turbinates. THROAT: No erythema or exudates. NECK: No masses, no JVD. CHEST: No chest wall deformity. LUNGS: Equal air entry with bilateral scattered rhonchi. CVS: S1 and S2 normal with no audible murmur, regular rhythm. ABDOMEN: No hepatosplenomegaly, normal bowel sounds, no guarding or rigidity. SPINE: No scoliosis or deformity SKIN: No rashes CENTRAL NERVOUS SYSTEM: No focal deficits, tone is normal in all 4 extremities. EXTREMITIES: There is no peripheral edema. No clubbing, no cyanosis. Peripheral pulses are intact. - Labs CBC & Chem 7: 11/24/21 06:17 11/25/21 12:11 Labs: Abnormal Lab Results - Last 24 Hours (Table) 11/24/21 11/24/21 11/25/21 Range/Units 17:01 19:56 05:58 Creatinine (0.52-1.04) mg/dL POC Glucose (mg/dL) 216 H 170 H 246 H (75-99) mg/dL 11/25/21 11/25/21 Range/Units 11:26 12:11 Creatinine 0.40 L (0.52-1.04) mg/dL POC Glucose (mg/dL) 129 H (75-99) mg/dL Microbiology - Last 24 Hours (Table) 11/20/21 15:29 Blood Culture - Preliminary Blood No Growth after 96 hours 11/20/21 15:29 Blood Culture - Preliminary Blood No Growth after 96 hours 11/21/21 14:45 Gram Stain - Final Sputum Sputum Culture - Final Methicillin resist S. aureus Assessment and Plan Assessment: 1 Acute hypoxic respiratory failure secondary to bibasilar pneumonia, this is secondary to MRSA pneumonia. 2 Acute exacerbation of COPD 3 Benign essential hypertension 4 Seizure disorder 5 History of hepatitis C and liver disease 6 Obstructive sleep apnea, noncompliant with CPAP 7 History of depression. Plan: The patient was seen and evaluated Remains on vancomycin PICC line to be placed today Continue on Symbicort, DuoNeb's, IV Solu-Medrol Titrate the FiO2 as tolerated Alternating with BiPAP / and 35% FiO2 Increase her activity as tolerated I have personally seen and examined the patient, performed the documentation and the assessment and plan as written. Number of minutes spent on the visit: 10.
--- NOTE | 2021-11-25 15:27 | P.PN ---
Subjective Progress Note Date: 11/25/21 This is a pleasant 66 years old female with past medical history of COPD, Hearing Disorder / Deafness, Hypertension, Liver Disease, Seizure Disorder, Sleep Apnea not using CPAP/BIPAP, on Home oxygen, hepatitis c, chronic back pain, depression Patient presents because of worsening dyspnea of one-day duration associated with chest pain on the front upper chest and radiating to her neck about 7/10 in severity, stating it significant pain. She is coughing or making some with phlegm. She had to use BiPAP overnight. Patient's been complaining of from constipation, last bowel movement was on a Monday. She has bowel movement every 2-3 days and this is chronic for her. Also she reports increased frequency of urination without dysuria. She kept headache on and off occasionally. She quit smoking about 8 years ago, no alcohol, no illicit drugs. She uses a walker at home. She is on methadone for addiction problem. Patient states that she has depression but she denies any suicidal ideation. She has also history of seizure, last seizure was 1 year ago. Patient received her Keppra dose this morning by staff. On admission patient had a fever of 100.2, she was saturating 94% on BiPAP Labs reviewed, CBC is unremarkable. She has mild lymphopenia 0.7. D-dimer is elevated at 2.4. INR 0.9. BNP is with normal electrolytes and creatinine. Glucose 187 Lactic acid 1.5 Liver enzymes slightly elevated Troponins negative, proBNP is 846. Influenza A is negative, coronavirus not detected. Chest x-ray showing there is increased infiltrate and atelectasis of the lung base compared to old exam. No heart failure CTA: No pulmonary embolism. Extensive bilateral pneumonia predominantly of the lung bases. EKG showing normal sinus rhythm at [address]-T changes and C3 86. Bilateral pneumonia Patient was started on ceftriaxone and Zithromax. MAPS was checked patient is on gabapentin 75 mg 60 pills over 30 days and methadone 10 mg 240 pills over 30 days 11/22/2021 Resuming care today. Patient evaluated resting in bed on BiPAP FiO2 of 50%. She currently denies shortness of breath, however activity has been limited. Otherwise she is using 5L of oxygen saturating about 95%. She does use homeoxygen 2-3Liters. She continues on IV zosyn, completed 2 days of oral azithromycin. Continues on IV solu-medrol, symbicort, duonebs, IV hydration. Labs today showing sodium 141, potassium 4.2, CO2 31, BUN 18, creatinine 0.45, blood glucose in the 200s. Liver enzymes have normalized. Procalcitonin was elevated yesterday at 2.96. Venous Doppler negative for bilateral DVT, echocardiogram showing EF 60-65% with mild to moderate mitral regurgitation. She was evaluated by cardiology today who plans to keep patient NPO for a possible stress test in the morning. Concern for possible underlying coronary artery disease. Pending evaluation by pulmonary. 11/23/2021 Patient evaluated today restingin bed, She had a sip of pepsi today and was unable to complete the full stress test. She is placed NPO after midnight and stress test rescheduled for tomorrow. Patient is currently on 3-4L nasal cannula with saturation of 96%, she is wearing BiPAP at night as well. There was concern for some acute confusion yesterday, and patient does take her oxygen off and off possibly was hypoxic. ABGs were completed showing pH 7.42, pCO2 46, pO2 78, HCO3 30, total CO2 31, oxygen saturation 96.1. Today her serum CO2 has normalized at 24, chloride 111, blood glucose stable. Afebrile, blood pressure 154/77. Preliminiary sputum culture showing presumptive staph aureus pending finalized culture. She continues on duoneb, symbicort, IV solumedrol, IV azithromycin. She has oral ativan TID for anxiety ordered. Patient would like to be discharged home. 11/24/2021 Patient evaluated today sitting up in bed after returning from stress. Results include an EF of 50% with difficulty to include tiny area of reversible ischemia. Cardiology services has cleared her. Sputum culture has finalized to MRSA and patient was started on IV vancomycin today with consult placed to infectious disease services. Patient is anxious for discharge and would like to return home. She does get confused at times and is not understanding entirely of her medical condition. She continues on 3L of nasal cannula with a saturation of 96%. Per patient she has home oxygen but has not used in a while and not sure if equipment works, she will need it re set up on discharge. Currently on IV solumedrol, symbicort, duonebs, and gentle hydration. Labs today are essentially unremarkable, blood glucose elevated. Will add levemir. Procalcitonin has improved to 1.05. Blood pressure 180/96. 11/25/2021 Patient was given clearance for discharge on 2 weeks of IV vancomycin for MRSA pneumonia however she does not want to have transfusions at home and does not have a ride for daily transfusions in the office. She does live with her 90 year old mother which is a concern as well for discharge. Pending authorization for antibiotics on discharge with finalized plan tomorrow. She had a PICC line placed today. Losartan was increased to 50 mg daily today, blood pressure 191/80 this morning. She remains afebrile, heart rate 60, 96% saturation on 3L nasal cannula. Creatinine stable at 0.40. Review of Systems Constitutional: Reports fatigue, fever Cardio vascular: denied any chest pain, palpitations Gastrointestinal: denied any nausea, vomiting, diarrhea Pulmonary: Denied any shortness of breath, reports intermittent cough Neurologic denied any new focal deficits All inpatient medications were reviewed and appropriate changes in these medications as dictated in the interval history and assessment and plan. PHYSICAL EXAMINATION: GENERAL: The patient is alert and oriented x3, not in any acute distress. Well developed, well nourished. HEENT: Pupils are round and equally reacting to light. EOMI. No scleral icterus. No conjunctival pallor. Normocephalic, atraumatic. No pharyngeal erythema. No thyromegaly. CARDIOVASCULAR: S1 and S2 present. Systolic murmur present. PULMONARY: Diminshed ABDOMEN: Soft, nontender, nondistended, normoactive bowel sounds. No palpable organomegaly. MUSCULOSKELETAL: No joint swelling or deformity. EXTREMITIES: No cyanosis, clubbing, or pedal edema. NEUROLOGICAL: Gross neurological examination did not reveal any focal deficits. SKIN: No rashes. Assessment and Plan Assessment Acute hypoxic respiratory failure secondary to MRSA pneumonia, COPD exacerbation COPD, oxygen dependent, with acute exacerbation Chest pain, resolved, ACS has been ruled out Steroid induced hyperglycemia Hypertension Hyperlipidemia History of liver disease History of hepatitis C History of sleep apnea, non compliant with CPAP Seizure disorder Chronic back pain Depression History of nicotine use GI Prophylaxis DVT Prophylaxis Plan Continue oxygen support will need home oxygen set up for return home Continue antibiotics, steroids, updrafts PICC Line placement today Patient to be discharged on 2 weeks of IV vancomycin therapy per ID Possible DC tomorrow The impression and plan of care has been dictated by Laisha Lock Nurse Practitioner as directed. Dr. Zeinab MD I have performed a history and physical examination and medical decision making of this patient, discussed the same with the dictator, and agree with the dictators assessment and plan as written, documented as a scribe. Based on total visit time, I have performed more than 50% of this visit. Objective - Vital Signs Vital signs: Vital Signs Temp 97.7 F 11/25/21 08:00 Pulse 60 11/25/21 04:00 Resp 16 11/25/21 08:00 BP 191/80 11/25/21 08:00 Pulse Ox 96 11/25/21 08:00 Intake & Output 11/24/21 11/25/21 11/25/21 18:59 06:59 18:59 Intake Total 600 Output Total 300 Balance -300 600 Intake: Oral 600 Output: Urine 300 Other: Voiding Method Toilet Bedside Commode Bedside Commode Bedside Commode # Voids 2 3 1 - Labs CBC & Chem 7: 11/24/21 06:17 11/25/21 12:11 Labs: Abnormal Lab Results - Last 24 Hours (Table) 11/24/21 11/24/21 11/25/21 Range/Units 17:01 19:56 05:58 Creatinine (0.52-1.04) mg/dL POC Glucose (mg/dL) 216 H 170 H 246 H (75-99) mg/dL 11/25/21 11/25/21 Range/Units 11:26 12:11 Creatinine 0.40 L (0.52-1.04) mg/dL POC Glucose (mg/dL) 129 H (75-99) mg/dL Microbiology - Last 24 Hours (Table) 11/20/21 15:29 Blood Culture - Preliminary Blood No Growth after 96 hours 11/20/21 15:29 Blood Culture - Preliminary Blood No Growth after 96 hours 11/21/21 14:45 Gram Stain - Final Sputum Sputum Culture - Final Methicillin resist S. aureus Assessment and Plan Time with Patient: Less than 30
--- NOTE | 2021-11-25 15:54 | IR ---
PICC LINE PLACEMENT: HISTORY: Infection requiring long-term antibiotic therapy PROCEDURE: Ultrasound and fluoroscopic guidance of PICC line placement. COMPLICATIONS: None ANESTHESIA: 1. 1% Lidocaine locally. FINDINGS/TECHNIQUE: The procedure was explained to the patient. The risks, complications, benefits and alternatives were discussed and any questions were answered. Informed consent was obtained. The patient was placed supine on the fluoroscopic table and prepped and draped in the usual sterile fash ion. Utilizing a 21 gauge needle and sonographic and fluoroscopic guidance, access in the right bas ilic vein was achieved and there is placement of a 0.018 guidewire. The vein is patent. A 4-F sheat h was placed over the guidewire. The guidewire and dilator were removed and a 4-F. PICC line was franklin rosamaria through the sheath with the tip at the level of the SVC. The sheath was removed, the catheter wa s flushed and sutured into position. The patient was stable throughout the procedure and remained st able upon discharge from the Department of Radiology. The vein puncture was patent under ultrasound. A layne scale image was obtained to document patency of the vein punctured. All elements of the maximal barrier technique were utilized. FLUOROSCOPY TIME: 0.4 minutes and one image submitted IMPRESSION: Successful PICC line placement under ultrasound and fluoroscopic guidance.
[2021-11-25 16:36] LABS: Glucose,Whole Blood 169 mg/dL (75-99)
[2021-11-25] MEDS: ACETAMINOPHEN TAB 325 MG TAB PO PRN (17:45)
[2021-11-25 20:31] LABS: Glucose,Whole Blood 133 mg/dL (75-99)
[2021-11-25] MEDS: INSULIN DETEMIR (LEVEMIR) 100 UNIT/ML SYR SQ SCH (21:41)
[2021-11-25] MEDS: traZODone HCL 50 MG TAB PO SCH (21:42)
[2021-11-26] MEDS ORDERED: VANCOMYCIN TROUGH DUE 1 EACH MISC MISCELLANE ONE (04:00)
[2021-11-26 05:22] LABS: African American GFR (CKD) >90 (>60 ml/min/1.73 sqM); Non-African American GFR(CKD) >90 (>60 ml/min/1.73 sqM)
[2021-11-26] MEDS: METHADONE 10 MG TAB PO SCH ×4 (06:23→23:51)
[2021-11-26] MEDS: VANCOMYCIN 1,250 MG in SODIUM CHLORIDE 0.9% 250 ML IVPB SCH ×3 (06:24→21:21)
[2021-11-26] MEDS: SODIUM CHLORIDE 0.9% 1,000 ML IV SCH (06:24)
[2021-11-26 06:49] LABS: Glucose,Whole Blood 157 mg/dL (75-99)
[2021-11-26] MEDS: INSULIN ASPART (NovoLOG) 100 UNIT/ML VIAL SQ SCH ×4 (07:06→21:21)
[2021-11-26] MEDS: SYMBICORT 160-4.5 MCG INHALER INHALATION SCH ×2 (07:09→19:51)
[2021-11-26] MEDS ORDERED: LOSARTAN 25 MG TAB PO SCH (09:00)
[2021-11-26] MEDS: LORazepam 0.5 MG TAB PO SCH ×3 (09:23→21:23)
[2021-11-26] MEDS: levETIRAcetam 500 MG TAB PO SCH ×2 (09:23→21:20)
[2021-11-26] MEDS: amLODIPine 10 MG TAB PO SCH (09:23)
[2021-11-26] MEDS: PREGABALIN 75 MG CAP PO SCH ×2 (09:23→21:20)
[2021-11-26] MEDS: methylPREDNISolone SOD SUCCI 40 MG/ML 1 ML VIAL IV SCH ×3 (09:24→23:51)
[2021-11-26] MEDS: PROPRANOLOL 20 MG TAB PO SCH (09:24)
[2021-11-26] MEDS: OXYBUTYNIN 10 MG TAB.ER.24 PO SCH (09:24)
[2021-11-26 11:53] LABS: Glucose,Whole Blood 163 mg/dL (75-99)
[2021-11-26] MEDS ORDERED: LOSARTAN 50 MG TAB PO STA (14:09)
--- NOTE | 2021-11-26 15:04 | P.PN ---
Subjective Progress Note Date: 11/26/21 Principal diagnosis: Acute hypoxic respiratory failure secondary to MRSA pneumonia and acute exacerbation of COPD This is a 66-year-old female with history of COPD, hypertension, deafness, hepatitis C and liver disease, seizure disorder, obstructive sleep apnea syndrome, noncompliant with CPAP, patient came into the hospital with 1 day history of chest discomfort, shortness of breath and cough. Chest x-ray and CT of the chest suggestive of by basilar pneumonia/infiltrates, patient apparently quit smoking about 8 years ago, and she is on methadone for history of opiate ad diction. Again the patient has history of seizure disorder, and she is on Keppra. On presentation the patient had a temp of 100.2, she had a relative hypoxemia, and she has a relatively normal troponin. Tested negative for influenza A and for figueredo virus. Considering her presentation and the ab normality noted on the CT of the chest, this consult was initiated. On 11/23/2021 patient seen in follow-up on selective care unit. Patient is awake, in no acute distress, currently has her oxygen off, earlier she was satting 93% on 4 L, she did wear BiPAP for part of the night last night. She is breathing comfortably, denies any chest discomfort, she states she has been coughing and bringing up some brown colored phlegm. Sputum culture showed presumptive staph aureus, blood cultures show no growth. Patient remains on antibiotics in the form of Zosyn for possibility of aspiration related pneumonia, she remains on IV Solu-Medrol, and breathing treatments. Cardiology is following, echocardiogram showed preserved LV function with EF of 60-65%, mild concentric LVH, moderate pulmonary hypertension, moderate mitral regurgitation. The patient is scheduled for Lexiscan stress test for tomorrow, she could not complete Lexiscan stress test today related to caffeine. Today's labs have been reviewed, white blood cell count is 9.7, hemoglobin is 13.4, sodium is 143, potassium 4.2, chloride is 111, B1 is 19, creatinine 0.50, her pro-calcitonin level was elevated at 2.96. COVID-19, influenza A and B were all negative. No altered mentation, patient is responding to questions appropriat natalio. Denies any worsening dyspnea or cough. Vital signs have been stable, she's been afebrile. Came in to see patient today on 11/24/2021, patient is having a stress test. Not in the room, however her sputum is positive for MRSA, recommended that we start the patient on vancomycin, and we'll recommend evaluation by infectious disease to possibly consider treatment on outpatient basis either with Zyvox or possibly with IV antibiotics to vancomycin via PICC line. Clinically I saw the patient y esterday, and she was doing extremely well, and asking to be discharged home today. I will leave it up to the infectious disease decision regarding treatment of her MRSA pneumonia, patient clearly clinically was doing well yesterday, and I will clear the patient for discharge if cleared by infectious disease on the case Reevaluated on 11/25/2021 in follow-up. currently resting comfortably in bed he complains is that of fatigue. No worsening shortness of breath, cough or congestion. She is maintaining O2 saturations in the 90s on 3 L. She is alternating with BiPAP 12/6 and 35% FiO2. Still undergo PICC line placement today. She'll need continued IV antibiotics secondary to her MRSA infection. Blood cultures revealed no growth. Creatinine 0.40. GFR is greater than 90. Continue on Symbicort, DuoNeb inhalations, IV Solu-Medrol. Reevaluated today 11/26/21, patient is feeling fine, she already had a PICC line placed, and patient is to receive outpatient IV antibiotics in the form of vancomycin for her MRSA pneumonia. Objective - Vital Signs Vital signs: Vital Signs Temp 98.0 F 11/26/21 08:00 Pulse 68 11/26/21 10:55 Resp 16 11/26/21 08:00 BP 195/88 11/26/21 10:55 Pulse Ox 94 L 11/26/21 10:55 Intake & Output 11/25/21 11/26/21 11/26/21 18:59 06:59 18:59 Intake Total 820 240 Output Total 450 Balance 370 240 Intake: Oral 820 240 Output: Urine 450 Other: Voiding Method Bedside Commode Bedside Commode Bedside Commode # Voids 1 6 1 # Bowel Movements 1 - Exam GENERAL EXAM: Alert, pleasant 66-year-old female patient, on 3 L nasal cannula, comfortable in no apparent distress. HEAD: Normocephalic. EYES: Normal reaction of pupils, equal size. NOSE: Clear with pink turbinates. THROAT: No erythema or exudates. NECK: No masses, no JVD. CHEST: No chest wall deformity. LUNGS: Crackles at the bases noted. CVS: S1 and S2 normal with no audible murmur, regular rhythm. ABDOMEN: No hepatosplenomegaly, normal bowel sounds, no guarding or rigidity. SPINE: No scoliosis or deformity SKIN: No rashes CENTRAL NERVOUS SYSTEM: Alert and oriented 3 no focal deficit. EXTREMITIES: No clubbing edema or cyanosis - Labs CBC & Chem 7: 11/24/21 06:17 11/26/21 04:55 Labs: Abnormal Lab Results - Last 24 Hours (Table) 11/25/21 11/25/21 11/26/21 Range/Units 16:29 20:30 04:55 Creatinine 0.43 L (0.52-1.04) mg/dL POC Glucose (mg/dL) 169 H 133 H (75-99) mg/dL 11/26/21 11/26/21 Range/Units 06:35 11:50 Creatinine (0.52-1.04) mg/dL POC Glucose (mg/dL) 157 H 163 H (75-99) mg/dL Microbiology - Last 24 Hours (Table) 11/20/21 15:29 Blood Culture - Preliminary Blood No Growth after 120 hours 11/20/21 15:29 Blood Culture - Preliminary Blood No Growth after 120 hours Assessment and Plan Assessment: 1 Acute hypoxic respiratory failure secondary to bibasilar pneumonia, this is secondary to MRSA pneumonia. 2 Acute exacerbation of COPD 3 Benign essential hypertension 4 Seizure disorder 5 History of hepatitis C and liver disease 6 Obstructive sleep apnea, noncompliant with CPAP 7 History of depression. Plan: We'll clear the patient to be discharged home if cleared by infectious disease, on vancomycin since the PICC line was placed already Continue on Symbicort, DuoNeb's, transition Solu-Medrol to prednisone and tapered over the next 10 days. Titrate the FiO2 as tolerated Increase her activity as tolerated Time with Patient: Less than 30
[2021-11-26 16:45] LABS: Glucose,Whole Blood 202 mg/dL (75-99)
--- NOTE | 2021-11-26 17:03 | P.PN ---
Subjective Progress Note Date: 11/26/21 This is a pleasant 66 years old female with past medical history of COPD, Hearing Disorder / Deafness, Hypertension, Liver Disease, Seizure Disorder, Sleep Apnea not using CPAP/BIPAP, on Home oxygen, hepatitis c, chronic back pain, depression Patient presents because of worsening dyspnea of one-day duration associated with chest pain on the front upper chest and radiating to her neck about 7/10 in severity, stating it significant pain. She is coughing or making some with phlegm. She had to use BiPAP overnight. Patient's been complaining of from constipation, last bowel movement was on a Monday. She has bowel movement every 2-3 days and this is chronic for her. Also she reports increased frequency of urination without dysuria. She kept headache on and off occasionally. She quit smoking about 8 years ago, no alcohol, no illicit drugs. She uses a walker at home. She is on methadone for addiction problem. Patient states that she has depression but she denies any suicidal ideation. She has also history of seizure, last seizure was 1 year ago. Patient received her Keppra dose this morning by staff. On admission patient had a fever of 100.2, she was saturating 94% on BiPAP Labs reviewed, CBC is unremarkable. She has mild lymphopenia 0.7. D-dimer is elevated at 2.4. INR 0.9. BNP is with normal electrolytes and creatinine. Glucose 187 Lactic acid 1.5 Liver enzymes slightly elevated Troponins negative, proBNP is 846. Influenza A is negative, coronavirus not detected. Chest x-ray showing there is increased infiltrate and atelectasis of the lung base compared to old exam. No heart failure CTA: No pulmonary embolism. Extensive bilateral pneumonia predominantly of the lung bases. EKG showing normal sinus rhythm at [address]-T changes and C3 86. Bilateral pneumonia Patient was started on ceftriaxone and Zithromax. MAPS was checked patient is on gabapentin 75 mg 60 pills over 30 days and methadone 10 mg 240 pills over 30 days 11/22/2021 Resuming care today. Patient evaluated resting in bed on BiPAP FiO2 of 50%. She currently denies shortness of breath, however activity has been limited. Otherwise she is using 5L of oxygen saturating about 95%. She does use homeoxygen 2-3Liters. She continues on IV zosyn, completed 2 days of oral azithromycin. Continues on IV solu-medrol, symbicort, duonebs, IV hydration. Labs today showing sodium 141, potassium 4.2, CO2 31, BUN 18, creatinine 0.45, blood glucose in the 200s. Liver enzymes have normalized. Procalcitonin was elevated yesterday at 2.96. Venous Doppler negative for bilateral DVT, echocardiogram showing EF 60-65% with mild to moderate mitral regurgitation. She was evaluated by cardiology today who plans to keep patient NPO for a possible stress test in the morning. Concern for possible underlying coronary artery disease. Pending evaluation by pulmonary. 11/23/2021 Patient evaluated today restingin bed, She had a sip of pepsi today and was unable to complete the full stress test. She is placed NPO after midnight and stress test rescheduled for tomorrow. Patient is currently on 3-4L nasal cannula with saturation of 96%, she is wearing BiPAP at night as well. There was concern for some acute confusion yesterday, and patient does take her oxygen off and off possibly was hypoxic. ABGs were completed showing pH 7.42, pCO2 46, pO2 78, HCO3 30, total CO2 31, oxygen saturation 96.1. Today her serum CO2 has normalized at 24, chloride 111, blood glucose stable. Afebrile, blood pressure 154/77. Preliminiary sputum culture showing presumptive staph aureus pending finalized culture. She continues on duoneb, symbicort, IV solumedrol, IV azithromycin. She has oral ativan TID for anxiety ordered. Patient would like to be discharged home. 11/24/2021 Patient evaluated today sitting up in bed after returning from stress. Results include an EF of 50% with difficulty to include tiny area of reversible ischemia. Cardiology services has cleared her. Sputum culture has finalized to MRSA and patient was started on IV vancomycin today with consult placed to infectious disease services. Patient is anxious for discharge and would like to return home. She does get confused at times and is not understanding entirely of her medical condition. She continues on 3L of nasal cannula with a saturation of 96%. Per patient she has home oxygen but has not used in a while and not sure if equipment works, she will need it re set up on discharge. Currently on IV solumedrol, symbicort, duonebs, and gentle hydration. Labs today are essentially unremarkable, blood glucose elevated. Will add levemir. Procalcitonin has improved to 1.05. Blood pressure 180/96. 11/25/2021 Patient was given clearance for discharge on 2 weeks of IV vancomycin for MRSA pneumonia however she does not want to have transfusions at home and does not have a ride for daily transfusions in the office. She does live with her 90 year old mother which is a concern as well for discharge. Pending authorization for antibiotics on discharge with finalized plan tomorrow. She had a PICC line placed today. Losartan was increased to 50 mg daily today, blood pressure 191/80 this morning. She remains afebrile, heart rate 60, 96% saturation on 3L nasal cannula. Creatinine stable at 0.40. 11/26/2021 Patient evaluated today resting in bed and is now on 3L nasal cannula with s aturation of 96%. Blood pressure has been elevated today 200/90s she was started on losartan and it was initially increased today up to 50 mg and she received another 50 mg of losartan his afternoon. She is afebrile, heart rate in the 60s. Continues on IV vancomycin for MRSA sputum. Plan was for discharge today on home infusions however pending insurance authorization, after discussion with family patient now wishes to discharge to rehab for 10 days of IV antibiotics and return home. OBRA form has been completed, pending insurance authorization. Review of Systems Constitutional: Denies fatigue, denies fever Cardio vascular: denied any chest pain, palpitations Gastrointestinal: denied any nausea, vomiting, diarrhea Pulmonary: Denied any shortness of breath, reports dry intermittent cough, improving Neurologic denied any new focal deficits All inpatient medications were reviewed and appropriate changes in these medications as dictated in the interval history and assessment and plan. PHYSICAL EXAMINATION: GENERAL: The patient is alert and oriented x3, not in any acute distress. Well developed, well nourished. HEENT: Pupils are round and equally reacting to light. EOMI. No scleral icterus. No conjunctival pallor. Normocephalic, atraumatic. No pharyngeal erythema. No thyromegaly. CARDIOVASCULAR: S1 and S2 present. Systolic murmur present. PULMONARY: No wheezing noted today, improving aeration. ABDOMEN: Soft, nontender, nondistended, normoactive bowel sounds. No palpable or ganomegaly. MUSCULOSKELETAL: No joint swelling or deformity. EXTREMITIES: No cyanosis, clubbing, or pedal edema. NEUROLOGICAL: Gross neurological examination did not reveal any focal deficits. SKIN: No rashes. Assessment and Plan Assessment Acute hypoxic respiratory failure secondary to MRSA pneumonia, COPD exacerbation, improving back on home dose of 3L nasal cannula COPD, oxygen dependent, with acute exacerbation Chest pain, resolved, ACS has been ruled out Steroid induced hyperglycemia, improving Hypertension with elevated blood pressure today in the 200's systolic Hyperlipidemia History of liver disease History of hepatitis C History of sleep apnea, non compliant with CPAP Seizure disorder Chronic back pain Depression History of nicotine use GI Prophylaxis DVT Prophylaxis Plan Continue on oxygen, 3L nasal cannula, can wean as patient tolerates Continue IV vancomycin, transitioned to oral prednisone Increase losartan to 100 mg po daily IV fluids to KVO Patient has been cleared from all consultations Insurance authorization is pending, discharge to rehab with IV antibiotics for 10 days The impression and plan of care has been dictated by Laisha Lock, Nurse Practitioner as directed. Dr. Zeinab MD I have performed a history and physical examination and medical decision making of this patient, discussed the same with the dictator, and agree with the dictators assessment and plan as written, documented as a scribe. Based on total visit time, I have performed more than 50% of this visit. Objective - Vital Signs Vital signs: Vital Signs Temp 98.0 F 11/26/21 08:00 Pulse 65 11/26/21 14:00 Resp 16 11/26/21 14:00 BP 195/88 11/26/21 10:55 Pulse Ox 94 L 11/26/21 10:55 Intake & Output 11/25/21 11/26/21 11/26/21 18:59 06:59 18:59 Intake Total 820 240 Output Total 450 Balance 370 240 Intake: Oral 820 240 Output: Urine 450 Other: Voiding Method Bedside Commode Bedside Commode Bedside Commode # Voids 1 6 1 # Bowel Movements 1 - Labs CBC & Chem 7: 11/24/21 06:17 11/26/21 04:55 Labs: Abnormal Lab Results - Last 24 Hours (Table) 11/25/21 11/26/21 11/26/21 Range/Units 20:30 04:55 06:35 Creatinine 0.43 L (0.52-1.04) mg/dL POC Glucose (mg/dL) 133 H 157 H (75-99) mg/dL 11/26/21 Range/Units 11:50 Creatinine (0.52-1.04) mg/dL POC Glucose (mg/dL) 163 H (75-99) mg/dL Microbiology - Last 24 Hours (Table) 11/20/21 15:29 Blood Culture - Preliminary Blood No Growth after 120 hours 11/20/21 15:29 Blood Culture - Preliminary Blood No Growth after 120 hours Assessment and Plan Time with Patient: Less than 30
[2021-11-26 21:11] LABS: Glucose,Whole Blood 176 mg/dL (75-99)
[2021-11-26] MEDS: INSULIN DETEMIR (LEVEMIR) 100 UNIT/ML SYR SQ SCH (21:20)
[2021-11-26] MEDS: traZODone HCL 50 MG TAB PO SCH (21:20)
--- NOTE | 2021-11-27 00:18 | P.PN ---
Subjective Progress Note Date: 11/25/21 Principal diagnosis: MRSA pneumonia Patient is a 66-year female with a past medical history significant for COPD presented to hospital with negative shortness of breath and cough with evidence of extensive pneumonia sputum has been finalized with MRSA. On today's evaluation that is 11/25/2021, the patient is afebrile patient is breathing more comfortably on nasal cannula oxygen 3 L patient denies having any chest pain no worsening cough or sputum duction no abdominal pain no diarrhea patient is feeling better wants to go home Objective - Vital Signs Vital signs: Vital Signs Temp 97.7 F 11/25/21 08:00 Pulse 60 11/25/21 04:00 Resp 16 11/25/21 08:00 BP 191/80 11/25/21 08:00 Pulse Ox 96 11/25/21 08:00 Intake & Output 11/24/21 11/25/21 11/25/21 18:59 06:59 18:59 Intake Total 600 Output Total 300 Balance -300 600 Intake: Oral 600 Output: Urine 300 Other: Voiding Method Toilet Bedside Commode Bedside Commode Bedside Commode # Voids 2 3 1 - Exam GENERAL DESCRIPTION: An elderly female lying in bed in no distress RESPIRATORY SYSTEM: Unlabored breathing , decreased breath sounds at bases HEART: S1 S2 regular rate and rhythm , ABDOMEN: Soft , no tenderness EXTREMITIES: No edema feet - Labs CBC & Chem 7: 11/24/21 06:17 11/26/21 04:55 Labs: Abnormal Lab Results - Last 24 Hours (Table) 11/24/21 11/24/21 11/25/21 Range/Units 17:01 19:56 05:58 Creatinine (0.52-1.04) mg/dL POC Glucose (mg/dL) 216 H 170 H 246 H (75-99) mg/dL 11/25/21 11/25/21 Range/Units 11:26 12:11 Creatinine 0.40 L (0.52-1.04) mg/dL POC Glucose (mg/dL) 129 H (75-99) mg/dL Microbiology - Last 24 Hours (Table) 11/20/21 15:29 Blood Culture - Preliminary Blood No Growth after 96 hours 11/20/21 15:29 Blood Culture - Preliminary Blood No Growth after 96 hours 11/21/21 14:45 Gram Stain - Final Sputum Sputum Culture - Final Methicillin resist S. aureus Assessment and Plan (1) Community acquired pneumonia Current Visit: Yes Status: Acute Code(s): J18.9 - PNEUMONIA, UNSPECIFIED ORGANISM SNOMED Code(s): 626858222 Plan: 1patient presented to hospital with increasing shortness of breath and cough did have a fever with evidence of extensive pneumonia on the CT angiogram of the chest elevated procalcitonin now with a sputum finalized with MRSA more likely could be the source of of underlying pneumonia. 2patient to have a sulfa allergy that would limit the number of antibiotics safe to use. 3patient is currently on methadone that would contraindicate the use of Zyvox which could have been an ideal treatment for her. 4patient to continue with vancomycin pharmacy to dose target trough of 15 while watching kidney function and vancomycin trough closely. 5patient did not PICC line and is currently waiting for outpatient IV vancomycin arrangement x2 weeks. Time with Patient: Less than 30
--- NOTE | 2021-11-27 00:19 | P.PN ---
Subjective Progress Note Date: 11/26/21 Principal diagnosis: MRSA pneumonia Patient is a 66-year female with a past medical history significant for COPD presented to hospital with negative shortness of breath and cough with evidence of extensive pneumonia sputum has been finalized with MRSA. On today's evaluation that is 11/26/2021, the patient remains to be afebrile patient is breathing comfortably on 3 L nasal cannula oxygen, the patient denies having any chest pain no worsening cough or sputum duction no abdominal pain no diarrhea patient is feeling better Objective - Vital Signs Vital signs: Vital Signs Temp 98.0 F 11/26/21 08:00 Pulse 68 11/26/21 10:55 Resp 16 11/26/21 08:00 BP 195/88 11/26/21 10:55 Pulse Ox 94 L 11/26/21 10:55 Intake & Output 11/25/21 11/26/21 11/26/21 18:59 06:59 18:59 Intake Total 820 240 Output Total 450 Balance 370 240 Intake: Oral 820 240 Output: Urine 450 Other: Voiding Method Bedside Commode Bedside Commode Bedside Commode # Voids 1 6 1 - Exam GENERAL DESCRIPTION: An elderly female lying in bed in no distress RESPIRATORY SYSTEM: Unlabored breathing , decreased breath sounds at bases HEART: S1 S2 regular rate and rhythm , ABDOMEN: Soft , no tenderness EXTREMITIES: No edema feet - Labs CBC & Chem 7: 11/24/21 06:17 11/26/21 04:55 Labs: Abnormal Lab Results - Last 24 Hours (Table) 11/25/21 11/25/21 11/25/21 Range/Units 12:11 16:29 20:30 Creatinine 0.40 L (0.52-1.04) mg/dL POC Glucose (mg/dL) 169 H 133 H (75-99) mg/dL 11/26/21 11/26/21 Range/Units 04:55 06:35 Creatinine 0.43 L (0.52-1.04) mg/dL POC Glucose (mg/dL) 157 H (75-99) mg/dL Microbiology - Last 24 Hours (Table) 11/20/21 15:29 Blood Culture - Preliminary Blood No Growth after 120 hours 11/20/21 15:29 Blood Culture - Preliminary Blood No Growth after 120 hours Assessment and Plan (1) Community acquired pneumonia Current Visit: Yes Status: Acute Code(s): J18.9 - PNEUMONIA, UNSPECIFIED ORGANISM SNOMED Code(s): 417280530 Plan: 1patient presented to hospital with increasing shortness of breath and cough did have a fever with evidence of extensive pneumonia on the CT angiogram of the chest elevated procalcitonin now with a sputum finalized with MRSA more likely could be the source of of underlying pneumonia. 2patient to have a sulfa allergy that would limit the number of antibiotics safe to use. 3patient is currently on methadone that would contraindicate the use of Zyvox which could have been an ideal treatment for her. 4patient seems to have clinically improved and did got a PICC line to continue with the vancomycin to finish a two-week course of therapy, prescription was provided to the rn case manager hospice Time with Patient: Less than 30
[2021-11-27] MEDS: METHADONE 10 MG TAB PO SCH ×4 (06:15→23:55)
[2021-11-27] MEDS: VANCOMYCIN 1,250 MG in SODIUM CHLORIDE 0.9% 250 ML IVPB SCH ×3 (06:15→21:55)
[2021-11-27 06:49] LABS: Glucose,Whole Blood 171 mg/dL (75-99)
[2021-11-27] MEDS: INSULIN ASPART (NovoLOG) 100 UNIT/ML VIAL SQ SCH ×4 (06:51→21:55)
[2021-11-27] MEDS: IPRATROPIUM-ALBUTEROL 3 ML NEB INHALATION PRN ×2 (08:26→20:19)
[2021-11-27] MEDS: SYMBICORT 160-4.5 MCG INHALER INHALATION SCH ×2 (08:26→20:19)
[2021-11-27 08:55] LABS: African American GFR (CKD) >90 (>60 ml/min/1.73 sqM); Anion Gap 6 mmol/L; Blood Urea Nitrogen 13 mg/dL (7-17); Calcium 8.8 mg/dL (8.4-10.2); Carbon Dioxide 38 mmol/L (22-30); Chloride 100 mmol/L (98-107); Glucose 137 mg/dL (74-99); Non-African American GFR(CKD) >90 (>60 ml/min/1.73 sqM); Sodium 144 mmol/L (137-145)
[2021-11-27] MEDS: OXYBUTYNIN 10 MG TAB.ER.24 PO SCH (10:16)
[2021-11-27] MEDS: methylPREDNISolone SOD SUCCI 40 MG/ML 1 ML VIAL IV SCH (10:16)
[2021-11-27] MEDS: LOSARTAN 50 MG TAB PO SCH (10:17)
[2021-11-27] MEDS: LORazepam 0.5 MG TAB PO SCH ×3 (10:17→21:55)
[2021-11-27] MEDS: PREGABALIN 75 MG CAP PO SCH ×2 (10:17→21:55)
[2021-11-27] MEDS: amLODIPine 10 MG TAB PO SCH (10:17)
[2021-11-27] MEDS: PROPRANOLOL 20 MG TAB PO SCH (10:18)
[2021-11-27] MEDS: levETIRAcetam 500 MG TAB PO SCH ×2 (10:18→22:41)
[2021-11-27 12:36] LABS: Glucose,Whole Blood 104 mg/dL (75-99)
--- NOTE | 2021-11-27 14:28 | P.PN ---
Subjective Progress Note Date: 11/27/21 This is a pleasant 66 years old female with past medical history of COPD, Hearing Disorder / Deafness, Hypertension, Liver Disease, Seizure Disorder, Sleep Apnea not using CPAP/BIPAP, on Home oxygen, hepatitis c, chronic back pain, depression Patient presents because of worsening dyspnea of one-day duration associated with chest pain on the front upper chest and radiating to her neck about 7/10 in severity, stating it significant pain. She is coughing or making some with phlegm. She had to use BiPAP overnight. Patient's been complaining of from constipation, last bowel movement was on a Monday. She has bowel movement every 2-3 days and this is chronic for her. Also she reports increased frequency of urination without dysuria. She kept headache on and off occasionally. She quit smoking about 8 years ago, no alcohol, no illicit drugs. She uses a walker at home. She is on methadone for addiction problem. Patient states that she has depression but she denies any suicidal ideation. She has also history of seizure, last seizure was 1 year ago. Patient received her Keppra dose this morning by staff. On admission patient had a fever of 100.2, she was saturating 94% on BiPAP Labs reviewed, CBC is unremarkable. She has mild lymphopenia 0.7. D-dimer is elevated at 2.4. INR 0.9. BNP is with normal electrolytes and creatinine. Glucose 187 Lactic acid 1.5 Liver enzymes slightly elevated Troponins negative, proBNP is 846. Influenza A is negative, coronavirus not detected. Chest x-ray showing there is increased infiltrate and atelectasis of the lung base compared to old exam. No heart failure CTA: No pulmonary embolism. Extensive bilateral pneumonia predominantly of the lung bases. EKG showing normal sinus rhythm at [address]-T changes and C3 86. Bilateral pneumonia Patient was started on ceftriaxone and Zithromax. MAPS was checked patient is on gabapentin 75 mg 60 pills over 30 days and methadone 10 mg 240 pills over 30 days 11/22/2021 Resuming care today. Patient evaluated resting in bed on BiPAP FiO2 of 50%. She currently denies shortness of breath, however activity has been limited. Otherwise she is using 5L of oxygen saturating about 95%. She does use homeoxygen 2-3Liters. She continues on IV zosyn, completed 2 days of oral azithromycin. Continues on IV solu-medrol, symbicort, duonebs, IV hydration. Labs today showing sodium 141, potassium 4.2, CO2 31, BUN 18, creatinine 0.45, blood glucose in the 200s. Liver enzymes have normalized. Procalcitonin was elevated yesterday at 2.96. Venous Doppler negative for bilateral DVT, echocardiogram showing EF 60-65% with mild to moderate mitral regurgitation. She was evaluated by cardiology today who plans to keep patient NPO for a possible stress test in the morning. Concern for possible underlying coronary artery disease. Pending evaluation by pulmonary. 11/23/2021 Patient evaluated today restingin bed, She had a sip of pepsi today and was unable to complete the full stress test. She is placed NPO after midnight and stress test rescheduled for tomorrow. Patient is currently on 3-4L nasal cannula with saturation of 96%, she is wearing BiPAP at night as well. There was concern for some acute confusion yesterday, and patient does take her oxygen off and off possibly was hypoxic. ABGs were completed showing pH 7.42, pCO2 46, pO2 78, HCO3 30, total CO2 31, oxygen saturation 96.1. Today her serum CO2 has normalized at 24, chloride 111, blood glucose stable. Afebrile, blood pressure 154/77. Preliminiary sputum culture showing presumptive staph aureus pending finalized culture. She continues on duoneb, symbicort, IV solumedrol, IV azithromycin. She has oral ativan TID for anxiety ordered. Patient would like to be discharged home. 11/24/2021 Patient evaluated today sitting up in bed after returning from stress. Results include an EF of 50% with difficulty to include tiny area of reversible ischemia. Cardiology services has cleared her. Sputum culture has finalized to MRSA and patient was started on IV vancomycin today with consult placed to infectious disease services. Patient is anxious for discharge and would like to return home. She does get confused at times and is not understanding entirely of her medical condition. She continues on 3L of nasal cannula with a saturation of 96%. Per patient she has home oxygen but has not used in a while and not sure if equipment works, she will need it re set up on discharge. Currently on IV solumedrol, symbicort, duonebs, and gentle hydration. Labs today are essentially unremarkable, blood glucose elevated. Will add levemir. Procalcitonin has improved to 1.05. Blood pressure 180/96. 11/25/2021 Patient was given clearance for discharge on 2 weeks of IV vancomycin for MRSA pneumonia however she does not want to have transfusions at home and does not have a ride for daily transfusions in the office. She does live with her 90 year old mother which is a concern as well for discharge. Pending authorization for antibiotics on discharge with finalized plan tomorrow. She had a PICC line placed today. Losartan was increased to 50 mg daily today, blood pressure 191/80 this morning. She remains afebrile, heart rate 60, 96% saturation on 3L nasal cannula. Creatinine stable at 0.40. 11/26/2021 Patient evaluated today resting in bed and is now on 3L nasal cannula with s aturation of 96%. Blood pressure has been elevated today 200/90s she was started on losartan and it was initially increased today up to 50 mg and she received another 50 mg of losartan his afternoon. She is afebrile, heart rate in the 60s. Continues on IV vancomycin for MRSA sputum. Plan was for discharge today on home infusions however pending insurance authorization, after discussion with family patient now wishes to discharge to rehab for 10 days of IV antibiotics and return home. OBRA form has been completed, pending insurance authorization. 11/27/2021 Patient is evaluated today resting in bed. Continues on 3L nasal cannula, no wheezing noted. No acute events overnight. She is pending insurance authorization for which she will continue course of IV antbiotics there and discharge home. Labs today are unremarkabale. We will transition over to oral steroids today. Blood pressure 172 systolic, she recieved 100 mg of losartan this morning and we will continue to monitor this. Review of Systems Constitutional: Denies fatigue, denies fever Cardio vascular: denied any chest pain, palpitations Gastrointestinal: denied any nausea, vomiting, diarrhea Pulmonary: Denied any shortness of breath, reports dry intermittent cough, improving Neurologic denied any new focal deficits All inpatient medications were reviewed and appropriate changes in these medications as dictated in the interval history and assessment and plan. PHYSICAL EXAMINATION: GENERAL: The patient is alert and oriented x3, not in any acute distress. Well developed, well nourished. HEENT: Pupils are round and equally reacting to light. EOMI. No scleral icterus. No conjunctival pallor. Normocephalic, atraumatic. No pharyngeal erythema. No thyromegaly. CARDIOVASCULAR: S1 and S2 present. Systolic murmur present. PULMONARY: No wheezing noted today, improving aeration. ABDOMEN: Soft, nontender, nondistended, normoactive bowel sounds. No palpable organomegaly. MUSCULOSKELETAL: No joint swelling or deformity. EXTREMITIES: No cyanosis, clubbing, or pedal edema. NEUROLOGICAL: Gross neurological examination did not reveal any focal deficits. SKIN: No rashes. Assessment and Plan Assessment Acute hypoxic respiratory failure secondary to MRSA pneumonia, COPD exacerbation, improving back on home dose of 3L nasal cannula COPD, oxygen dependent, with acute exacerbation Chest pain, resolved, ACS has been ruled out Steroid induced hyperglycemia, improving Hypertension with elevated blood pressure, improving Hyperlipidemia History of liver disease History of hepatitis C History of sleep apnea, non compliant with CPAP Seizure disorder Chronic back pain Depression History of nicotine use GI Prophylaxis DVT Prophylaxis Plan Continue on oxygen, 3L nasal cannula Continue IV vancomycin, transitioned to oral prednisone Continue losartan 100 mg po daily IV fluids to KVO Patient has been cleared from all consultations Insurance authorization is pending, discharge to rehab with IV antibiotics The impression and plan of care has been dictated by Laisha Lock, Nurse Practitioner as directed. Dr. Zeinab MD I have performed a history and physical examination and medical decision making of this patient, discussed the same with the dictator, and agree with the dictators assessment and plan as written, documented as a scribe. Based on total visit time, I have performed more than 50% of this visit. Objective - Vital Signs Vital signs: Vital Signs Temp 98.1 F 11/27/21 03:28 Pulse 88 11/27/21 08:42 Resp 14 11/27/21 03:28 BP 183/84 11/27/21 03:28 Pulse Ox 93 L 11/27/21 03:28 Intake & Output 11/26/21 11/27/21 11/27/21 18:59 06:59 18:59 Intake Total 240 240 Balance 240 240 Intake: Oral 240 240 Other: Voiding Method Bedside Commode # Voids 2 2 # Bowel Movements 1 - Labs CBC & Chem 7: 11/24/21 06:17 11/27/21 08:07 Labs: Abnormal Lab Results - Last 24 Hours (Table) 11/26/21 11/26/21 11/26/21 Range/Units 11:50 16:43 20:50 Carbon Dioxide (22-30) mmol/L Creatinine (0.52-1.04) mg/dL Glucose (74-99) mg/dL POC Glucose (mg/dL) 163 H 202 H 176 H (75-99) mg/dL 11/27/21 11/27/21 Range/Units 06:46 08:07 Carbon Dioxide 38 H (22-30) mmol/L Creatinine 0.47 L (0.52-1.04) mg/dL Glucose 137 H (74-99) mg/dL POC Glucose (mg/dL) 171 H (75-99) mg/dL Microbiology - Last 24 Hours (Table) 11/20/21 15:29 Blood Culture - Final Blood No Growth after 144 hours 11/20/21 15:29 Blood Culture - Final Blood No Growth after 144 hours Assessment and Plan Time with Patient: Less than 30
[2021-11-27] MEDS: ACETAMINOPHEN TAB 325 MG TAB PO PRN (14:30)
[2021-11-27 16:50] LABS: Glucose,Whole Blood 220 mg/dL (75-99)
[2021-11-27 20:51] LABS: Glucose,Whole Blood 152 mg/dL (75-99)
[2021-11-27] MEDS: traZODone HCL 50 MG TAB PO SCH (21:55)
[2021-11-27] MEDS: INSULIN DETEMIR (LEVEMIR) 100 UNIT/ML SYR SQ SCH (21:57)
[2021-11-28] MEDS ORDERED: VANCOMYCIN TROUGH DUE 1 EACH MISC MISCELLANE ONE (04:00)
[2021-11-28 05:53] LABS: African American GFR (CKD) >90 (>60 ml/min/1.73 sqM); Non-African American GFR(CKD) >90 (>60 ml/min/1.73 sqM)
[2021-11-28 06:47] LABS: Glucose,Whole Blood 83 mg/dL (75-99)
[2021-11-28] MEDS: SYMBICORT 160-4.5 MCG INHALER INHALATION SCH ×2 (07:41→19:59)
[2021-11-28] MEDS: predniSONE 20 MG TAB PO SCH (07:57)
[2021-11-28] MEDS: levETIRAcetam 500 MG TAB PO SCH ×2 (07:57→22:06)
[2021-11-28] MEDS: METHADONE 10 MG TAB PO SCH ×4 (07:57→23:53)
[2021-11-28] MEDS: PREGABALIN 75 MG CAP PO SCH ×2 (07:58→22:06)
[2021-11-28] MEDS: amLODIPine 10 MG TAB PO SCH (07:58)
[2021-11-28] MEDS: LOSARTAN 50 MG TAB PO SCH (07:58)
[2021-11-28] MEDS: LORazepam 0.5 MG TAB PO SCH ×3 (07:58→22:06)
[2021-11-28] MEDS: INSULIN ASPART (NovoLOG) 100 UNIT/ML VIAL SQ SCH ×4 (07:58→20:47)
[2021-11-28] MEDS: PROPRANOLOL 20 MG TAB PO SCH (09:32)
[2021-11-28] MEDS: OXYBUTYNIN 10 MG TAB.ER.24 PO SCH (09:32)
[2021-11-28] MEDS: VANCOMYCIN 1,250 MG in SODIUM CHLORIDE 0.9% 250 ML IVPB SCH ×3 (09:33→23:53)
[2021-11-28 11:34] LABS: Glucose,Whole Blood 118 mg/dL (75-99)
--- NOTE | 2021-11-28 13:59 | P.PN ---
Subjective Progress Note Date: 11/28/21 This is a pleasant 66 years old female with past medical history of COPD, Hearing Disorder / Deafness, Hypertension, Liver Disease, Seizure Disorder, Sleep Apnea not using CPAP/BIPAP, on Home oxygen, hepatitis c, chronic back pain, depression Patient presents because of worsening dyspnea of one-day duration associated with chest pain on the front upper chest and radiating to her neck about 7/10 in severity, stating it significant pain. She is coughing or making some with phlegm. She had to use BiPAP overnight. Patient's been complaining of from constipation, last bowel movement was on a Monday. She has bowel movement every 2-3 days and this is chronic for her. Also she reports increased frequency of urination without dysuria. She kept headache on and off occasionally. She quit smoking about 8 years ago, no alcohol, no illicit drugs. She uses a walker at home. She is on methadone for addiction problem. Patient states that she has depression but she denies any suicidal ideation. She has also history of seizure, last seizure was 1 year ago. Patient received her Keppra dose this morning by staff. On admission patient had a fever of 100.2, she was saturating 94% on BiPAP Labs reviewed, CBC is unremarkable. She has mild lymphopenia 0.7. D-dimer is elevated at 2.4. INR 0.9. BNP is with normal electrolytes and creatinine. Glucose 187 Lactic acid 1.5 Liver enzymes slightly elevated Troponins negative, proBNP is 846. Influenza A is negative, coronavirus not detected. Chest x-ray showing there is increased infiltrate and atelectasis of the lung base compared to old exam. No heart failure CTA: No pulmonary embolism. Extensive bilateral pneumonia predominantly of the lung bases. EKG showing normal sinus rhythm at [address]-T changes and C3 86. Bilateral pneumonia Patient was started on ceftriaxone and Zithromax. MAPS was checked patient is on gabapentin 75 mg 60 pills over 30 days and methadone 10 mg 240 pills over 30 days 11/22/2021 Resuming care today. Patient evaluated resting in bed on BiPAP FiO2 of 50%. She currently denies shortness of breath, however activity has been limited. Otherwise she is using 5L of oxygen saturating about 95%. She does use homeoxygen 2-3Liters. She continues on IV zosyn, completed 2 days of oral azithromycin. Continues on IV solu-medrol, symbicort, duonebs, IV hydration. Labs today showing sodium 141, potassium 4.2, CO2 31, BUN 18, creatinine 0.45, blood glucose in the 200s. Liver enzymes have normalized. Procalcitonin was elevated yesterday at 2.96. Venous Doppler negative for bilateral DVT, echocardiogram showing EF 60-65% with mild to moderate mitral regurgitation. She was evaluated by cardiology today who plans to keep patient NPO for a possible stress test in the morning. Concern for possible underlying coronary artery disease. Pending evaluation by pulmonary. 11/23/2021 Patient evaluated today restingin bed, She had a sip of pepsi today and was unable to complete the full stress test. She is placed NPO after midnight and stress test rescheduled for tomorrow. Patient is currently on 3-4L nasal cannula with saturation of 96%, she is wearing BiPAP at night as well. There was concern for some acute confusion yesterday, and patient does take her oxygen off and off possibly was hypoxic. ABGs were completed showing pH 7.42, pCO2 46, pO2 78, HCO3 30, total CO2 31, oxygen saturation 96.1. Today her serum CO2 has normalized at 24, chloride 111, blood glucose stable. Afebrile, blood pressure 154/77. Preliminiary sputum culture showing presumptive staph aureus pending finalized culture. She continues on duoneb, symbicort, IV solumedrol, IV azithromycin. She has oral ativan TID for anxiety ordered. Patient would like to be discharged home. 11/24/2021 Patient evaluated today sitting up in bed after returning from stress. Results include an EF of 50% with difficulty to include tiny area of reversible ischemia. Cardiology services has cleared her. Sputum culture has finalized to MRSA and patient was started on IV vancomycin today with consult placed to infectious disease services. Patient is anxious for discharge and would like to return home. She does get confused at times and is not understanding entirely of her medical condition. She continues on 3L of nasal cannula with a saturation of 96%. Per patient she has home oxygen but has not used in a while and not sure if equipment works, she will need it re set up on discharge. Currently on IV solumedrol, symbicort, duonebs, and gentle hydration. Labs today are essentially unremarkable, blood glucose elevated. Will add levemir. Procalcitonin has improved to 1.05. Blood pressure 180/96. 11/25/2021 Patient was given clearance for discharge on 2 weeks of IV vancomycin for MRSA pneumonia however she does not want to have transfusions at home and does not have a ride for daily transfusions in the office. She does live with her 90 year old mother which is a concern as well for discharge. Pending authorization for antibiotics on discharge with finalized plan tomorrow. She had a PICC line placed today. Losartan was increased to 50 mg daily today, blood pressure 191/80 this morning. She remains afebrile, heart rate 60, 96% saturation on 3L nasal cannula. Creatinine stable at 0.40. 11/26/2021 Patient evaluated today resting in bed and is now on 3L nasal cannula with s aturation of 96%. Blood pressure has been elevated today 200/90s she was started on losartan and it was initially increased today up to 50 mg and she received another 50 mg of losartan his afternoon. She is afebrile, heart rate in the 60s. Continues on IV vancomycin for MRSA sputum. Plan was for discharge today on home infusions however pending insurance authorization, after discussion with family patient now wishes to discharge to rehab for 10 days of IV antibiotics and return home. OBRA form has been completed, pending insurance authorization. 11/27/2021 Patient is evaluated today resting in bed. Continues on 3L nasal cannula, no wheezing noted. No acute events overnight. She is pending insurance authorization for which she will continue course of IV antbiotics there and discharge home. Labs today are unremarkabale. We will transition over to oral steroids today. Blood pressure 172 systolic, she recieved 100 mg of losartan this morning and we will continue to monitor this. 11/28/2021 Patient is resting in bed today she has been downgraded to medical floor pending discharge tomorrow to rehab to complete course of IV antibiotics. She continues on 2-3 L of nasal cannula with saturation of 96%. She is afebrile, heart rate 67, blood pressure 152/77. She is tired today other gary no acute complaints over night. Reports cough with yellow sputum production. Blood sugar has improved to 118. Review of Systems Constitutional: Denies fatigue, denies fever Cardio vascular: denied any chest pain, palpitations Gastrointestinal: denied any nausea, vomiting, diarrhea Pulmonary: Denied any shortness of breath, Productive cough. Neurologic denied any new focal deficits All inpatient medications were reviewed and appropriate changes in these medications as dictated in the interval history and assessment and plan. PHYSICAL EXAMINATION: GENERAL: The patient is alert and oriented x3, not in any acute distress. Well developed, well nourished. HEENT: Pupils are round and equally reacting to light. EOMI. No scleral icterus. No conjunctival pallor. Normocephalic, atraumatic. No pharyngeal erythema. No thyromegaly. CARDIOVASCULAR: S1 and S2 present. Systolic murmur present. PULMONARY: Lungs are clear, no wheezing or crackles noted. ABDOMEN: Soft, nontender, nondistended, normoactive bowel sounds. No palpable organomegaly. MUSCULOSKELETAL: No joint swelling or deformity. EXTREMITIES: No cyanosis, clubbing, or pedal edema. NEUROLOGICAL: Gross neurological examination did not reveal any focal deficits. SKIN: No rashes. Assessment and Plan Assessment Acute hypoxic respiratory failure secondary to MRSA pneumonia, COPD exacerbation, improving back on home dose of 3L nasal cannula COPD, oxygen dependent, with acute exacerbation Chest pain, resolved, ACS has been ruled out Steroid induced hyperglycemia, improved Hypertension with elevated blood pressure, improved Hyperlipidemia History of liver disease History of hepatitis C History of sleep apnea, non compliant with CPAP Seizure disorder Chronic back pain Depression History of nicotine use GI Prophylaxis DVT Prophylaxis Plan Continue on oxygen, 2-3L nasal cannula Pt needs to wear oxygen while sleeping, she has sleep apnea. Continue IV vancomycin, transitioned to oral prednisone Continue losartan 100 mg po daily IV fluids to KVO Patient has been cleared from all consultations Insurance authorization is pending, discharge to rehab with IV antibiotics The impression and plan of care has been dictated by Laisha Lock Nurse Practitioner as directed. Dr. Zeinab MD I have performed a history and physical examination and medical decision making of this patient, discussed the same with the dictator, and agree with the dictators assessment and plan as written, documented as a scribe. Based on total visit time, I have performed more than 50% of this visit. Objective - Vital Signs Vital signs: Vital Signs Temp 98.4 F 11/28/21 07:23 Pulse 67 11/28/21 07:23 Resp 17 05/22/22 07:23 BP 152/77 11/28/21 07:23 Pulse Ox 92 L 11/28/21 07:23 Intake & Output 11/27/21 11/28/21 11/28/21 18:59 06:59 18:59 Intake Total 358 Balance 358 Intake: Oral 358 Other: Voiding Method Toilet Toilet # Voids 3 4 - Labs CBC & Chem 7: 11/24/21 06:17 11/28/21 04:59 Labs: Abnormal Lab Results - Last 24 Hours (Table) 11/27/21 11/27/21 11/28/21 Range/Units 16:48 20:45 11:32 POC Glucose (mg/dL) 220 H 152 H 118 H (75-99) mg/dL Assessment and Plan Time with Patient: Less than 30
[2021-11-28 17:05] LABS: Glucose,Whole Blood 272 mg/dL (75-99)
[2021-11-28 20:05] LABS: Glucose,Whole Blood 103 mg/dL (75-99)
[2021-11-28] MEDS: INSULIN DETEMIR (LEVEMIR) 100 UNIT/ML SYR SQ SCH (20:48)
[2021-11-28] MEDS: traZODone HCL 50 MG TAB PO SCH (22:06)
[2021-11-29] MEDS: METHADONE 10 MG TAB PO SCH ×4 (06:02→22:26)
[2021-11-29 06:05] LABS: African American GFR (CKD) >90 (>60 ml/min/1.73 sqM); Non-African American GFR(CKD) >90 (>60 ml/min/1.73 sqM)
[2021-11-29 06:51] LABS: Glucose,Whole Blood 107 mg/dL (75-99)
[2021-11-29] MEDS: INSULIN ASPART (NovoLOG) 100 UNIT/ML VIAL SQ SCH ×4 (06:59→20:12)
[2021-11-29] MEDS: VANCOMYCIN 1,250 MG in SODIUM CHLORIDE 0.9% 250 ML IVPB SCH ×3 (07:21→22:26)
[2021-11-29] MEDS: LOSARTAN 50 MG TAB PO SCH (07:21)
[2021-11-29] MEDS: PREGABALIN 75 MG CAP PO SCH ×2 (07:21→20:13)
[2021-11-29] MEDS: amLODIPine 10 MG TAB PO SCH (07:22)
[2021-11-29] MEDS: levETIRAcetam 500 MG TAB PO SCH ×2 (07:22→20:11)
[2021-11-29] MEDS: predniSONE 20 MG TAB PO SCH (07:22)
[2021-11-29] MEDS: LORazepam 0.5 MG TAB PO SCH ×3 (07:22→22:26)
[2021-11-29] MEDS: PROPRANOLOL 20 MG TAB PO SCH (07:23)
[2021-11-29] MEDS: OXYBUTYNIN 10 MG TAB.ER.24 PO SCH (07:24)
--- NOTE | 2021-11-29 08:11 | P.DS ---
Providers Date of admission: 11/20/21 18:26 Attending physician: Jose Antonio Martínez MD Consults: 11/22/21 11:47 Consult Physician Routine Consulting Provider: Oc Peña Consult Reason/Comments: COPD exacerbation Do you want consulting provider notified?: Yes 11/24/21 10:10 Consult Physician Routine Consulting Provider: Kory Beltran Consult Reason/Comments: MRSA sputum Do you want consulting provider notified?: Yes Primary care physician: Clarke Robins Patient Condition at Discharge: Serious Plan - Discharge Summary New Discharge Prescriptions: New Losartan [Cozaar] 50 mg PO DAILY 30 Days #60 tab Ipratropium-Albuterol Nebulize [Duoneb 0.5 mg-3 mg/3 ml Soln] 3 ml INHALATION RT-Q6H PRN #20 dose PRN Reason: shortness of breath predniSONE 0 mg PO DIRECTED 12 Days #30 tab Acetaminophen Tab [Tylenol] 325 mg PO Q6HR PRN tab PRN Reason: Fever And/ Or Pain Budesonide-Formot 160-4.5 Mcg [Symbicort 160-4.5 Mcg Inhaler] 2 puff INHALAT ION RT-BID #1 each Vancomycin 1,250 mg IVPB Q8HR #0 each Continue amLODIPine BESYLATE [Amlodipine Besylate] 10 mg PO DAILY Propranolol [Inderal] 20 mg PO DAILY Methadone [Dolophine] 20 mg PO Q6H Pregabalin [Lyrica] 75 mg PO BID LORazepam [Ativan] 0.5 mg PO TID traZODone HCL 50 mg PO HS Tolterodine Tartrate [Detrol LA] 4 mg PO DAILY levETIRAcetam [Keppra Xr] 1,000 mg PO DAILY Albuterol Inhaler [Ventolin Hfa Inhaler] 2 puff INHALATION RT-QID #8 gm Discharge Medication List Propranolol [Inderal] 20 mg PO DAILY 04/01/16 [History] amLODIPine BESYLATE [Amlodipine Besylate] 10 mg PO DAILY 04/01/16 [History] Methadone [Dolophine] 20 mg PO Q6H 02/22/17 [History] LORazepam [Ativan] 0.5 mg PO TID 12/25/20 [History] Pregabalin [Lyrica] 75 mg PO BID 12/25/20 [History] Tolterodine Tartrate [Detrol LA] 4 mg PO DAILY 10/26/21 [History] levETIRAcetam [Keppra Xr] 1,000 mg PO DAILY 10/26/21 [History] traZODone HCL 50 mg PO HS 10/26/21 [History] Albuterol Inhaler [Ventolin Hfa Inhaler] 2 puff INHALATION RT-QID #8 gm 10/28/21 [Rx] Acetaminophen Tab [Tylenol] 325 mg PO Q6HR PRN tab 11/25/21 [Rx] Budesonide-Formot 160-4.5 Mcg [Symbicort 160-4.5 Mcg Inhaler] 2 puff INHALATION RT-BID #1 each 11/25/21 [Rx] Ipratropium-Albuterol Nebulize [Duoneb 0.5 mg-3 mg/3 ml Soln] 3 ml INHALATION RT-Q6H PRN #20 dose 11/25/21 [Rx] Losartan [Cozaar] 50 mg PO DAILY 30 Days #60 tab 11/25/21 [Rx] predniSONE 0 mg PO DIRECTED 12 Days #30 tab 11/25/21 [Rx] Vancomycin 1,250 mg IVPB Q8HR #0 each 11/29/21 [Rx] Follow up Appointment(s)/Referral(s): Oc Peña MD [STAFF PHYSICIAN] - 1 Week Ever Huffman DO [STAFF PHYSICIAN] - 2 Weeks Clarke Robins MD [Primary Care Provider] - 1-2 days Navarro Vázquez [NON-STAFF] - Ambulatory/Diagnostic Orders: Basic Metabolic Panel [LAB.AMB] Time Frame: 5 Days, Location: None Selected Patient Instructions/Handouts: COPD (Chronic Obstructive Pulmonary Disease) (ED), Pneumonia (ED), How Your Lungs Work (ED), Chronic Lung Disease and Infection Prevention (ED), Energy Conservation Techniques (ED) Activity/Diet/Wound Care/Special Instructions: Patient needs a nebulizer for discharge Patient needs home oxygen set up Discharge/Stand Alone Forms: Outpatient Counseling Discharge Disposition: HOME WITH HOME HEALTH SERVICES
--- NOTE | 2021-11-29 08:13 | P.DS ---
Providers Date of admission: 11/20/21 18:26 Attending physician: Jose Antonio Martínez MD Consults: 11/22/21 11:47 Consult Physician Routine Consulting Provider: Oc Peña Consult Reason/Comments: COPD exacerbation Do you want consulting provider notified?: Yes 11/24/21 10:10 Consult Physician Routine Consulting Provider: Kory Beltran Consult Reason/Comments: MRSA sputum Do you want consulting provider notified?: Yes Primary care physician: Clarke Robins Hospital Course: This discharge summary 66-year-old white female essentially admitted for pneumonia which tended ended up being MRSA. She needs vancomycin and due to her social aspect of opiate addiction and living with her 90-year-old mother she'll be transferred to rehab for finishing her IV therapy. The patient still has some issues regarding opiate dependency. She'll be discharged on methadone with IV antibiotic treatment. Underlying hypertension with hyperlipidemia. 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 Patient Condition at Discharge: Serious Plan - Discharge Summary New Discharge Prescriptions: New Losartan [Cozaar] 50 mg PO DAILY 30 Days #60 tab Ipratropium-Albuterol Nebulize [Duoneb 0.5 mg-3 mg/3 ml Soln] 3 ml INHALATION RT-Q6H PRN #20 dose PRN Reason: shortness of breath predniSONE 0 mg PO DIRECTED 12 Days #30 tab Acetaminophen Tab [Tylenol] 325 mg PO Q6HR PRN tab PRN Reason: Fever And/ Or Pain Budesonide-Formot 160-4.5 Mcg [Symbicort 160-4.5 Mcg Inhaler] 2 puff INHALATION RT-BID #1 each Vancomycin 1,250 mg IVPB Q8HR #0 each Continue amLODIPine BESYLATE [Amlodipine Besylate] 10 mg PO DAILY Propranolol [Inderal] 20 mg PO DAILY Methadone [Dolophine] 20 mg PO Q6H Pregabalin [Lyrica] 75 mg PO BID LORazepam [Ativan] 0.5 mg PO TID traZODone HCL 50 mg PO HS Tolterodine Tartrate [Detrol LA] 4 mg PO DAILY levETIRAcetam [Keppra Xr] 1,000 mg PO DAILY Albuterol Inhaler [Ventolin Hfa Inhaler] 2 puff INHALATION RT-QID #8 gm Discharge Medication List Propranolol [Inderal] 20 mg PO DAILY 04/01/16 [History] amLODIPine BESYLATE [Amlodipine Besylate] 10 mg PO DAILY 04/01/16 [History] Methadone [Dolophine] 20 mg PO Q6H 02/22/17 [History] LORazepam [Ativan] 0.5 mg PO TID 12/25/20 [History] Pregabalin [Lyrica] 75 mg PO BID 12/25/20 [History] Tolterodine Tartrate [Detrol LA] 4 mg PO DAILY 10/26/21 [History] levETIRAcetam [Keppra Xr] 1,000 mg PO DAILY 10/26/21 [History] traZODone HCL 50 mg PO HS 10/26/21 [History] Albuterol Inhaler [Ventolin Hfa Inhaler] 2 puff INHALATION RT-QID #8 gm 10/28/21 [Rx] Acetaminophen Tab [Tylenol] 325 mg PO Q6HR PRN tab 11/25/21 [Rx] Budesonide-Formot 160-4.5 Mcg [Symbicort 160-4.5 Mcg Inhaler] 2 puff INHALATION RT-BID #1 each 11/25/21 [Rx] Ipratropium-Albuterol Nebulize [Duoneb 0.5 mg-3 mg/3 ml Soln] 3 ml INHALATION RT-Q6H PRN #20 dose 11/25/21 [Rx] Losartan [Cozaar] 50 mg PO DAILY 30 Days #60 tab 11/25/21 [Rx] predniSONE 0 mg PO DIRECTED 12 Days #30 tab 11/25/21 [Rx] Vancomycin 1,250 mg IVPB Q8HR #0 each 11/29/21 [Rx] Follow up Appointment(s)/Referral(s): Oc Peña MD [STAFF PHYSICIAN] - 1 Week Ever Huffman DO [STAFF PHYSICIAN] - 2 Weeks Clarke Robins MD [Primary Care Provider] - 1-2 days Navarro Vázquez [NON-STAFF] - Ambulatory/Diagnostic Orders: Basic Metabolic Panel [LAB.AMB] Time Frame: 5 Days, Location: None Selected Patient Instructions/Handouts: COPD (Chronic Obstructive Pulmonary Disease) (ED), Pneumonia (ED), How Your Lungs Work (ED), Chronic Lung Disease and Infecti on Prevention (ED), Energy Conservation Techniques (ED) Activity/Diet/Wound Care/Special Instructions: Patient needs a nebulizer for discharge Patient needs home oxygen set up Discharge/Stand Alone Forms: Outpatient Counseling Discharge Disposition: TRANSFER TO SNF/ECF
[2021-11-29] MEDS: SYMBICORT 160-4.5 MCG INHALER INHALATION SCH ×2 (08:33→19:36)
[2021-11-29 11:45] LABS: Glucose,Whole Blood 203 mg/dL (75-99)
[2021-11-29 16:22] LABS: Glucose,Whole Blood 240 mg/dL (75-99)
[2021-11-29 19:45] LABS: Glucose,Whole Blood 160 mg/dL (75-99)
[2021-11-29] MEDS: INSULIN DETEMIR (LEVEMIR) 100 UNIT/ML SYR SQ SCH (20:12)
[2021-11-29] MEDS: traZODone HCL 50 MG TAB PO SCH (20:13)
--- NOTE | 2021-11-29 23:51 | P.PN ---
Subjective Progress Note Date: 11/27/21 Principal diagnosis: MRSA pneumonia Patient is a 66-year female with a past medical history significant for COPD presented to hospital with negative shortness of breath and cough with evidence of extensive pneumonia sputum has been finalized with MRSA. On today's evaluation that is 11/27/2021, the patient continues to be afebrile patient is breathing comfortably on nasal cannula oxygen, the patient denies chest pain no worsening cough or sputum duction, the patient denies abdominal pain no diarrhea Objective - Vital Signs Vital signs: Vital Signs Temp 98.3 F 11/27/21 12:00 Pulse 63 11/27/21 12:00 Resp 16 11/27/21 12:00 BP 172/79 11/27/21 12:00 Pulse Ox 97 11/27/21 12:00 Intake & Output 11/26/21 11/27/21 11/27/21 18:59 06:59 18:59 Intake Total 240 240 Balance 240 240 Intake: Oral 240 240 Other: Voiding Method Bedside Commode Toilet # Voids 2 2 3 # Bowel Movements 1 - Exam GENERAL DESCRIPTION: An elderly female lying in bed in no distress RESPIRATORY SYSTEM: Unlabored breathing , decreased breath sounds at bases HEART: S1 S2 regular rate and rhythm , ABDOMEN: Soft , no tenderness EXTREMITIES: No edema feet - Labs CBC & Chem 7: 11/24/21 06:17 11/29/21 04:35 Labs: Abnormal Lab Results - Last 24 Hours (Table) 11/26/21 11/26/21 11/27/21 Range/Units 16:43 20:50 06:46 Carbon Dioxide (22-30) mmol/L Creatinine (0.52-1.04) mg/dL Glucose (74-99) mg/dL POC Glucose (mg/dL) 202 H 176 H 171 H (75-99) mg/dL 11/27/21 11/27/21 Range/Units 08:07 12:34 Carbon Dioxide 38 H (22-30) mmol/L Creatinine 0.47 L (0.52-1.04) mg/dL Glucose 137 H (74-99) mg/dL POC Glucose (mg/dL) 104 H (75-99) mg/dL Microbiology - Last 24 Hours (Table) 11/20/21 15:29 Blood Culture - Final Blood No Growth after 144 hours 11/20/21 15:29 Blood Culture - Final Blood No Growth after 144 hours Assessment and Plan (1) Community acquired pneumonia Current Visit: Yes Status: Acute Code(s): J18.9 - PNEUMONIA, UNSPECIFIED ORGANISM SNOMED Code(s): 335034987 Plan: 1patient presented to hospital with increasing shortness of breath and cough did have a fever with evidence of extensive pneumonia on the CT angiogram of the chest elevated procalcitonin now with a sputum finalized with MRSA more likely could be the source of of underlying pneumonia. 2patient to have a sulfa allergy that would limit the number of antibiotics safe to use. 3patient is currently on methadone that would contraindicate the use of Zyvox which could have been an ideal treatment for her. 4patient has shown clinical improvement and did got a PICC line plan is to continue with the vancomycin to finish a two-week course of therapy Time with Patient: Less than 30
--- NOTE | 2021-11-29 23:52 | P.PN ---
Subjective Progress Note Date: 11/28/21 Principal diagnosis: MRSA pneumonia Patient is a 66-year female with a past medical history significant for COPD presented to hospital with negative shortness of breath and cough with evidence of extensive pneumonia sputum has been finalized with MRSA. On today's evaluation that is 11/28/2021, the patient is afebrile, patient is breathing comfortably on nasal cannula oxygen, the patient denies chest pain did have occasional cough but no sputum production, the patient denies abdominal pain no diarrhea Objective - Vital Signs Vital signs: Vital Signs Temp 98.1 F 11/28/21 14:00 Pulse 68 11/28/21 14:00 Resp 17 11/28/21 14:00 BP 145/72 11/28/21 14:00 Pulse Ox 92 L 11/28/21 14:00 Intake & Output 11/27/21 11/28/21 11/28/21 18:59 06:59 18:59 Intake Total 358 Balance 358 Intake: Oral 358 Other: Voiding Method Toilet Toilet # Voids 3 4 - Exam GENERAL DESCRIPTION: An elderly female lying in bed in no distress RESPIRATORY SYSTEM: Unlabored breathing , decreased breath sounds at bases HEART: S1 S2 regular rate and rhythm , ABDOMEN: Soft , no tenderness EXTREMITIES: No edema feet - Labs CBC & Chem 7: 11/24/21 06:17 11/29/21 04:35 Labs: Abnormal Lab Results - Last 24 Hours (Table) 11/27/21 11/27/21 11/28/21 Range/Units 16:48 20:45 11:32 POC Glucose (mg/dL) 220 H 152 H 118 H (75-99) mg/dL Assessment and Plan (1) Community acquired pneumonia Current Visit: Yes Status: Acute Code(s): J18.9 - PNEUMONIA, UNSPECIFIED ORGANISM SNOMED Code(s): 940141645 Plan: 1patient presented to hospital with increasing shortness of breath and cough did have a fever with evidence of extensive pneumonia on the CT angiogram of the chest elevated procalcitonin now with a sputum finalized with MRSA more likely could be the source of of underlying pneumonia. 2patient to have a sulfa allergy that would limit the number of antibiotics safe to use. 3patient is currently on methadone that would contraindicate the use of Zyvox which could have been an ideal treatment for her. 4patient is slowly clinically improving and plan is to continue with the abdias salesin to finish a two-week course of therapy, currently waiting for placement Time with Patient: Less than 30
--- NOTE | 2021-11-29 23:54 | P.PN ---
Subjective Progress Note Date: 11/29/21 Principal diagnosis: MRSA pneumonia Patient is a 66-year female with a past medical history significant for COPD presented to hospital with negative shortness of breath and cough with evidence of extensive pneumonia sputum has been finalized with MRSA. On today's evaluation that is 11/29/2021, the patient denies any fever or any chills, patient is breathing comfortably, the patient denies chest pain , the patient did have occasional cough but mostly dry in nature, the patient denies abdominal pain no diarrhea Objective - Vital Signs Vital signs: Vital Signs Temp 98.0 F 11/29/21 07:19 Pulse 55 L 11/29/21 07:19 Resp 17 11/29/21 07:19 BP 158/77 11/29/21 07:19 Pulse Ox 93 L 11/29/21 07:19 FiO2 35 11/24/21 23:36 Intake & Output 11/28/21 11/29/21 11/29/21 18:59 06:59 18:59 Other: Voiding Method Toilet # Voids 6 0 # Bowel Movements 1 - Exam GENERAL DESCRIPTION: An elderly female lying in bed in no distress RESPIRATORY SYSTEM: Unlabored breathing , decreased breath sounds at bases HEART: S1 S2 regular rate and rhythm , ABDOMEN: Soft , no tenderness EXTREMITIES: No edema feet - Labs CBC & Chem 7: 11/24/21 06:17 11/29/21 04:35 Labs: Abnormal Lab Results - Last 24 Hours (Table) 11/28/21 11/28/21 11/29/21 Range/Units 17:03 20:03 04:35 Creatinine 0.44 L (0.52-1.04) mg/dL POC Glucose (mg/dL) 272 H 103 H (75-99) mg/dL 11/29/21 11/29/21 Range/Units 06:49 11:43 Creatinine (0.52-1.04) mg/dL POC Glucose (mg/dL) 107 H 203 H (75-99) mg/dL Assessment and Plan (1) Community acquired pneumonia Current Visit: Yes Status: Acute Code(s): J18.9 - PNEUMONIA, UNSPECIFIED ORGANISM SNOMED Code(s): 291414923 Plan: 1patient presented to hospital with increasing shortness of breath and cough did have a fever with evidence of extensive pneumonia on the CT angiogram of the chest elevated procalcitonin now with a sputum finalized with MRSA more likely could be the source of of underlying pneumonia. 2patient to have a sulfa allergy that would limit the number of antibiotics safe to use. 3patient is currently on methadone that would contraindicate the use of Zyvox which could have been an ideal treatment for her. 4patient has shown overall clinical improvement currently waiting for outpatient IV vancomycin arrangement befor discharge Time with Patient: Less than 30
[2021-11-30] MEDS: METHADONE 10 MG TAB PO SCH ×3 (05:48→17:14)
[2021-11-30 05:50] LABS: African American GFR (CKD) >90 (>60 ml/min/1.73 sqM); Non-African American GFR(CKD) >90 (>60 ml/min/1.73 sqM)
[2021-11-30 06:53] LABS: Glucose,Whole Blood 157 mg/dL (75-99)
[2021-11-30 07:41] VITALS: RESP 18
[2021-11-30] MEDS: VANCOMYCIN 1,250 MG in SODIUM CHLORIDE 0.9% 250 ML IVPB SCH ×2 (08:08→15:17)
[2021-11-30] MEDS: INSULIN ASPART (NovoLOG) 100 UNIT/ML VIAL SQ SCH ×3 (08:09→16:47)
[2021-11-30] MEDS: predniSONE 20 MG TAB PO SCH (08:10)
[2021-11-30] MEDS: PREGABALIN 75 MG CAP PO SCH (08:10)
[2021-11-30] MEDS: LOSARTAN 50 MG TAB PO SCH (08:11)
[2021-11-30] MEDS: LORazepam 0.5 MG TAB PO SCH ×2 (08:11→15:18)
[2021-11-30] MEDS: amLODIPine 10 MG TAB PO SCH (08:11)
[2021-11-30] MEDS: OXYBUTYNIN 10 MG TAB.ER.24 PO SCH (08:12)
[2021-11-30] MEDS: PROPRANOLOL 20 MG TAB PO SCH (08:12)
[2021-11-30] MEDS: levETIRAcetam 500 MG TAB PO SCH (08:12)
--- NOTE | 2021-11-30 08:33 | P.PN ---
Subjective Principal diagnosis: MRSA pneumonia The patient is here secondary to COPD pneumonia. She is stabilizing and we wish to transfer her for completion of her vancomycin but because of her methadone usage, we having difficulty finding a placement for her. She is stable otherwise. No voiding difficulty. No diarrhea Objective - Vital Signs Vital signs: Vital Signs Temp 98.5 F 11/30/21 07:40 Pulse 54 L 11/30/21 07:40 Resp 18 11/30/21 07:40 BP 175/73 11/30/21 07:40 Pulse Ox 97 11/30/21 07:40 FiO2 35 11/24/21 23:36 Intake & Output 11/29/21 11/30/21 11/30/21 18:59 06:59 18:59 Intake Total 1080 Balance 1080 Intake: Oral 1080 Other: Voiding Method Toilet # Voids 2 - Constitutional General appearance: Present: obese - EENT Eyes: Absent: abnormal pupil - Neck Neck: Absent: lymphadenopathy - Respiratory Respiratory: bilateral: diminished - Cardiovascular Rhythm: regular Heart sounds: normal: S1, S2 Abnormal Heart Sounds: Absent: S3 Gallop - Gastrointestinal General gastrointestinal: Present: soft. Absent: tenderness - Labs CBC & Chem 7: 11/24/21 06:17 11/30/21 04:19 Labs: Abnormal Lab Results - Last 24 Hours (Table) 11/29/21 11/29/21 11/29/21 Range/Units 11:43 16:21 19:43 Creatinine (0.52-1.04) mg/dL POC Glucose (mg/dL) 203 H 240 H 160 H (75-99) mg/dL 11/30/21 11/30/21 Range/Units 04:19 06:51 Creatinine 0.45 L (0.52-1.04) mg/dL POC Glucose (mg/dL) 157 H (75-99) mg/dL Assessment and Plan (1) Chronic obstructive pulmonary disease with (acute) exacerbation Current Visit: Yes Status: Acute Code(s): J44.1 - CHRONIC OBSTRUCTIVE PULMONARY DISEASE W (ACUTE) EXACERBATION SNOMED Code(s): 862692783 (2) Community acquired pneumonia Current Visit: Yes Status: Acute Code(s): J18.9 - PNEUMONIA, UNSPECIFIED ORGANISM SNOMED Code(s): 853796062 Plan: Anticipate discharge to rehab for infusion. Continue to follow.
[2021-11-30] MEDS: SYMBICORT 160-4.5 MCG INHALER INHALATION SCH (09:07)
[2021-11-30 11:18] LABS: Glucose,Whole Blood 205 mg/dL (75-99)
[2021-11-30 14:28] VITALS: BP 130/61; PULSE 58; TEMP 99.2
[2021-11-30 16:08] LABS: Glucose,Whole Blood 280 mg/dL (75-99)
[2021-12-01] MEDS ORDERED: VANCOMYCIN TROUGH DUE 1 EACH MISC MISCELLANE ONE (07:00)
== END 2021-11-30 18:32 | DRG 177 ==
LOC: EC 15:05 → 3SCARD 18:26 → 4SSUR 11-27 19:03
PROVIDERS: ADMIT Family Medicine; ATTEND Family Medicine
PROC: 02HV33Z Insertion of Infusion Device into Superior Vena Cava, Percutaneous Approach (ICD-10-PCS; principal; 2021-11-25 09:40)
DX: J15.212 Pneumonia due to Methicillin resistant Staphylococcus aureus (principal); J96.21 Acute and chronic respiratory failure with hypoxia; F11.20 Opioid dependence, uncomplicated; J44.0 Chronic obstructive pulmonary disease with (acute) lower respiratory infection; J44.1 Chronic obstructive pulmonary disease with (acute) exacerbation; J98.11 Atelectasis; M48.54XA Collapsed vertebra, not elsewhere classified, thoracic region, initial encounter for fracture; Z20.822 Contact with and (suspected) exposure to COVID-19; I50.9 Heart failure, unspecified; D72.810 Lymphocytopenia; E78.5 Hyperlipidemia, unspecified; J69.0 Pneumonitis due to inhalation of food and vomit; F17.210 Nicotine dependence, cigarettes, uncomplicated; F32.A Depression, unspecified; F41.9 Anxiety disorder, unspecified; I27.20 Pulmonary hypertension, unspecified; G47.33 Obstructive sleep apnea (adult) (pediatric); G40.909 Epilepsy, unspecified, not intractable, without status epilepticus; R29.6 Repeated falls; M54.50 Low back pain, unspecified; G89.29 Other chronic pain; Z99.81 Dependence on supplemental oxygen; H91.90 Unspecified hearing loss, unspecified ear; I11.0 Hypertensive heart disease with heart failure; I08.1 Rheumatic disorders of both mitral and tricuspid valves; K59.00 Constipation, unspecified; Z28.311 Partially vaccinated for COVID-19; T38.0X5A Adverse effect of glucocorticoids and synthetic analogues, initial encounter; Z79.2 Long term (current) use of antibiotics; Z79.899 Other long term (current) drug therapy; Z82.5 Family history of asthma and other chronic lower respiratory diseases; Z83.3 Family history of diabetes mellitus; Z91.19 Patient's noncompliance with other medical treatment and regimen; Z96.611 Presence of right artificial shoulder joint; Z91.81 History of falling; Z86.19 Personal history of other infectious and parasitic diseases; Z82.49 Family history of ischemic heart disease and other diseases of the circulatory system; Z79.82 Long term (current) use of aspirin
CPT/HCPCS: 36415; 36573; 36600; 71045; 71046; 71275; 78452; 80048; 80053; 80202; 81001; 82565; 82805; 83036; 83605; 83735; 83880; 84145; 84484; 85025; 85379; 85610; 85730; 87040; 87070; 87077; 87186; 87205; 87502; 87635; 93005; 93017; 93306; 93970; 94640; 94660; 94760; 96365; 96366; 96368; 96375; 99291

== ENCOUNTER 2021-12-03 09:11 | Emergency (ER) | payer MEDICARE ==
--- NOTE | 2021-12-03 09:23 | ED ---
General Adult HPI - General Stated complaint: Picc Line Issues Time Seen by Provider: 12/03/21 09:17 Source: patient, EMS, RN notes reviewed Mode of arrival: EMS Limitations: no limitations - History of Present Illness Initial comments: Patient is a pleasant 66-year-old female presenting to the emergency department with concerns for right upper extremity discomfort. Patient had a PICC line placed less than a week ago. Patient is on it for vancomycin secondary to pneumonia. Patient states that is causing discomfort the past couple of days. Discomfort is moderate. Patient states it may be a tiny bit swollen. No redness. No fevers. Patient states her breathing has been improving since antibiotic therapy. Patient still has a mild cough - Related Data Home Medications Medication Instructions Recorded Confirmed Propranolol [Inderal] 20 mg PO DAILY 04/01/16 12/03/21 amLODIPine BESYLATE [Amlodipine 10 mg PO DAILY 04/01/16 12/03/21 Besylate] Methadone [Dolophine] 20 mg PO Q6H 02/22/17 12/03/21 LORazepam [Ativan] 0.5 mg PO TID 12/25/20 12/03/21 Pregabalin [Lyrica] 75 mg PO BID 12/25/20 12/03/21 Tolterodine Tartrate [Detrol LA] 4 mg PO DAILY 10/26/21 12/03/21 levETIRAcetam [Keppra Xr] 1,000 mg PO DAILY 10/26/21 12/03/21 traZODone HCL 50 mg PO HS 10/26/21 12/03/21 predniSONE See Taper PO DAILY 12/03/21 12/03/21 Previous Rx's Medication Instructions Recorded Albuterol Inhaler [Ventolin Hfa 2 puff INHALATION RT-QID #8 gm 10/28/21 Inhaler] Acetaminophen Tab [Tylenol] 325 mg PO Q6HR PRN tab 11/25/21 Budesonide-Formot 160-4.5 Mcg 2 puff INHALATION RT-BID #1 each 11/25/21 [Symbicort 160-4.5 Mcg Inhaler] Ipratropium-Albuterol Nebulize 3 ml INHALATION RT-Q6H PRN #20 dose 11/25/21 [Duoneb 0.5 mg-3 mg/3 ml Soln] Losartan [Cozaar] 50 mg PO DAILY 30 Days #60 tab 11/25/21 Vancomycin 1,250 mg IVPB Q8HR #0 each 11/29/21 Allergies Allergy/AdvReac Type Severity Reaction Status Date / Time clindamycin Allergy Swelling/Ra Verified 12/03/21 10:31 sh/Itching Sulfa (Sulfonamide AdvReac Nausea & Verified 12/03/21 10:31 Antibiotics) Vomiting Review of Systems ROS Statement: Those systems with pertinent positive or pertinent negative responses have been documented in the HPI. ROS Other: All systems not noted in ROS Statement are negative. Constitutional: Denies: fever Eyes: Denies: eye pain ENT: Denies: ear pain Respiratory: Reports: as per HPI, cough Cardiovascular: Denies: chest pain Endocrine: Denies: fatigue Gastrointestinal: Denies: abdominal pain Genitourinary: Denies: dysuria Musculoskeletal: Denies: back pain Skin: Denies: rash Past Medical History Past Medical History: Heart Failure, COPD, Hearing Disorder / Deafness, Hypertension, Liver Disease, Seizure Disorder, Sleep Apnea/CPAP/BIPAP Additional Past Medical History / Comment(s): Home oxygen which pt states she has not needed lately, P[place] bilaterally, weakness and falls, hepatitis c-pt believes she was tx for it in [place], chronic R shoulder pain, L forearm fracture with surgical repair from a fall, chronic low back pain, past opiod dependence, HELEN and is suppose to wear CPAP but does not, past cellulitis bilateral lower legs. History of Any Multi-Drug Resistant Organisms: MRSA Date of last positivie culture/infection: 11/21/21 MDRO Source:: MRSA SPUTUM Past Surgical History: Joint Replacement, Orthopedic Surgery Additional Past Surgical History / Comment(s): R shoulder arthroplasty due to fx from fall 2014, L forearm fracture with surgical repair including bone graft, colonoscopy. Past Anesthesia/Blood Transfusion Reactions: Unable to Obtain Additional Past Anesthesia/Blood Transfusion Reaction / Comment(s): Pt is slow to wake Smoking Status: Former smoker - Past Family History Father Family Medical History: Diabetes Mellitus Additional Family Medical History / Comment(s): Father was murdered Mother Family Medical History: Chest Pain / Angina, COPD, Renal Disease Additional Family Medical History / Comment(s): Mother is 88 yrs old. General Exam Limitations: no limitations General appearance: alert, in no apparent distress Eye exam: Present: normal appearance Neck exam: Present: normal inspection Respiratory exam: Present: normal lung sounds bilaterally Cardiovascular Exam: Present: regular rate, normal rhythm Expanded Peripheral pulses: 2+: Radial (R) GI/Abdominal exam: Present: soft. Absent: tenderness Extremities exam: Present: other (PICC line right upper extremity. Mild tenderness below the right elbow antecubital fossa. Mild to moderate tenderness above the area of PICC line insertion. No erythema. No swelling.) Neurological exam: Present: alert Psychiatric exam: Present: normal affect, normal mood Skin exam: Present: normal color. Absent: erythema Course Vital Signs 12/03/21 12/03/21 12/03/21 09:13 09:23 11:08 Temperature 98.7 F Pulse Rate 65 59 L 59 L Respiratory 20 18 18 Rate Blood Pressure 170/76 176/88 161/81 O2 Sat by Pulse 94 L 96 95 Oximetry - Reevaluation(s) Reevaluation #1: 12/03/21 11:13 Case was discussed with Dr. Flores who will take patient for replacement PICC line 12/03/21 12:15 Patient was reevaluated and updated. Patient is agitated that she has not received her methadone. Medical Decision Making - Medical Decision Making PICC line was removed and new one was placed by interventional radiology without complication. Patient reevaluated and resting comfortably in bed. Disposition Clinical Impression: Superficial vein thrombosis Disposition: HOME SELF-CARE Condition: Stable Instructions (If sedation given, give patient instructions): Superficial Thrombophlebitis (ED) Additional Instructions: Warm compresses to affected area. Aspirin daily. Please follow-up with primary care physician in the next day or 2 for recheck. Return for increased pain, swelling, worsening symptoms or other concerns. The new Line may be used the same as the old one was. Is patient prescribed a controlled substance at d/c from ED?: No Referrals: Clarke Robins MD [Primary Care Provider] - 1-2 days Time of Disposition: 11:13
--- NOTE | 2021-12-03 10:17 | US ---
EXAMINATION TYPE: US venous doppler duplex UE RT DATE OF EXAM: 12/03/2021 COMPARISON: NONE CLINICAL HISTORY: pain. Pain right arm had picc line put in a few days ago. SIDE PERFORMED: Right Right Arm: Right Basilic vein is compressible unable to detect color flow around PICC line. Other ves sels are negative for DVT. Grayscale, color doppler, spectral doppler imaging performed of the deep veins of the right upper ext remity. IMPRESSION: Superficial acute thrombus surrounding the PICC line is present in the basilic vein. No a cute DVT in the right upper extremity.
[2021-12-03] MEDS ORDERED: MORPHINE SULFATE 2 MG/ML SYRINGE IVP STA (11:10)
--- NOTE | 2021-12-03 13:51 | IR ---
EXAMINATION TYPE: IR cvc insert >=5 years DATE OF EXAM: 12/03/2021 COMPARISON: NONE CLINICAL HISTORY: Pain at insertion site right PICC line pneumonia Needs long-term intravenous access for antibiotics. PROCEDURE: Hand hygiene obtained with soap and water and alcohol-based hand rub. After informed consent, the skin overlying the left basilic vein was localized with ultrasound and no jace to be compressible and patent. An ultrasound image was obtained and submitted on the patient's c duncan. The overlying skin was prepped and draped and Lidocaine was used for local anesthesia. A skin cindy was made with a scalpel. Access was gained to the vein under ultrasound guidance with a 21 gau ge needle and a 0.018 inch wire was advanced. Access site was dilated with Peel-Away sheath and cath eter tailored to the appropriate length and advanced such that the distal tip is at the cavoatrial ju nction. Spot image was obtained verifying placement. Catheter was fixed to the skin and a sterile d ressing was placed following hemostasis. Catheter was aspirated and flushed with saline. Patient wa s discharged in stable condition without complication. Maximal barrier technique is utilized. Ultras ound image is documented on the chart. Ultrasound used with sterile technique. Fluoro time and fluoroscopic images submitted to document procedure: 0.1 minutes fluoroscopy time, 11 intraoperative C-arm images document the procedure IMPRESSION: STATUS POST ULTRASOUND AND FLUOROSCOPIC GUIDED PICC LINE PLACEMENT, READY FOR USE. THIS PROCEDURE WAS PERFORMED BY THE UNDERSIGNED.
[2021-12-03 14:35] VITALS: BP 138/72; PULSE 76; RESP 16; TEMP 97.7
== END 2021-12-03 15:00 | disposition home or self-care (01) ==
LOC: EC 09:11
DX: I82.819 Embolism and thrombosis of superficial veins of unspecified lower extremity (principal); I11.9 Hypertensive heart disease without heart failure; J44.9 Chronic obstructive pulmonary disease, unspecified; Z87.891 Personal history of nicotine dependence; Z88.1 Allergy status to other antibiotic agents; Z88.2 Allergy status to sulfonamides
CPT/HCPCS: 93971; 99283; 96374; J2270

== ENCOUNTER → 2022-06-28 | Outpatient (CLI) | payer MEDICARE ==
--- NOTE | 2022-07-01 09:42 | MM ---
Reason for Exam: Screening (asymptomatic). Patient History: Menarche at age 19. Postmenopausal. Risk Values: Christine 5 year model risk: 1.1%. NCI Lifetime model risk: 4.2%. Tissue Density: The breast tissue is heterogeneously dense. This may lower the sensitivity of mammography. Findings: Analyzed By CAD. There are a few scattered and regional benign appearing round calcifications throughout the bilateral breasts noted. There is no suspicious grouping of microcalcifications or suspicious mass in either breast. Overall Assessment: Benign, BI-RAD 2 Management: Screening Mammogram of both breasts in 1 year. A clinical breast exam by your physician is recommended on an annual basis and results should be correlated with mammographic findings. Electronically signed and approved by: Tai Deal M.D.
== END | disposition home or self-care (01) ==
LOC: RADMAMWWP 16:18
PROVIDERS: ATTEND Family Medicine
DX: Z12.31 Encounter for screening mammogram for malignant neoplasm of breast (principal); Z78.0 Asymptomatic menopausal state
CPT/HCPCS: 77063; 77067